=== PATIENT | male | born 1940 | race Caucasian/White ===

== ENCOUNTER 2024-01-15 08:57 | Emergency (ER) | payer MEDICARE, SELFPAY ==
--- NOTE | ~2024-01-15 | XR_ITS ---
EXAMINATION: XR chest 2V DATE: 01/15/2024 10:39 INDICATION: Shortness of breath. Congestive heart failure. TECHNIQUE: Frontal and lateral views of the chest were obtained. COMPARISON: None. FINDINGS: There are tiny pleural effusions. No pneumonia or pneumothorax. Cardiomegaly is noted. Ther e is a left chest wall pacer with leads in the right atrium and right ventricle. IMPRESSION: 1. Tiny pleural effusions. 2. Cardiomegaly. Reviewed, dictated and finalized at location A.
[2024-01-15 08:59] VITALS: BP 150/80; PULSE 83; RESP 19; TEMP 36.6; O2SAT 98
--- NOTE | 2024-01-15 09:35 | ECG_ITS ---
Test Date: 2024-01-15 09:39:57 Measurements Intervals [place] Rate: 76 P: 0 [place]: 0 QRS: 21 QRSD: 158 T: 136 QT: 440 QTc: 497 Interpretive Statements ATRIAL FIBRILLATION ELECTRONIC VENTRICULAR COMPLEXES LEFT BUNDLE BRANCH BLOCK BASELINE ARTIFACT- I, II, III, AVR ABNORMAL ECG No previous ECG available for comparison Electronically Signed On 01-15-2024 10:06:24 CDT by Tray Ladd D.O.
[2024-01-15 09:37] VITALS: PULSE 71
[2024-01-15 09:40] VITALS: O2SAT 100
--- NOTE | 2024-01-15 09:48 | ED.SOB ---
HPI - SOB/Dyspnea General Chief Complaint: Shortness of Breath/Dyspnea Stated Complaint: sob Time Seen by Provider: 01/15/24 09:39 Source: patient Mode of arrival: wheelchair Limitations: no limitations History of Present Illness HPI Narrative: This is an 83-year-old male that presents to the emergency department for shortness of breath. Ongoing since yesterday. Reports he has been increasingly ill over the last several months. He has history of COPD. Chronically wears oxygen via nasal cannula. He has had some swelling in his legs. He does report a cough. Denies fevers or chest pain. Related Data Home Medications Medication Instructions Recorded Confirmed levothyroxine 100 mcg tablet 100 mcg PO DAILY 08/07/20 losartan 25 mg tablet 12 mg PO DAILY 08/07/20 montelukast 10 mg tablet 10 mg PO DAILY 08/07/20 omeprazole 40 mg capsule,delayed 40 mg PO DAILY 08/07/20 release Allergies Allergy/AdvReac Type Severity Reaction Status Date / Time No Known Allergies Verified 01/15/24 09:04 Review of Systems Review of Systems: CONSTITUTIONAL: Denies fever CARDIOVASCULAR: Reports edema. Denies chest pain RESPIRATORY: Reports cough and dyspnea. All systems reviewed & are unremarkable except as noted in HPI and below PMFSH Past Medical History Medical History (Updated 01/15/24 @ 11:11 by Eva Giles PA-C) History of COPD History of hyperlipidemia History of hypertension Social History Social History (Updated 08/07/20 @ 15:36 by Tiffany Estrada) Smoking status: Light tobacco smoker Tobacco type: cigarettes and cigars Exam Narrative: GENERAL: Elderly, well-nourished, and in no acute distress. HEAD: Normocephalic, atraumatic. EYES: EOMI. ENT: Nares clear, no rhinorrhea or epistaxis. Mucous membranes moist. Oropharynx without tonsillar hypertrophy exudate or other lesions. NECK: Supple. No adenopathy or masses. CHEST: No respiratory distress. Lung sounds diminished with scattered wheezing. No rhonchi HEART: Regular rate and rhythm. No murmur heard. Normal peripheral pulses. EXTREMITIES: Normal range of motion. 1+ pitting edema to the bilateral lower extremities SKIN: Warm, dry, no rash. NEURO: No focal deficits. Alert and oriented x3. PSYCH: Normal mood and affect Course Course Emergency Course: patient reports relief after nebulizer treatment and steroid Vital Signs Vital signs: Vital Signs Temperature 98 F 01/15/24 08:59 Pulse Rate 83 01/15/24 08:59 Respiratory Rate 19 01/15/24 08:59 Blood Pressure 150/80 H 01/15/24 08:59 Pulse Oximetry 98 01/15/24 08:59 Oxygen Delivery Nasal Cannula 01/15/24 08:59 Oxygen Flow Rate 3 01/15/24 08:59 Temperature 98 F 01/15/24 08:59 Pulse Rate 87 01/15/24 11:06 Respiratory Rate 18 01/15/24 11:06 Blood Pressure 152/87 H 01/15/24 11:06 Pulse Oximetry 99 01/15/24 11:06 Oxygen Delivery Nasal Cannula 01/15/24 09:40 Oxygen Flow Rate 3 01/15/24 09:40 MDM - SOB/Dyspnea MDM Narrative Medical decision making narrative: Patient presents to the emergency department for shortness of breath. Ongoing since yesterday. Does report a nonproductive cough that is about his usual due to COPD. Patient chronically wears 3 L via nasal cannula. He has been stable on this since arrival. Heart rate is normal. He is afebrile. Cbc without leukocytosis. Metabolic panel with creatinine of 1.7, no acute electrolyte derangements. Unsure of what his baseline kidney function as we do not have any recent blood work here. BNP 1940. Chest x-ray shows tiny pleural effusions and cardiomegaly. Patient reports relief after nebulizer treatment and steroid. Reports he is ready for discharge. Reports he would like our PCP on-call as he is trying to change to [employer] providers due to insurance. He was given this information. He was given warnings to return to the ER Differential Diagnosis Differential diagnosis: Like
[2024-01-15 09:52] LABS: Basophils Percent Auto 0.6 % (0.2-1.2); Eosinophils Absolute Auto 0.2 K/mm3 (0-0.3); Eosinophils Percent Auto 4.8 % (0-4.4); Hematocrit 32.6 % (42.0-52.0); Hemoglobin 10.2 g/dL (14.0-18.0); Immature Granulocyte Absolute 0.01 K/mm3 (0.00-0.031); Immature Granulocyte Percent A 0.2 % (0-0.5); Lymphocytes Absolute Auto 1.12 K/mm3 (0.9-3.2); Lymphocytes Percent Auto 23.6 % (18.3-44.2); Mean Corpuscular HGB Conc 31.3 g/dl (32-36); Mean Corpuscular Hemoglobin 28.1 pg (26-34); Mean Corpuscular Volume 89.8 fl (80-100); Mean Platelet Volume 10.4 fl (7.4-10.4); Monocytes Absolute Auto 0.4 K/mm3 (0.1-0.6); Monocytes Percent Auto 9.1 % (2.6-8.5); Neutrophils Absolute Auto 2.9 K/mm3 (1.3-6.7); Neutrophils Percent Auto 61.7 % (45.5-73.1); Platelet Count Result 128 k/mm3 (150-375); Red Blood Count 3.63 M/mm3 (4.6-6.20); Red Cell Distribution Width 16.4 % (11.5-14.5); White Blood Count 4.8 K/mm3 (4.5-10.0)
[2024-01-15] MEDS: methylPREDNISolone SOD SUCC 125 MG VIAL IV PUSH (09:55)
[2024-01-15 09:57] VITALS: PULSE 86; RESP 23
[2024-01-15] MEDS: IPRATROPIUM BR 0.02% INH SOLN 0.5 MG/2.5 ML VIAL INHALATION (09:58)
[2024-01-15] MEDS: LEVALBUTEROL NEB 1.25 MG/3 ML INHALATION (09:58)
[2024-01-15 10:03] LABS: Alanine Aminotransferase 16 U/L (6-50); Albumin Level 3.7 g/dL (3.5-5.1); Alkaline Phosphatase 83 U/L (38-126); Anion Gap 7 mmol/L (4-12); Aspartate Amino Transferase 37 U/L (17-59); Bilirubin,Total 0.4 mg/dL (0.2-1.3); Blood Urea Nitrogen 12 mg/dL (9-20); Calcium 8.4 mg/dL (8.4-10.2); Carbon Dioxide 29 mmol/L (22-30); Chloride 96 mmol/L (98-107); Estimated CRCL calculation 35 ml/min; Estimated Glomerular Filt Rate 39; Glucose 87 mg/dL (65-110); Sodium 132 mmol/L (137-145)
[2024-01-15 10:04] VITALS: PULSE 75; RESP 18
[2024-01-15 10:09] LABS: INR 1.2; Prothrombin Time 15.3 Seconds (11.1-14.7)
[2024-01-15 10:10] LABS: Partial Thromboplastin Time 40.3 Seconds (22.3-36.8)
[2024-01-15 10:11] LABS: NT Pro B Type Natriuretic Pept 1940 pg/mL (19.9-100)
[2024-01-15 11:06] VITALS: BP 152/87; PULSE 87; RESP 18; O2SAT 99
== END 2024-01-15 11:27 | disposition home or self-care (01) ==
PROVIDERS: Emergency Medicine; Emergency Provider Physician Assistant
DX: J44.1 Chronic obstructive pulmonary disease with (acute) exacerbation (principal); I10 Essential (primary) hypertension; E78.5 Hyperlipidemia, unspecified; F17.210 Nicotine dependence, cigarettes, uncomplicated; Z99.81 Dependence on supplemental oxygen
CPT/HCPCS: 36415; 71046; 80053; 83880; 85025; 85610; 85730; 93005; 94640; 96374; 99284; J2919

== ENCOUNTER 2024-02-08 05:02 | Emergency (ER) | payer MEDICARE, SELFPAY ==
[2024-02-08] VITALS (14 sets, daily range): BP systolic 113–133; BP diastolic 69–88; PULSE 69–106; RESP 14–28; TEMP 36.4; O2SAT 97–100
--- NOTE | ~2024-02-08 | XR_ITS ---
EXAMINATION: XR chest 1V portable DATE: 02/08/2024 05:44 INDICATION: Chest pain and shortness of breath TECHNIQUE: frontal view of the chest was obtained. COMPARISON: Chest radiograph dated 01/15/24 FINDINGS: Mild linear discoid atelectasis at the medial left lung base. No other airspace opacities, pulmonary edema, pleural effusion or pneumothorax. Cardiomegaly. Dual lead pacemaker seen with leads projecting over the expected locations of the right atrium and right ventricle. Cholecystectomy clips in right upper quadrant. IMPRESSION: 1. Mild discoid atelectasis at the left lung base. No other acute cardiopulmonary disease. 2. Cardiomegaly. Reviewed, dictated and finalized at location A. IMPRESSION: 1. Mild discoid atelectasis at the left lung base. No other acute cardiopulmona ry disease. 2. Cardiomegaly.
--- NOTE | 2024-02-08 05:04 | ECG_ITS ---
Test Date: 2024-02-08 05:17:31 Measurements Intervals [place] Rate: 102 P: 0 KS: 0 QRS: 178 QRSD: 168 T: 60 QT: 417 QTc: 543 Interpretive Statements ATRIAL FIBRILLATION WITH RAPID VENTRICULAR RESPONSE LEFT BUNDLE BRANCH BLOCK Possible the limb lead reversal possible lateral myocardial infarction Compared to ECG 01/15/2024 09:39:57 Intraventricular conduction delay now present changing QRS axis in limb leads possible related to limb lead reversal Electronically Signed On 02-08-2024 11:37:15 CDT by Wei Capone M.D.
[2024-02-08 05:23] LABS: Basophils Percent Auto 0.7 % (0.2-1.2); Eosinophils Absolute Auto 0.1 K/mm3 (0-0.3); Eosinophils Percent Auto 2.3 % (0-4.4); Hemoglobin 11.1 g/dL (14.0-18.0); Immature Granulocyte Absolute 0.02 K/mm3 (0.00-0.031); Immature Granulocyte Percent A 0.3 % (0-0.5); Lymphocytes Absolute Auto 0.88 K/mm3 (0.9-3.2); Lymphocytes Percent Auto 14.6 % (18.3-44.2); Mean Corpuscular HGB Conc 31.7 g/dl (32-36); Mean Corpuscular Hemoglobin 28.6 pg (26-34); Mean Corpuscular Volume 90.2 fl (80-100); Mean Platelet Volume 10.7 fl (7.4-10.4); Monocytes Absolute Auto 0.7 K/mm3 (0.1-0.6); Neutrophils Absolute Auto 4.3 K/mm3 (1.3-6.7); Neutrophils Percent Auto 71.1 % (45.5-73.1); Platelet Count Result 192 k/mm3 (150-375); Red Blood Count 3.88 M/mm3 (4.6-6.20); Red Cell Distribution Width 16.4 % (11.5-14.5)
[2024-02-08 05:33] LABS: Alanine Aminotransferase 24 U/L (6-50); Albumin Level 4.2 g/dL (3.5-5.1); Alkaline Phosphatase 113 U/L (38-126); Anion Gap 9 mmol/L (4-12); Aspartate Amino Transferase 26 U/L (17-59); Bilirubin,Total 0.7 mg/dL (0.2-1.3); Blood Urea Nitrogen 19 mg/dL (9-20); Calcium 8.2 mg/dL (8.4-10.2); Carbon Dioxide 31 mmol/L (22-30); Chloride 96 mmol/L (98-107); Estimated CRCL calculation 37 ml/min; Estimated Glomerular Filt Rate 41; Glucose 105 mg/dL (65-110); INR 1.3; Lipase 76 U/L (23-300); Potassium 3.8 mmol/L (3.4-5.0); Prothrombin Time 16.4 Seconds (11.1-14.7); Sodium 136 mmol/L (137-145)
[2024-02-08 05:34] LABS: Partial Thromboplastin Time 39.8 Seconds (22.3-36.8)
[2024-02-08 05:45] LABS: Troponin I 0.019 ng/mL (0.000-0.034)
--- NOTE | 2024-02-08 05:46 | PC.NURSE ---
Called lab to add on BNP.
[2024-02-08] MEDS: ASPIRIN 81 MG CHEWABLE TABLET 324 MG PO (05:54)
[2024-02-08 06:08] LABS: NT Pro B Type Natriuretic Pept 2490 pg/mL (19.9-100)
--- NOTE | 2024-02-08 06:14 | ED.GENADULT ---
HPI - General Adult General Chief complaint: Arrhythmia/Palpitations Stated complaint: heart not beating right Time Seen by Provider: 02/08/24 05:20 History of Present Illness HPI narrative: Patient is a 83-year-old gentleman presents emergency department with chief complaint of shortness of breath palpitations. Patient normally wears approximately 3 L of nasal cannula oxygen all the time states he started having increasing shortness of breath patient has history of COPD also has a pacemaker and history of congestive heart failure. The patient states that started having shortness of breath noticed that his heart is been beating funny similar to whenever he has been cardioverted in the past. Related Data Home Medications Medication Instructions Recorded Confirmed levothyroxine 100 mcg tablet 100 mcg PO DAILY 08/07/20 losartan 25 mg tablet 12 mg PO DAILY 08/07/20 montelukast 10 mg tablet 10 mg PO DAILY 08/07/20 omeprazole 40 mg capsule,delayed 40 mg PO DAILY 08/07/20 release Allergies Allergy/AdvReac Type Severity Reaction Status Date / Time No Known Allergies Verified 02/08/24 05:15 Review of Systems Review of Systems: A 10 system review of systems was completed on the patient and is negative except for what is stated in the HPI. Nursing and ancillary documentation was reviewed. [facility] Past Medical History Medical History History of COPD History of hyperlipidemia History of hypertension Social History Social History Smoking status: Light tobacco smoker Tobacco type: cigarettes and cigars Exam Narrative: GENERAL: Well-appearing, well-nourished, and in no acute distress. HEAD: Normocephalic, atraumatic. EYES: PERRLA and EOMI. ENT: Nares clear, no rhinorrhea or epistaxis. Mucous membranes moist. NECK: Supple. CHEST: Clear to auscultation. No respiratory distress. There is a pacemaker present in the left chest wall HEART: Regular rate and rhythm. No murmur heard. Normal peripheral pulses. ABDOMEN: Soft, nontender, nondistended, normal active bowel sounds. EXTREMITIES: Normal range of motion. No edema. SKIN: Warm, dry, no rash. NEURO: No focal deficits. Alert and oriented x3. PSYCH: Normal mood and affect. Course Vital Signs Vital signs: Vital Signs Temperature 36.4 C L 02/08/24 05:08 Pulse Rate 104 H 02/08/24 05:08 Respiratory Rate 24 H 02/08/24 05:08 Pulse Oximetry 97 02/08/24 05:08 Oxygen Delivery Nasal Cannula 02/08/24 05:08 Oxygen Flow Rate 3 02/08/24 05:08 Temperature 36.4 C L 02/08/24 05:08 Pulse Rate 106 H 02/08/24 05:23 Respiratory Rate 16 02/08/24 05:23 Blood Pressure 121/71 02/08/24 05:23 Pulse Oximetry 100 02/08/24 05:23 Oxygen Delivery Nasal Cannula 02/08/24 05:13 Oxygen Flow Rate 3 02/08/24 05:13 Medical Decision Making MDM Narrative Medical decision making narrative: Differential diagnosis includes COPD exacerbation CHF exacerbation, pneumonia Chest x-ray showed no focal infiltrate patient is feeling better at this time pacer was interrogated that showed no acute abnormalities The patient will be discharged home with a short course of prednisone Vital Signs Vital Signs: Vital Signs Temperature 36.4 C L 02/08/24 05:08 Pulse Rate 104 H 02/08/24 05:08 Respiratory Rate 24 H 02/08/24 05:08 Pulse Oximetry 97 02/08/24 05:08 Oxygen Delivery Nasal Cannula 02/08/24 05:08 Oxygen Flow Rate 3 02/08/24 05:08 Temperature 36.4 C L 02/08/24 05:08 Pulse Rate 106 H 02/08/24 05:23 Respiratory Rate 16 02/08/24 05:23 Blood Pressure 121/71 02/08/24 05:23 Pulse Oximetry 100 02/08/24 05:23 Oxygen Delivery Nasal Cannula 02/08/24 05:13 Oxygen Flow Rate 3 02/08/24 05:13 Lab Data 02/08/24 05:16 02/08/24 05:16 Labs: Lab Results
== END 2024-02-08 07:26 | disposition home or self-care (01) ==
PROVIDERS: Emergency Provider Emergency Medicine
DX: J44.1 Chronic obstructive pulmonary disease with (acute) exacerbation (principal); I11.0 Hypertensive heart disease with heart failure; I50.9 Heart failure, unspecified; E78.5 Hyperlipidemia, unspecified; Z95.0 Presence of cardiac pacemaker; Z99.81 Dependence on supplemental oxygen; Z72.0 Tobacco use
CPT/HCPCS: 36415; 71045; 80053; 83690; 83880; 84484; 85025; 85610; 85730; 93005; 99284; A9270

== ENCOUNTER 2024-02-14 14:07 | Emergency (ER) | payer MEDICARE, SELFPAY ==
[2024-02-14] VITALS (16 sets, daily range): BP systolic 118–141; BP diastolic 61–89; PULSE 67–109; RESP 17–29; TEMP 36.7; O2SAT 86–100
--- NOTE | ~2024-02-14 | XR_ITS ---
EXAMINATION: XR chest 1V portable Exam Date/Time: 02/14/2024 14:45 CDT HISTORY: cough, loki SOB 4-5 DAYS COPD BILAT WHEEZING Comparison: 02/08/2024. RESULT: Lines, tubes, and devices: Left chest pacer with intact leads. Lungs and pleura: Clear. Cardiomediastinal silhouette: Stable. Other: No acute osseous or upper abdominal finding. IMPRESSION: No acute cardiopulmonary process. Reviewed, dictated and finalized at location K.
--- NOTE | 2024-02-14 14:14 | ECG_ITS ---
Test Date: 2024-02-14 14:18:09 Measurements Intervals [place] Rate: 96 P: 0 KS: 0 QRS: -42 QRSD: 169 T: 124 QT: 450 QTc: 570 Interpretive Statements ATRIAL FIBRILLATION MARKED LEFT AXIS DEVIATION [QRS AXIS < -30] LEFT BUNDLE BRANCH BLOCK [120+ ms QRS DURATION, 80+ ms Q/S IN V1/V2, 85+ ms R IN I/aVL/V5/V6] Compared to ECG 02/08/2024 05:17:31 Left-axis deviation now present Electronically Signed On 02-14-2024 14:43:34 CDT by Sawyer Carlson M.D.
[2024-02-14] MEDS: ALBUTEROL SULFATE NEB 2.5 MG/3 ML INH 15 MG INHALATION (14:25)
[2024-02-14] MEDS: IPRATROPIUM BR 0.02% INH SOLN 0.5 MG/2.5 ML VIAL 1 MG INHALATION (14:25)
[2024-02-14] MEDS: predniSONE 20 MG TABLET 40 MG PO (15:41)
--- NOTE | 2024-02-14 15:59 | ED_ITS ---
HPI - SOB/Dyspnea General Chief Complaint: Shortness of Breath/Dyspnea Stated Complaint: SOB Time Seen by Provider: 02/14/24 14:15 History of Present Illness HPI Narrative: Patient with history of COPD right-sided intermittent difficulty breathing since August presents here with some shortness of breath, no cough or chest pain. He would also like to have a new doctor. Related Data Home Medications Medication Instructions Recorded Confirmed levothyroxine 100 mcg tablet 100 mcg PO DAILY 08/07/20 losartan 25 mg tablet 12 mg PO DAILY 08/07/20 montelukast 10 mg tablet 10 mg PO DAILY 08/07/20 omeprazole 40 mg capsule,delayed 40 mg PO DAILY 08/07/20 release Allergies Allergy/AdvReac Type Severity Reaction Status Date / Time No Known Allergies Verified 02/14/24 14:23 Review of Systems Review of Systems: All systems reviewed & are unremarkable except as noted in HPI and below PMFSH Past Medical History Medical History History of COPD History of hyperlipidemia History of hypertension Social History Social History Smoking status: Light tobacco smoker Tobacco type: cigarettes and cigars Exam Narrative: EXAMINATION OF ORGAN SYSTEMS/BODY AREAS: Constitutional: Vital signs per nursing GENERAL:[No acute distress, non-toxic appearing.] HEAD: Normal with no signs of head trauma. EYES: EOMI, conjunctiva normal ENT: Hearing grossly intact LUNGS: Nonlabored breathing. Wheezing all lung hilliard HEART: Irregularly irregular rhythm ABD: [Soft], [nontender to palpation] EXT: Normal range of motion SKIN: [No rashes or lesions.] NEURO: [Alert and oriented x 3. No gross focal sensory or strength deficits.] PSYCH: Normal affect Course Vital Signs Vital signs: Vital Signs Temperature 98.1 F 02/14/24 14:07 Pulse Rate 67 02/14/24 14:07 Respiratory Rate 22 H 02/14/24 14:07 Blood Pressure 141/89 H 02/14/24 14:07 Pulse Oximetry 90 02/14/24 14:07 Oxygen Delivery Room Air 02/14/24 14:07 Temperature 98.1 F 02/14/24 14:07 Pulse Rate 100 02/14/24 16:04 Respiratory Rate 20 02/14/24 16:04 Blood Pressure 135/61 02/14/24 15:31 Pulse Oximetry 95 02/14/24 16:04 Oxygen Delivery Nasal Cannula 02/14/24 14:26 Oxygen Flow Rate 2 02/14/24 14:26 Fraction of Inspired Oxygen 28 02/14/24 14:26 MDM - SOB/Dyspnea MDM Narrative Medical decision making narrative: Patient presents with shortness of breath, on exam he is wheezing, breathing treatments initiated and prednisone given, chest x-ray is clear, he after her feels much better, states he is ready to go home, I did find that he was in atrial fibrillation on EKG on my independent interpretation shows AFib rate 96, QRS 169, QTC 570, left bundle-branch block. I did ask patient if he has atrial fibrillation, he is does not think so and does not think he is on a blood thinner, his also does not know. Given this I did ask if I can keep him in the hospital to treat this, the nurse called pharmacy and was able to find that he actually is already on Eliquis And is already being treated for atrial fibrillation. Patient remembers this. He again states he does not want to stay and he feels much better, lungs are now clear, vital signs are stable, have let him know that if things get worse he needs come back immediately. Patient agreeable to the plan. He would like to have new doctor so I did provide referral to new specialists. Discharge Plan Discharge Clinical Impression: Acute exacerbation of chronic bronchitis Patient Disposition: Home, Self-Care Condition: Stable Instructions: Antibiotic Form, Chronic Bronchitis (ED) Additional Instructions: Please follow-up with the primary care doctor, cigarette package examiner, and special education teachers on Friday. If you have any concerning symptoms including shortness of breath, chest pain, or anything else, come back to the emergency room immediately. Prescriptions: New prednisone 20 mg tablet 40 mg PO DAILY 4 Days Qty: 8 0RF albuterol sulfate 90 mcg/actuation HFA aerosol inhaler 2 puff inhalation QID PRN (Reason: shortness of breath or wheezing) Qty: 8.5 0RF No Action levothyroxine 100 mcg tablet 100 mcg PO DAILY omeprazole 40 mg capsule,delayed release(DR/EC) 40 mg PO DAILY losartan 25 mg tablet 12 mg PO DAILY montelukast 10 mg tablet 10 mg PO DAILY prednisone 20 mg tablet 40 mg PO DAILY 4 Days Qty: 8 0RF prednisone 20 mg tablet 40 mg PO DAILY 5 Days Qty: 10 0RF Follow-up/Referrals: Tray Ladd DO [Physician] - 2 Days Quynh Forbes DO [Physician] - 2 Days Nate Chappell MD [Physician] - 2 Days UNKNOWN,DOCTOR [Primary Care Provider] -
--- NOTE | 2024-02-14 16:08 | PC.NURSE ---
Patient and spouse unsure if the patient is taking Eliquis. Called pharmacy that they use ([facility] [address]) and they confirmed that the patient already takes eliquis. Spoke with Farhat [employer].
== END 2024-02-14 16:10 | disposition home or self-care (01) ==
PROVIDERS: Emergency Provider Emergency Medicine
DX: J44.1 Chronic obstructive pulmonary disease with (acute) exacerbation (principal); E78.5 Hyperlipidemia, unspecified; I10 Essential (primary) hypertension; F17.210 Nicotine dependence, cigarettes, uncomplicated; F17.290 Nicotine dependence, other tobacco product, uncomplicated; Z79.899 Other long term (current) drug therapy; I48.91 Unspecified atrial fibrillation; I44.7 Left bundle-branch block, unspecified
CPT/HCPCS: 71045; 93005; 94640; 99283; J7512

== ENCOUNTER 2024-02-22 09:25 | Observation (INO) | payer MEDICARE, SELFPAY ==
[2024-02-22] VITALS (20 sets, daily range): BP systolic 97–132; BP diastolic 56–68; PULSE 81–121; RESP 16–24; TEMP 36.3–36.6; O2SAT 94–100; BMI 34.2
--- NOTE | ~2024-02-22 | US_ITS ---
BILATERAL LOWER EXTREMITY VENOUS ULTRASOUND Ordering provider: Horace Sena MD History: . Edema . Comparison: None. FINDINGS: RIGHT LOWER EXTREMITY VEINS: --COMMON FEMORAL: Patent and free of thrombus. Normal compressibility, phasic flow and augmentation. --PROXIMAL SUPERFICIAL FEMORAL: Patent and free of thrombus. Normal compressibility, phasic flow and augmentation. --DISTAL SUPERFICIAL FEMORAL: Patent and free of thrombus. Normal compressibility, phasic flow and au gmentation. --POPLITEAL: Patent and free of thrombus. Normal compressibility, phasic flow and augmentation. --POSTERIOR TIBIAL: Patent and free of thrombus. Normal compressibility, phasic flow and augmentation . LEFT LOWER EXTREMITY VEINS: --COMMON FEMORAL: Patent and free of thrombus. Normal compressibility, phasic flow and augmentation. --PROXIMAL SUPERFICIAL FEMORAL: Patent and free of thrombus. Normal compressibility, phasic flow and augmentation. --DISTAL SUPERFICIAL FEMORAL: Patent and free of thrombus. Normal compressibility, phasic flow and au gmentation. --POPLITEAL: Patent and free of thrombus. Normal compressibility, phasic flow and augmentation. --POSTERIOR TIBIAL: Patent and free of thrombus. Normal compressibility, phasic flow and augmentation . IMPRESSION: Negative bilateral lower extremity venous US. No deep vein thrombosis. Reviewed, dictated and finalized at location A.
--- NOTE | ~2024-02-22 | XR_ITS ---
Clinical Indication: Shortness of breath PA and lateral views of the chest: Comparison: 02/14/2024 Findings: The lungs are clear, without evidence of focal consolidation or pleural effusion. Cardiome diastinal silhouette is within normal limits stable, with pacemaker device. Bones and soft tissues ar e unremarkable. Impression: Clear lungs. Reviewed, dictated and finalized at location . Impression: Clear lungs.
--- NOTE | 2024-02-22 09:31 | ECG_ITS ---
Test Date: 2024-02-22 09:33:42 Measurements Intervals Willard Rate: 104 P: 0 KS: 0 QRS: -19 QRSD: 165 T: 90 QT: 377 QTc: 496 Interpretive Statements ATRIAL FIBRILLATION WITH RAPID VENTRICULAR RESPONSE WITH ABERRANT CONDUCTION OR VENTRICULAR PREMATURE COMPLEXES LEFT BUNDLE BRANCH BLOCK [120+ ms QRS DURATION, 80+ ms Q/S IN V1/V2, 85+ ms R IN I/aVL/V5/V6] Intermittent ventricular pacing ABNORMAL ECG Electronically Signed On 02-23-2024 10:36:09 CDT by Aravind Galvez M.D.
--- NOTE | 2024-02-22 09:50 | ED_ITS ---
HPI - General Adult General Chief complaint: Shortness of Breath/Dyspnea Stated complaint: dyspnea History of Present Illness HPI narrative: 83-year-old male with history of atrial fibrillation present to the emergency department for evaluation for worsening shortness of breath since August. Patient reports he did have COVID back in August ultimately resulting in placement of a pacemaker. Patient arrives in AFib with RVR. Patient states he has had worsening shortness breath over the last few days although it has been steadily worsening since his illness and August. Patient does have lower extremity swelling that he states has also been worsening for and on no pneumonia time. Upon arrival emergency department patient does have audible wheezing and increased work of breathing. Patient denies any associated chest pain. Related Data Home Medications Medication Instructions Recorded Confirmed levothyroxine 100 mcg tablet 125 mcg PO DAILY 08/07/20 02/22/24 apixaban 5 mg tablet (Eliquis) 5 mg PO BID 02/22/24 02/22/24 buspirone 5 mg tablet 5 mg PO BID PRN Anxiety 02/22/24 02/22/24 diltiazem HCl 120 mg 120 mg PO DAILY 02/22/24 02/22/24 capsule,extended release 24 hr (Cardizem CD) solifenacin 10 mg tablet 10 mg PO DAILY 02/22/24 02/22/24 tamsulosin 0.4 mg capsule 0.4 mg PO DAILY 02/22/24 02/22/24 umeclidinium 62.5 mcg-vilanterol 2 inh inhalation BID 02/22/24 02/22/24 25 mcg/actuation powdr for inhalation (Anoro Ellipta) Allergies Allergy/AdvReac Type Severity Reaction Status Date / Time No Known Allergies Verified 02/14/24 14:23 Review of Systems Review of Systems: All systems reviewed & are unremarkable except as noted in HPI and below PMFSH Past Medical History Medical History History of COPD History of hyperlipidemia History of hypertension Social History Social History Smoking status: Former smoker Alcohol intake: current Drinks per week: 3 Substance use: never Substance use type: does not use Do You Feel Safe in your Home?: Yes Lack of Transportation: No Lack of Food: Never True Current Housing: I Have Housing Concerned About Future Housing: No Difficulty Paying Gas/Electric Bills: No Difficulty Paying for Meds: No Currently Unemployed: No Education: Decline to Answer Difficulty w/ Childcare or Family Care: No Spiritual care concerns: No Exam Narrative: APPEARANCE: W uncomfortable appearing HEAD: normocephalic, atraumatic. EYES: PERRLA/EOMI, conjunctivae clear. NOSE: Normal no drainage EARS:TMS clear with good light reflex. THROAT: Pharynx clear, no exudate. NECK: Supple. No adenopathy, no masses. RESPIRATORY: Congested and wheezing lung sounds bilaterally CARDIOVASCULAR: Regular rate and rhythm without murmurs rubs or gallops. ABDOMINAL: Soft, nontender, nondistended, normal bowel sounds MUSCULOSKELETAL: Moves all extremities. Lower extremity edema NEURO: Alert. Cranial nerves II through XII intact. Grossly intact SKIN: Warm, dry. Normal Color Course Vital Signs Vital signs: Vital Signs Temperature 97.6 F 02/22/24 09:31 Pulse Rate 108 H 02/22/24 09:31 Respiratory Rate 23 H 02/22/24 09:31 Blood Pressure 114/64 02/22/24 09:31 Pulse Oximetry 100 02/22/24 09:31 Oxygen Delivery Nasal Cannula 02/22/24 09:31 Oxygen Flow Rate 3 02/22/24 09:31 Temperature 97.5 F L 02/22/24 16:00 Pulse Rate 99 02/22/24 16:00 Respiratory Rate 22 H 02/22/24 16:00 Blood Pressure 97/60 L 02/22/24 16:00 Pulse Oximetry 99 02/22/24 16:00 Oxygen Delivery Nasal Cannula 02/22/24 16:00 Oxygen Flow Rate 3 02/22/24 16:00 Medical Decision Making [facility] Narrative Medical decision making narrative: 83-year-old male with history of AFib present to the emergency department AFib with RVR. Patient is normally on 3 days of oxygen by nasal cannula but does report increased shortness of breath. Patient did have some wheezing on initial presentation did feel improved after Xopenex. Patient is afebrile with no leukocytosis but does have a hemoglobin 8.6 which is decreased compared to his most recent hemoglobin and early February. Patient denies any active bleeding. Patient was Hemoccult negative on his digital rectal exam. INR is 1.3. ABG showed no significant hypercapnia. Patient's CMP is similar to his baseline with a creatinine of 1.7. Patient's troponin isn't elevated. Patient did have an elevated BNP almost 2900, this is mildly elevated compared to his baseline and patient does have bilateral lower extremity pitting edema. Patient was treated with a dose of Cardizem to help with his AFib with RVR and also treated with a dose of Lasix for CHF. Patient is negative to influenza RSV COVID. Case was discussed with hospitalist patient was accepted for admission for a suspected COPD exacerbation with increased work of breathing. Patient was comfortable the plan for admission. All questions concerns were addressed. Patient will be admitted to the IMU. Differential Diagnosis Differential Diagnosis: COPD, CHF, pneumonia, hypoxia Vital Signs Vital Signs: Vital Signs Temperature 97.6 F 02/22/24 09:31 Pulse Rate 108 H 02/22/24 09:31 Respiratory Rate 23 H 02/22/24 09:31 Blood Pressure 114/64 02/22/24 09:31 Pulse Oximetry 100 02/22/24 09:31 Oxygen Delivery Nasal Cannula 02/22/24 09:31 Oxygen Flow Rate 3 02/22/24 09:31 Temperature 97.5 F L 02/22/24 16:00 Pulse Rate 99 02/22/24 16:00 Respiratory Rate 22 H 02/22/24 16:00 Blood Pressure 97/60 L 02/22/24 16:00 Pulse Oximetry 99 02/22/24 16:00 Oxygen Delivery Nasal Cannula 02/22/24 16:00 Oxygen Flow Rate 3 02/22/24 16:00 Lab Data Lab results reviewed: Yes I reviewed the patient's lab results. 02/22/24 09:50 02/22/24 09:50 Labs: Lab Results 02/22/24 02/22/24 Range/Units 09:37 09:50 WBC 8.1 (4.5-10.0) K/mm3 RBC 3.02 L (4.6-6.20) M/mm3 Hgb 8.6 L (14.0-18.0) g/dL Hct 27.7 L (42.0-52.0) % MCV 91.7 (80-100) fl MCH 28.5 (26-34) pg MCHC 31.0 L (32-36) g/dl RDW 16.8 H (11.5-14.5) % Plt Count 184 (150-375) k/mm3 MPV 10.0 (7.4-10.4) fl Immature Gran % (Auto) 1.1 H (0-0.5) % Neut % (Auto) 77.4 H (45.5-73.1) % Lymph % (Auto) 10.9 L (18.3-44.2) % Fountain % (Auto) 9.4 H (2.6-8.5) % Eos % (Auto) 1.0 (0-4.4) % Baso % (Auto) 0.2 (0.2-1.2) % Lymph # (Auto) 0.88 L (0.9-3.2) K/mm3 Fountain # (Auto) 0.8 H (0.1-0.6) K/mm3 Eos # (Auto) 0.1 (0-0.3) K/mm3 Baso # (Auto) 0.0 (0.0-0.1) K/mm3 Abs Immat Gran (auto) 0.09 H (0.00-0.031) K/mm3 Absolute Neuts (auto) 6.3 (1.3-6.7) K/mm3 Absolute Nucleated RBC 0.000 (0.0-0.012) K/mm3 Nucleated RBC % 0.0 (0.0-0.2) % PT 16.1 H (11.1-14.7) Seconds INR 1.3 APTT 32.1 (22.3-36.8) Seconds Methemoglobin 0.2 (0-1.5) %THb Sodium 135 L (137-145) mmol/L Potassium 3.4 (3.4-5.0) mmol/L Chloride 97 L (98-107) mmol/L Carbon Dioxide 33 H (22-30) mmol/L Anion Gap 5 (4-12) mmol/L BUN 37 H D (9-20) mg/dL Creatinine 1.70 H (0.7-1.3) mg/dL Estim Creat Clear Calc 38 ml/min Estimated GFR 39 L (59 - ) Glucose 94 (65-110) mg/dL Calcium 8.3 L (8.4-10.2) mg/dL Total Bilirubin 0.8 (0.2-1.3) mg/dL AST 24 (17-59) U/L ALT 35 (6-50) U/L Alkaline Phosphatase 83 (38-126) U/L Troponin I 0.018 (0.000-0.034) ng/mL NT-Pro-B Natriuret Pep 2850 H (19.9-100) pg/mL Total Protein 6.0 L (6.3-8.2) g/dL Albumin 3.6 (3.5-5.1) g/dL Influenza A (RT-PCR) Negative (Negative) Influenza B (RT-PCR) Negative (Negative) RSV (RT-PCR) Negative (Negative) SARS-CoV-2 RNA (RT-PCR) Negative (Negative) ABG Data ABG results: 02/22/24 09:50 Puncture Site Right brachial ABG pH 7.465 H ABG pCO2 38.2 ABG pO2 117.9 H ABG PO2/FiO2 Ratio 3.28 ABG HCO3 26.9 H ABG O2 Saturation 98.5 ABG O2 Content 12.8 L ABG Base Excess 3.0 A-a Gradient 94.5 Oxyhemoglobin 97.9 Carboxyhemoglobin 0.4 Reduced Hemoglobin 1.5 Total Hemoglobin 9.1 L O2 Delivery Device Nasal cannula O2 Liters/Min 4.0 FiO2 36 Imaging Data Radiologist's impression: Impressions Chest X-Ray 02/22/24 10:22 Impression: Clear lungs. Discharge Plan Discharge Clinical Impression: Congestive heart failure, COPD (chronic obstructive pulmonary disease), Acute dyspnea, Anemia, Urinary retention Patient Disposition: Still a Patient Condition: Serious
[2024-02-22 09:55] LABS: Alveolar/Arterial O2 Gradient 94.5 mmHg; Carboxyhemoglobin 0.4 % THb (0-2.0); Fractional Inspired Oxygen 36 %; HCO3 ABG 26.9 mEq/l (22.0-26.0); Methemoglobin ABG 0.2 %THb (0-1.5); Oxygen Content ABG 12.8 %vol (16.0-22.0); Oxygen Saturation ABG 98.5 % (95.0-100.0); Oxyhemoglobin 97.9 % THb (90.0-100.0); PCO2 ABG 38.2 mmHg (35.0-45.0); PO2 ABG 117.9 mmHg (80.0-100.0); PO2 FiO2 Ratio Arterial Blood 3.28 %; Reduced Hemoglobin 1.5 %THb (0-5.0); Total Hemoglobin 9.1 g/dL (12.0-18.0); pH ABG 7.465 (7.350-7.450)
[2024-02-22 09:56] LABS: Device NASAL CANNULA; Site Drawn RIGHT BRACHIAL
[2024-02-22 09:57] LABS: Basophils Percent Auto 0.2 % (0.2-1.2); Eosinophils Absolute Auto 0.1 K/mm3 (0-0.3); Hematocrit 27.7 % (42.0-52.0); Hemoglobin 8.6 g/dL (14.0-18.0); Immature Granulocyte Absolute 0.09 K/mm3 (0.00-0.031); Immature Granulocyte Percent A 1.1 % (0-0.5); Lymphocytes Absolute Auto 0.88 K/mm3 (0.9-3.2); Lymphocytes Percent Auto 10.9 % (18.3-44.2); Mean Corpuscular Hemoglobin 28.5 pg (26-34); Mean Corpuscular Volume 91.7 fl (80-100); Monocytes Absolute Auto 0.8 K/mm3 (0.1-0.6); Monocytes Percent Auto 9.4 % (2.6-8.5); Neutrophils Absolute Auto 6.3 K/mm3 (1.3-6.7); Neutrophils Percent Auto 77.4 % (45.5-73.1); Platelet Count Result 184 k/mm3 (150-375); Red Blood Count 3.02 M/mm3 (4.6-6.20); Red Cell Distribution Width 16.8 % (11.5-14.5); White Blood Count 8.1 K/mm3 (4.5-10.0)
[2024-02-22] MEDS: FUROSEMIDE INJ 40 MG/4 ML VIAL IV PUSH ×2 (10:04→20:23)
[2024-02-22] MEDS: dilTIAZem HCl INJ 25 MG/5 ML VIAL 10 MG IV PUSH (10:04)
[2024-02-22 10:08] LABS: Alanine Aminotransferase 35 U/L (6-50); Albumin Level 3.6 g/dL (3.5-5.1); Alkaline Phosphatase 83 U/L (38-126); Anion Gap 5 mmol/L (4-12); Aspartate Amino Transferase 24 U/L (17-59); Bilirubin,Total 0.8 mg/dL (0.2-1.3); Blood Urea Nitrogen 37 mg/dL (9-20); Calcium 8.3 mg/dL (8.4-10.2); Carbon Dioxide 33 mmol/L (22-30); Chloride 97 mmol/L (98-107); Estimated CRCL calculation 38 ml/min; Estimated Glomerular Filt Rate 39; Glucose 94 mg/dL (65-110); Potassium 3.4 mmol/L (3.4-5.0); Sodium 135 mmol/L (137-145)
[2024-02-22 10:10] LABS: INR 1.3; Prothrombin Time 16.1 Seconds (11.1-14.7)
[2024-02-22 10:11] LABS: Partial Thromboplastin Time 32.1 Seconds (22.3-36.8)
[2024-02-22 10:16] LABS: NT Pro B Type Natriuretic Pept 2850 pg/mL (19.9-100)
[2024-02-22 10:24] LABS: Troponin I 0.018 ng/mL (0.000-0.034)
[2024-02-22 10:26] LABS: Influenza A QL RT-PCR Negative (Negative); Influenza B QL RT-PCR Negative (Negative); RSV RNA, RT-PCR Negative (Negative); SARS-CoV-2 RNA PCR Negative (Negative)
--- NOTE | 2024-02-22 12:09 | P.HP_ITS ---
H&P: HPI History of Present Illness Date/Time: 02/22/24 12:09 Chief Complaint: Shortness of breath Narrative: 83-year-old male who presents to the ER with shortness of breath which has been worsening over the past few days but has been ongoing for several months. He also has noticed lower extremity edema. He reports no cough fever chills. He has history of atrial fibrillation and had a dual-chamber pacemaker placed in August 2023. He had COVID back in August. He also reports audible wheezing that has been ongoing. Denies any chest pain. Review of Systems Review of Systems: - CONSTITUTIONAL: Denies weight loss, fe faviola and chills. - HEENT: Denies changes in vision and he aring - RESPIRATORY: Reports SOB and cough. - CV: Denies palpitations and CP. - GI: Denies abdominal pain, nausea, vom iting and diarrhea. - : Denies dysuria and urinary frequen cy. - MSK: Denies myalgia and joint pain. - SKIN: Denies rash and pruritus. - NEUROLOGICAL: Denies headache and sync ope. - PSYCHIATRIC: Denies recent changes in mood. Denies anxiety and depression. [facility] Past Medical History Medical History History of COPD History of hyperlipidemia History of hypertension Social History Social History Smoking status: Former smoker Alcohol intake: current Drinks per week: 3 Substance use: never Substance use type: does not use Do You Feel Safe in your Home?: Yes Lack of Transportation: No Lack of Food: Never True Current Housing: I Have Housing Concerned About Future Housing: No Difficulty Paying Gas/Electric Bills: No Difficulty Paying for Meds: No Currently Unemployed: No Education: Decline to Answer Difficulty w/ Childcare or Family Care: No Spiritual care concerns: No Meds Home Medications and Allergies Home Medications Medication Instructions Recorded Confirmed Type levothyroxine 100 mcg tablet 125 mcg PO DAILY 08/07/20 02/22/24 History albuterol sulfate 90 mcg/actuation 2 puff inhalation QID PRN 02/14/24 02/22/24 Rx aerosol inhaler shortness of breath or wheezing #8.5 grams apixaban 5 mg tablet (Eliquis) 5 mg PO BID 02/22/24 02/22/24 History buspirone 5 mg tablet 5 mg PO BID PRN Anxiety 02/22/24 02/22/24 History diltiazem HCl 120 mg 120 mg PO DAILY 02/22/24 02/22/24 History capsule,extended release 24 hr (Cardizem CD) solifenacin 10 mg tablet 10 mg PO DAILY 02/22/24 02/22/24 History tamsulosin 0.4 mg capsule 0.4 mg PO DAILY 02/22/24 02/22/24 History umeclidinium 62.5 mcg-vilanterol 2 inh inhalation BID 02/22/24 02/22/24 History 25 mcg/actuation powdr for inhalation (Anoro Ellipta) Allergies Allergy/AdvReac Type Severity Reaction Status Date / Time No Known Allergies Verified 02/14/24 14:23 Vital Signs Vital Signs - 24 hr 02/22/24 09:31 02/22/24 09:54 02/22/24 09:54 Temperature 97.6 F Pulse Rate 108 H 108 H Respiratory Rate 23 H Blood Pressure 114/64 Pulse Oximetry 100 100 Oxygen Delivery Nasal Cannula Nasal Cannula Oxygen Flow Rate 3 3 02/22/24 09:52 02/22/24 10:02 02/22/24 10:44 Temperature Pulse Rate 106 H 107 H 90 Respiratory Rate 20 20 17 Blood Pressure 124/59 L Pulse Oximetry 100 Oxygen Delivery Oxygen Flow Rate Exam Narrative: APPEARANCE: Well appearing, no pain, no distress, well-nourished. HEAD: normocephalic, atraumatic. EYES: PERRLA/EOMI, conjunctivae clear. NOSE: Normal no drainage NECK: Supple. No adenopathy, no masses. RESPIRATORY: Coarse breath sound bilaterally, wheezing lung sounds bilaterally CARDIOVASCULAR: Regular rate AFib rhythm without murmurs rubs or gallops. ABDOMINAL: Soft, nontender, nondistended, normal bowel sounds MUSCULOSKELETAL: Moves all extremities. Lower extremity edema bilateral 2+ NEURO: Alert. Cranial nerves II through XII intact. Grossly intact SKIN: Warm, dry. Normal Color H&P: Results Labs Labs: Short CBC 02/22/24 Range/Units 09:50 WBC 8.1 (4.5-10.0) K/mm3 Hgb 8.6 L (14.0-18.0) g/dL Hct 27.7 L (42.0-52.0) % Plt Count 184 (150-375) k/mm3 BMP 02/22/24 09:50 Sodium 135 L Potassium 3.4 Chloride 97 L Carbon Dioxide 33 H BUN 37 H D Creatinine 1.70 H Glucose 94 Calcium 8.3 L Cardiac Enzymes 02/22/24 Range/Units 09:50 Troponin I 0.018 (0.000-0.034) ng/mL Liver Function 02/22/24 Range/Units 09:50 Total Bilirubin 0.8 (0.2-1.3) mg/dL AST 24 (17-59) U/L ALT 35 (6-50) U/L Alkaline Phosphatase 83 (38-126) U/L Albumin 3.6 (3.5-5.1) g/dL Assessment and Plan Assessment and plan (1) Congestive heart failure: Code(s): I50.9 - Heart failure, unspecified Status: Acute (2) COPD (chronic obstructive pulmonary disease): Code(s): J44.9 - Chronic obstructive pulmonary disease, unspecified Status: Acute (3) Urinary retention: Code(s): R33.9 - Retention of urine, unspecified Status: Acute (4) Anemia: Code(s): D64.9 - Anemia, unspecified Status: Acute Plan 83-year-old male who presents to the ED with worsening shortness of breath since August. Patient had COVID back in August which resulted in placement of pacemaker. Patient has a history of atrial fibrillation and also on home oxygen 3 L via nasal cannula. He stated that his worsening shortness of breath has been ongoing for the past few days. Also reported lower extremity edema which has been worsening as well. Upon arrival to the ED his vitals were stable except for mild tachycardia with AFib on monitor. Patient was afebrile and wheezy on presentation. Wheezing improved with Xopenex. Laboratory evaluation showed WBC of 8.1 hemoglobin of 8.6 which is down from 11 from the past creatinine was 1.7 which is about his baseline. Troponin is negative at 0.018 BNP 2850. Influenza RSV COVID swab was negative. Chest x-ray was clear. ABG 7.46/38/117/27. Patient received a dose of Lasix for possible congestive heart failure. Versus COPD exacerbation. He is admitted for further treatment Shortness of breath likely COPD exacerbation chest x-ray clear. However does have bilateral lower extremity edema. BNP is elevated and received a dose of Lasix. Will continue with DuoNeb treatment. Will start with steroid for possible COPD exacerbation AFib with RVR mild received a dose of Cardizem in the ER. Resume home medications and monitor on telemetry. History of cardioversion in the past on anticoagulation with Eliquis. He is on amiodarone carvedilol and Cardizem. With low EF will hold Cardizem will continue rest Congestive heart failure EF of 35-40% with global hypokinesis. Per DAVID from 08/2023 mild MR mild TR Status post dual-chamber pacemaker implantation Coronary artery disease History of gastric ulcer Obstructive sleep apnea History of nonsustained ventricular tachycardia COPD History of BPH status post TURP with ongoing inability to completely empty bladder using straight cath p.r.n.. Keen has been placed in the ER Hypothyroidism Hypertension Acute on chronic anemia 8.6 few days back is 11.1 continue to monitor no signs of bleeding CKD stage 3 baseline creatinine 1.6-1.7 Left bundle branch block is chronic DVT prophylaxis on Eliquis at home Code status discussed with the patient to not resuscitate Hospitalist MIPS Advance Care Plan I have confirmed that the patient's Advanced Care Plan is present, code status is documented, or surrogate decision maker is listed in patient medical record.: Yes Medication Reconciliation I have utilized all available resources to obtain, update and review the patients current medications (includes all prescriptions, OTC, herbals, cannabis, and nutritional supplements).: Yes
--- NOTE | 2024-02-22 12:56 | PC.NURSE ---
This RN received report from ED. The pt is to go to IMU room 231.
--- NOTE | 2024-02-22 13:10 | ADMGEN ---
This patient, Jorge L Call, was admitted to IMU Room 231-01 @ 1310. Patient/family oriented to hospital policies and general routines including ID bracelet, bed and alarms, visiting hours, pain management, procedures, bathroom and other care routines, personal items, smoking policy, room service/diet, and visiting hours. Information on how to activate the Rapid Response Team has been discussed. Patient/Family are encouraged to report perceived risks to care and to ask questions if they do not understand what they are told or what they should do.
[2024-02-22] MEDS: LEVALBUTEROL NEB 1.25 MG/3 ML 0.63 MG INHALATION ×2 (13:43→20:36)
[2024-02-22 14:35] LABS: Troponin I 0.016 ng/mL (0.000-0.034)
--- NOTE | 2024-02-22 14:35 | PC.NURSE ---
This RN attempted to gather pt's current medications and pt is unable to confirm what medications he is currently taking. Pt states there is nobody who can bring in medication bottles from home. Pt does not have a current medication list. This RN called the [facility] pharmacy in [place] to see what medications were recently filled and refilled. This RN also called [facility], which pt states this is a pharmacy that mails medications to him, and they did not answer; this RN left a voicemail and is awaiting a return phone call. This RN communicated with the complications of the medication reconciliation.
[2024-02-22] MEDS: methylPREDNISolone SOD SUCC 40 MG VIAL IV PUSH (16:19)
[2024-02-22] MEDS: APIXABAN 5 MG TABLET PO (20:23)
[2024-02-22] MEDS: carvediloL 3.125 MG TABLET PO (20:23)
[2024-02-22] MEDS: busPIRone HCL 5 MG TABLET PO (20:23)
[2024-02-22 20:24] LABS: Free T4 Free Thyroxine Reflex 0.86 ng/dL (0.78-2.19)
[2024-02-22] MEDS: IPRATROPIUM BR 0.02% INH SOLN 0.5 MG/2.5 ML VIAL INHALATION (20:36)
[2024-02-22 21:11] LABS: Total Triiodothyronine (T3) 0.66 NG/ML (0.97-1.69)
[2024-02-23] VITALS (29 sets, daily range): BP systolic 101–113; BP diastolic 45–77; PULSE 54–125; RESP 20–24; TEMP 36.3–36.9; O2SAT 94–100
[2024-02-23] MEDS: IPRATROPIUM BR 0.02% INH SOLN 0.5 MG/2.5 ML VIAL INHALATION ×4 (02:47→21:24)
[2024-02-23] MEDS: LEVALBUTEROL NEB 1.25 MG/3 ML 0.63 MG INHALATION ×4 (02:48→21:27)
[2024-02-23] MEDS: methylPREDNISolone SOD SUCC 40 MG VIAL IV PUSH (02:49)
[2024-02-23 04:42] LABS: Basophils Percent Auto 0.1 % (0.2-1.2); Hematocrit 30.1 % (42.0-52.0); Hemoglobin 9.5 g/dL (14.0-18.0); Immature Granulocyte Absolute 0.11 K/mm3 (0.00-0.031); Immature Granulocyte Percent A 1.1 % (0-0.5); Lymphocytes Absolute Auto 0.41 K/mm3 (0.9-3.2); Lymphocytes Percent Auto 4.2 % (18.3-44.2); Mean Corpuscular HGB Conc 31.6 g/dl (32-36); Mean Corpuscular Hemoglobin 28.4 pg (26-34); Mean Corpuscular Volume 89.9 fl (80-100); Mean Platelet Volume 10.3 fl (7.4-10.4); Monocytes Absolute Auto 0.2 K/mm3 (0.1-0.6); Monocytes Percent Auto 1.6 % (2.6-8.5); Neutrophils Absolute Auto 9.1 K/mm3 (1.3-6.7); Platelet Count Result 210 k/mm3 (150-375); Red Blood Count 3.35 M/mm3 (4.6-6.20); Red Cell Distribution Width 16.4 % (11.5-14.5); White Blood Count 9.8 K/mm3 (4.5-10.0)
[2024-02-23 05:00] LABS: Alanine Aminotransferase 31 U/L (6-50); Albumin Level 3.5 g/dL (3.5-5.1); Alkaline Phosphatase 82 U/L (38-126); Anion Gap 7 mmol/L (4-12); Aspartate Amino Transferase 21 U/L (17-59); Bilirubin,Total 1.1 mg/dL (0.2-1.3); Blood Urea Nitrogen 33 mg/dL (9-20); Carbon Dioxide 30 mmol/L (22-30); Chloride 98 mmol/L (98-107); Estimated CRCL calculation 44 ml/min; Estimated Glomerular Filt Rate 48; Glucose 138 mg/dL (65-110); Magnesium 2.1 mg/dL (1.6-2.3); Potassium 3.6 mmol/L (3.4-5.0); Sodium 135 mmol/L (137-145)
[2024-02-23 05:11] LABS: Platelet Estimate Adequate (Adequate)
[2024-02-23 05:12] LABS: Anisocytosis 1+; Hypochromasia 1+; Poikilocytosis 1+
[2024-02-23 05:13] LABS: Crenated RBC 1+; Ovalocytes 1+; Schistocytes Rare
[2024-02-23] MEDS: LEVOTHYROXINE SODIUM 125 MCG TABLET PO (06:08)
[2024-02-23] MEDS: TAMSULOSIN HCL 0.4 MG CAPSULE PO (08:18)
[2024-02-23] MEDS: PANTOPRAZOLE 40 MG TABLET PO (08:18)
[2024-02-23] MEDS: carvediloL 3.125 MG TABLET PO ×2 (08:18→20:49)
[2024-02-23] MEDS: APIXABAN 5 MG TABLET PO ×2 (08:19→20:49)
[2024-02-23] MEDS: AMIODARONE HCL 200 MG TABLET PO (08:19)
[2024-02-23] MEDS: busPIRone HCL 5 MG TABLET PO ×2 (08:19→20:49)
[2024-02-23] MEDS: SOLIFENACIN 5 MG TABLET 10 MG PO (08:19)
[2024-02-23] MEDS: FUROSEMIDE INJ 40 MG/4 ML VIAL IV PUSH ×2 (08:20→20:49)
[2024-02-23] MEDS: dilTIAZem HCL CD 120 MG CAP.24HR PO (10:04)
--- NOTE | 2024-02-23 11:36 | P.PNIM_ITS ---
Progress Note: A&P Assessment and Plan (1) Congestive heart failure: Code(s): I50.9 - Heart failure, unspecified Status: Acute (2) COPD (chronic obstructive pulmonary disease): Code(s): J44.9 - Chronic obstructive pulmonary disease, unspecified Status: Acute (3) Urinary retention: Code(s): R33.9 - Retention of urine, unspecified Status: Acute (4) Anemia: Code(s): D64.9 - Anemia, unspecified Status: Acute Plan 83-year-old male who presents to the ED with worsening shortness of breath since August. Patient had COVID back in August which resulted in placement of pacemak er. Patient has a history of atrial fibrillation and also on home oxygen 3 L via nasal cannula. He stated that his worsening shortness of breath has been ongoing for the past few days. Also reported lower extremity edema which has been worsening as well. Upon arrival to the ED his vitals were stable except for mild tachycardia with AFib on monitor. Patient was afebrile and wheezy on presentation. Wheezing improved with Xopenex. Laboratory evaluation showed WBC of 8.1 hemoglobin of 8.6 which is down from 11 from the past creatinine was 1.7 which is about his baseline. Troponin is negative at 0.018 BNP 2850. Influenza RSV COVID swab was negative. Chest x-ray was clear. ABG 7.46/38/117/27. Patient received a dose of Lasix for possible congestive heart failure. Versus COPD exacerbation. He is admitted for further treatment Shortness of breath likely COPD exacerbation chest x-ray clear. However does have bilateral lower extremity edema. BNP is elevated and received a dose of Lasix. Will continue with DuoNeb treatment. Will start with steroid for possible COPD exacerbation AFib with RVR mild received a dose of Cardizem in the ER. Resume home medications and monitor on telemetry. History of cardioversion in the past on anticoagulation with Eliquis. He is on amiodarone carvedilol and Cardizem. Resume Cardizem. Currently at mild RVR Congestive heart failure EF of 35-40% with global hypokinesis. 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 Keen has been placed in the ER Hypothyroidism TSH elevated 21.7 levothyroxine 125 mcg daily seen she was just recently increased. Follow-up as an outpatient basis Hypertension Acute on chronic anemia 8.6 few days back is 11.1 continue to monitor no signs of bleeding CKD stage 3 baseline creatinine 1.6-1.7 Left bundle branch block is chronic DVT prophylaxis on Eliquis at home Code status discussed with the patient to not resuscitate Subjective Date/time seen: 02/23/24 11:36 Interval history: No overnight events: Heart rate is elevated. Denies any chest pain. Some shortness of breath persist. Legs are still swollen. Review of Systems Review of Systems: All systems reviewed & are unremarkable except as noted in HPI and below Exam Narrative: APPEARANCE: Well appearing, no pain, no distress, well-nourished. HEAD: normocephalic, atraumatic. EYES: PERRLA/EOMI, conjunctivae clear. NOSE: Normal no drainage NECK: Supple. No adenopathy, no masses. RESPIRATORY: Coarse breath sound bilaterally, S sound bilaterally no wheezing CARDIOVASCULAR: Tachycardic, AFib rhythm without murmurs rubs or gallops. ABDOMINAL: Soft, nontender, nondistended, normal bowel sounds MUSCULOSKELETAL: Moves all extremities. Lower extremity edema bilateral 2+ NEURO: Alert. Cranial nerves II through XII intact. Grossly intact SKIN: Warm, dry. Normal Color Objective Data Vital Signs Vital Signs: Vital Signs - 24 hr 02/22/24 12:59 02/22/24 13:27 02/22/24 13:44 Temperature 97.3 F L Pulse Rate 102 H 97 Respiratory Rate 16 20 Blood Pressure 119/68 132/58 L Pulse Oximetry 98 100 97 Oxygen Delivery Nasal Cannula Oxygen Flow Rate 3 Fraction of Inspired Oxygen 02/22/24 13:44 02/22/24 13:53 02/22/24 13:30 Temperature Pulse Rate 82 81 Respiratory Rate 20 20 Blood Pressure Pulse Oximetry 97 Oxygen Delivery Nasal Cannula Oxygen Flow Rate 3 Fraction of Inspired Oxygen 02/22/24 16:00 02/22/24 14:00 02/22/24 16:00 Temperature 97.5 F L Pulse Rate 105 H 84 99 Respiratory Rate 22 H Blood Pressure 97/60 L Pulse Oximetry 99 Oxygen Delivery Oxygen Flow Rate Fraction of Inspired Oxygen 02/22/24 16:00 02/22/24 18:25 02/22/24 19:01 Temperature 97.5 F L Pulse Rate 96 98 Respiratory Rate 24 H Blood Pressure 98/60 L Pulse Oximetry 99 94 Oxygen Delivery Nasal Cannula Oxygen Flow Rate 3 Fraction of Inspired Oxygen 02/22/24 20:23 02/22/24 20:36 02/22/24 20:36 Temperature Pulse Rate 101 H 121 H Respiratory Rate 20 Blood Pressure Pulse Oximetry 98 Oxygen Delivery Nasal Cannula Oxygen Flow Rate 3 Fraction of Inspired Oxygen 02/22/24 20:45 02/22/24 20:00 02/22/24 20:00 Temperature Pulse Rate 104 H 104 H 104 H Respiratory Rate 20 20 Blood Pressure Pulse Oximetry 98 Oxygen Delivery Nasal Cannula Oxygen Flow Rate 3 Fraction of Inspired Oxygen 02/22/24 21:38 02/22/24 23:54 02/22/24 23:54 Temperature Pulse Rate 120 H 92 98 Respiratory Rate 20 Blood Pressure Pulse Oximetry 98 Oxygen Delivery Nasal Cannula Oxygen Flow Rate 3 Fraction of Inspired Oxygen 02/22/24 23:54 02/23/24 02:00 02/23/24 02:48 Temperature 98 F Pulse Rate 98 110 H 121 H Respiratory Rate 22 H 20 Blood Pressure 108/56 L Pulse Oximetry 100 Oxygen Delivery Oxygen Flow Rate Fraction of Inspired Oxygen 02/23/24 03:05 02/23/24 03:23 02/23/24 03:23 Temperature Pulse Rate 101 H 101 H 101 H Respiratory Rate 20 20 Blood Pressure Pulse Oximetry 100 Oxygen Delivery Nasal Cannula Oxygen Flow Rate 3 Fraction of Inspired Oxygen 02/23/24 03:28 02/23/24 06:00 02/23/24 08:09 Temperature 98.2 F Pulse Rate 101 H 115 H Respiratory Rate 22 H Blood Pressure 113/77 Pulse Oximetry 100 100 Oxygen Delivery Nasal Cannula Oxygen Flow Rate 3 Fraction of Inspired Oxygen 32 02/23/24 08:09 02/23/24 08:18 02/23/24 08:19 Temperature Pulse Rate 117 H 110 H 110 H Respiratory Rate 20 Blood Pressure Pulse Oximetry Oxygen Delivery Oxygen Flow Rate Fraction of Inspired Oxygen 02/23/24 08:22 02/23/24 08:34 02/23/24 08:34 Temperature Pulse Rate 114 H 110 H Respiratory Rate 20 20 Blood Pressure Pulse Oximetry 100 Oxygen Delivery Nasal Cannula Oxygen Flow Rate 3 Fraction of Inspired Oxygen 02/23/24 08:00 02/23/24 10:00 Temperature 98.4 F Pulse Rate 125 H 101 H Respiratory Rate 20 Blood Pressure 113/73 Pulse Oximetry 96 Oxygen Delivery Oxygen Flow Rate Fraction of Inspired Oxygen Intake/Output Intake/Output: Intake & Output 02/20/24 02/21/24 02/22/24 02/23/24 23:59 23:59 23:59 23:59 Intake Total 240 500 Output Total 3750 9690 Balance -3510 -9560 Meds/Results Medications: Active Medications Generic Name Dose Route Start Last Admin Trade Name Freq PRN Reason Stop Dose Admin Amiodarone HCl 200 mg 02/23/24 08:00 02/23/24 08:19 Amiodarone Hcl 200 Mg Tablet PO 200 mg DAILY@0800 NARENDRA Administration Apixaban 5 mg 02/22/24 21:00 02/23/24 08:19 Apixaban 5 Mg Tablet PO 5 mg Q12HR NARENDRA Administration Buspirone HCl 5 mg 02/22/24 21:00 02/23/24 08:19 Buspirone Hcl 5 Mg Tablet PO 5 mg Q12HR NARENDRA Administration Carvedilol 3.125 mg 02/22/24 21:00 02/23/24 08:18 Carvedilol 3.125 Mg Tablet PO 3.125 mg Q12HR NARENDRA Administration Diltiazem HCl 120 mg 02/23/24 09:00 02/23/24 10:04 Diltiazem Hcl Cd 120 Mg Cap.24hr PO 120 mg DAILY NARENDRA Administration Furosemide 40 mg 02/22/24 21:00 02/23/24 08:20 Furosemide Inj 40 Mg/4 Ml Vial IV PUSH 40 mg Q12HR NARENDRA Administration Ipratropium [place] 0.5 mg 02/22/24 20:00 02/23/24 08:09 Ipratropium Br 0.02% Inh Soln 0.5 Mg/2.5 Ml Vial INHALATION 0.5 mg Q6HRT NARENDRA Administration Levalbuterol HCl 0.63 mg 02/22/24 14:00 02/23/24 08:09 Levalbuterol Neb 1.25 Mg/3 Ml INHALATION 0.63 mg Q6HRT NARENDRA Administration Levothyroxine Sodium 125 mcg 02/23/24 06:30 02/23/24 06:08 Levothyroxine Sodium 125 Mcg Tablet PO 125 mcg DAILY@0630 NARENDRA Administration Losartan Potassium 25 mg 02/23/24 09:00 Losartan Potassium 25 Mg Tablet PO DAILY [facility] Methylprednisolone Sodium Succinate 40 mg 02/22/24 15:00 02/23/24 02:49 Methylprednisolone Sod Succ 40 Mg Vial IV PUSH 40 mg Q12H NARENDRA Administration Miscellaneous Information 1 each 02/23/24 00:01 Med Rec Order Clarification XX 03/24/24 00:00 CLARIFY [facility] Pantoprazole Sodium 40 mg 02/23/24 09:00 02/23/24 08:18 Pantoprazole 40 Mg Tablet PO 40 mg QAM NARENDRA Administration Solifenacin 10 mg 02/23/24 09:00 02/23/24 08:19 Solifenacin 5 Mg Tablet PO 10 mg DAILY NARENDRA Administration Tamsulosin HCl 0.4 mg 02/23/24 09:00 02/23/24 08:18 Tamsulosin Hcl 0.4 Mg Capsule PO 0.4 mg DAILY [facility] Administration Umeclidinium/Vilanterol 2 puff 02/22/24 17:00 Umeclidinium/Vilanterol 62.5-25 Mcg Ellipta INHALATION BID [facility] Radiology Results: ITS Impressions Chest X-Ray 02/22/24 10:22 Impression: Clear lungs. Venous Doppler Study 02/22/24 18:56 IMPRESSION: Negative bilateral lower extremity venous US. No deep vein thrombosis. Labs Labs: Laboratory Results - last 24 hr 02/22/24 02/23/24 14:08 04:33 WBC 9.8 RBC 3.35 L Hgb 9.5 L Hct 30.1 L MCV 89.9 MCH 28.4 MCHC 31.6 L RDW 16.4 H Plt Count 210 MPV 10.3 Immature Gran % (Auto) 1.1 H Neut % (Auto) 93.0 H Lymph % (Auto) 4.2 L [place] % (Auto) 1.6 L Eos % (Auto) 0.0 Baso % (Auto) 0.1 L Lymph # (Auto) 0.41 L [place] # (Auto) 0.2 Eos # (Auto) 0.0 Baso # (Auto) 0.0 Abs Immat Gran (auto) 0.11 H Absolute Neuts (auto) 9.1 H Absolute Nucleated RBC 0.000 Nucleated RBC % 0.0 Platelet Estimate Adequate Hypochromasia 1+ Poikilocytosis 1+ Anisocytosis 1+ Ovalocytes 1+ Crenated Cell 1+ Schistocytes Rare Sodium 135 L Potassium 3.6 Chloride 98 Carbon Dioxide 30 Anion Gap 7 BUN 33 H Creatinine 1.40 H Estim Creat Clear Calc 44 Estimated GFR 48 L Glucose 138 H Calcium 8.0 L Magnesium 2.1 Total Bilirubin 1.1 AST 21 ALT 31 Alkaline Phosphatase 82 Troponin I 0.016 Total Protein 6.0 L Albumin 3.5 TSH (Reflex) 21.700 H Free T4 0.86 Total T3 0.66 L
[2024-02-24] VITALS (23 sets, daily range): BP systolic 86–109; BP diastolic 48–83; PULSE 68–94; RESP 18–24; TEMP 36.2–36.6; O2SAT 96–100
[2024-02-24] MEDS: LEVALBUTEROL NEB 1.25 MG/3 ML 0.63 MG INHALATION ×3 (03:00→19:47)
[2024-02-24] MEDS: IPRATROPIUM BR 0.02% INH SOLN 0.5 MG/2.5 ML VIAL INHALATION ×3 (03:00→19:47)
[2024-02-24] MEDS: LEVOTHYROXINE SODIUM 125 MCG TABLET PO (04:42)
[2024-02-24] MEDS: SOLIFENACIN 5 MG TABLET 10 MG PO (08:35)
[2024-02-24] MEDS: carvediloL 3.125 MG TABLET PO ×2 (08:35→22:05)
[2024-02-24] MEDS: PANTOPRAZOLE 40 MG TABLET PO (08:36)
[2024-02-24] MEDS: predniSONE 20 MG TABLET 40 MG PO (08:36)
[2024-02-24] MEDS: AMIODARONE HCL 200 MG TABLET PO (08:36)
[2024-02-24] MEDS: busPIRone HCL 5 MG TABLET PO ×2 (08:37→22:06)
[2024-02-24] MEDS: APIXABAN 5 MG TABLET PO ×2 (08:37→22:06)
[2024-02-24] MEDS: dilTIAZem HCL CD 120 MG CAP.24HR PO (08:37)
[2024-02-24] MEDS: TAMSULOSIN HCL 0.4 MG CAPSULE PO (08:37)
[2024-02-24 09:24] LABS: Basophils Percent Auto 0.1 % (0.2-1.2); Eosinophils Percent Auto 0.3 % (0-4.4); Hematocrit 29.5 % (42.0-52.0); Hemoglobin 8.9 g/dL (14.0-18.0); Immature Granulocyte Absolute 0.09 K/mm3 (0.00-0.031); Immature Granulocyte Percent A 0.9 % (0-0.5); Lymphocytes Absolute Auto 1.02 K/mm3 (0.9-3.2); Lymphocytes Percent Auto 9.7 % (18.3-44.2); Mean Corpuscular HGB Conc 30.2 g/dl (32-36); Mean Corpuscular Hemoglobin 27.6 pg (26-34); Mean Corpuscular Volume 91.6 fl (80-100); Monocytes Percent Auto 9.1 % (2.6-8.5); Neutrophils Absolute Auto 8.4 K/mm3 (1.3-6.7); Neutrophils Percent Auto 79.9 % (45.5-73.1); Platelet Count Result 194 k/mm3 (150-375); Red Blood Count 3.22 M/mm3 (4.6-6.20); Red Cell Distribution Width 16.5 % (11.5-14.5); White Blood Count 10.5 K/mm3 (4.5-10.0)
[2024-02-24 09:42] LABS: Alanine Aminotransferase 23 U/L (6-50); Albumin Level 3.2 g/dL (3.5-5.1); Alkaline Phosphatase 72 U/L (38-126); Anion Gap 3 mmol/L (4-12); Aspartate Amino Transferase 18 U/L (17-59); Bilirubin,Total 0.9 mg/dL (0.2-1.3); Blood Urea Nitrogen 36 mg/dL (9-20); Calcium 7.8 mg/dL (8.4-10.2); Carbon Dioxide 38 mmol/L (22-30); Chloride 94 mmol/L (98-107); Estimated CRCL calculation 38 ml/min; Estimated Glomerular Filt Rate 41; Glucose 98 mg/dL (65-110); Magnesium 2.1 mg/dL (1.6-2.3); Potassium 3.7 mmol/L (3.4-5.0); Sodium 135 mmol/L (137-145)
--- NOTE | 2024-02-24 10:15 | PC.NURSE ---
pt seen by dr powell, downgrade to [facility] tele
--- NOTE | 2024-02-24 13:04 | PM.IMPN ---
Progress Note: A&P Assessment and Plan (1) Congestive heart failure: Code(s): I50.9 - Heart failure, unspecified Status: Acute (2) COPD (chronic obstructive pulmonary disease): Code(s): J44.9 - Chronic obstructive pulmonary disease, unspecified Status: Acute (3) Urinary retention: Code(s): R33.9 - Retention of urine, unspecified Status: Acute (4) Anemia: Code(s): D64.9 - Anemia, unspecified Status: Acute Plan 83-year-old male who presents to the ED with worsening shortness of breath since August. Patient had COVID back in August which resulted in placement of pacemaker. Patient has a history of atrial fibrillation and also on home oxygen 3 L via nasal cannula. He stated that his worsening shortness of breath has been ongoing for the past few days. Also reported lower extremity edema which has been worsening as well. Upon arrival to the ED his vitals were stable except for mild tachycardia with AFib on monitor. Patient was afebrile and wheezy on presentation. Wheezing improved with Xopenex. Laboratory evaluation showed WBC of 8.1 hemoglobin of 8.6 which is down from 11 from the past creatinine was 1.7 which is about his baseline. Troponin is negative at 0.018 BNP 2850. Influenza RSV COVID swab was negative. Chest x-ray was clear. ABG 7.46/38/117/27. Patient received a dose of Lasix for possible congestive heart failure. Versus COPD exacerbation. He is admitted for further treatment Shortness of breath likely COPD exacerbation chest x-ray clear. However does have bilateral lower extremity edema. BNP is elevated and received a dose of Lasix. Will continue with DuoNeb treatment. Will start with steroid for possible COPD exacerbation which has been switched to oral prednisone AFib with RVR mild received a dose of Cardizem in the ER. Resume home medications and monitor on telemetry. History of cardioversion in the past on anticoagulation with Eliquis. He is on amiodarone carvedilol and Cardizem. Resume Cardizem. Currently at mild RVR which has now improved Congestive heart failure EF of 35-40% with global hypokinesis. Per DAVID from 08/2023 mild MR mild TR. Hold diuresis due to lowish blood pressure resume Lasix daily from a.m. 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 Keen has been placed in the ER Hypothyroidism TSH elevated 21.7 levothyroxine 125 mcg daily seen she was just recently increased. Follow-up as an outpatient basis Hypertension Acute on chronic anemia 8.6 few days back is 11.1 continue to monitor no signs of bleeding CKD stage 3 baseline creatinine 1.6-1.7 Left bundle branch block is chronic DVT prophylaxis on Eliquis at home Code status discussed with the patient to not resuscitate Subjective Date/time seen: 02/24/24 13:04 Interval history: No overnight events feeling better. Leg swelling has improved. Blood pressure lowish heart rate is improved discussed with nursing staff Review of Systems Review of Systems: All systems reviewed & are unremarkable except as noted in HPI and below Exam Narrative: APPEARANCE: Well appearing, no pain, no distress, well-nourished. HEAD: normocephalic, atraumatic. EYES: PERRLA/EOMI, conjunctivae clear. NOSE: Normal no drainage NECK: Supple. No adenopathy, no masses. RESPIRATORY: Coarse breath sound bilaterally, mild wheezing CARDIOVASCULAR: Rate controlled, AFib rhythm without murmurs rubs or gallops. ABDOMINAL: Soft, nontender, nondistended, normal bowel sounds MUSCULOSKELETAL: Moves all extremities. Lower extremity edema bilateral 2+ NEURO: Alert. Cranial nerves II through XII intact. Grossly intact SKIN: Warm, dry. Normal Color Objective Data Vital Signs Vital Signs: Vital Signs - 24 hr 02/23/24 14:00 02/23/24 14:07 02/23/24 14:00 Temperature Pulse Rate 88 97 100 Respiratory Rate 20 20 Blood Pressure Pulse Oximetry Oxygen Delivery Oxygen Flow Rate Fraction of Inspired Oxygen 02/23/24 16:30 02/23/24 16:30 02/23/24 16:00 Temperature 97.6 F Pulse Rate 90 110 H Respiratory Rate 20 20 Blood Pressure 111/61 Pulse Oximetry 94 94 Oxygen Delivery Nasal Cannula Oxygen Flow Rate 3 Fraction of Inspired Oxygen 02/23/24 17:23 02/23/24 18:00 02/23/24 20:00 Temperature 97.3 F L Pulse Rate 92 75 54 L Respiratory Rate 20 Blood Pressure 111/77 Pulse Oximetry 97 Oxygen Delivery Oxygen Flow Rate Fraction of Inspired Oxygen 02/23/24 20:49 02/23/24 21:27 02/23/24 21:28 Temperature Pulse Rate 86 85 Respiratory Rate 24 H Blood Pressure Pulse Oximetry 99 Oxygen Delivery Nasal Cannula Oxygen Flow Rate 3 Fraction of Inspired Oxygen 02/23/24 21:41 02/23/24 20:00 02/23/24 20:00 Temperature Pulse Rate 86 81 81 Respiratory Rate 20 20 Blood Pressure Pulse Oximetry 99 Oxygen Delivery Nasal Cannula Oxygen Flow Rate 3 Fraction of Inspired Oxygen 32 02/23/24 22:00 02/24/24 00:00 02/24/24 00:00 Temperature Pulse Rate 82 86 82 Respiratory Rate 20 Blood Pressure Pulse Oximetry 99 Oxygen Delivery Nasal Cannula Oxygen Flow Rate 3 Fraction of Inspired Oxygen 32 02/24/24 00:26 02/24/24 02:00 02/24/24 03:27 Temperature 97.5 F L Pulse Rate 80 78 84 Respiratory Rate 18 Blood Pressure 86/56 L Pulse Oximetry 100 Oxygen Delivery Oxygen Flow Rate Fraction of Inspired Oxygen 02/24/24 03:27 02/24/24 03:41 02/24/24 05:07 Temperature 97.9 F Pulse Rate 84 93 72 Respiratory Rate 18 20 Blood Pressure 102/83 Pulse Oximetry 100 99 Oxygen Delivery Nasal Cannula Oxygen Flow Rate 3 Fraction of Inspired Oxygen 32 02/24/24 07:33 02/24/24 07:37 02/24/24 08:35 Temperature 97.6 F Pulse Rate 71 94 Respiratory Rate 24 H Blood Pressure 97/55 L Pulse Oximetry 97 100 Oxygen Delivery Nasal Cannula Oxygen Flow Rate 3 Fraction of Inspired Oxygen 02/24/24 08:36 02/24/24 08:00 02/24/24 10:00 Temperature Pulse Rate 94 83 75 Respiratory Rate Blood Pressure Pulse Oximetry Oxygen Delivery Oxygen Flow Rate Fraction of Inspired Oxygen 02/24/24 12:00 Temperature Pulse Rate 75 Respiratory Rate Blood Pressure Pulse Oximetry Oxygen Delivery Oxygen Flow Rate Fraction of Inspired Oxygen Intake/Output Intake/Output: Intake & Output 02/21/24 02/22/24 02/23/24 02/24/24 23:59 23:59 23:59 23:59 Intake Total 240 1880 1904 Output Total 8428 2421 3288 [facility] -[phone] Meds/Results Medications: Active Medications Generic Name Dose Route Start Last Admin Trade Name Daneq PRN Reason Stop Dose Admin Amiodarone HCl 200 mg 02/23/24 08:00 02/24/24 08:36 Amiodarone Hcl 200 Mg Tablet PO 200 mg DAILY@0800 NARENDRA Administration Apixaban 5 mg 02/22/24 21:00 02/24/24 08:37 Apixaban 5 Mg Tablet PO 5 mg Q12HR NARENDRA Administration Buspirone HCl 5 mg 02/22/24 21:00 02/24/24 08:37 Buspirone Hcl 5 Mg Tablet PO 5 mg Q12HR NARENDRA Administration Carvedilol 3.125 mg 02/22/24 21:00 02/24/24 08:35 Carvedilol 3.125 Mg Tablet PO 3.125 mg Q12HR NARENDRA Administration Diltiazem HCl 120 mg 02/23/24 09:00 02/24/24 08:37 Diltiazem Hcl Cd 120 Mg Cap.24hr PO 120 mg DAILY NARENDRA Administration Furosemide 40 mg 02/22/24 21:00 02/23/24 20:49 Furosemide Inj 40 Mg/4 Ml Vial IV PUSH 40 mg Q12HR NARENDRA Administration Ipratropium [place] 0.5 mg 02/22/24 20:00 02/24/24 08:00 Ipratropium Br 0.02% Inh Soln 0.5 Mg/2.5 Ml Vial INHALATION Not Given Q6HRT NARENDRA Levalbuterol HCl 0.63 mg 02/22/24 14:00 02/24/24 08:00 Levalbuterol Neb 1.25 Mg/3 Ml INHALATION Not Given Q6HRT [facility] Levothyroxine Sodium 125 mcg 02/23/24 06:30 02/24/24 04:42 Levothyroxine Sodium 125 Mcg Tablet PO 125 mcg DAILY@0630 NARENDRA Administration Losartan Potassium 25 mg 02/23/24 09:00 02/23/24 17:08 Losartan Potassium 25 Mg Tablet PO Not Given DAILY [facility] Miscellaneous Information 1 each 02/23/24 00:01 02/23/24 18:55 Med Rec Order Clarification XX 03/24/24 00:00 Not Given CLARIFY NARENDRA Pantoprazole Sodium 40 mg 02/23/24 09:00 02/24/24 08:36 Pantoprazole 40 Mg Tablet PO 40 mg QAM NARENDRA Administration Prednisone 40 mg 02/24/24 08:00 02/24/24 08:36 Prednisone 20 Mg Tablet PO 40 mg DAILY@0800 NARENDRA Administration Solifenacin 10 mg 02/23/24 09:00 02/24/24 08:35 Solifenacin 5 Mg Tablet PO 10 mg DAILY NARENDRA Administration Tamsulosin HCl 0.4 mg 02/23/24 09:00 02/24/24 08:37 Tamsulosin Hcl 0.4 Mg Capsule PO 0.4 mg DAILY [facility] Administration Umeclidinium/Vilanterol 2 puff 02/22/24 17:00 Umeclidinium/Vilanterol 62.5-25 Mcg Ellipta INHALATION BID [facility] Radiology Results: ITS Impressions Chest X-Ray 02/22/24 10:22 Impression: Clear lungs. Venous Doppler Study 02/22/24 18:56 IMPRESSION: Negative bilateral lower extremity venous US. No deep vein thrombosis. Labs Labs: Laboratory Results - last 24 hr 02/24/24 09:15 WBC 10.5 H RBC 3.22 L Hgb 8.9 L Hct 29.5 L MCV 91.6 MCH 27.6 MCHC 30.2 L RDW 16.5 H Plt Count 194 MPV 10.0 Immature Gran % (Auto) 0.9 H Neut % (Auto) 79.9 H Lymph % (Auto) 9.7 L [place] % (Auto) 9.1 H Eos % (Auto) 0.3 Baso % (Auto) 0.1 L Lymph # (Auto) 1.02 [place] # (Auto) 1.0 H Eos # (Auto) 0.0 Baso # (Auto) 0.0 Abs Immat Gran (auto) 0.09 H Absolute Neuts (auto) 8.4 H Absolute Nucleated RBC 0.000 Nucleated RBC % 0.0 Sodium 135 L Potassium 3.7 Chloride 94 L Carbon Dioxide 38 H Anion Gap 3 L BUN 36 H Creatinine 1.60 H Estim Creat Clear Calc 38 Estimated GFR 41 L Glucose 98 Calcium 7.8 L Magnesium 2.1 Total Bilirubin 0.9 AST 18 ALT 23 Alkaline Phosphatase 72 Total Protein 6.0 L Albumin 3.2 L
[2024-02-24] MEDS: FUROSEMIDE 40 MG TABLET PO (15:09)
--- NOTE | 2024-02-24 17:30 | PC.NURSE ---
attempted to call report, nurse is in room and will call back
--- NOTE | 2024-02-24 17:44 | PC.NURSE ---
report given to ashkan
--- NOTE | 2024-02-24 17:57 | PC.NURSE ---
pt taken to rm 303 by w/c with pct
--- NOTE | 2024-02-24 18:14 | PC.NURSE ---
This patient, Jorge L Call, was received from [[facility]] on 02/24/24 at 1810. Patient/family oriented to unit policies and routines. Report from Angel
[2024-02-25] VITALS (18 sets, daily range): BP systolic 90–110; BP diastolic 42–75; PULSE 64–100; RESP 18–22; TEMP 36.2–36.7; O2SAT 92–100
[2024-02-25] MEDS: LEVALBUTEROL NEB 1.25 MG/3 ML 0.63 MG INHALATION ×4 (02:25→21:02)
[2024-02-25] MEDS: IPRATROPIUM BR 0.02% INH SOLN 0.5 MG/2.5 ML VIAL INHALATION ×4 (02:25→21:02)
[2024-02-25] MEDS: LEVOTHYROXINE SODIUM 125 MCG TABLET PO (05:16)
[2024-02-25 06:53] LABS: Basophils Percent Auto 0.1 % (0.2-1.2); Eosinophils Percent Auto 0.1 % (0-4.4); Hemoglobin 9.6 g/dL (14.0-18.0); Immature Granulocyte Absolute 0.08 K/mm3 (0.00-0.031); Immature Granulocyte Percent A 0.7 % (0-0.5); Lymphocytes Absolute Auto 0.92 K/mm3 (0.9-3.2); Lymphocytes Percent Auto 8.2 % (18.3-44.2); Mean Corpuscular Hemoglobin 27.4 pg (26-34); Mean Corpuscular Volume 91.2 fl (80-100); Mean Platelet Volume 10.5 fl (7.4-10.4); Monocytes Absolute Auto 0.6 K/mm3 (0.1-0.6); Monocytes Percent Auto 5.5 % (2.6-8.5); Neutrophils Absolute Auto 9.6 K/mm3 (1.3-6.7); Neutrophils Percent Auto 85.4 % (45.5-73.1); Platelet Count Result 215 k/mm3 (150-375); Red Blood Count 3.51 M/mm3 (4.6-6.20); Red Cell Distribution Width 16.3 % (11.5-14.5); White Blood Count 11.2 K/mm3 (4.5-10.0)
[2024-02-25 07:45] LABS: Albumin Level 3.5 g/dL (3.5-5.1); Anion Gap 4 mmol/L (4-12); Blood Urea Nitrogen 34 mg/dL (9-20); Calcium 7.8 mg/dL (8.4-10.2); Carbon Dioxide 38 mmol/L (22-30); Chloride 94 mmol/L (98-107); Estimated CRCL calculation 43 ml/min; Estimated Glomerular Filt Rate 48; Glucose 94 mg/dL (65-110); Phosphorus 3.4 mg/dL (2.5-4.5); Potassium 3.4 mmol/L (3.4-5.0); Sodium 136 mmol/L (137-145)
[2024-02-25] MEDS: predniSONE 20 MG TABLET 40 MG PO (09:32)
[2024-02-25] MEDS: APIXABAN 5 MG TABLET PO ×2 (09:32→20:26)
[2024-02-25] MEDS: busPIRone HCL 5 MG TABLET PO ×2 (09:32→20:26)
[2024-02-25] MEDS: AMIODARONE HCL 200 MG TABLET PO (09:32)
[2024-02-25] MEDS: carvediloL 3.125 MG TABLET PO ×2 (09:32→20:26)
[2024-02-25] MEDS: SOLIFENACIN 5 MG TABLET 10 MG PO (09:32)
[2024-02-25] MEDS: PANTOPRAZOLE 40 MG TABLET PO (09:32)
[2024-02-25] MEDS: TAMSULOSIN HCL 0.4 MG CAPSULE PO (09:32)
[2024-02-25] MEDS: FUROSEMIDE 40 MG TABLET PO (09:33)
[2024-02-25] MEDS: dilTIAZem HCL CD 120 MG CAP.24HR PO (09:35)
--- NOTE | 2024-02-25 13:34 | P.PNIM_ITS ---
Progress Note: A&P Assessment and Plan (1) Congestive heart failure: Code(s): I50.9 - Heart failure, unspecified Status: Acute (2) COPD (chronic obstructive pulmonary disease): Code(s): J44.9 - Chronic obstructive pulmonary disease, unspecified Status: Acute (3) Urinary retention: Code(s): R33.9 - Retention of urine, unspecified Status: Acute (4) Anemia: Code(s): D64.9 - Anemia, unspecified Status: Acute (5) Atrial fibrillation: Code(s): I48.91 - Unspecified atrial fibrillation Status: Acute (6) Chronic respiratory failure: Code(s): J96.10 - Chronic respiratory failure, unspecified whether with hypoxia or hypercapnia Status: Acute (7) Hypothyroidism: Code(s): E03.9 - Hypothyroidism, unspecified Status: Acute (8) CKD (chronic kidney disease): Code(s): N18.9 - Chronic kidney disease, unspecified Status: Acute Plan 83-year-old male who presents to the ED with worsening shortness of breath since August. Patient had COVID back in August which resulted in placement of pacemaker. Patient has a history of atrial fibrillation and also on home oxygen 3 L via nasal cannula. He stated that his worsening shortness of breath has been ongoing for the past few days. Also reported lower extremity edema which has been worsening as well. Upon arrival to the ED his vitals were stable except for mild tachycardia with AFib on monitor. Patient was afebrile and wheezy on presentation. Wheezing improved with Xopenex. Laboratory evaluation showed WBC of 8.1 hemoglobin of 8.6 which is down from 11 from the past creatinine was 1.7 which is about his baseline. Troponin is negative at 0.018 BNP 2850. Influenza RSV COVID swab was negative. Chest x-ray was clear. ABG 7.46/38/117/27. Patient received a dose of Lasix for possible congestive heart failure. Versus COPD exacerbation. He is admitted for further treatment Shortness of breath likely COPD exacerbation chest x-ray clear. However does have bilateral lower extremity edema. BNP is elevated and received a dose of Lasix. Will continue with DuoNeb treatment. Will start with steroid for possible COPD exacerbation which has been switched to oral prednisone AFib with RVR mild received a dose of Cardizem in the ER. Resume home medications and monitor on telemetry. History of cardioversion in the past on anticoagulation with Eliquis. He is on amiodarone carvedilol and Cardizem. Resumed Cardizem. Currently at mild RVR which has now improved Congestive heart failure EF of 35-40% with global hypokinesis. Per DAVID from 08/2023 mild MR mild TR. 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 Keen has been placed in the ER Hypothyroidism TSH elevated 21.7 levothyroxine 125 mcg daily seen she was just recently increased. Follow-up as an outpatient basis Hypertension Acute on chronic anemia 8.6 few days back is 11.1 continue to monitor no signs of bleeding CKD stage 3 baseline creatinine 1.6-1.7 Left bundle branch block is chronic DVT prophylaxis on Eliquis at home Code status discussed with the patient to not resuscitate Start PT/OT. Increase activity. Plan discharge tomorrow possibly Subjective Date/time seen: 02/25/24 13:34 Interval history: 83yo male with COPD, HTN and HLD here for shortness of breath. Assuming care. Chart reviewed. Patient feels tired. Denies feeling short of breath. No chest pain or abdominal pain. He lives alone. He has been having falls at home. No cough. Slight wheezing. Exam Narrative: AF 98.1 107/42 72 20 92% 3L Gen - NARD Chest - coarse BS bilaterally, nml RR CV - irregularly irregular. Tele showing AFib with controlled rate Abd - Soft, NT/ND, Positive BS - Keen secured draining clear yellow urine. Ext - 1+ pedal edema. Psych - Nml mood and affect Skin - Warm and dry Objective Data Vital Signs Vital Signs: Vital Signs - 24 hr 02/24/24 15:19 02/24/24 16:00 02/24/24 18:05 Temperature 97.6 F 97.2 F L Pulse Rate 82 77 91 Respiratory Rate 24 H 22 H Blood Pressure 94/48 L 109/62 Pulse Oximetry 100 98 Oxygen Delivery Oxygen Flow Rate 02/24/24 19:48 02/24/24 19:48 02/24/24 22:05 Temperature Pulse Rate 83 83 Respiratory Rate 18 Blood Pressure Pulse Oximetry 96 Oxygen Delivery Nasal Cannula Oxygen Flow Rate 3 02/24/24 22:00 02/24/24 20:00 02/24/24 20:00 Temperature 97.2 F L Pulse Rate 77 79 Respiratory Rate 20 Blood Pressure 106/72 Pulse Oximetry 100 100 Oxygen Delivery Nasal Cannula Oxygen Flow Rate 3 02/25/24 00:00 02/25/24 02:26 02/24/24 19:56 Temperature Pulse Rate 78 72 88 Respiratory Rate 22 H 18 Blood Pressure Pulse Oximetry Oxygen Delivery Oxygen Flow Rate 02/25/24 04:00 02/25/24 06:05 02/25/24 07:40 Temperature 98.1 F Pulse Rate 74 70 Respiratory Rate 20 Blood Pressure 107/42 L Pulse Oximetry 98 92 Oxygen Delivery Nasal Cannula Oxygen Flow Rate 3 02/25/24 07:40 02/25/24 07:49 02/25/24 10:35 Temperature Pulse Rate 72 76 Respiratory Rate 20 20 Blood Pressure Pulse Oximetry Oxygen Delivery Nasal Cannula Oxygen Flow Rate 3 Intake/Output Intake/Output: Intake & Output 02/22/24 02/23/24 02/24/24 02/25/24 23:59 23:59 23:59 23:59 Intake Total 240 1880 2694 840 Output Total 3750 3350 3750 1600 Balance -3510 -1470 -1056 -760 Meds/Results Medications: Active Medications Generic Name Dose Route Start Last Admin Trade Name Freq PRN Reason Stop Dose Admin Amiodarone HCl 200 mg 02/23/24 08:00 02/25/24 09:32 Amiodarone Hcl 200 Mg Tablet PO 200 mg DAILY@0800 NARENDRA Administration Apixaban 5 mg 02/22/24 21:00 02/25/24 09:32 Apixaban 5 Mg Tablet PO 5 mg Q12HR NARENDRA Administration Buspirone HCl 5 mg 02/22/24 21:00 02/25/24 09:32 Buspirone Hcl 5 Mg Tablet PO 5 mg Q12HR NARENDRA Administration Carvedilol 3.125 mg 02/22/24 21:00 02/25/24 09:32 Carvedilol 3.125 Mg Tablet PO 3.125 mg Q12HR NARENDRA Administration Diltiazem HCl 120 mg 02/23/24 09:00 02/25/24 09:35 Diltiazem Hcl Cd 120 Mg Cap.24hr PO 120 mg DAILY NARENDRA Administration Furosemide 40 mg 02/24/24 13:15 02/25/24 09:33 Furosemide 40 Mg Tablet PO 40 mg DAILY NARENDRA Administration Ipratropium [place] 0.5 mg 02/22/24 20:00 02/25/24 07:40 Ipratropium Br 0.02% Inh Soln 0.5 Mg/2.5 Ml Vial INHALATION 0.5 mg Q6HRT NARENDRA Administration Levalbuterol HCl 0.63 mg 02/22/24 14:00 02/25/24 07:40 Levalbuterol Neb 1.25 Mg/3 Ml INHALATION 0.63 mg Q6HRT NARENDRA Administration Levothyroxine Sodium 125 mcg 02/23/24 06:30 02/25/24 05:16 Levothyroxine Sodium 125 Mcg Tablet PO 125 mcg DAILY@0630 NARENDRA Administration Losartan Potassium 25 mg 02/23/24 09:00 02/23/24 17:08 Losartan Potassium 25 Mg Tablet PO Not Given DAILY [facility] Pantoprazole Sodium 40 mg 02/23/24 09:00 02/25/24 09:32 Pantoprazole 40 Mg Tablet PO 40 mg QAM NARENDRA Administration Potassium Chloride 40 meq 02/25/24 13:45 Potassium Chloride 20 Meq Packet (For Liquid) PO 02/25/24 13:46 ONCE ONE Prednisone 40 mg 02/24/24 08:00 02/25/24 09:32 Prednisone 20 Mg Tablet PO 40 mg DAILY@0800 NARENDRA Administration Solifenacin 10 mg 02/23/24 09:00 02/25/24 09:32 Solifenacin 5 Mg Tablet PO 10 mg DAILY NARENDRA Administration Tamsulosin HCl 0.4 mg 02/23/24 09:00 02/25/24 09:32 Tamsulosin Hcl 0.4 Mg Capsule PO 0.4 mg DAILY NARENDRA Administration Radiology Results: ITS Impressions Chest X-Ray 02/22/24 10:22 Impression: Clear lungs. Venous Doppler Study 02/22/24 18:56 IMPRESSION: Negative bilateral lower extremity venous US. No deep vein thrombosis. Labs Labs: Laboratory Results - last 24 hr 02/25/24 02/25/24 05:58 05:59 WBC 11.2 H RBC 3.51 L Hgb 9.6 L Hct 32.0 L MCV 91.2 MCH 27.4 MCHC 30.0 L RDW 16.3 H Plt Count 215 MPV 10.5 H Immature Gran % (Auto) 0.7 H Neut % (Auto) 85.4 H Lymph % (Auto) 8.2 L [place] % (Auto) 5.5 Eos % (Auto) 0.1 Baso % (Auto) 0.1 L Lymph # (Auto) 0.92 Millard # (Auto) 0.6 Eos # (Auto) 0.0 Baso # (Auto) 0.0 Abs Immat Gran (auto) 0.08 H Absolute Neuts (auto) 9.6 H Absolute Nucleated RBC 0.000 Nucleated RBC % 0.0 Sodium 136 L Potassium 3.4 Chloride 94 L Carbon Dioxide 38 H Anion Gap 4 BUN 34 H Creatinine 1.40 H Estim Creat Clear Calc 43 Estimated GFR 48 L Glucose 94 Calcium 7.8 L Phosphorus 3.4 Albumin 3.5
[2024-02-25] MEDS: POTASSIUM CHLORIDE 20 MEQ PACKET (FOR LIQUID) 40 MEQ PO (17:51)
[2024-02-26] VITALS (10 sets, daily range): BP systolic 99–148; BP diastolic 65–81; PULSE 57–114; RESP 16–24; TEMP 36–36.4; O2SAT 89–100
--- NOTE | 2024-02-26 00:14 | ECG_ITS ---
Test Date: 2024-02-26 00:23:47 Measurements Intervals [place] Rate: 103 P: 0 DC: 0 QRS: 15 QRSD: 171 T: 135 QT: 400 QTc: 524 Interpretive Statements ATRIAL FIBRILLATION WITH RAPID VENTRICULAR RESPONSE LEFT BUNDLE BRANCH BLOCK [120+ ms QRS DURATION, 80+ ms Q/S IN V1/V2, 85+ ms R IN I/aVL/V5/V6] Compared to ECG 02/22/2024 09:33:42 NO SIGNIFICANT CHANGES Electronically Signed On 02-26-2024 09:43:11 CDT by Vasu Chacon M.D.
[2024-02-26] MEDS: LEVOTHYROXINE SODIUM 125 MCG TABLET PO (05:42)
[2024-02-26 06:44] LABS: Hematocrit 31.4 % (42.0-52.0); Hemoglobin 9.5 g/dL (14.0-18.0); Mean Corpuscular HGB Conc 30.3 g/dl (32-36); Mean Corpuscular Volume 92.6 fl (80-100); Mean Platelet Volume 10.7 fl (7.4-10.4); Platelet Count Result 207 k/mm3 (150-375); Red Blood Count 3.39 M/mm3 (4.6-6.20); Red Cell Distribution Width 16.1 % (11.5-14.5); White Blood Count 11.2 K/mm3 (4.5-10.0)
[2024-02-26 06:57] LABS: Anion Gap 5 mmol/L (4-12); Blood Urea Nitrogen 34 mg/dL (9-20); Calcium 7.9 mg/dL (8.4-10.2); Carbon Dioxide 36 mmol/L (22-30); Chloride 94 mmol/L (98-107); Estimated CRCL calculation 36 ml/min; Estimated Glomerular Filt Rate 39; Glucose 98 mg/dL (65-110); Magnesium 2.3 mg/dL (1.6-2.3); Potassium 3.8 mmol/L (3.4-5.0); Sodium 135 mmol/L (137-145)
[2024-02-26] MEDS: LEVALBUTEROL NEB 1.25 MG/3 ML 0.63 MG INHALATION ×2 (07:27→13:56)
[2024-02-26] MEDS: IPRATROPIUM BR 0.02% INH SOLN 0.5 MG/2.5 ML VIAL INHALATION ×2 (07:27→13:56)
[2024-02-26] MEDS: SOLIFENACIN 5 MG TABLET 10 MG PO (09:23)
[2024-02-26] MEDS: busPIRone HCL 5 MG TABLET PO (09:24)
[2024-02-26] MEDS: AMIODARONE HCL 200 MG TABLET PO (09:24)
[2024-02-26] MEDS: TAMSULOSIN HCL 0.4 MG CAPSULE PO (09:24)
[2024-02-26] MEDS: APIXABAN 5 MG TABLET PO (09:24)
[2024-02-26] MEDS: PANTOPRAZOLE 40 MG TABLET PO (09:24)
[2024-02-26] MEDS: FUROSEMIDE 40 MG TABLET PO (09:24)
[2024-02-26] MEDS: dilTIAZem HCL CD 120 MG CAP.24HR PO (09:24)
[2024-02-26] MEDS: predniSONE 20 MG TABLET 40 MG PO (09:24)
[2024-02-26] MEDS: carvediloL 3.125 MG TABLET PO (09:24)
--- NOTE | 2024-02-26 14:24 | PM.DS ---
DS: Admitting Diagnosis Discharge Date 02/26/24 Admitting Diagnosis Shortness of breath DS: Discharge Diagnosis Discharge Diagnosis (1) Congestive heart failure: Code(s): I50.9 - Heart failure, unspecified Status: Acute (2) COPD (chronic obstructive pulmonary disease): Code(s): J44.9 - Chronic obstructive pulmonary disease, unspecified Status: Acute (3) Urinary retention: Code(s): R33.9 - Retention of urine, unspecified Status: Acute (4) Anemia: Code(s): D64.9 - Anemia, unspecified Status: Acute (5) Atrial fibrillation: Code(s): I48.91 - Unspecified atrial fibrillation Status: Acute (6) Chronic respiratory failure: Code(s): J96.10 - Chronic respiratory failure, unspecified whether with hypoxia or hypercapnia Status: Acute (7) Hypothyroidism: Code(s): E03.9 - Hypothyroidism, unspecified Status: Acute (8) CKD (chronic kidney disease): Code(s): N18.9 - Chronic kidney disease, unspecified Status: Acute DS: Summary Hospital Course Reason for hospitalization: 83yo male with COPD, chronic respiratory failure (3L), HTN and HLD here for shortness of breath. Please see H&P for details Hospital Course: Patient presents with worsening shortness of breath. He did have COVID back in August. In the ED, he was afebrile and vitals were stable except for mild tachycardia with AFib on monitor. Wheezes appreciated on presentation with improved with Xopenex. WBC of 8.1, Hgb 8.6 which is down from 10-11 range. Cr 1.7 which is about his baseline. Troponin is negative x3 and BNP 2850. EKG showing AFib/RVR (104) with left BBB which is old. Influenza, RSV and COVID swab was negative. Chest x-ray was clear. Bilateral LE venous doppler negative for DVT. ABG 7.46/38/117 on 4L. Patient received a dose of Lasix for possible congestive heart failure but felt more likely his shortness of breath from COPD exacerbation. He was started on DuoNeb treatments. Steroids started for possible COPD exacerbation which was switched to oral prednisone. Hgb trended up to 9.5. No evidence of acute blood loss. AFib with RVR on presentation and received a dose of Cardizem in the ED. We resumed home medications and he was monitored on telemetry. Anticoagulation with Eliquis. He was continued on amiodarone, carvedilol and Cardizem. He probably had mild acute on chronic systolic CHF. DAVID 08/31/23 showing EF of 35-40% with global hypokinesis, mild MR and mild TR. Held IV diuresis due to soft blood pressure and ultimately able to resume oral daily Lasix. History of BPH status post TURP with ongoing inability to completely empty bladder so he performs straight cath at home. TSH elevated 21.7; he is on levothyroxine 125 mcg daily but we continued the same dose since the dose was recently increased. Follow-up as an outpatient basis. he feels much better. He feels ready for discharge. SOB better. Walking in room. Dyspnea on exertion 'not bad' and when asked if he is back to his baseline respiratory condition, he states 'almost there'. He overall did well and was able to be discharged home on 02/26/24. Medications reviewed with patient. Status at Discharge Cognitive/behavioral status at discharge: stable Time Spent with Patient Time attestation: Total time spent providing and/or coordinating discharge services: 36 minutes Time spent: Greater than 30 minutes Exam Narrative: AF 96.9 99/70 70 18 100% 3L Gen - NARD Chest - clear, distant BS, nml RR CV - irregularly irregular. Tele showing AFib with controlled rate Abd - Soft, NT/ND, Positive BS - Keen secured draining clear yellow urine. Ext - trace pedal edema. Psych - Nml mood and affect Skin - Warm and dry DS: Data Data Completed and Pending Labs on day of discharge: Labs from last 24 hours 02/26/24 05:53 WBC 11.2 H RBC 3.39 L Hgb 9.5 L Hct 31.4 L MCV 92.6 MCH 28.0 MCHC 30.3 L RDW 16.1 H Plt Count 207 MPV 10.7 H Sodium 135 L Potassium 3.8 Chloride 94 L Carbon Dioxide 36 H Anion Gap 5 BUN 34 H Creatinine 1.70 H Estim Creat Clear Calc 36 Estimated GFR 39 L Glucose 98 Calcium 7.9 L Magnesium 2.3 Discharge Plan Discharge Attending physician on discharge: Favian Crockett Discharging Clinician: Favian Crockett Anticipated Discharge Date/Time: 02/26/24 14:46 Patient Disposition: Home, Self-Care Activity: as tolerated Diet: heart healthy Discharge Instructions: Check blood pressure 1 to 2 times a day. Record and bring into your doctor for review. Call your doctor if your blood pressure is greater than 180/110 or less than 90/45. Wear oxygen at 3Liters/min at all times. Even when sleeping. Take precautions to avoid falls. Rise slowly from a lying or sitting position. Pause before standing or walking. Continue to perform self-catheterization of your urinary bladder 3x/day and once before bedtime Check daily morning weights after self catheterization. Call your doctor if you gain more than 3 lb in 2 days or 5 lb in 1 week. Contact your doctor or call 911 and come to the Emergency Room if you have increasing shortness of breath, lightheadedness with standing or other worrisome symptoms. Avoid NSAIDs (ibuprofen, naproxen, Aleve). Tylenol is safe to take. Follow-up with your primary care provider in 1-2 weeks. Please call for appointment. Follow-up with Aesthetics Instructor in 1-2 weeks. Please call for an appointment. Thank you for using [facility] for your health care needs. Patient Instructions: Antibiotic Form, Apixaban (By mouth) Stand Alone Forms: General Discharge Information Follow-up/Referrals: UNKNOWN,DOCTOR [Primary Care Provider] - Call for Appointment Discharge Medications: New amiodarone [Pacerone] 200 mg Tablet 200 mg PO DAILY@0800 Qty: 30 0RF furosemide 40 mg Tablet 40 mg PO DAILY Qty: 30 0RF carvedilol [Coreg] 3.125 mg Tablet 3.125 mg PO Q12HR Qty: 60 0RF prednisone 20 mg Tablet 40 mg PO DAILY@0800 2 Days Qty: 4 0RF Continued levothyroxine 100 mcg tablet 125 mcg PO DAILY albuterol sulfate 90 mcg/actuation HFA aerosol inhaler 2 puff inhalation QID PRN (Reason: shortness of breath or wheezing) Qty: 8.5 0RF diltiazem HCl [Cardizem CD] 120 mg capsule,extended release 24hr 120 mg PO DAILY Eliquis 5 mg tablet 5 mg PO BID Anoro Ellipta 62.5-25 mcg/actuation blister with device 2 inh INHALATION BID tamsulosin 0.4 mg capsule 0.4 mg PO DAILY solifenacin 10 mg tablet 10 mg PO DAILY Changed buspirone 5 mg tablet 5 mg PO Q12H Qty: 60 0RF Other Ambulatory Orders: Thyroid Stimulating Hormone Reflex (Routine) Timeframe: 1 Month Location: Determined by Patient Ordered By: Favian Crockett Date of admission: 02/22/24 11:09 Primary Care Provider: UNKNOWN,DOCTOR Admitting Provider: Horace Sena Attending physician on admission: Horace Sena Condition: Stable Hospitalist MIPS Heart Failure (Exclusion) Patient has history of Heart Transplant or Left Ventricular Assistive Device?: Yes IF YES, STOP HERE Heart Failure (Qualifier) Patient has current or prior documentation of LVEF less than or equal to 40%, or mod/servere depressed LVSF?: Yes IF NO, STOP HERE If Yes, Heart Failure (Qualifier) Patient was prescribed or already taking an Angiotensin-Converting Enzyme (CARLITOS) Inhibitor, or Antiotensin Receptor Anaid (ARB): No Patient was prescribed or already taking bisoprolol, carvedilol, or sustained release metoprolol succinate: Yes If Medications not prescribed/taking Reason patient not prescribed/taking CARLITOS or ARB: Medical reasons: allergy, intolerance, contraindication or other
== END 2024-02-26 15:50 | disposition home or self-care (01) ==
LOC: ANHED 11:09 → ANHIMU 13:01 → ANH3MEDSUR 02-26 14:50 → ANHIMU 02-27 07:37
PROVIDERS: Admitting Provider Internal Medicine; Emergency Provider Emergency Medicine; Visit Provider Internal Medicine
DX: I13.0 Hypertensive heart and chronic kidney disease with heart failure and stage 1 through stage 4 chronic kidney disease, or unspecified chronic kidney disease (principal); N18.30 Chronic kidney disease, stage 3 unspecified; I50.9 Heart failure, unspecified; I48.91 Unspecified atrial fibrillation; I25.10 Atherosclerotic heart disease of native coronary artery without angina pectoris; J44.9 Chronic obstructive pulmonary disease, unspecified; I47.20 Ventricular tachycardia, unspecified; J96.10 Chronic respiratory failure, unspecified whether with hypoxia or hypercapnia; E78.5 Hyperlipidemia, unspecified; D64.9 Anemia, unspecified; R33.9 Retention of urine, unspecified; E03.9 Hypothyroidism, unspecified; I44.7 Left bundle-branch block, unspecified; R29.6 Repeated falls; Z86.16 Personal history of COVID-19; Z20.822 Contact with and (suspected) exposure to COVID-19; Z95.0 Presence of cardiac pacemaker; Z79.01 Long term (current) use of anticoagulants; Z79.51 Long term (current) use of inhaled steroids; Z79.899 Other long term (current) drug therapy; Z87.891 Personal history of nicotine dependence; Z87.11 Personal history of peptic ulcer disease; Z99.81 Dependence on supplemental oxygen
CPT/HCPCS: 36415; 36600; 71046; 80048; 80053; 80069; 82375; 82805; 83050; 83735; 83880; 84439; 84443; 84480; 84484; 85018; 85025; 85027; 85610; 85730; 87637; 93005; 93970; 94640; 96374; 96375; 97110; 97161; 97165; 97530; 97535; 99285; A9270; G0378; J1940; J2919; J7512

== ENCOUNTER 2024-04-12 02:03 | Emergency (ER) | payer MEDICARE, SELFPAY ==
[2024-04-12] VITALS (23 sets, daily range): BP systolic 94–129; BP diastolic 57–90; PULSE 60–90; RESP 12–22; TEMP 36.4–36.8; O2SAT 96–100
--- NOTE | ~2024-04-12 | XR_ITS ---
Portable chest x-ray Comparison: 02/22/2024 Clinical History: Weakness Findings: Lungs are clear, without focal consolidation or pleural effusion. Cardiomediastinal silho uette is stable, with pacemaker device. Bones and soft tissues are unremarkable. Impression: Clear lungs. Stable cardiomegaly with pacemaker device. Reviewed, dictated and finalized at location . WAY ENGINEER Impression: Clear lungs. Stable cardiomegaly with pacemaker device.
--- NOTE | ~2024-04-12 | XR_ITS ---
AP view of the pelvis Clinical history: Pain Findings: No acute fracture or dislocation is seen. Osseous alignment is anatomic. Bilateral hip join ts demonstrate mild degenerative change. Soft tissues are unremarkable. Impression: Mild degenerative change of both hip joints. Moderate degenerative change of both SI joints. Reviewed, dictated and finalized at location M. TING HELPER Impression: Mild degenerative change of both hip joints. Moderate degenerative change of both SI joints.
--- NOTE | ~2024-04-12 | CT_ITS ---
Noncontrast CT scan of the cervical spine Technique: Multiple contiguous axial [address] images of the cervical spine were obtained and rec onstructed in 2D sagittal and coronal planes on the acquisition scanner. Dose reduction technique was used on this scan by utilizing automated exposure control, adjustment of the mA and/or kV according to patient size. The dose-length product (DLP) was 441.02 mGy-cm. Clinical History: Pain Findings: No fractures or dislocations. There is reversal of the normal cervical lordosis. There is severe degenerative change from C3 through C7. There is advanced degenerative change at the articulat ion of the odontoid process with the anterior arch of C1. There is right neural foraminal narrowing a t C2-C3, the right facet arthropathy. There is disc osteophyte complex at C3-C4 with moderate to andres re canal stenosis and severe bilateral neural foraminal narrowing. There is disc osteophyte complex a t C4-C5, with mild canal stenosis and severe bilateral neural foraminal narrowing. There is disc oste ophyte complex at C5-C6, with mild canal stenosis and advanced bilateral neural foraminal narrowing. There is disc osteophyte complex at C6-C7, with bilateral neural foraminal narrowing, right worse whit n left. Probable mild canal stenosis. No prevertebral soft tissue swelling. Impression: No fracture or subluxation of the cervical spine. Severe degenerative spondylosis of the cervical spine, as detailed above, with mild reversal of the n ormal cervical lordosis. Reviewed, dictated and finalized at [facility]. TRAINING Impression: No fracture or subluxation of the cervical spine. Severe degenerative spondylosis of the cervical spine, as detailed above, with mild reversal of the normal cervical lordosis.
--- NOTE | ~2024-04-12 | CT_ITS ---
CT head without contrast Indication: Weakness Technique: Serial scans were obtained through the brain without the administration of contrast. Dose reduction technique was used on this scan by utilizing automated exposure control and iterative recon struction technique. The dose-length product (DLP) was 681.00 mGy-cm. Findings: There is no evidence of intracranial hemorrhage, mass lesion, or acute infarct. The ventri cles and subarachnoid spaces are dilated, consistent with mild atrophy. Low attenuation regions are seen within the periventricular white matter bilaterally, likely representing changes from chronic mi crovascular ischemic disease. There is no evidence of edema, mass effect or midline shift. The visu alized paranasal sinuses and mastoid air cells are clear. Impression: No intracranial hemorrhage, mass, or acute infarct. Atrophy and chronic white matter changes, as above. Reviewed, dictated and finalized at location . 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 Atrophy and chronic white matter changes, as above.
--- NOTE | 2024-04-12 02:30 | ECG_ITS ---
Test Date: 2024-04-12 02:38:49 Measurements Intervals [place] Rate: 61 P: 0 [place]: 0 QRS: -90 QRSD: 220 T: 84 QT: 579 QTc: 585 Interpretive Statements ELECTRONIC VENTRICULAR PACEMAKER ABNORMAL RHYTHM ECG Compared to ECG 02/26/2024 00:23:47 Atrial fibrillation no longer present Left bundle-branch block no longer present Electronically Signed On 04-12-2024 12:52:19 BEATER ROOM SUPERVISOR by Freeman Garcia M.D.
--- NOTE | 2024-04-12 03:13 | PC.NURSE ---
Patient states he straight caths at home. Patient states at this time he needs to empty his bladder. This RN informed of need for urine sample. Patient okay with straight cath by respiratory tech for sterile specimen.
[2024-04-12 03:16] LABS: Basophils Percent Auto 0.4 % (0.2-1.2); Eosinophils Absolute Auto 0.2 K/mm3 (0-0.3); Eosinophils Percent Auto 3.4 % (0-4.4); Hematocrit 30.7 % (42.0-52.0); Hemoglobin 9.5 g/dL (14.0-18.0); Immature Granulocyte Absolute 0.02 K/mm3 (0.00-0.031); Immature Granulocyte Percent A 0.4 % (0-0.5); Lymphocytes Absolute Auto 1.26 K/mm3 (0.9-3.2); Lymphocytes Percent Auto 22.8 % (18.3-44.2); Mean Corpuscular HGB Conc 30.9 g/dl (32-36); Mean Corpuscular Hemoglobin 26.8 pg (26-34); Mean Corpuscular Volume 86.7 fl (80-100); Mean Platelet Volume 10.2 fl (7.4-10.4); Monocytes Absolute Auto 0.6 K/mm3 (0.1-0.6); Monocytes Percent Auto 10.5 % (2.6-8.5); Neutrophils Absolute Auto 3.5 K/mm3 (1.3-6.7); Neutrophils Percent Auto 62.5 % (45.5-73.1); Platelet Count Result 196 k/mm3 (150-375); Red Blood Count 3.54 M/mm3 (4.6-6.20); Red Cell Distribution Width 14.8 % (11.5-14.5); White Blood Count 5.5 K/mm3 (4.5-10.0)
[2024-04-12 03:27] LABS: Alanine Aminotransferase 12 U/L (6-50); Albumin Level 3.7 g/dL (3.5-5.1); Alkaline Phosphatase 86 U/L (38-126); Anion Gap 6 mmol/L (4-12); Aspartate Amino Transferase 26 U/L (17-59); Bilirubin,Total 0.5 mg/dL (0.2-1.3); Blood Urea Nitrogen 21 mg/dL (9-20); Carbon Dioxide 33 mmol/L (22-30); Chloride 97 mmol/L (98-107); Estimated CRCL calculation 31 ml/min; Estimated Glomerular Filt Rate 32; Glucose 75 mg/dL (65-110); Sodium 136 mmol/L (137-145)
[2024-04-12 03:54] LABS: Add Urine Microscopic? YES; Appearance Urine Clear (Clear); Bacteria Urine 4+ /hpf; Bilirubin Urine Negative (Negative); Blood Urine Negative (Negative); Color Urine Yellow (Yellow); Glucose Urine UA Negative (Negative); Ketones Urine Negative (Negative); Leukocyte Esterase Ur 1+ LEU/UL (Negative); Need Manual Microscopic Reviewed; Nitrate Urine Positive (Negative); Non Pathogenic Casts 0-2; Protein Urine Negative (Negative); RBC Urine 0-2 /hpf (0-2); Specific Grav Ur 1.007 (1.001-1.035); Squamous Epithelial Cell Urine None Seen /hpf (Few); Urobilinogen Urine 0.2 mg/dL (<2.0); WBC Urine 0-5 /hpf (0-3)
[2024-04-12] MEDS: POTASSIUM CHLORIDE 20 MEQ ER TABLET 40 MEQ PO ×2 (04:12→08:40)
[2024-04-12] MEDS: MAGNESIUM SULF 2 GM/WATER 50ML 2 GM/50 ML BAG IVPB (04:12)
[2024-04-12] MEDS: IPRATROPIUM 0.5 MG/ALBUTEROL SULFATE 2.5 MG AMPUL.NEB 3 ML 12 ML INHALATION (05:08)
[2024-04-12 05:16] LABS: Alveolar/Arterial O2 Gradient 40.7 mmHg; Base Excess ABG 5.9 mEq/l (+/-2.0); Fractional Inspired Oxygen 30 %; HCO3 ABG 32.1 mEq/l (22.0-26.0); Oxygen Content ABG 15.9 %vol (16.0-22.0); Oxygen Saturation ABG 97.9 % (95.0-100.0); Oxyhemoglobin 96.7 % THb (90.0-100.0); PCO2 ABG 54.5 mmHg (35.0-45.0); PO2 ABG 109.2 mmHg (80.0-100.0); PO2 FiO2 Ratio Arterial Blood 3.64 %; Total Hemoglobin 11.6 g/dL (12.0-18.0); pH ABG 7.388 (7.350-7.450)
[2024-04-12 05:17] LABS: Device NASAL CANNULA; Liters per Minute 2.5 LPM; Modified Allen's Test Pass; Site Drawn RIGHT RADIAL
[2024-04-12 05:33] LABS: Influenza A QL RT-PCR Negative (Negative); Influenza B QL RT-PCR Negative (Negative); RSV RNA, RT-PCR Negative (Negative); SARS-CoV-2 RNA PCR Negative (Negative)
--- NOTE | 2024-04-12 07:49 | ED_ITS ---
HPI - General Adult General Chief complaint: Weakness Stated complaint: fall, generalized weakness Time Seen by Provider: 04/12/24 02:11 History of Present Illness HPI narrative: This is an 83-year-old male presenting to the ED for weakness. Patient says he was trying to use the restroom when he fell onto his buttocks. He did not sustain any serious injuries when he fell however he is unable to get up from the floor. This is not normal for him. He then called EMS who helped him get up and then brought him to the hospital for evaluation. At this time the patient says he has been feeling weak but has no other complaints such as fevers chills nausea vomiting or diarrhea. No chest pain difficulty breathing or abdominal pain. He is on 3 L home oxygen for his COPD. Related Data Home Medications Medication Instructions Recorded Confirmed levothyroxine 100 mcg tablet 125 mcg PO DAILY 08/07/20 02/22/24 apixaban 5 mg tablet (Eliquis) 5 mg PO BID 02/22/24 02/22/24 diltiazem HCl 120 mg 120 mg PO DAILY 02/22/24 02/22/24 capsule,extended release 24 hr (Cardizem CD) solifenacin 10 mg tablet 10 mg PO DAILY 02/22/24 02/22/24 tamsulosin 0.4 mg capsule 0.4 mg PO DAILY 02/22/24 02/22/24 umeclidinium 62.5 mcg-vilanterol 2 inh inhalation BID 02/22/24 02/22/24 25 mcg/actuation powdr for inhalation (Anoro Ellipta) Allergies Allergy/AdvReac Type Severity Reaction Status Date / Time No Known Allergies Verified 04/12/24 02:10 [facility] Past Medical History Medical History Atrial fibrillation Chronic respiratory failure CKD (chronic kidney disease) History of COPD History of hyperlipidemia History of hypertension Hypothyroidism Social History Social History Smoking status: Light tobacco smoker Alcohol intake: current Drinks per week: 3 Substance use: never Substance use type: does not use Do You Feel Safe in your Home?: Yes Lack of Transportation: No Lack of Food: Never True Current Housing: I Have Housing Concerned About Future Housing: No Difficulty Paying Gas/Electric Bills: No Difficulty Paying for Meds: No Currently Unemployed: No Education: Decline to Answer Difficulty w/ Childcare or Family Care: No Spiritual care concerns: No Exam Narrative: APPEARANCE: No apparent distress. Head: atraumatic. EYES: EOMI, NOSE: Atraumatic NECK/Back: no midline spinal tenderness, no tenderness to the paralumbar muscles RESPIRATORY: No increased rate of breathing , scattered wheezing, on 3 L nasal cannula baseline CARDIOVASCULAR: RRR, no peripheral edema ABDOMINAL: Non-distended soft nontender MUSCULOSKELETAl: No obvious deformities NEURO: Alert. Cranial nerves 2-12 grossly intact. Sensation light touch, motor function cerebellar function intact for 4 extremities. Gait exam was deferred SKIN:: Warm, dry. Normal color PSYCHIATRIC: Normal affect Course Vital Signs Vital signs: Vital Signs Temperature 98.2 F 04/12/24 02:02 Pulse Rate 75 04/12/24 02:02 Respiratory Rate 20 04/12/24 02:02 Blood Pressure 112/76 04/12/24 02:02 Pulse Oximetry 98 04/12/24 02:02 Oxygen Delivery Nasal Cannula 04/12/24 02:02 Oxygen Flow Rate 3 04/12/24 02:02 Temperature 98.2 F 04/12/24 02:02 Pulse Rate 61 04/12/24 05:09 Respiratory Rate 18 04/12/24 05:09 Blood Pressure 124/90 04/12/24 04:58 Pulse Oximetry 100 04/12/24 05:00 Oxygen Delivery Nasal Cannula 04/12/24 02:08 Oxygen Flow Rate 3 04/12/24 02:08 Medical Decision Making [facility] Narrative Medical decision making narrative: -Course: 83-year-old male presenting with weakness and a ground level fall. Broad workup obtained. CT imaging of the head C-spine negative. Chest x-ray unremarkable. Pelvis without any acute fractures. Metabolic panel showed hypokalemia which was repleted. metabolic panel showed slight HILARIO and patient was given fluid resuscitation. Otherwise his workup was unremarkable. On re- evaluation the patient says he is feeling much better. He is able to ambulate around the emergency department with steady gait. We discussed admission versus discharge the patient would much rather be discharged home. Risks were explaine d to the patient. He will return to ED if he develops any new or worsening symptoms. -DDX includes but is not limited to: Dehydration UTI viral syndrome pneumonia COPD exacerbation -Independent interpretation of studies: labs and imaging reviewed -Shared decision making / Disposition:discharged Vital Signs Vital Signs: Vital Signs Temperature 98.2 F 04/12/24 02:02 Pulse Rate 75 04/12/24 02:02 Respiratory Rate 20 04/12/24 02:02 Blood Pressure 112/76 04/12/24 02:02 Pulse Oximetry 98 04/12/24 02:02 Oxygen Delivery Nasal Cannula 04/12/24 02:02 Oxygen Flow Rate 3 04/12/24 02:02 Temperature 98.2 F 04/12/24 02:02 Pulse Rate 61 04/12/24 05:09 Respiratory Rate 18 04/12/24 05:09 Blood Pressure 124/90 04/12/24 04:58 Pulse Oximetry 100 04/12/24 05:00 Oxygen Delivery Nasal Cannula 04/12/24 02:08 Oxygen Flow Rate 3 04/12/24 02:08 Lab Data 04/12/24 03:09 04/12/24 03:09 Labs: Lab Results 04/12/24 04/12/24 04/12/24 Range/Units 03:09 03:20 04:49 WBC 5.5 (4.5-10.0) K/mm3 RBC 3.54 L (4.6-6.20) M/mm3 Hgb 9.5 L (14.0-18.0) g/dL Hct 30.7 L (42.0-52.0) % MCV 86.7 (80-100) fl MCH 26.8 (26-34) pg MCHC 30.9 L (32-36) g/dl RDW 14.8 H (11.5-14.5) % Plt Count 196 (150-375) k/mm3 MPV 10.2 (7.4-10.4) fl Immature Gran % (Auto) 0.4 (0-0.5) % Neut % (Auto) 62.5 (45.5-73.1) % Lymph % (Auto) 22.8 (18.3-44.2) % [place] % (Auto) 10.5 H (2.6-8.5) % Eos % (Auto) 3.4 (0-4.4) % Baso % (Auto) 0.4 (0.2-1.2) % Lymph # (Auto) 1.26 (0.9-3.2) K/mm3 [place] # (Auto) 0.6 (0.1-0.6) K/mm3 Eos # (Auto) 0.2 (0-0.3) K/mm3 Baso # (Auto) 0.0 (0.0-0.1) K/mm3 Abs Immat Gran (auto) 0.02 (0.00-0.031) K/mm3 Absolute Neuts (auto) 3.5 (1.3-6.7) K/mm3 Absolute Nucleated RBC 0.000 (0.0-0.012) K/mm3 Nucleated RBC % 0.0 (0.0-0.2) % Sodium 136 L (137-145) mmol/L Potassium 3.0 L (3.4-5.0) mmol/L Chloride 97 L (98-107) mmol/L Carbon Dioxide 33 H (22-30) mmol/L Anion Gap 6 (4-12) mmol/L BUN 21 H D (9-20) mg/dL Creatinine 2.00 H (0.7-1.3) mg/dL Estim Creat Clear Calc 31 ml/min Estimated GFR 32 L (59 - ) Glucose 75 (65-110) mg/dL Calcium 8.0 L (8.4-10.2) mg/dL Total Bilirubin 0.5 (0.2-1.3) mg/dL AST 26 (17-59) U/L ALT 12 (6-50) U/L Alkaline Phosphatase 86 (38-126) U/L Total Protein 6.0 L (6.3-8.2) g/dL Albumin 3.7 (3.5-5.1) g/dL Urine Color Yellow (Yellow) Urine Appearance Clear (Clear) Urine pH 7.0 (5.0-9.0) Ur Specific [place] 1.007 (1.001-1.035) Urine Protein Negative (Negative) mg/dL Urine Glucose (UA) Negative (Negative) mg/dL Urine Ketones Negative (Negative) mg/dL Ur Blood (Man) Negative (Negative) Urine Nitrate Positive H (Negative) Urine Bilirubin Negative (Negative) Urine Urobilinogen 0.2 (<2.0) mg/dL Add Ur Microanalysis Reviewed Leukocyte Esterase Rfl 1+ H (Negative) MAYLIN/UL Urine RBC 0-2 (0-2) /hpf Urine WBC 0-5 (0-3) /hpf Ur Squamous Epith Cells None seen (Few) /hpf Urine Bacteria 4+ H /hpf Urine Casts 0-2 Influenza A (RT-PCR) Negative (Negative) Influenza B (RT-PCR) Negative (Negative) RSV (RT-PCR) Negative (Negative) SARS-CoV-2 RNA (RT-PCR) Negative (Negative) ABG Data ABG results: 04/12/24 04:52 Puncture Site Right radial ABG pH 7.388 ABG pCO2 54.5 H ABG pO2 109.2 H ABG PO2/FiO2 Ratio 3.64 ABG HCO3 32.1 H ABG O2 Saturation 97.9 ABG O2 Content 15.9 L ABG Base Excess 5.9 A-a Gradient 40.7 Oxyhemoglobin 96.7 Total Hemoglobin 11.6 L O2 Delivery Device Nasal cannula O2 Liters/Min 2.5 FiO2 30 Discharge Plan Discharge Clinical Impression: Weakness Patient Disposition: Home, Self-Care Condition: Stable Instructions: Antibiotic Form, Weakness (ED) Additional Instructions: You were seen in the emergency department for weakness. He was found have low potassium and to be slightly dehydrated. Please make sure you are eating and drinking as normal. Please return if you develop worsening weakness fevers or if your develop any new or worsening symptoms. Please follow-up with the primary care physician listed below. Prescriptions: No Action levothyroxine 100 mcg tablet 125 mcg PO DAILY albuterol sulfate 90 mcg/actuation HFA aerosol inhaler 2 puff inhalation QID PRN (Reason: shortness of breath or wheezing) Qty: 8.5 0RF diltiazem HCl [Cardizem CD] 120 mg capsule,extended release 24hr 120 mg PO DAILY Eliquis 5 mg tablet 5 mg PO BID Anoro Ellipta 62.5-25 mcg/actuation blister with device 2 inh INHALATION BID tamsulosin 0.4 mg capsule 0.4 mg PO DAILY solifenacin 10 mg tablet 10 mg PO DAILY furosemide 40 mg Tablet 40 mg PO DAILY Qty: 30 0RF amiodarone [Pacerone] 200 mg Tablet 200 mg PO DAILY@0800 Qty: 30 0RF prednisone 20 mg Tablet 40 mg PO DAILY@0800 2 Days Qty: 4 0RF carvedilol [Coreg] 3.125 mg Tablet 3.125 mg PO Q12HR Qty: 60 0RF buspirone 5 mg tablet 5 mg PO Q12H Qty: 60 0RF Follow-up/Referrals: UNKNOWN,DOCTOR [Primary Care Provider] - Long Zhong MD [Physician] - 1 Week (ED F/U. Dehydration. Establish pcp)
[2024-04-12] MEDS: SODIUM CHLORIDE 0.9% IV 1,000 ML 999 ML IV CONT (08:09)
--- NOTE | 2024-04-12 08:09 | PC.NURSE ---
IV fluids started, unable to scan them into MAR at this time. Pt name and verified before starting
== END 2024-04-12 09:49 | disposition home or self-care (01) ==
PROVIDERS: Emergency Provider Emergency Medicine
DX: I48.91 Unspecified atrial fibrillation (principal); J96.10 Chronic respiratory failure, unspecified whether with hypoxia or hypercapnia; J44.9 Chronic obstructive pulmonary disease, unspecified; I12.9 Hypertensive chronic kidney disease with stage 1 through stage 4 chronic kidney disease, or unspecified chronic kidney disease; N18.9 Chronic kidney disease, unspecified; E78.5 Hyperlipidemia, unspecified; E03.9 Hypothyroidism, unspecified; F17.200 Nicotine dependence, unspecified, uncomplicated; Z95.0 Presence of cardiac pacemaker; Z79.01 Long term (current) use of anticoagulants; Z79.899 Other long term (current) drug therapy; Z20.822 Contact with and (suspected) exposure to COVID-19
CPT/HCPCS: 36415; 36600; 70450; 71045; 72125; 72170; 80053; 81001; 82805; 85018; 85025; 87040; 87077; 87086; 87186; 87637; 93005; 94640; 96361; 96365; 96366; 99284; A9270; J3475; J7030

== ENCOUNTER 2025-01-05 05:27 | Observation (INO) | payer MEDICARE, SELFPAY ==
[2025-01-05] VITALS (15 sets, daily range): BP systolic 55–150; BP diastolic 43–96; PULSE 60–73; RESP 14–63; TEMP 36.3–37.2; O2SAT 96–100; BMI 34.8
--- NOTE | ~2025-01-05 | CT_ITS ---
EXAMINATION: CT brain wo con DATE: 01/05/2025 06:24 INDICATION: Dizziness TECHNIQUE: Computed tomography (CT) of the head was performed without intravenous contrast. Sagittal and coronal reconstructions were performed. The mA was adjusted according to patient size. Iterative reconstruction technique was employed. The dose-length product was 681.00 mGy-cm. COMPARISON: head CT dated 04/12/2024 FINDINGS: No acute intracranial hemorrhage, acute infarction or abnormal extra axial fluid collection. There is mild to moderate scattered white matter hypoattenuation consistent with chronic small vessel ischemic disease. Symmetric prominence of the sulci and ventricles consistent with mild age-appropriate diffuse cerebral volume loss. Ventricles are normal and symmetric. No mass/mass effect. Changes of bilateral intraocular lens replacement. Unchanged moderate bilateral mastoid effusions. Paranasal sinuses are normal. Intracranial calcified cerebral atherosclerosis is noted. IMPRESSION: 1. Normal aging brain. No acute intracranial process. Reviewed, dictated and finalized at location A.
--- NOTE | 2025-01-05 05:28 | ECG_ITS ---
Test Date: 2025-01-05 05:31:17 Measurements Intervals [place] Rate: 63 P: 97 [place]: 302 QRS: -17 QRSD: 194 T: 93 QT: 516 QTc: 529 Interpretive Statements ELECTRONIC ATRIAL PACEMAKER LEFT BUNDLE-BRANCH BLOCK ABNORMAL ECG Compared to ECG 04/12/2024 02:38:49 Left bundle-branch block now present Ventricular-paced complex(es) or rhythm no longer present Electronically Signed On 01-05-2025 11:15:00 CDT by Aravind Galvez M.D.
--- NOTE | 2025-01-05 05:49 | ED.DIZZY ---
HPI - Dizziness General Chief Complaint: Dizziness <Anastacio Landin MD - Last Filed: 01/05/25 06:57> Stated Complaint: dizzy <Anastacio Landin MD - Last Filed: 01/05/25 06:57> History of Present Illness HPI Narrative: This is an 84-year-old male with history of AFib status post pacemaker placement, CKD, chronic urinary retention with intermittent straight catheterization who presents to the ED for dizziness. Patient states that he woke up about 6 hours ago to use the bathroom and he became dizzy like the room was spinning. He states that he got better after he sat down. He states that when he awoke again this morning, he continued to be dizzy with standing up from seated positions. Denies any new medications. He states that he has felt weak for the past couple days as well. No known sick contacts. <Anastacio Landin MD - Last Filed: 01/05/25 06:57> Related Data Home Medications: Home Medications ?Medication ?Instructions ?Recorded ?Confirmed ?Last Taken ?Type levothyroxine 100 mcg tablet 125 mcg PO DAILY 08/07/20 02/22/24 Unknown History apixaban 5 mg tablet (Eliquis) 5 mg PO BID 02/22/24 02/22/24 Unknown History diltiazem HCl 120 mg 120 mg PO DAILY 02/22/24 02/22/24 Unknown History capsule,extended release 24 hr (Cardizem CD) solifenacin 10 mg tablet 10 mg PO DAILY 02/22/24 02/22/24 Unknown History tamsulosin 0.4 mg capsule 0.4 mg PO DAILY 02/22/24 02/22/24 Unknown History umeclidinium 62.5 mcg-vilanterol 2 inh inhalation BID 02/22/24 02/22/24 Unknown History 25 mcg/actuation powdr for inhalation (Anoro Ellipta) <Anastacio Landin MD - Last Filed: 01/05/25 06:57> Allergies/Adverse Reactions: Allergies Allergy/AdvReac Type Severity Reaction Status Date / Time No Known Allergies Verified 04/12/24 02:10 <Anastacio Landin MD - Last Filed: 01/05/25 06:57> Review of Systems Review of Systems: Gen.: Denies fevers or chills Eyes: Denies eye pain or visual change ENT: Denies congestion Respiratory: Denies shortness of breath or cough CV: Denies chest pain or palpitations GI: Denies abdominal pain nausea, emesis or diarrhea denies burning, urgency, frequency or hematuria Musculoskeletal: Denies back pain or muscle pain Neuro: Denies numbness, tingling, focal weakness Skin: Denies rash Except as documented, all other systems reviewed and negative <Anastacio Landin MD - Last Filed: 01/05/25 06:57> [facility] Past Medical History Medical History: Medical History CKD (chronic kidney disease) Hypothyroidism Chronic respiratory failure Atrial fibrillation History of hyperlipidemia History of hypertension History of COPD <Anastacio Landin MD - Last Filed: 01/05/25 06:57> Social History Social History: Social History Smoking status: Former smoker Alcohol intake: current Drinks per week: 3 Substance use: never Substance use type: does not use Do You Feel Safe in your Home?: Yes Lack of Transportation: No Lack of Food: Never True Current Housing: I Have Housing Concerned About Future Housing: No Difficulty Paying Gas/Electric Bills: No Difficulty Paying for Meds: No Currently Unemployed: No Education: Decline to Answer Difficulty w/ Childcare or Family Care: No Spiritual care concerns: No <Anastacio Landin MD - Last Filed: 01/05/25 06:57> Exam Narrative: APPEARANCE: No acute distress, nontoxic, resting in bed EYES: EOMI. No reproducible nystagmus. PERRL HEENT: Normocephalic, atraumatic, OMM RESPIRATORY: No respiratory distress Clear to auscultation bilaterally with no rhonchi wheezing or rales. CARDIOVASCULAR: Regular rate and rhythm without murmurs rubs or gallops. ABDOMINAL: Soft, nontender, nondistended, no rebound or guarding MUSCULOSKELETAl: Moves all extremities. No clubbing, cyanosis or edema. NEURO: Awake and alert. Following commands, speech normal, no focal deficits SKIN:: Warm, dry. No rashes lesions or abrasions PSYCHIATRIC: Normal affect/mood, <Anastacio Landin MD - Last Filed: 01/05/25 06:57> Course Vital Signs Vital signs: Vital Signs Temperature 36.4 C L 09/03/25 05:28 Pulse Rate 63 01/05/25 05:28 Respiratory Rate 63 H 01/05/25 05:28 Blood Pressure 127/60 01/05/25 05:28 Pulse Oximetry 97 01/05/25 05:28 Oxygen Delivery Nasal Cannula 01/05/25 05:28 Oxygen Flow Rate 3 01/05/25 05:28 Temperature 36.3 C L 01/05/25 07:21 Pulse Rate 60 01/05/25 07:22 Respiratory Rate 14 01/05/25 07:21 Blood Pressure 139/60 01/05/25 07:21 Pulse Oximetry 100 01/05/25 07:21 Oxygen Delivery Nasal Cannula 01/05/25 05:28 Oxygen Flow Rate 3 01/05/25 05:28 <Anastacio Landin MD - Last Filed: 01/05/25 06:57> Vital Signs Temperature 36.4 C L 01/05/25 05:28 Pulse Rate 63 01/05/25 05:28 Respiratory Rate 63 H 01/05/25 05:28 Blood Pressure 127/60 01/05/25 05:28 Pulse Oximetry 97 01/05/25 05:28 Oxygen Delivery Nasal Cannula 01/05/25 05:28 Oxygen Flow Rate 3 01/05/25 05:28 Temperature 36.3 C L 01/05/25 07:21 Pulse Rate 60 01/05/25 07:22 Respiratory Rate 14 01/05/25 07:21 Blood Pressure 139/60 01/05/25 07:21 Pulse Oximetry 100 01/05/25 07:21 Oxygen Delivery Nasal Cannula 01/05/25 05:28 Oxygen Flow Rate 3 01/05/25 05:28 <Favian Draek MD - Last Filed: 01/05/25 07:55> MDM - Dizziness MDM Narrative Medical decision making narrative: 84-year-old male who presents to the ED for dizziness. On initial evaluation, patient in no acute distress, afebrile, hemodynamically stable. He had a nonfocal neuro exam. He had no reproducible nystagmus. Orthostatic blood pressures were obtained and patient did drop to 55/43 upon standing consistent with severe orthostatic hypotension. Patient was also symptomatic during this time. Patient will be given 2 L NS bolus and started on maintenance fluids. UA consistent with UTI. He was given rocephin. He will likely require admission for orthostatic hypotension and UTI. <Anastacio Landin MD - Last Filed: 01/05/25 06:57> 84-year-old male who presents to the ED for dizziness. On initial evaluation, patient in no acute distress, afebrile, hemodynamically stable. He had a nonfocal neuro exam. He had no reproducible nystagmus. Orthostatic blood pressures were obtained and patient did drop to 55/43 upon standing consistent with severe orthostatic hypotension. Patient was also symptomatic during this time. Patient will be given 2 L NS bolus and started on maintenance fluids. UA consistent with UTI. He was given rocephin. He will likely require admission for orthostatic hypotension and UTI. Patient is still feeling lightheaded CT head was negative. The case was discussed with the hospitalist the patient was admitted <Favian Drake MD - Last Filed: 01/05/25 07:55> Differential Diagnosis Differential diagnosis: Likely benign paroxysmal positional vertigo, orthostatic hypotension, vertebral basilar insufficiency and cerebrovascular accident <Anastacio Landin MD - Last Filed: 01/05/25 06:57> Medical Records Attestation: I reviewed the patient's medical records. <Anastacio Landin MD - Last Filed: 01/05/25 06:57> Lab Data Attestation: I reviewed the patient's lab results. <Anastacio Landin MD - Last Filed: 01/05/25 06:57> Result diagrams: 01/05/25 05:47 01/05/25 05:47 <Anastacio Landin MD - Last Filed: 01/05/25 06:57> Labs: Lab Results 01/05/25 01/05/25 01/05/25 Range/Units 05:47 05:47 05:58 WBC 5.8 (4.5-10.0) K/mm3 RBC 3.05 L (4.6-6.20) M/mm3 Hgb 8.2 L (14.0-18.0) g/dL Hct 27.9 L (42.0-52.0) % MCV 91.5 (80-100) fl MCH 26.9 (26-34) pg MCHC 29.4 L (32-36) g/dl RDW 15.9 H (11.5-14.5) % Plt Count 220 (150-375) k/mm3 MPV 10.2 (7.4-10.4) fl Immature Gran % (Auto) 0.5 (0-0.5) % Neut % (Auto) 64.5 (45.5-73.1) % Lymph % (Auto) 21.0 (18.3-44.2) % [place] % (Auto) 9.0 H (2.6-8.5) % Eos % (Auto) 4.7 H (0-4.4) % Baso % (Auto) 0.3 (0.2-1.2) % Lymph # (Auto) 1.21 (0.9-3.2) K/mm3 [place] # (Auto) 0.5 (0.1-0.6) K/mm3 Eos # (Auto) 0.3 (0-0.3) K/mm3 Baso # (Auto) 0.0 (0.0-0.1) K/mm3 Abs Immat Gran (auto) 0.03 (0.00-0.031) K/mm3 Absolute Neuts (auto) 3.7 (1.3-6.7) K/mm3 Absolute Nucleated RBC 0.000 (0.0-0.012) K/mm3 Band Neutrophils % Not Reportable Nucleated RBC % 0.0 (0.0-0.2) % Platelet Estimate Adequate (Adequate) Hypochromasia 2+ Anisocytosis 1+ Ovalocytes 1+ Schistocytes Occasional Sodium 134 L (137-145) mmol/L Potassium 2.8 L* (3.4-5.0) mmol/L Chloride 99 (98-107) mmol/L Carbon Dioxide 31 H (22-30) mmol/L Anion Gap 4 (4-12) mmol/L BUN 17 (9-20) mg/dL Creatinine 1.58 H (0.7-1.3) mg/dL Estim Creat Clear Calc 39 ml/min Estimated GFR 42 L (59 - ) Glucose 93 (65-110) mg/dL Calcium 7.6 L (8.4-10.2) mg/dL Magnesium 2.0 (1.6-2.3) mg/dL Total Bilirubin 0.3 (0.2-1.3) mg/dL AST 32 (17-59) U/L ALT 24 (6-50) U/L Alkaline Phosphatase 134 H (38-126) U/L Troponin I 0.022 Cancelled (0.000-0.034) ng/mL Total Protein 6.2 L (6.3-8.2) g/dL Albumin 3.5 (3.5-5.1) g/dL Urine Color Yellow (Yellow) Urine Appearance Clear (Clear) Urine pH 6.0 (5.0-9.0) Ur Specific [place] 1.016 (1.001-1.035) Urine Protein Trace (Negative) mg/dL Urine Glucose (UA) Negative (Negative) mg/dL Urine Ketones Negative (Negative) mg/dL Ur Blood (Man) Negative (Negative) Urine Nitrate Positive H (Negative) Urine Bilirubin Negative (Negative) Urine Urobilinogen 1.0 (<2.0) mg/dL Leukocyte Esterase Rfl 2+ H (Negative) MAYLIN/UL Urine RBC 0-2 (0-2) /hpf Urine WBC 51-100 H (0-3) /hpf Ur Squamous Epith Cells None seen (Few) /hpf Urine Bacteria 4+ H /hpf Urine Casts 0-2 <Anastacio Landin MD - Last Filed: 01/05/25 06:57> Lab Results 01/05/25 01/05/25 01/05/25 Range/Units 05:47 05:47 05:58 WBC 5.8 (4.5-10.0) K/mm3 RBC 3.05 L (4.6-6.20) M/mm3 Hgb 8.2 L (14.0-18.0) g/dL Hct 27.9 L (42.0-52.0) % MCV 91.5 (80-100) fl MCH 26.9 (26-34) pg MCHC 29.4 L (32-36) g/dl RDW 15.9 H (11.5-14.5) % Plt Count 220 (150-375) k/mm3 MPV 10.2 (7.4-10.4) fl Immature Gran % (Auto) 0.5 (0-0.5) % Neut % (Auto) 64.5 (45.5-73.1) % Lymph % (Auto) 21.0 (18.3-44.2) % [place] % (Auto) 9.0 H (2.6-8.5) % Eos % (Auto) 4.7 H (0-4.4) % Baso % (Auto) 0.3 (0.2-1.2) % Lymph # (Auto) 1.21 (0.9-3.2) K/mm3 [place] # (Auto) 0.5 (0.1-0.6) K/mm3 Eos # (Auto) 0.3 (0-0.3) K/mm3 Baso # (Auto) 0.0 (0.0-0.1) K/mm3 Abs Immat Gran (auto) 0.03 (0.00-0.031) K/mm3 Absolute Neuts (auto) 3.7 (1.3-6.7) K/mm3 Absolute Nucleated RBC 0.000 (0.0-0.012) K/mm3 Band Neutrophils % Not Reportable Nucleated RBC % 0.0 (0.0-0.2) % Platelet Estimate Adequate (Adequate) Hypochromasia 2+ Anisocytosis 1+ Ovalocytes 1+ Schistocytes Occasional Sodium 134 L (137-145) mmol/L Potassium 2.8 L* (3.4-5.0) mmol/L Chloride 99 (98-107) mmol/L Carbon Dioxide 31 H (22-30) mmol/L Anion Gap 4 (4-12) mmol/L BUN 17 (9-20) mg/dL Creatinine 1.58 H (0.7-1.3) mg/dL Estim Creat Clear Calc 39 ml/min Estimated GFR 42 L (59 - ) Glucose 93 (65-110) mg/dL Calcium 7.6 L (8.4-10.2) mg/dL Magnesium 2.0 (1.6-2.3) mg/dL Total Bilirubin 0.3 (0.2-1.3) mg/dL AST 32 (17-59) U/L ALT 24 (6-50) U/L Alkaline Phosphatase 134 H (38-126) U/L Troponin I 0.022 Cancelled (0.000-0.034) ng/mL Total Protein 6.2 L (6.3-8.2) g/dL Albumin 3.5 (3.5-5.1) g/dL Urine Color Yellow (Yellow) Urine Appearance Clear (Clear) Urine pH 6.0 (5.0-9.0) Ur Specific [place] 1.016 (1.001-1.035) Urine Protein Trace (Negative) mg/dL Urine Glucose (UA) Negative (Negative) mg/dL Urine Ketones Negative (Negative) mg/dL Ur Blood (Man) Negative (Negative) Urine Nitrate Positive H (Negative) Urine Bilirubin Negative (Negative) Urine Urobilinogen 1.0 (<2.0) mg/dL Leukocyte Esterase Rfl 2+ H (Negative) MAYLIN/UL Urine RBC 0-2 (0-2) /hpf Urine WBC 51-100 H (0-3) /hpf Ur Squamous Epith Cells None seen (Few) /hpf Urine Bacteria 4+ H /hpf Urine Casts 0-2 <Favian Drake MD - Last Filed: 01/05/25 07:55> Discharge Plan Discharge Clinical Impression: Orthostatic hypotension, Acute UTI Anemia Qualifiers: Anemia type: unspecified type Qualified Code(s): D64.9 - Anemia, unspecified <Anastacio Landin MD - Last Filed: 01/05/25 06:57> Patient Disposition: Still a Patient <Anastacio Landin MD - Last Filed: 01/05/25 06:57> Condition: Stable <Anastacio Landin MD - Last Filed: 01/05/25 06:57> Patient Language: Icelandic <Anastacio Landin MD - Last Filed: 01/05/25 06:57> Prescriptions: No Action levothyroxine 100 mcg tablet 125 mcg PO DAILY albuterol sulfate 90 mcg/actuation HFA aerosol inhaler 2 puff inhalation QID PRN (Reason: shortness of breath or wheezing) Qty: 8.5 0RF diltiazem HCl [Cardizem CD] 120 mg capsule,extended release 24hr 120 mg PO DAILY Eliquis 5 mg tablet 5 mg PO BID Anoro Ellipta 62.5-25 mcg/actuation blister with device 2 inh INHALATION BID tamsulosin 0.4 mg capsule 0.4 mg PO DAILY solifenacin 10 mg tablet 10 mg PO DAILY furosemide 40 mg Tablet 40 mg PO DAILY Qty: 30 0RF amiodarone [Pacerone] 200 mg Tablet 200 mg PO DAILY@0800 Qty: 30 0RF prednisone 20 mg Tablet 40 mg PO DAILY@0800 2 Days Qty: 4 0RF carvedilol [Coreg] 3.125 mg Tablet 3.125 mg PO Q12HR Qty: 60 0RF buspirone 5 mg tablet 5 mg PO Q12H Qty: 60 0RF <Anastacio Landin MD - Last Filed: 01/05/25 06:57> Follow-up/Referrals: PHYSICIAN,MICA SIZER [Primary Care Provider, Internal Medicine] <Anastacio Landin MD - Last Filed: 01/05/25 06:57> Time of Disposition: 07:55 <Anastacio Landin MD - Last Filed: 01/05/25 06:57> 07:55 <Favian Drake MD - Last Filed: 01/05/25 07:55>
[2025-01-05] MEDS: MECLIZINE HCL 25 MG TABLET PO (05:53)
[2025-01-05 06:07] LABS: Hematocrit 27.9 % (42.0-52.0); Hemoglobin 8.2 g/dL (14.0-18.0); Immature Granulocyte Percent A 0.5 % (0-0.5); Lymphocytes Absolute Auto 1.21 K/mm3 (0.9-3.2); Mean Corpuscular HGB Conc 29.4 g/dl (32-36); Mean Corpuscular Hemoglobin 26.9 pg (26-34); Mean Corpuscular Volume 91.5 fl (80-100); Nucleated Red Blood Cells Absolute Auto 0.000 K/mm3 (0.0-0.012); Nucleated Red Blood Cells Perc 0.0 % (0.0-0.2); Platelet Count Result 220 k/mm3 (150-375); Red Blood Count 3.05 M/mm3 (4.6-6.20); White Blood Count 5.8 K/mm3 (4.5-10.0)
[2025-01-05] MEDS: SODIUM CHLORIDE 0.9% IV 1,000 ML 999 ML IV CONT ×2 (06:13→06:14)
[2025-01-05 06:23] LABS: Add Urine Microscopic? YES; Appearance Urine Clear (Clear); Glucose Urine UA Negative (Negative); Leukocyte Esterase Ur 2+ LEU/UL (Negative); Nitrate Urine Positive (Negative); Non Pathogenic Casts 0-2; Specific Grav Ur 1.016 (1.001-1.035)
[2025-01-05 06:27] LABS: Alanine Aminotransferase 24 U/L (6-50); Albumin Level 3.5 g/dL (3.5-5.1); Alkaline Phosphatase 134 U/L (38-126); Anion Gap 4 mmol/L (4-12); Aspartate Amino Transferase 32 U/L (17-59); Bilirubin,Total 0.3 mg/dL (0.2-1.3); Blood Urea Nitrogen 17 mg/dL (9-20); Calcium 7.6 mg/dL (8.4-10.2); Carbon Dioxide 31 mmol/L (22-30); Chloride 99 mmol/L (98-107); Estimated CRCL calculation 39 ml/min; Estimated Glomerular Filt Rate 42; Glucose 93 mg/dL (65-110); Potassium 2.8 mmol/L (3.4-5.0); Sodium 134 mmol/L (137-145); Total Protein 6.2 g/dL (6.3-8.2)
[2025-01-05 06:30] LABS: Troponin I 0.022 ng/mL (0.000-0.034)
[2025-01-05] MEDS: POTASSIUM CHLORIDE 20 MEQ ER TABLET 40 MEQ PO (06:36)
[2025-01-05] MEDS: cefTRIAXone 2 GM in SODIUM CHLORIDE 0.9% IV 100 ML 200 ML IVPB (06:40)
[2025-01-05 06:49] LABS: Anisocytosis 1+; Hypochromasia 2+; Ovalocytes 1+; Schistocytes Occasional
[2025-01-05 06:50] LABS: Magnesium 2.0 mg/dL (1.6-2.3)
--- NOTE | 2025-01-05 07:10 | PC.NURSE ---
Gabreil contacted and updated that the pt will be staying in the hosptial due to a UTI.
[2025-01-05] MEDS: SODIUM CHLORIDE 0.9% IV 1,000 ML 100 ML IV CONT ×2 (08:20→16:33)
--- NOTE | 2025-01-05 13:19 | ADMGEN ---
This patient, Jorge L Call, was admitted to Virtual Bed 3rd Floor-2. Patient/family oriented to hospital policies and general routines including ID bracelet, bed and alarms, visiting hours, pain management, procedures, bathroom and other care routines, personal items, smoking policy, room service/diet, and visiting hours. Information on how to activate the Rapid Response Team has been discussed. Patient/Family are encouraged to report perceived risks to care and to ask questions if they do not understand what they are told or what they should do.
--- NOTE | 2025-01-05 13:55 | PM.IMHP ---
H&P: HPI History of Present Illness Date/Time: 01/05/25 13:55 Chief Complaint: Dizziness Narrative: 84 y/o M with PMH of atrial fibrillation s/p pacemaker, CKD, chronic respiratory failure on home O2 - 3L NC, COPD, hyperlipidemia, hypertension, chronic urinary retention with intermittent straight catheterization, and hypothyroidism presents here with dizziness. The patient presents here from [facility] via EMS for further evaluation of dizziness. He reports onset of dizziness at midnight last night. He reports he woke up to use the restroom when he developed dizziness that he described as if the room was spinning. Dizziness would improve with rest/sitting down and does not occur at rest. When he woke up this morning he continue to feel significantly dizzy that was exacerbated by position changes, such as standing from a seated position. He reports the dizziness was precipitated by generalized weakness for the past couple days and had diarrhea that he reports was significant and more than he had every experienced in his entire life the week before. He denies any associated diarrhea, nausea, vomiting, abdominal pain, chest pain, shortness of breath, fever, or chills. He denies any new medications or known sick contacts. Initial VS at presentation: 97.5? F, HR 63, RR 18, 127/60, and 97% on 3L nasal cannula. Orthostatics positive in the ED with a blood pressure of 55/43 standing. ED workup showed: No leukocytosis, hemoglobin 8.2 (previously 9.5 on 04/12/2024), sodium 134, potassium 2.8, creatinine 1.58 and GFR 42 (2.0 and GFR 32 on 04/12/2024), calcium 7.6 in the setting of a normal albumin level, initial troponin 0.02 to, UA suspicious for UTI. Head CT showed a normal aging brain and no acute intracranial process. EKG showed electronic atrial pacemaker and a left bundle branch block. Review of Systems Review of Systems: All systems reviewed & are unremarkable except as noted in HPI and below [facility] Past Medical History Medical History (Updated 01/05/25 @ 14:15 by Mireya Zhu APRN) CKD (chronic kidney disease) Hypothyroidism Chronic respiratory failure Atrial fibrillation History of hyperlipidemia History of hypertension History of COPD Social History Social History Smoking status: Former smoker Alcohol intake: current Drinks per week: 3 Substance use: never Substance use type: does not use Do You Feel Safe in your Home?: Yes Lack of Transportation: No Lack of Food: Never True Current Housing: I Have Housing Concerned About Future Housing: No Difficulty Paying Gas/Electric Bills: No Difficulty Paying for Meds: No Currently Unemployed: No Education: Decline to Answer Difficulty w/ Childcare or Family Care: No Spiritual care concerns: No Meds Home Medications and Allergies Home Medications ?Medication ?Instructions ?Recorded ?Confirmed ?Type levothyroxine 100 mcg tablet 150 mcg PO DAILY 08/07/20 01/05/25 History albuterol sulfate 90 mcg/actuation 2 puff inhalation QID PRN 02/14/24 01/05/25 Rx aerosol inhaler shortness of breath or wheezing #8.5 grams apixaban 5 mg tablet (Eliquis) 5 mg PO BID 02/22/24 01/05/25 History diltiazem HCl 120 mg 120 mg PO DAILY 02/22/24 01/05/25 History capsule,extended release 24 hr (Cardizem CD) solifenacin 10 mg tablet 10 mg PO DAILY 02/22/24 01/05/25 History tamsulosin 0.4 mg capsule 0.4 mg PO DAILY 02/22/24 01/05/25 History umeclidinium 62.5 mcg-vilanterol 2 inh inhalation BID 02/22/24 01/05/25 History 25 mcg/actuation powdr for inhalation (Anoro Ellipta) amiodarone 200 mg tablet (Pacerone) 200 mg PO DAILY@0800 #30 tabs 02/26/24 01/05/25 Rx buspirone 5 mg tablet 5 mg PO Q12H Anxiety #60 tabs 02/26/24 01/05/25 Rx carvedilol 3.125 mg tablet (Coreg) 3.125 mg PO Q12HR #60 tabs 02/26/24 01/05/25 Rx furosemide 40 mg tablet 40 mg PO DAILY #30 tabs 02/26/24 01/05/25 Rx Allergies Allergy/AdvReac Type Severity Reaction Status Date / Time No Known Allergies Verified 04/12/24 02:10 Vital Signs Vital Signs - 24 hr 01/05/25 05:28 01/05/25 05:59 01/05/25 06:00 Temperature 97.5 F L Pulse Rate 63 65 63 Respiratory Rate 63 H Blood Pressure 127/60 132/61 104/54 L Pulse Oximetry 97 Oxygen Delivery Nasal Cannula Oxygen Flow Rate 3 01/05/25 06:03 01/05/25 07:21 01/05/25 07:22 Temperature 97.4 F L Pulse Rate 67 60 60 Respiratory Rate 14 Blood Pressure 55/43 L 139/60 Pulse Oximetry 100 Oxygen Delivery Oxygen Flow Rate 01/05/25 09:04 01/05/25 10:51 01/05/25 12:46 Temperature Pulse Rate 64 73 66 Respiratory Rate 15 20 18 Blood Pressure 130/66 135/56 L 122/96 H Pulse Oximetry 100 100 96 Oxygen Delivery Oxygen Flow Rate 01/05/25 13:36 Temperature Pulse Rate 66 Respiratory Rate 18 Blood Pressure Pulse Oximetry 96 Oxygen Delivery Nasal Cannula Oxygen Flow Rate 2.5 Exam Const: General: comfortable and no acute distress Other: , male, chronically ill-appearing, elderly HENMT: Face/Nose/Sinus: Normal nares present Mouth: Yes dry mucous membranes Other: +[place] Eyes: General: appearance normal, both eyes and all related structures Sclera: sclerae normal Pupils: Equal, round and reactive pupils present EOM: EOMs intact bilaterally Resp: Effort & Inspection: normal respiratory effort Auscultation: clear to auscultation bilaterally Other: Nasal cannula place, tolerating well Cardio: Rate: regular rate Rhythm: regular rhythm Other: S1-S2 present without murmur, rub, ectopy GI: Other: Abdomen rounded but soft. Nontender and normoactive bowel sounds in all quadrants. Skin: General skin exam: normal color and no rashes or lesions noted Wounds: no wounds Neuro: Speech: normal speech Motor exam (neuro): 5/5 motor strength present throughout Sensory Exam: normal sensation Other: A&O x4 Extrem: General: normal to inspection Psych: Mental Status: mental status grossly normal Affect: normal affect Other: Fair insight and judgment, very pleasant H&P: Results Labs Labs: Short CBC 01/05/25 Range/Units 05:47 WBC 5.8 (4.5-10.0) K/mm3 Hgb 8.2 L (14.0-18.0) g/dL Hct 27.9 L (42.0-52.0) % Plt Count 220 (150-375) k/mm3 BMP 01/05/25 05:47 Sodium 134 L Potassium 2.8 L* Chloride 99 Carbon Dioxide 31 H BUN 17 Creatinine 1.58 H Glucose 93 Calcium 7.6 L Cardiac Enzymes 01/05/25 01/05/25 Range/Units 05:47 05:47 Troponin I 0.022 Cancelled (0.000-0.034) ng/mL Liver Function 01/05/25 Range/Units 05:47 Total Bilirubin 0.3 (0.2-1.3) mg/dL AST 32 (17-59) U/L ALT 24 (6-50) U/L Alkaline Phosphatase 134 H (38-126) U/L Albumin 3.5 (3.5-5.1) g/dL Urine 01/05/25 Range/Units 05:58 Urine Color Yellow (Yellow) Urine Appearance Clear (Clear) Urine pH 6.0 (5.0-9.0) Ur Specific [place] 1.016 (1.001-1.035) Urine Protein Trace (Negative) mg/dL Urine Glucose (UA) Negative (Negative) mg/dL Assessment and Plan Assessment and plan (1) Orthostatic hypotension: Code(s): I95.1 - Orthostatic hypotension Status: Acute Assessment and Plan: Reporting dizziness that worsens with positional changes starting on 01/05 at 00:00. Significant orthostatic hypotension noted in the ED on 01/05, BP 55/43 upon standing. Precipitated by generalized weakness for the past few days and significant diarrhea last week, reports this is the worst diarrhea he has ever experienced and has now resolved. UA concerning for UTI. - IV fluids: 2L bolus -> 100 mL/hr - abx started for UTI - reviewed home medications, hold Lasix and Coreg. Will continue diltiazem and amiodarone considering history of AFib. - monitor daily orthostatics - monitor I&Os (2) Acute UTI: Code(s): N39.0 - Urinary tract infection, site not specified Status: Acute Assessment and Plan: - UA: Positive nitrates, 2+ leuk esterase, 51-100 WBC, no epithelial cells, 4+ bacteria - UC pending - previous micro reviewed, grew Klebsiella in 2023 that was pansensitive - started on Ceftriaxone on 01/05 (3) Hypokalemia: Code(s): E87.6 - Hypokalemia Status: Acute Assessment and Plan: - K 2.8 upon admission. Initially given 40 KCL p.o., plan for recheck this evening. Likely related to recent diarrhea. - monitor (4) Atrial fibrillation: Qualifiers: Atrial fibrillation type: unspecified chronic Qualified Code(s): I48.20 - Chronic atrial fibrillation, unspecified Code(s): I48.91 - Unspecified atrial fibrillation Status: Chronic Assessment and Plan: - continue diltiazem, amiodarone, and Eliquis. (5) Hypothyroidism: Qualifiers: Hypothyroidism type: unspecified Qualified Code(s): E03.9 - Hypothyroidism, unspecified Code(s): E03.9 - Hypothyroidism, unspecified Status: Chronic Assessment and Plan: - previous TSH reviewed, 21.7 in 2023. Will repeat. - continue Synthroid (6) CKD (chronic kidney disease): Qualifiers: Chronic kidney disease stage: stage 3 (moderate) Chronic kidney disease stage 3 subtype: stage 3a (GFR 45-59) Qualified Code(s): N18.31 - Chronic kidney disease, stage 3a Code(s): N18.9 - Chronic kidney disease, unspecified Status: Chronic Assessment and Plan: - creatinine 1.58, BUN 17, GFR 42 upon admission on 01/05 - baseline renal function: 1.6-1.7 - trend renal function - trend electrolytes, correct as needed (7) Anemia: Qualifiers: Anemia type: due to chronic kidney disease Chronic kidney disease stage: stage 3 (moderate) Chronic kidney disease stage 3 subtype: unspecified whether 3a or 3b Qualified Code(s): N18.30 - Chronic kidney disease, stage 3 unspecified; D63.1 - Anemia in chronic kidney disease Code(s): D64.9 - Anemia, unspecified Status: Chronic Assessment and Plan: - Hgb 8.2 upon admission on 01/05 - Hx: 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 and Anoro b.i.d. (9) Chronic respiratory failure: Qualifiers: Respiratory failure complication: hypoxia Qualified Code(s): J96.11 - Chronic respiratory failure with hypoxia Code(s): J96.10 - Chronic respiratory failure, unspecified whether with hypoxia or hypercapnia Status: Chronic Assessment and Plan: - currently at baseline O2 requirement, 3L nasal cannula. Continue with same to maintain O2 sat greater than 92%. Plan Diet: Heart healthy GI Prophylaxis: N/a DVT Prophylaxis: Eliquis IV fluids: 2L bolus -> 100 mL/hr Lines/Tubes: Peripheral IV Code Status: Full code Quality VTE Prophylaxis VTE prophylaxis: pharmacologic ordered Hospitalist [facility] Advance Care Plan I have confirmed that the patient's Advanced Care Plan is present, code status is documented, or surrogate decision maker is listed in patient medical record.: Yes Medication Reconciliation I have utilized all available resources to obtain, update and review the patients current medications (includes all prescriptions, OTC, herbals, cannabis, and nutritional supplements).: Yes
[2025-01-05] MEDS: SOLIFENACIN 5 MG TABLET 10 MG PO (14:46)
[2025-01-05] MEDS: dilTIAZem HCL CD 120 MG CAP.24HR PO (14:46)
[2025-01-05] MEDS: AMIODARONE HCL 200 MG TABLET PO (14:46)
[2025-01-05] MEDS: LEVOTHYROXINE SODIUM 150 MCG TABLET PO (14:46)
[2025-01-05] MEDS: TAMSULOSIN HCL 0.4 MG CAPSULE PO (14:46)
[2025-01-05] MEDS: APIXABAN 5 MG TABLET PO (20:55)
[2025-01-05] MEDS: ACETAMINOPHEN 325 MG TABLET 650 MG PO (20:57)
[2025-01-06] VITALS (11 sets, daily range): BP systolic 109–144; BP diastolic 35–74; PULSE 57–78; RESP 18–20; TEMP 36.4–36.5; O2SAT 97–100
[2025-01-06 00:59] LABS: Potassium 3.5 mmol/L (3.4-5.0)
[2025-01-06] MEDS: SODIUM CHLORIDE 0.9% IV 1,000 ML 100 ML IV CONT (02:23)
[2025-01-06 04:56] LABS: Hematocrit 27.5 % (42.0-52.0); Hemoglobin 8.0 g/dL (14.0-18.0); Immature Granulocyte Percent A 0.6 % (0-0.5); Lymphocytes Absolute Auto 1.19 K/mm3 (0.9-3.2); Mean Corpuscular HGB Conc 29.1 g/dl (32-36); Mean Corpuscular Hemoglobin 26.8 pg (26-34); Mean Corpuscular Volume 92.0 fl (80-100); Nucleated Red Blood Cells Absolute Auto 0.000 K/mm3 (0.0-0.012); Nucleated Red Blood Cells Perc 0.0 % (0.0-0.2); Platelet Count Result 204 k/mm3 (150-375); Red Blood Count 2.99 M/mm3 (4.6-6.20); White Blood Count 4.9 K/mm3 (4.5-10.0)
[2025-01-06 05:19] LABS: Alanine Aminotransferase 20 U/L (6-50); Albumin Level 3.3 g/dL (3.5-5.1); Alkaline Phosphatase 113 U/L (38-126); Anion Gap 4 mmol/L (4-12); Aspartate Amino Transferase 29 U/L (17-59); Bilirubin,Total 0.2 mg/dL (0.2-1.3); Blood Urea Nitrogen 13 mg/dL (9-20); Calcium 7.6 mg/dL (8.4-10.2); Carbon Dioxide 30 mmol/L (22-30); Chloride 103 mmol/L (98-107); Estimated CRCL calculation 46 ml/min; Estimated Glomerular Filt Rate 52; Glucose 88 mg/dL (65-110); Potassium 3.4 mmol/L (3.4-5.0); Sodium 137 mmol/L (137-145); Total Protein 5.9 g/dL (6.3-8.2)
[2025-01-06 05:23] LABS: Anisocytosis 1+; Hypochromasia 1+; Ovalocytes 1+; Schistocytes None Seen
[2025-01-06 05:40] LABS: Thyroid Stimulating Hormone Reflex 47.900 uIU/mL (0.465-4.68)
[2025-01-06] MEDS: cefTRIAXone 1 GM in SODIUM CHLORIDE 0.9% IV 50 ML 100 ML IVPB (06:39)
[2025-01-06] MEDS: LEVOTHYROXINE SODIUM 150 MCG TABLET PO (06:40)
--- NOTE | 2025-01-06 07:21 | P.PNIM_ITS ---
Progress Note: A&P Assessment and Plan (1) Orthostatic hypotension: Code(s): I95.1 - Orthostatic hypotension Status: Acute Assessment and Plan: Reporting dizziness that worsens with positional changes starting on 01/05 at 00:00. Significant orthostatic hypotension noted in the ED on 01/05, BP 55/43 upon standing. Precipitated by generalized weakness for the past few days and significant diarrhea last week, reports this is the worst diarrhea he has ever experienced and has now resolved. UA concerning for UTI. - IV fluids: 2L bolus -> 100 mL/hr - abx started for UTI - reviewed home medications, hold Lasix and Coreg. Will continue diltiazem and amiodarone considering history of AFib. - monitor daily orthostatics - monitor I&Os (2) Acute UTI: Code(s): N39.0 - Urinary tract infection, site not specified Status: Acute Assessment and Plan: - UA: Positive nitrates, 2+ leuk esterase, 51-100 WBC, no epithelial cells, 4+ bacteria - UC pending - previous micro reviewed, grew Klebsiella in 2023 that was pansensitive - started on Ceftriaxone on 01/05 (3) Hypokalemia: Code(s): E87.6 - Hypokalemia Status: Acute Assessment and Plan: - K 2.8 upon admission. Initially given 40 KCL p.o., plan for recheck this evening. Likely related to recent diarrhea. - monitor (4) Atrial fibrillation: Qualifiers: Atrial fibrillation type: unspecified chronic Qualified Code(s): I48.20 - Chronic atrial fibrillation, unspecified Code(s): I48.91 - Unspecified atrial fibrillation Status: Chronic Assessment and Plan: - continue diltiazem, amiodarone, and Eliquis. (5) Hypothyroidism: Qualifiers: Hypothyroidism type: unspecified Qualified Code(s): E03.9 - Hypothyroidism, unspecified Code(s): E03.9 - Hypothyroidism, unspecified Status: Chronic Assessment and Plan: - TSH 47.9 - increase Synthroid to 175mcg (6) CKD (chronic kidney disease): Qualifiers: Chronic kidney disease stage: stage 3 (moderate) Chronic kidney disease stage 3 subtype: stage 3a (GFR 45-59) Qualified Code(s): N18.31 - Chronic kid freddie disease, stage 3a Code(s): N18.9 - Chronic kidney disease, unspecified Status: Chronic Assessment and Plan: - creatinine 1.58, BUN 17, GFR 42 upon admission on 01/05 - baseline renal function: 1.6-1.7 - trend renal function - trend electrolytes, correct as needed - Cr improved with IV fluids (7) Anemia: Qualifiers: Anemia type: due to chronic kidney disease Chronic kidney disease stage: stage 3 (moderate) Chronic kidney disease stage 3 subtype: unspecified whether 3a or 3b Qualified Code(s): N18.30 - Chronic kidney disease, stage 3 unspecified; D63.1 - Anemia in chronic kidney disease Code(s): D64.9 - Anemia, unspecified Status: Chronic Assessment and Plan: - Hgb 8.2 upon admission on 01/05 - Hx: 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 and Anoro b.i.d. (9) Chronic respiratory failure: Qualifiers: Respiratory failure complication: hypoxia Qualified Code(s): J96.11 - Chronic respiratory failure with hypoxia Code(s): J96.10 - Chronic respiratory failure, unspecified whether with hypoxia or hypercapnia Status: Chronic Assessment and Plan: - currently at baseline O2 requirement, 3L nasal cannula. Continue with same to maintain O2 sat greater than 92%. Plan Diet: Heart healthy GI Prophylaxis: N/a DVT Prophylaxis: Eliquis IV fluids: 2L bolus -> 100 mL/hr Lines/Tubes: Peripheral IV Code Status: Full code Subjective Date/time seen: 01/06/25 07:21 Interval history: 84 y/o M with PMH of atrial fibrillation s/p pacemaker, CKD, chronic respiratory failure on home O2 - 3L NC, COPD, hyperlipidemia, hypertension, chronic urinary retention with intermittent straight catheterization, and hypothyroidism presents here with dizziness. Patient seen and examined at bedside. Review of Systems Review of Systems: All systems reviewed & are unremarkable except as noted in HPI and below Exam Narrative: General: NAD Eyes: EOMI ENT: neck supple Cardiovascular: Regular rate and rhythm Respiratory: Clear to auscultation, respirations even and unlabored on RA Gastrointestinal: Soft, non tender Genitourinary: no suprapubic tenderness Musculoskeletal: No edema Skin: warm, dry Neuro: Alert. Psych: Mood appropriate Objective Data Vital Signs Vital Signs: Vital Signs - 24 hr 01/05/25 07:22 01/05/25 09:04 01/05/25 10:51 Temperature Pulse Rate 60 64 73 Respiratory Rate 15 20 Blood Pressure 130/66 135/56 L Pulse Oximetry 100 100 Oxygen Delivery Oxygen Flow Rate 01/05/25 12:46 01/05/25 13:36 01/05/25 14:00 Temperature 98.9 F Pulse Rate 66 66 70 Respiratory Rate 18 18 19 Blood Pressure 122/96 H 150/66 H Pulse Oximetry 96 96 100 Oxygen Delivery Nasal Cannula Oxygen Flow Rate 2.5 01/05/25 14:46 01/05/25 16:00 01/05/25 20:00 Temperature Pulse Rate 62 60 Respiratory Rate Blood Pressure Pulse Oximetry 100 Oxygen Delivery Nasal Cannula Oxygen Flow Rate 3 01/05/25 20:00 01/05/25 21:28 01/06/25 00:00 Temperature 97.6 F Pulse Rate 61 70 63 Respiratory Rate 18 Blood Pressure 110/50 L Pulse Oximetry 98 Oxygen Delivery Oxygen Flow Rate 01/06/25 02:22 01/06/25 02:25 01/06/25 02:30 Temperature Pulse Rate 78 69 72 Respiratory Rate Blood Pressure 144/58 H 118/74 120/35 L Pulse Oximetry Oxygen Delivery Oxygen Flow Rate 01/06/25 04:00 01/06/25 06:00 Temperature 97.5 F L Pulse Rate 60 67 Respiratory Rate 20 Blood Pressure 131/60 Pulse Oximetry 100 Oxygen Delivery Oxygen Flow Rate Intake/Output Intake/Output: Intake & Output 01/03/25 01/04/25 01/05/25 01/06/25 23:59 23:59 23:59 23:59 Intake Total 3711.7 1783.3 Output Total 1575 1300 Balance 2136.7 483.3 Meds/Results Medications: Active Medications Generic Name Dose Route Start Last Admin Trade Name Freq PRN Reason Stop Dose Admin Acetaminophen 650 mg 01/05/25 07:52 01/05/25 20:57 Acetaminophen 325 Mg Tablet PO 650 mg Q4H PRN Administration Mild Pain (1-3) or Fever Albuterol 2 puff 01/05/25 14:06 Albuterol Sulfate (*Sp) Aerosol 1 Puff INHALATION QID PRN Shortness Of Breath Or Wheezing Amiodarone HCl 200 mg 01/05/25 14:30 01/05/25 14:46 Amiodarone Hcl 200 Mg Tablet PO 200 mg DAILY@0800 NARENDRA Administration Apixaban 5 mg 01/05/25 21:00 01/05/25 20:55 Apixaban 5 Mg Tablet PO 5 mg Q12HR NARENDRA Administration Buspirone HCl 5 mg 01/05/25 21:00 01/05/25 20:55 Buspirone Hcl 5 Mg Tablet PO 5 mg Q12H NARENDRA Administration Diltiazem HCl 120 mg 01/05/25 14:30 01/05/25 14:46 Diltiazem Hcl Cd 120 Mg Cap.24hr PO 120 mg DAILY NARENDRA Administration Sodium Chloride 1,000 mls @ 100 mls/hr 01/05/25 07:55 01/06/25 02:23 Normal Saline Iv IV CONT 100 mls/hr .Q10H NARENDRA Administration Ceftriaxone Sodium 1 gm/ 50 mls @ 100 mls/hr 01/06/25 07:00 01/06/25 06:39 Sodium Chloride IVPB 100 mls/hr Q24H NARENDRA Administration Levothyroxine Sodium 150 mcg 01/05/25 14:30 01/06/25 06:40 Levothyroxine Sodium 150 Mcg Tablet PO 150 mcg DAILY@0630 NARENDRA Administration Miscellaneous Information 1 each 01/06/25 00:01 Anoro Ellipta Is Dosed 1 Puff Daily Not 2 Puffs Bid? Ok To Change? XX 02/05/25 00:00 [facility] Ondansetron HCl 4 mg 01/05/25 07:52 Ondansetron Inj 4 Mg/2 Ml Vial IV PUSH Q4H PRN Nausea Solifenacin 10 mg 01/05/25 14:30 01/05/25 14:46 Solifenacin 5 Mg Tablet PO 10 mg DAILY NARENDRA Administration Tamsulosin HCl 0.4 mg 01/05/25 14:30 01/05/25 14:46 Tamsulosin Hcl 0.4 Mg Capsule PO 0.4 mg DAILY [facility] Administration Umeclidinium/Vilanterol 2 puff 01/05/25 17:00 Umeclidinium/Vilanterol 62.5-25 Mcg Ellipta INHALATION BID [facility] Radiology Results: ITS Impressions Head CT 01/05/25 07:23 IMPRESSION: 1. Normal aging brain. No acute intracranial process. Labs Labs: Laboratory Results - last 24 hr 01/06/25 01/06/25 00:33 04:21 WBC 4.9 RBC 2.99 L Hgb 8.0 L Hct 27.5 L MCV 92.0 MCH 26.8 MCHC 29.1 L RDW 15.7 H Plt Count 204 MPV 10.1 Immature Gran % (Auto) 0.6 H Neut % (Auto) 58.8 Lymph % (Auto) 24.3 [place] % (Auto) 10.2 H Eos % (Auto) 5.7 H Baso % (Auto) 0.4 Lymph # (Auto) 1.19 [place] # (Auto) 0.5 Eos # (Auto) 0.3 Baso # (Auto) 0.0 Abs Immat Gran (auto) 0.03 Absolute Neuts (auto) 2.9 Absolute Nucleated RBC 0.000 Band Neutrophils % Not Reportable Nucleated RBC % 0.0 Platelet Estimate Adequate Hypochromasia 1+ Anisocytosis 1+ Ovalocytes 1+ Schistocytes None seen Sodium 137 Potassium 3.5 3.4 Chloride 103 Carbon Dioxide 30 Anion Gap 4 BUN 13 Creatinine 1.32 H Estim Creat Clear Calc 46 Estimated GFR 52 L Glucose 88 Calcium 7.6 L Total Bilirubin 0.2 AST 29 ALT 20 Alkaline Phosphatase 113 Total Protein 5.9 L Albumin 3.3 L TSH (Reflex) 47.900 H
[2025-01-06] MEDS: dilTIAZem HCL CD 120 MG CAP.24HR PO (08:19)
[2025-01-06] MEDS: APIXABAN 5 MG TABLET PO (08:19)
[2025-01-06] MEDS: SOLIFENACIN 5 MG TABLET 10 MG PO (08:19)
[2025-01-06] MEDS: AMIODARONE HCL 200 MG TABLET PO (08:19)
--- NOTE | 2025-01-06 14:57 | PM.DS ---
DS: Admitting Diagnosis Discharge Date 01/06/25 Admitting Diagnosis - orthostatic hypotension DS: Discharge Diagnosis Discharge Diagnosis (1) Orthostatic hypotension: Code(s): I95.1 - Orthostatic hypotension Status: Acute (2) Hypokalemia: Code(s): E87.6 - Hypokalemia Status: Acute (3) Atrial fibrillation: Qualifiers: Atrial fibrillation type: unspecified chronic Qualified Code(s): I48.20 - Chronic atrial fibrillation, unspecified Code(s): I48.91 - Unspecified atrial fibrillation Status: Chronic (4) Hypothyroidism: Qualifiers: Hypothyroidism type: unspecified Qualified Code(s): E03.9 - Hypothyroidism, unspecified Code(s): E03.9 - Hypothyroidism, unspecified Status: Chronic (5) CKD (chronic kidney disease): Qualifiers: Chronic kidney disease stage: stage 3 (moderate) Chronic kidney disease stage 3 subtype: stage 3a (GFR 45-59) Qualified Code(s): N18.31 - Chronic kidney disease, stage 3a Code(s): N18.9 - Chronic kidney disease, unspecified Status: Chronic (6) Anemia: Qualifiers: Anemia type: due to chronic kidney disease Chronic kidney disease stage: stage 3 (moderate) Chronic kidney disease stage 3 subtype: unspecified whether 3a or 3b Qualified Code(s): N18.30 - Chronic kidney disease, stage 3 unspecified; D63.1 - Anemia in chronic kidney disease Code(s): D64.9 - Anemia, unspecified Status: Chronic (7) COPD (chronic obstructive pulmonary disease): Qualifiers: COPD type: unspecified COPD Qualified Code(s): J44.9 - Chronic obstructive pulmonary disease, unspecified Code(s): J44.9 - Chronic obstructive pulmonary disease, unspecified Status: Chronic (8) Chronic respiratory failure: Qualifiers: Respiratory failure complication: hypoxia Qualified Code(s): J96.11 - Chronic respiratory failure with hypoxia Code(s): J96.10 - Chronic respiratory failure, unspecified whether with hypoxia or hypercapnia Status: Chronic DS: Summary Hospital Course Reason for hospitalization: - orthostatic hypotension - hypokalemia Hospital Course: 84 y/o M with PMH of atrial fibrillation s/p pacemaker, CKD, chronic respiratory failure on home O2 - 3L NC, COPD, hyperlipidemia, hypertension, chronic urinary retention with intermittent straight catheterization, and hypothyroidism presents here with dizziness. Initial VS at presentation: 97.5? F, HR 63, RR 18, 127/60, and 97% on 3L nasal cannula. Orthostatics positive in the ED with a blood pressure of 55/43 standing. ED workup showed: No leukocytosis, hemoglobin 8.2 (previously 9.5 on 04/12/2024), sodium 134, potassium 2.8, creatinine 1.58 and GFR 42 (2.0 and GFR 32 on 04/12/2024), calcium 7.6 in the setting of a normal albumin level, initial troponin 0.02 to, UA suspicious for UTI. Head CT showed a normal aging brain and no acute intracranial process. EKG showed electronic atrial pacemaker and a left bundle branch block. Patient was placed in observation for further evaluation and management. Patient reported 1 week of preceding profuse diarrhea. Suspect dizziness/lightheadedness secondary to orthostasis due to dehydration. Patient received IV fluids with complete resolution of his symptoms. Blood pressure improved. Diarrhea has completely resolved. Potassium improved with replacement. Patient's Lasix and Coreg were held and he was instructed to monitor his blood pressure and for symptoms of lightheadedness. If blood pressure remains stable, he will restart his Coreg and Lasix early next week. He has an upcoming cardiology appointment as well. Patient worked with PT/OT who recommended outpatient therapy. Patient reported he is at assisted living and they are working to get therapy set up for him there. Patient's UA concerning for infection however patient denies any urinary symptoms. Patient self-catheterizes and may be colonized. Antibiotics were stopped and patient was advised to monitor for urinary symptoms. Patient's TSH was 47.9. Patient denied overt symptoms. Patient's sister reported questionable compliance with Synthroid. Synthroid was increased to 175 mcg daily. He was encouraged to take his Synthroid 1 hour prior to other medications every day. Sister will help assist with compliance. He will obtain a repeat TSH in 4-6 weeks. Patient instructed to obtain repeat CBC and BMP in days. Follow-up with PCP 5-7 days. Patient discharged back to assisted living in stable condition. Patient's discharge instructions discussed with patient's sister who helps with his medicatoins and appointments. Status at Discharge Functional status at discharge: independent ambulation Overall status at discharge: patient is back to baseline Time Spent with Patient Time attestation: Total time spent providing and/or coordinating discharge services: Time spent: Greater than 30 minutes Exam Narrative: General: NAD Eyes: EOMI ENT: neck supple Cardiovascular: Regular rate and rhythm Respiratory: Clear to auscultation, respirations even and unlabored on 2.5 L (baseline) Gastrointestinal: Soft, non tender Genitourinary: no suprapubic tenderness Musculoskeletal: No edema Skin: warm, dry Neuro: Alert. Psych: Mood appropriate DS: Data Data Completed and Pending Completed studies during hospitalization: ITS Impressions Head CT 01/05/25 07:23 IMPRESSION: 1. Normal aging brain. No acute intracranial process. Labs on day of discharge: Labs from last 24 hours 01/06/25 01/06/25 04:21 00:33 WBC 4.9 RBC 2.99 L Hgb 8.0 L Hct 27.5 L MCV 92.0 MCH 26.8 MCHC 29.1 L RDW 15.7 H Plt Count 204 MPV 10.1 Immature Gran % (Auto) 0.6 H Neut % (Auto) 58.8 Lymph % (Auto) 24.3 [place] % (Auto) 10.2 H Eos % (Auto) 5.7 H Baso % (Auto) 0.4 Lymph # (Auto) 1.19 [place] # (Auto) 0.5 Eos # (Auto) 0.3 Baso # (Auto) 0.0 Abs Immat Gran (auto) 0.03 Absolute Neuts (auto) 2.9 Absolute Nucleated RBC 0.000 Band Neutrophils % Not Reportable Nucleated RBC % 0.0 Platelet Estimate Adequate Hypochromasia 1+ Anisocytosis 1+ Ovalocytes 1+ Schistocytes None seen Sodium 137 Potassium 3.4 3.5 Chloride 103 Carbon Dioxide 30 Anion Gap 4 BUN 13 Creatinine 1.32 H Estim Creat Clear Calc 46 Estimated GFR 52 L Glucose 88 Calcium 7.6 L Total Bilirubin 0.2 AST 29 ALT 20 Alkaline Phosphatase 113 Total Protein 5.9 L Albumin 3.3 L TSH (Reflex) 47.900 H Free T4 Pending Discharge Plan Discharge Attending physician on discharge: Simon Riley Consulting providers: Long Zhong; Eliza Swann Discharging Clinician: Eliza Swann Anticipated Discharge Date/Time: 01/06/25 14:29 Patient Disposition: [facility] Activity: as tolerated Diet: as tolerated Discharge Instructions: Take all medications as prescribed. While in the hospital, you were found to have orthostatic hypotension which means your blood pressure was dropping when standing.Make sure you are drinking 64 oz of water daily to stary hydrated. Please note medication changes including moving tamsulosin (Flomax) to night time which can help with orthostatic hypotention, holding Lasix and Coreg (carvedilol). Check your blood pressure daily and keep a log. If blood pressure is stable early next week with no lightheadedness, can restart lasix and carvedilol. Follow-up next week with your transport manager. Your Synthroid has been increased and you should take this first thing in the morning 1 hour prior to your other medications. You should have your thyroid rechecked in 4-6 weeks. You were also anemic in the hospital. This could be due to your thyroid. Have your lab work (CBC and BMP) repeated in 7 days. Follow-up with your primary care provider in 5-7 days. Return to the emergency department if you develop chest pain, shortness of breath, persistent fever >100.4, confusion, loss of consciousness. Patient Instructions: Antibiotic Form, Apixaban (By mouth) Patient Language: Pashto Stand Alone Forms: General Discharge Information Follow-up/Referrals: Eliza Swann PA [Physician Cabinet Assembler, Hospitalist] Discharge Medications: New levothyroxine 175 mcg capsule 175 mcg PO DAILY Qty: 30 0RF Continued albuterol sulfate 90 mcg/actuation HFA aerosol inhaler 2 puff inhalation QID PRN (Reason: shortness of breath or wheezing) Qty: 8.5 0RF diltiazem HCl [Cardizem CD] 120 mg capsule,extended release 24hr 120 mg PO DAILY Eliquis 5 mg tablet 5 mg PO BID umeclidinium-vilanterol [Anoro Ellipta] 62.5-25 mcg/actuation blister with device 2 inh INHALATION BID solifenacin 10 mg tablet 10 mg PO DAILY amiodarone [Pacerone] 200 mg Tablet 200 mg PO DAILY@0800 Qty: 30 0RF buspirone 5 mg tablet 5 mg PO Q12H Qty: 60 0RF Changed tamsulosin 0.4 mg capsule 0.4 mg PO HS Qty: 30 0RF Held furosemide 40 mg Tablet 40 mg PO DAILY Qty: 30 0RF Hold Instructions: Resume on 01/13/25. HOLD until you follow-up with your transport manager. carvedilol [Coreg] 3.125 mg Tablet 3.125 mg PO Q12HR Qty: 60 0RF Hold Instructions: Resume on 01/13/25. HOLD until you follow-up with your transport manager. Discontinued levothyroxine 100 mcg tablet 150 mcg PO DAILY Other Ambulatory Orders: Basic Metabolic Panel (Routine) Timeframe: 1 Week Location: Determined by Patient Ordered By: Eliza Swann Complete Blood Count no Diff (Routine) Timeframe: 1 Week Location: Determined by Patient Ordered By: Eliza Swann Thyroid Stimulating Hormone Reflex (Routine) Timeframe: 1 Month Location: Determined by Patient Ordered By: Eliza Swann Date of admission: 01/05/25 07:53 Primary Care Provider: DarrellWaqas Admitting Provider: Janell Grant Attending physician on admission: Janell Grant Condition: Stable
--- NOTE | 2025-01-06 15:19 | PC.NURSE ---
I removed patient's bee catheter. He straight caths at home normally.
[2025-01-06 16:23] LABS: Free T4 Free Thyroxine Reflex 0.67 ng/dL (0.78-2.19)
== END 2025-01-06 16:25 ==
LOC: ANHED 07:55 → ANH2MED 01-06 06:57 → ANH3MEDSUR 01-07 07:00
PROVIDERS: Nurse Practitioner; Student in an Organized Health Care Education/Training Program; Admitting Provider Internal Medicine; Emergency Provider Student in an Organized Health Care Education/Training Program; PCP Internal Medicine; Visit Provider Internal Medicine
DX: I95.1 Orthostatic hypotension (principal); E87.6 Hypokalemia; N39.0 Urinary tract infection, site not specified; I44.7 Left bundle-branch block, unspecified; R94.31 Abnormal electrocardiogram [ECG] [EKG]; I48.20 Chronic atrial fibrillation, unspecified; N18.31 Chronic kidney disease, stage 3a; D63.1 Anemia in chronic kidney disease; I12.9 Hypertensive chronic kidney disease with stage 1 through stage 4 chronic kidney disease, or unspecified chronic kidney disease; J96.11 Chronic respiratory failure with hypoxia; J44.9 Chronic obstructive pulmonary disease, unspecified; Z87.891 Personal history of nicotine dependence; E03.9 Hypothyroidism, unspecified; Z79.01 Long term (current) use of anticoagulants; Z79.51 Long term (current) use of inhaled steroids; Z79.624 Long term (current) use of inhibitors of nucleotide synthesis; Z79.811 Long term (current) use of aromatase inhibitors; Z79.02 Long term (current) use of antithrombotics/antiplatelets; Z95.0 Presence of cardiac pacemaker; Z99.81 Dependence on supplemental oxygen
CPT/HCPCS: 36415; 70450; 80053; 81001; 83735; 84132; 84439; 84443; 84484; 85025; 87077; 87086; 87186; 93005; 96365; 96375; 97162; 99285; A9270; G0378; J0696; J7030

== ENCOUNTER 2025-02-08 14:24 | Emergency (ER) | payer MEDICARE, SELFPAY ==
--- NOTE | ~2025-02-08 | XR_ITS ---
EXAMINATION: XR chest 2V, 02/08/2025 14:58 CDT HISTORY: weakness COMPARISON: No comparisons available. Technique: 2 views obtained. Findings: The lungs are clear, no effusion. No pneumothorax. Heart is normal size. Mediastinal and hilar contours are within normal limits. Bony thorax no acute abnormality. Left pacemaker Impression: No acute cardiopulmonary abnormality. Reviewed, dictated and finalized at location P. Impression: No acute cardiopulmonary abnormality.
--- NOTE | 2025-02-08 14:24 | ECG_ITS ---
Test Date: 2025-02-08 14:29:46 Measurements Intervals [place] Rate: 70 P: 260 FL: 332 QRS: -12 QRSD: 190 T: 91 QT: 495 QTc: 535 Interpretive Statements ELECTRONIC ATRIAL PACEMAKER LEFT BUNDLE BRANCH BLOCK BASELINE ARTIFACT- I, III, AVL, AVF ABNORMAL ECG Compared to ECG 01/05/2025 05:31:17 No significant changes Electronically Signed On 02-08-2025 14:53:39 CDT by Tray Ladd D.O.
[2025-02-08 14:25] VITALS: BP 137/78; PULSE 74; RESP 20; TEMP 36.6; O2SAT 100
[2025-02-08 14:54] VITALS: BP 141/61; PULSE 60; RESP 19; O2SAT 100
[2025-02-08 14:55] LABS: Hematocrit 27.1 % (42.0-52.0); Hemoglobin 7.9 g/dL (14.0-18.0); Immature Granulocyte Percent A 0.7 % (0-0.5); Lymphocytes Absolute Auto 1.71 K/mm3 (0.9-3.2); Mean Corpuscular HGB Conc 29.2 g/dl (32-36); Mean Corpuscular Hemoglobin 26.4 pg (26-34); Mean Corpuscular Volume 90.6 fl (80-100); Nucleated Red Blood Cells Absolute Auto 0.000 K/mm3 (0.0-0.012); Nucleated Red Blood Cells Perc 0.0 % (0.0-0.2); Platelet Count Result 205 k/mm3 (150-375); Red Blood Count 2.99 M/mm3 (4.6-6.20); White Blood Count 8.6 K/mm3 (4.5-10.0)
--- NOTE | 2025-02-08 15:01 | ED_ITS ---
HPI - General Adult General Chief complaint: Shortness of Breath/Dyspnea Stated complaint: gen. weak Time Seen by Provider: 02/08/25 14:37 History of Present Illness HPI narrative: 84 old male with history of COPD CHF presents to the emergency department for evaluation for episode shortness of breath. Patient states early while he was sitting in bed he had some onset of some difficulty breathing. Patient states that has since resolved. Patient normally on 3 L of oxygen by nasal cannula. At time of evaluation patient denies any chest pain shortness of breath and feels he is back at his baseline. Patient states he does ambulate some Related Data Home Medications ?Medication ?Instructions ?Recorded ?Confirmed ?Last Taken ?Type apixaban 5 mg tablet (Eliquis) 5 mg PO BID 02/22/2401/04/25 History diltiazem HCl 120 mg 120 mg PO DAILY 02/22/2407/2701/04/25 History capsule,extended release 24 hr (Cardizem CD) solifenacin 10 mg tablet 10 mg PO DAILY 02/22/2407/2701/04/25 History umeclidinium 62.5 mcg-vilanterol 2 inh inhalation BID 02/22/24 01/05/25 01/04/25 History 25 mcg/actuation powdr for inhalation (Anoro Ellipta) Allergies Allergy/AdvReac Type Severity Reaction Status Date / Time No Known Allergies Verified 04/12/24 02:10 Review of Systems 2 Review of Systems: All systems reviewed & are unremarkable except as noted in HPI and below PMFSH Past Medical History Medical History (Updated 02/08/25 @ 16:32 by Tejinder Chaves MD) CKD (chronic kidney disease) Hypothyroidism Chronic respiratory failure Atrial fibrillation History of hyperlipidemia History of hypertension History of COPD Social History Social History Smoking status: Former smoker Alcohol intake: current Drinks per week: 3 Substance use: never Substance use type: does not use Do You Feel Safe in your Home?: Yes Lack of Transportation: No Lack of Food: Never True Current Housing: I Have Housing Concerned About Future Housing: No Difficulty Paying Gas/Electric Bills: No Difficulty Paying for Meds: No Currently Unemployed: No Education: Decline to Answer Difficulty w/ Childcare or Family Care: No Spiritual care concerns: No Exam 2 Narrative: APPEARANCE: Well appearing, no pain, no distress, well-nourished. HEAD: normocephalic, atraumatic. EYES: PERRLA/EOMI, conjunctivae clear. NOSE: Normal no drainage EARS:TMS clear with good light reflex. THROAT: Pharynx clear, no exudate. NECK: Supple. No adenopathy, no masses. RESPIRATORY: lungs are clear to auscultation with no wheeze no congestion CARDIOVASCULAR: Regular rate and rhythm without murmurs rubs or gallops. ABDOMINAL: Soft, nontender, nondistended, normal bowel sounds MUSCULOSKELETAL: lower extremity edema which patient states is similar to his baseline NEURO: Alert. Cranial nerves II through XII intact. Good gait. Good coordination SKIN: Warm, dry. Normal Color Course Vital Signs Vital signs: Vital Signs Temperature 97.8 F 02/08/25 14:25 Pulse Rate 74 02/08/25 14:25 Respiratory Rate 20 02/08/25 14:25 Blood Pressure 137/78 02/08/25 14:25 Pulse Oximetry 100 02/08/25 14:25 Oxygen Delivery Nasal Cannula 02/08/25 14:25 Oxygen Flow Rate 3 02/08/25 14:25 Temperature 97.8 F 02/08/25 14:25 Pulse Rate 60 02/08/25 16:52 Respiratory Rate 16 02/08/25 16:52 Blood Pressure 138/61 02/08/25 16:17 Pulse Oximetry 100 02/08/25 16:52 Oxygen Delivery Nasal Cannula 02/08/25 14:25 Oxygen Flow Rate 3 02/08/25 14:25 Medical Decision Making [facility] Narrative Medical decision making narrative: 84-year-old male presents to the emergency department for evaluation an episode of shortness of breath that has since resolved. Patient was able to ambulate in the emergency department with no oxygen desaturation and patient does feel improved. Patient is currently afebrile with no leukocytosis and hemoglobin of 7.9 which is similar to his baseline. Patient does have a creatinine of 1.45 which is also similar to his baseline. Patient's proBNP is not significantly elevated. UA was positive for infection and patient will be started on antibiotics. Chest x-ray shows no acute cardiopulmonary mallet. Patient was treated with a dose of IV Rocephin be discharged home on Ke Differential Diagnosis Differential Diagnosis: pneumonia, UTI, COVID, RSV, influenza Vital Signs Vital Signs: Vital Signs Temperature 97.8 F 02/08/25 14:25 Pulse Rate 74 02/08/25 14:25 Respiratory Rate 20 02/08/25 14:25 Blood Pressure 137/78 02/08/25 14:25 Pulse Oximetry 100 02/08/25 14:25 Oxygen Delivery Nasal Cannula 02/08/25 14:25 Oxygen Flow Rate 3 02/08/25 14:25 Temperature 97.8 F 02/08/25 14:25 Pulse Rate 60 02/08/25 16:52 Respiratory Rate 16 02/08/25 16:52 Blood Pressure 138/61 02/08/25 16:17 Pulse Oximetry 100 02/08/25 16:52 Oxygen Delivery Nasal Cannula 02/08/25 14:25 Oxygen Flow Rate 3 02/08/25 14:25 Lab Data Lab results reviewed: Yes I reviewed the patient's lab results. 02/08/25 14:45 02/08/25 14:45 Labs: Lab Results 02/08/25 Range/Units 14:45 WBC 8.6 (4.5-10.0) K/mm3 RBC 2.99 L (4.6-6.20) M/mm3 Hgb 7.9 L (14.0-18.0) g/dL Hct 27.1 L (42.0-52.0) % MCV 90.6 (80-100) fl MCH 26.4 (26-34) pg MCHC 29.2 L (32-36) g/dl RDW 15.4 H (11.5-14.5) % Plt Count 205 (150-375) k/mm3 MPV 10.2 (7.4-10.4) fl Immature Gran % (Auto) 0.7 H (0-0.5) % Neut % (Auto) 65.6 (45.5-73.1) % Lymph % (Auto) 20.0 (18.3-44.2) % [place] % (Auto) 10.6 H (2.6-8.5) % Eos % (Auto) 2.6 (0-4.4) % Baso % (Auto) 0.5 (0.2-1.2) % Lymph # (Auto) 1.71 (0.9-3.2) K/mm3 [place] # (Auto) 0.9 H (0.1-0.6) K/mm3 Eos # (Auto) 0.2 (0-0.3) K/mm3 Baso # (Auto) 0.0 (0.0-0.1) K/mm3 Abs Immat Gran (auto) 0.06 H (0.00-0.031) K/mm3 Absolute Neuts (auto) 5.6 (1.3-6.7) K/mm3 Absolute Nucleated RBC 0.000 (0.0-0.012) K/mm3 Band Neutrophils % Not Reportable Nucleated RBC % 0.0 (0.0-0.2) % Platelet Estimate Adequate (Adequate) Hypochromasia 1+ Ovalocytes 1+ Schistocytes None seen Sodium 138 (137-145) mmol/L Potassium 3.4 (3.4-5.0) mmol/L Chloride 98 (98-107) mmol/L Carbon Dioxide 33 H (22-30) mmol/L Anion Gap 7 (4-12) mmol/L BUN 24 H D (9-20) mg/dL Creatinine 1.45 H (0.7-1.3) mg/dL Estim Creat Clear Calc 39 ml/min Estimated GFR 46 L (59 - ) Glucose 97 (65-110) mg/dL Calcium 7.9 L (8.4-10.2) mg/dL Total Bilirubin 0.3 (0.2-1.3) mg/dL AST 36 (17-59) U/L ALT 24 (6-50) U/L Alkaline Phosphatase 127 H (38-126) U/L NT-Pro-B Natriuret Pep 303 H (19.9-100) pg/mL Total Protein 7.0 (6.3-8.2) g/dL Albumin 4.1 (3.5-5.1) g/dL Urine Color Yellow (Yellow) Urine Appearance Clear (Clear) Urine pH 6.5 (5.0-9.0) Ur Specific [place] 1.014 (1.001-1.035) Urine Protein Negative (Negative) mg/dL Urine Glucose (UA) Negative (Negative) mg/dL Urine Ketones Negative (Negative) mg/dL Ur Blood (Man) Negative (Negative) Urine Nitrate Positive H (Negative) Urine Bilirubin Negative (Negative) Urine Urobilinogen 1.0 (<2.0) mg/dL Leukocyte Esterase Rfl 2+ H (Negative) MAYLIN/UL Urine RBC 0-2 (0-2) /hpf Urine WBC 51-100 H (0-3) /hpf Ur Squamous Epith Cells None seen (Few) /hpf Urine Bacteria 4+ H /hpf Urine Casts 0-2 Imaging Data Radiologist's impression: Impressions Chest X-Ray 02/08/25 15:10 Impression: No acute cardiopulmonary abnormality. Discharge Plan Discharge Clinical Impression: Acute UTI Patient Disposition: [facility] Condition: Stable Instructions: Antibiotic Form, Urinary Tract Infection in Older Adults (ED) Additional Instructions: You were treated with an IV dose of antibiotics for a urinary tract infection. Start Keflex as directed for your urinary tract infection. Have close follow-up with your primary care physician. If you have any worsening symptoms then please call or return to the emergency department. Patient Language: Scottish Prescriptions: New cephalexin 500 mg capsule 500 mg PO Q8H 7 Days Qty: 21 0RF No Action albuterol sulfate 90 mcg/actuation HFA aerosol inhaler 2 puff inhalation QID PRN (Reason: shortness of breath or wheezing) Qty: 8.5 0RF diltiazem HCl [Cardizem CD] 120 mg capsule,extended release 24hr 120 mg PO DAILY Eliquis 5 mg tablet 5 mg PO BID umeclidinium-vilanterol [Anoro Ellipta] 62.5-25 mcg/actuation blister with device 2 inh INHALATION BID solifenacin 10 mg tablet 10 mg PO DAILY furosemide 40 mg Tablet 40 mg PO DAILY Qty: 30 0RF amiodarone [Pacerone] 200 mg Tablet 200 mg PO DAILY@0800 Qty: 30 0RF carvedilol [Coreg] 3.125 mg Tablet 3.125 mg PO Q12HR Qty: 60 0RF buspirone 5 mg tablet 5 mg PO Q12H Qty: 60 0RF levothyroxine 175 mcg capsule 175 mcg PO DAILY Qty: 30 0RF tamsulosin 0.4 mg capsule 0.4 mg PO HS Qty: 30 0RF Follow-up/Referrals: Darrell,MD aWqas [Primary Care Provider]
[2025-02-08 15:02] LABS: Hypochromasia 1+; Ovalocytes 1+; Schistocytes None Seen
[2025-02-08 15:06] LABS: Add Urine Microscopic? YES; Appearance Urine Clear (Clear); Glucose Urine UA Negative (Negative); Leukocyte Esterase Ur 2+ LEU/UL (Negative); Nitrate Urine Positive (Negative); Non Pathogenic Casts 0-2; Specific Grav Ur 1.014 (1.001-1.035)
[2025-02-08 15:13] LABS: Alanine Aminotransferase 24 U/L (6-50); Albumin Level 4.1 g/dL (3.5-5.1); Alkaline Phosphatase 127 U/L (38-126); Anion Gap 7 mmol/L (4-12); Aspartate Amino Transferase 36 U/L (17-59); Bilirubin,Total 0.3 mg/dL (0.2-1.3); Blood Urea Nitrogen 24 mg/dL (9-20); Calcium 7.9 mg/dL (8.4-10.2); Carbon Dioxide 33 mmol/L (22-30); Chloride 98 mmol/L (98-107); Estimated CRCL calculation 39 ml/min; Estimated Glomerular Filt Rate 46; Glucose 97 mg/dL (65-110); Potassium 3.4 mmol/L (3.4-5.0); Sodium 138 mmol/L (137-145); Total Protein 7.0 g/dL (6.3-8.2)
[2025-02-08 15:23] LABS: NT Pro B Type Natriuretic Pept 303 pg/mL (19.9-100)
--- OUTSIDE RECORDS SUMMARY | 2025-02-08 16:14 | XMS_ITS | Data Portability ---
[facility] Address [address] [place] [address] Care Team Providers Care Newspaper Columnist Name Role Phone RAMÍREZ LANRE Primary Care Provider Assessment Encounter Date Assessment Date Assessment LastModified by Organization Details LastModified Time 08/20/2024 08/20/2024 Weigh daily. Avoid salt. Review medicines. There are some discrepancies were trying to work through. Healthy lifestyle care instructions. 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 [place] [facility] get notes from Cardiology follow up with me in 2 months we will continue current therapy at this time his TSH was 99 talked about the importance of taking medications worrisome is the fact that his ejection fraction has gone from 65-70% to 41% COPD heart failure kidney disease and other diagnosis in the assessment and plan have been discussed [email or web address] Not available 08/20/2024 17:53:23 10/13/2024 10/13/2024 Chronic medical problems he is in kind of a diet his body he has got really bad lungs he is going to see in his far as his shortness of breath I think it is a combination of his heart failure as well as COPD. He does not want any additional medications for anxiety or depression. We did talk about his PHQ-9 at length. His back bothers him quite a bit as well. 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 We will follow up with me in 3 months [email or web address] Not available 12/26/2024 17:19:01 Plan of Treatment Reminders Order Date Submit Date Provider Last Modified By Organization Details Last Modified Time Details Appointments ANY 15 2024 01:15P Adrienne Ramírez MD Not available Not available Not available Lab lipid panel, serum 2024 025 [facility], [address], [address], [place], [address], 09/10/2024 06:49:44 CMP, serum or plasma 2024 025 [facility], [address], [address], [place], [address], 09/10/2024 06:49:45 CBC w/ auto diff 2024 025 [facility], [address], [place], [address], 09/10/2024 06:49:47 Referral pulmonolo gist referral - Please call the pts cell number that is listed for her daughter. 2024 025 [facility], [address] [facility], [place], [address], 01/20/2025 10:02:10 Procedures None recorded. Surgeries None recorded. Imaging None recorded. Medication Orders None recorded. Patient TargetsNo targets recorded. Patient Instructions Encounter Date Encounter Id Patient Instructions Last Modified By Organization Details Last Modified Time 08/20/2024 [id number] A healthy lifestyle: care instructions [email or web address] Not available 08/20/2024 12:41:36 10/13/2024 [id number] A healthy lifestyle: care instructions [email or web address] Not available 10/13/2024 11:10:38 Reason for Referral Quality Control Lab Technician Referral for C hronic hypoxemic respiratory failure Please call the pts cell number that is listed for her daughter. Referring Physician: Lanre Ramírez, Internal Medicine, Encounter Date: 08/20/2024 Results Created Date Observation Date Name Description Value Unit Range Abnormal Flag Note LastModifiedBy Organization Detail LastModifiedTime 09/10/1909/10/2024 LIPID PANEL cholesterol, total 106 mg/dL 100-19 9 Not Available [facility] ([facility]) [address] [place], [address], 09/10/2024 06:49:44 09/10/1909/10/2024 LIPID PANEL triglyceride s 68 mg/dL 0-149 Not Available [facility] ([facility]) [address] [place], [address], 09/10/2024 06:49:44 09/10/1909/10/2024 LIPID PANEL HDL cholesterol 42 mg/dL >39 Not Available [facility] ([facility]) [address] [place], [address], 09/10/2024 06:49:44 09/10/1909/10/2024 LIPID PANEL VLDL cholesterol cornell 15 mg/dL 5-40 Not Available [facility] ([facility]) [address] [place], [address], 09/10/2024 06:49:44 09/10/1909/10/2024 LIPID PANEL LDL chol calc ([facility]) 49 mg/dL 0-99 Not Available [facility] ([facility]) [address] [place], [address], 09/10/2024 06:49:44 09/10/1909/10/2024 COMP. METAB OLIC PANEL (14) glucose 83 mg/dL 70-99 Not Available [facility] ([facility]) [address] [place], [address], 09/10/2024 06:49:45 09/10/19 25 09/10/2024 COMP. METAB OLIC PANEL (14) BUN 18 mg/dL 8-27 Not Available [facility] ([facility]) [address] [place], [address], 09/10/2024 06:49:45 09/10/19 25 09/10/2024 COMP. METAB OLIC PANEL (14) creatinine 1.91 mg/dL 0.76-1 .27 above high normal Not Available [facility] ([facility]) [address] [place], [address], 09/10/2024 06:49:45 09/10/19 25 09/10/2024 COMP. METAB OLIC PANEL (14) eGFR 34 mL/mi n/1.7 3 >59 below low normal Not Available [facility] ([facility]) [address] [facility] [place], [address], 09/10/2024 06:49:45 09/10/19 25 09/10/2024 COMP. METAB OLIC PANEL (14) BUN/creatini ne ratio 9 10-24 below low normal Not Available [facility] ([facility]) [address] [facility] [place], [address], 09/10/2024 06:49:45 09/10/19 25 09/10/2024 COMP. METAB OLIC PANEL (14) sodium 141 mmol/ L 134-14 4 Not Available [facility] ([facility]) [address] [facility] [place], [address], 09/10/2024 06:49:45 09/10/19 25 09/10/2024 COMP. METAB OLIC PANEL (14) potassium 4.1 mmol/ L 3.5-5. 2 Not Available [facility] ([facility]) [address] [facility] [place], [address], 09/10/2024 06:49:45 09/10/19 25 09/10/2024 COMP. METAB OLIC PANEL (14) chloride 99 mmol/ L 96-106 Not Available [facility] ([facility]) [address] [facility] [place], [address], 09/10/2024 06:49:45 09/10/19 25 09/10/2024 COMP. METAB OLIC PANEL (14) carbon dioxide, total 28 mmol/ L 20-29 Not Available [facility] ([facility]) [address] [place], [address], 09/10/2024 06:49:45 09/10/19 25 09/10/2024 COMP. METAB OLIC PANEL (14) calcium 8.4 mg/dL 8.6-10 .2 below low normal Not Available [facility] ([facility]) [address] [place], [address], 09/10/2024 06:49:45 09/10/19 25 09/10/2024 COMP. METAB OLIC PANEL (14) protein, total 6.6 g/dL 6.0-8. 5 Not Available [facility] ([facility]) [address] [place], [address], 09/10/2024 06:49:45 09/10/19 25 09/10/2024 COMP. METAB OLIC PANEL (14) albumin 4.2 g/dL 3.7-4. 7 Not Available [facility] ([facility]) [address] [place], [address], 09/10/2024 06:49:45 09/10/19 25 09/10/2024 COMP. METAB OLIC PANEL (14) globulin, total 2.4 g/dL 1.5-4. 5 Not Available [facility] ([facility]) [address] [place], [address], 09/10/2024 06:49:45 09/10/19 25 09/10/2024 COMP. METAB OLIC PANEL (14) bilirubin, total 0.4 mg/dL 0.0-1. 2 Not Available [facility] ([facility]) [address] [place], [address], 09/10/2024 06:49:45 09/10/19 25 09/10/2024 COMP. METAB OLIC PANEL (14) alkaline phosphatase 116 IU/L 44-121 Not Available [facility] ([facility]) [address] [facility] [place], [address], 09/10/2024 06:49:45 09/10/19 25 09/10/2024 COMP. METAB OLIC PANEL (14) AST (SGOT) 16 IU/L 0-40 Not Available [facility] ([facility]) [address] [facility], [place], [address], 09/10/2024 06:49:45 09/10/19 25 09/10/2024 COMP. METAB OLIC PANEL (14) ALT (SGPT) 17 IU/L 0-44 Not Available [facility] ([facility]) [address] [facility], [place], [address], 09/10/2024 06:49:45 09/10/19 25 09/09/2024 CBC WITH DIFFE RENTI AL/PL ATELE T WBC 5.3 x10e3 /uL 3.4-10 .8 Not Available [facility] ([facility]) [address] [place], [address], 09/10/2024 06:49:47 09/10/19 25 09/09/2024 CBC WITH DIFFE RENTI AL/PL ATELE T RBC 3.61 x10e6 /uL 4.14-5 .80 below low normal Not Available [facility] ([facility]) [address] [place], [address], 09/10/2024 06:49:47 09/10/19 25 09/09/2024 CBC WITH DIFFE RENTI AL/PL ATELE T hemoglobin 9.8 g/dL 13.0-1 7.7 below low normal Not Available [facility] ([facility]) [address] [place], [address], 09/10/2024 06:49:47 09/10/1909/09/2024 CBC WITH DIFFE RENTI AL/PL ATELE T hematocrit 32.2 % 37.5-5 1.0 below low normal Not Available [facility] ([facility]) [address] [place], [address], 09/10/2024 06:49:47 09/10/1909/09/2024 CBC WITH DIFFE RENTI AL/PL ATELE T MCV 89 fL 79-97 Not Available [facility] ([facility]) [address] [place], [address], 09/10/2024 06:49:47 09/10/1909/09/2024 CBC WITH DIFFE RENTI AL/PL ATELE T MCH 27.1 pg 26.6-3 3.0 Not Available [facility] ([facility]) [address] [place], [address], 09/10/2024 06:49:47 09/10/1909/09/2024 CBC WITH DIFFE RENTI AL/PL ATELE T MCHC 30.4 g/dL 31.5-3 5.7 below low normal Not Available [facility] ([facility]) [address] [place], [address], 09/10/2024 06:49:47 09/10/1909/09/2024 CBC WITH DIFFE RENTI AL/PL ATELE T RDW 14.5 % 11.6-1 5.4 Not Available [facility] ([facility]) [address] [place], [address], 09/10/2024 06:49:47 09/10/1909/09/2024 CBC WITH DIFFE RENTI AL/PL ATELE T platelets 224 x10e3 /uL 150-45 0 Not Available [facility] ([facility]) [address] [place], [address], 09/10/2024 06:49:47 09/10/19 09/09/2024 CBC WITH DIFFE RENTI AL/PL ATELE T neutrophils 62 % notest ab. Not Available [facility] ([facility]) [address] [facility], [place], [address], 09/10/2024 06:49:47 09/10/19 25 09/09/2024 CBC WITH DIFFE RENTI AL/PL ATELE T lymphs 24 % notest ab. Not Available [facility] ([facility]) [address] [facility], [place], [address], 09/10/2024 06:49:47 09/10/1909/09/2024 CBC WITH DIFFE RENTI AL/PL ATELE T monocytes 10 % notest ab. Not Available [facility] ([facility]) [address] [facility], [place], [address], 09/10/2024 06:49:47 09/10/1909/09/2024 CBC WITH DIFFE RENTI AL/PL ATELE T eos 4 % notest ab. Not Available [facility] ([facility]) [address] [facility], [place], [address], 09/10/2024 06:49:47 09/10/1909/09/2024 CBC WITH DIFFE RENTI AL/PL ATELE T basos 0 % notest ab. Not Available [facility] ([facility]) [address] [place], [address], 09/10/2024 06:49:47 09/10/1909/09/2024 CBC WITH DIFFE RENTI AL/PL ATELE T neutrophils (absolute) 3.2 x10e3 /uL 1.4-7. 0 Not Available [facility] ([facility]) [address] [facility], [place], [address], 09/10/2024 06:49:47 09/10/19 25 09/09/2024 CBC WITH DIFFE RENTI AL/PL ATELE T lymphs (absolute) 1.3 x10e3 /uL 0.7-3. 1 Not Available [facility] ([facility]) [address] [facility], [place], [address], 09/10/2024 06:49:47 09/10/19 25 09/09/2024 CBC WITH DIFFE RENTI AL/PL ATELE T monocytes(ab solute) 0.6 x10e3 /uL 0.1-0. 9 Not Available [facility] ([facility]) [address] [facility], [place], [address], 09/10/2024 06:49:47 09/10/1909/09/2024 CBC WITH DIFFE RENTI AL/PL ATELE T eos (absolute) 0.2 x10e3 /uL 0.0-0. 4 Not Available [facility] ([facility]) [address] [facility], [place], [address], 09/10/2024 06:49:47 09/10/1909/09/2024 CBC WITH DIFFE RENTI AL/PL ATELE T baso (absolute) 0.0 x10e3 /uL 0.0-0. 2 Not Available [facility] ([facility]) [address] [facility], [place], [address], 09/10/2024 06:49:47 09/10/1909/09/2024 CBC WITH DIFFE RENTI AL/PL ATELE T immature granulocytes 0 % notest ab. Not Available [facility] ([facility]) [address] [facility], [place], [address], 09/10/2024 06:49:47 09/10/1909/09/2024 CBC WITH DIFFE RENTI AL/PL ATELE T immature grans (abs) 0.0 x10e3 /uL 0.0-0. 1 Not Available [facility] ([facility]) [address] [facility], [place], [address], 09/10/2024 06:49:47 10/07/19 25 10/06/2024 Proca lcito melina [Mass /volu me] in Serum or Plasm a procalcitoni n [mass/volume ] in serum or plasma 0.06 NG/mL low: 0NG/mL high: 0.08NG /mL normal Not Available Not Available 10/06/2024 09:50:28 10/07/19 25 10/06/2024 Natri ureti c pepti de.B proho rmone N-Ter toma [Mass /volu me] in Serum or Plasm a natriuretic peptide.B prohormone N-terminal [mass/volume ] in serum or plasma 2100 pg/mL low: 0pg/mL high: 326pg/ mL high Not Available Not Available 10/06/2024 09:50:28 10/07/19 25 10/06/2024 Tropo melina I.car diac [Mass /volu me] in Serum or Plasm a by Detec tion limit <= 0.01 ng/mL troponin I.cardiac [mass/volume ] in serum or plasma by detection limit <= 0.01 NG/mL 0.015 NG/mL low: 0NG/mL high: 0.034N G/mL normal Not Available Not Available 10/06/2024 09:50:27 10/07/19 25 10/06/2024 Compr ehens josh metab olic 1999 panel - Serum or Plasm a sodium [moles/volum e] in blood 140 mmol/ L low: 137mmo l/Lhig h: 145mmo l/L normal Not Available Not Available 10/06/2024 09:50:27 10/07/19 25 10/06/2024 Compr ehens josh metab olic 1999 panel - Serum or Plasm a potassium [moles/volum e] in serum or plasma 3.8 mmol/ L low: 3.5mmo l/Lhig h: 5.1mmo l/L normal Not Available Not Available 10/06/2024 09:50:27 10/07/19 25 10/06/2024 Compr ehens josh metab olic 1999 panel - Serum or Plasm a chloride [moles/volum e] in serum or plasma 101 mmol/ L low: 98mmol /Lhigh : 107mmo l/L normal Not Available Not Available 10/06/2024 09:50:27 10/07/19 25 10/06/2024 Compr Celframeens josh [employer] olic 1999 panel - Serum or Plasm a carbon dioxide, total [moles/volum e] in serum or plasma 30 mmol/ L low: 22mmol /Lhigh : 30mmol /L normal Not Available Not Available 10/06/2024 09:50:27 10/07/19 25 10/06/2024 [facility] Celframeens josh [employer] olic 1999 panel - Serum or Plasm a anion gap in serum or plasma by calculation 12.8 mmol/ L low: 14mmol /Lhigh : 22mmol /L low Not Available Not Available 10/06/2024 09:50:27 10/07/19 25 10/06/2024 [facility] Celframeens josh [employer] olic 1999 panel - Serum or Plasm a glucose [mass/volume ] in serum or plasma 90 mg/dL low: 70mg/d Lhigh: 99mg/d L normal Not Available Not Available 10/06/2024 09:50:27 10/07/19 25 10/06/2024 [facility] [employer] josh [employer] olic 1999 panel - Serum or Plasm a urea nitrogen [mass or moles/volume ] in serum or plasma 25 mg/dL low: 8mg/dL high: 19mg/d L high Not Available Not Available 10/06/2024 09:50:27 10/07/19 25 10/06/2024 [facility] [employer] josh [employer] olic 1999 panel - Serum or Plasm a creatinine [mass/volume ] in serum or plasma 1.42 mg/dL low: 0.66mg /dLhig h: 1.25mg /dL high Not Available Not Available 10/06/2024 09:50:27 10/07/19 25 10/06/2024 [facility] Celframeens josh [employer] olic 1999 panel - Serum or Plasm a glomerular filtration rate [volume rate/area] in serum, plasma or blood by based on 1.73 sq M 47 1 normal Not Available Not Available 09:50:27 10/07/19 25 10/06/2024 [facility] Celframeens josh [employer] olic 2000 panel - Serum or Plasm a alkaline phosphatase [enzymatic activity/vol ume] in serum or plasma 119 U/L low: 38U/Lh igh: 126U/L normal Not Available Not Available 10/06/2024 09:50:27 10/07/19 25 10/06/2024 [facility] [employer] josh [employer] [facility] 1999 panel - Serum or Plasm a alanine aminotransfe rase [enzymatic activity/vol ume] in serum or plasma 17 U/L low: 0U/Lhi gh: 50U/L normal Not Available Not Available 10/06/2024 09:50:27 10/07/19 25 10/06/2024 Compr [employer] josh [employer] [facility] 1999 panel - Serum or Plasm a aspartate aminotransfe rase [enzymatic activity/vol ume] in serum or plasma 25 U/L low: 15U/Lh igh: 46U/L normal Not Available Not Available 10/06/2024 09:50:27 10/07/19 25 10/06/2024 [facility] [employer] [facility]IC 1999 panel - Serum or Plasm a bilirubin.to kala [mass/volume ] in serum or plasma 0.6 mg/dL low: 0.2mg/ dLhigh : 1.3mg/ dL normal Not Available Not Available 10/06/2024 09:50:27 10/07/19 25 10/06/2024 [facility] [employer] SAIC 1999 panel - Serum or Plasm a calcium [mass/volume ] in serum or plasma 8.3 mg/dL low: 8.4mg/ dLhigh : 10.2mg /dL low Not Available Not Available 10/06/2024 09:50:27 10/07/19 25 10/06/2024 [facility] [employer] [facility] 1999 panel - Serum or Plasm a protein [mass/volume ] in serum or plasma 6.4 g/dL low: 6.3g/d Lhigh: 8.2g/d L normal Not Available Not Available 10/06/2024 09:50:27 10/07/19 25 10/06/2024 [facility] [employer] SAIC 1999 panel - Serum or Plasm a albumin [mass/volume ] in serum or plasma 4 g/dL low: 3g/dLh igh: 4.4g/d L normal Not Available Not Available 10/06/2024 09:50:27 10/07/19 25 10/06/2024 [facility] [employer] SAIC 1999 panel - Serum or Plasm a globulin [mass/volume ] in serum 2.4 g/dL low: 2.6g/d Lhigh: 4.2g/d L low Not Available Not Available 10/06/2024 09:50:27 10/07/19 25 10/06/2024 Zachariah daigle josh metab olic 1999 panel - Serum or Plasm a albumin/glob ulin [mass ratio] in serum or plasma 1.7 ratio low: 1ratio high: 2ratio normal Not Available Not Available 10/06/2024 09:50:27 10/07/19 25 10/06/2024 CBC W Auto Diffe renti al panel - Blood leukocytes [#/volume] in blood by automated count 4.9 x10'3 /uL low: 4.2x10 '3/uLh igh: 10.8x1 0'3/uL normal Not Available Not Available 10/06/2024 09:50:27 10/07/19 25 10/06/2024 CBC W Auto Diffe renti pat panel - Blood erythrocytes [#/volume] in blood by automated count 3.31 x10'6 /uL low: 4.1x10 '6/uLh igh: 5.8x10 '6/uL low Not Available Not Available 10/06/2024 09:50:27 10/07/19 25 10/06/2024 CBC W Auto Diffe lenti al panel - Blood hemoglobin [mass/volume ] in blood 9.1 g/dL low: 13.2g/ dLhigh : 17g/dL low Not Available Not Available 10/06/2024 09:50:27 10/07/1910/06/2024 CBC W Auto Diffe lenti pat panel - Blood hematocrit [volume fraction] of blood by automated count 29.7 % low: 39.3%h igh: 50% low Not Available Not Available 10/06/2024 09:50:27 10/07/19 25 10/06/2024 CBC W Auto Diffe renti al panel - Blood MCV [entitic mean volume] in red blood cells by automated count 89.7 fL low: 80fLhi gh: 97fL normal Not Available Not Available 10/06/2024 09:50:27 10/07/19 25 10/06/2024 CBC W Auto Diffe renti al panel - Blood MCH [entitic mass] by automated count 27.5 pg low: 27pghi gh: 33pg normal Not Available Not Available 10/06/2024 09:50:27 10/07/19 25 10/06/2024 CBC W Auto Diffe renti al panel - Blood MCHC [entitic mass/volume] in red blood cells by automated count 30.6 g/dL low: 31g/dL high: 36g/dL low Not Available Not Available 10/06/2024 09:50:27 10/07/19 25 10/06/2024 CBC W Auto Diffe renti al panel - Blood erythrocyte [distwidth] in red blood cells 15.9 % low: 11.8%h igh: 15.5% high Not Available Not Available 10/06/2024 09:50:27 10/07/19 25 10/06/2024 CBC W Auto Diffe renti al panel - Blood platelets [#/volume] in blood by automated count 185 x10'3 /uL low: 150x10 '3/uLh igh: 400x10 '3/uL normal Not Available Not Available 10/06/2024 09:50:27 10/07/19 25 10/06/2024 CBC W Auto Diffe renti al panel - Blood platelet [entitic mean volume] in blood by automated count 10.1 fL low: 9fLhig h: 12.4fL normal Not Available Not Available 10/06/2024 09:50:27 10/07/19 25 10/06/2024 CBC W Auto Diffe renti al panel - Blood neutrophils/ leukocytes in blood 62 % low: 39%hig h: 72% normal Not Available Not Available 10/06/2024 09:50:27 10/07/19 25 10/06/2024 CBC W Auto Diffe renti al panel - Blood lymphocytes/ leukocytes in blood 21.9 % low: 16%hig h: 47% normal Not Available Not Available 10/06/2024 09:50:27 10/07/19 25 10/06/2024 CBC W Auto Diffe renti al panel - Blood monocytes/le ukocytes in blood 11.1 % low: 5%high : 12% normal Not Available Not Available 10/06/2024 09:50:27 10/07/19 25 10/06/2024 CBC W Auto Diffe renti al panel - Blood eosinophils [#/volume] in blood 4 % low: 1%high : 7% normal Not Available Not Available 10/06/2024 09:50:27 10/07/19 25 10/06/2024 CBC W Auto Diffe renti al panel - Blood basophils/le ukocytes in blood 0.4 % low: 0%high : 2% normal Not Available Not Available 10/06/2024 09:50:27 10/07/19 25 10/06/2024 CBC W Auto Diffe renti al panel - Blood immature granulocytes /leukocytes in blood 0.6 % low: 0%high : 0.5% high Not Available Not Available 10/06/2024 09:50:27 10/07/19 25 10/06/2024 CBC W Auto Diffe renti al panel - Blood neutrophils [#/volume] in blood 3.06 x10'3 /uL low: 1.5x10 '3/uLh igh: 8x10'3 /uL normal Not Available Not Available 10/06/2024 09:50:27 10/07/19 25 10/06/2024 CBC W Auto Diffe renti al panel - Blood lymphocytes [#/volume] in blood 1.08 x10'3 /uL low: 1.07x1 0'3/uL high: 3.43x1 0'3/uL normal Not Available Not Available 10/06/2024 09:50:27 10/07/19 25 10/06/2024 CBC W Auto Diffe renti al panel - Blood monocytes [#/volume] in blood 0.55 x10'3 /uL low: 0.29x1 0'3/uL high: 0.99x1 0'3/uL normal Not Available Not Available 10/06/2024 09:50:27 10/07/19 25 10/06/2024 CBC W Auto Diffe renti al panel - Blood eosinophils [#/volume] in blood 0.2 x10'3 /uL low: 0.02x1 0'3/uL high: 0.53x1 0'3/uL normal Not Available Not Available 10/06/2024 09:50:27 10/07/19 25 10/06/2024 CBC W Auto Diffe renti al panel - Blood basophils [#/volume] in blood 0.02 x10'3 /uL low: 0.01x1 0'3/uL high: 0.08x1 0'3/uL normal Not Available Not Available 10/06/2024 09:50:27 10/07/19 25 10/06/2024 CBC W Auto Diffe renti al panel - Blood immature granulocytes [#/volume] in blood 0.03 x10'3 /uL low: 0x10'3 /uLhig h: 0.05x1 0'3/uL normal Not Available Not Available 10/06/2024 09:50:27 10/07/19 25 10/06/2024 CBC W Auto Diffe renti al panel - Blood nucleated erythrocytes /leukocytes [ratio] in blood 0 % high: 0% normal Not Available Not Available 10/06/2024 09:50:27 10/07/19 25 10/06/2024 CBC W Auto Diffe renti al panel - Blood nucleated erythrocytes [#/volume] in blood by automated count 0 x10'3 /uL normal Not Available Not Available 10/07/19 09:50:27 10/07/19 25 10/06/2024 XR, chest No observ ation record ed. [email or web address] [facility] [address] [place], [address], 10/07/2024 21:31:05 02/09/20 25 02/08/2025 imagi ng/di agnos tic resul t No observ ation record ed. [place] [id number] [facility] [address], [place], [address], 02/08/2025 16:18:03 Result Notes None recorded. Problems Name Problem SNOMED Code Status Onset Date Resolution Date Notes Provider Name and Address Organization Details Recorded Time Permanent atrial fibrillation 586061543 Active 2024 Lanre Ramírez MD Attn: Bambi butcher,[address] [place], [address] , [facility] 17:47:02 Coronary arteriosclero sis 09895521 Active 2024 Lanre Ramírez MD Attn: Bambi butcher,[address] [place], [address], [place] [facility] 5 17:47:09 Benign essential hypertension 7008280 Active 2024 Lanre Ramírez MD Attn: Bambi butcher,[address] [facility], [place], [address], [place] [facility] 5 17:47:16 Pulmonary emphysema 93499009 Active 2024 Lanre Ramírez MD Attn: Bambi butcher,[address] [facility], [place], [address], [place] [facility] 5 17:47:56 Chronic kidney disease stage 3A 986332079 Active 2024 Lanre Ramírez MD Attn: Bambi butcher,[address] [facility], [place], [address], [place] [facility] 5 17:48:08 Hypothyroidis m 15797968 Active 2024 Lanre Ramírez MD Attn: Bambi butcher,[address] [facility], [place], [address], [place] [facility] 5 17:48:26 Chronic systolic heart failure [id number] Active 2024 Lanre Ramírez MD Attn: Bambi butcher,[address], [place], [address], [place] [facility] 5 17:49:31 Chronic hypoxemic respiratory failure 224170141 Active 2024 3 liters Lanre Ramírez MD Attn: Bambi butcher,[address], [place], [address], [place] [facility] 5 17:50:15 Spinal stenosis of lumbosacral region 115562208 Active 2024 Lanre Ramírez MD Attn: Bambi butcher,[address], [place], [address], [place] [facility] 5 17:51:18 Cardiac pacemaker in situ 778790975 Active 2024 Lanre Ramírez MD Attn: Bambi butcher,[address], [place], [address], [place] [facility] 5 17:52:08 Chronic anemia 920557271 Active 2024 Lanre Ramírez MD Attn: Bambi butcher,[address], [place], [address], [place] [facility] 5 17:52:43 Problem Notes None recorded. Procedures Surgical History Date Name Laterality Status Provider Name and Address Organization Details Recorded Time 4 Pacemaker completed Debra Shook [place] [facility] [place] 08/20/2024 12:32:34 0 Back Surgery completed Debra Shook [place] [facility] 08/20/2024 12:32:08 0 Back Surgery completed Debra Shook [place] [facility] 08/20/2024 12:32:14 5 Back Surgery completed Debra Shook [place] [facility] 08/20/2024 12:32:18 Imaging Results None recorded. Procedure Notes None recorded. Medical Equipment None Reported. Medications Name Sig Start Date Stop Date Status Note LastModified by Organization Details LastModified Time furosemide 40 mg tablet TAKE 1 TABLET BY MOUTH DAILY active Not Available Not Available No t Available atorvastati n 40 mg tablet TAKE ONE TABLET BY MOUTH EVERY DAY active Not Available Not Available No t Available buspirone 5 mg tablet TAKE 1 TABLET BY MOUTH TWICE DAILY active Not Available Not Available No t Available ipratropium 0.5 mg-albutero l 3 mg (2.5 mg base)/3 mL nebulizatio n soln USE 3 ML VIA NEBULIZER EVERY 6 HOURS NEEDED FOR WHEEZING OR SHORTNESS OF BREATH active Not Available Not Available No t Available albuterol sulfate 2.5 mg/3 mL (0.083 %) solution for nebulizatio n USE 1 VIAL VIA NEBULIZER EVERY 4 HOURS NEEDED 12/21 completed Not Available Not Available Not Available amiodarone 200 mg tablet TAKE 1 TABLET BY MOUTH EVERY DAY active Not Available Not Available No t Available prednisone 20 mg tablet TAKE 2 TABLETS BY MOUTH DAILY AT 8 AM FOR 2 DAYS 08/20 completed Not Available Not Available Not Available ciprofloxac in 500 mg tablet TAKE 1 TABLET BY MOUTH TWICE DAILY FOR 7 DAYS 12/21 completed Not Available Not Available Not Available spironolact one 25 mg tablet TAKE ONE TABLET BY MOUTH DAILY 12/21 completed Not Available Not Available Not Available carvedilol 3.125 mg tablet TAKE 1 TABLET BY MOUTH TWICE DAILY active Not Available Not Available No t Available levothyroxi ne 100 mcg tablet TAKE 1 TABLET BY MOUTH DAILY 08/20 completed Not Available Not Available Not Available potassium chloride ER 20 mEq tablet,exte nded release(par t/cryst) TAKE 1 TABLET BY MOUTH ONCE DAILY. 12/21 completed Not Available Not Available Not Available tamsulosin 0.4 mg capsule TAKE 1 CAPSULE BY MOUTH DAILY active Not Available Not Available No t Available cephalexin 500 mg capsule TAKE 1 CAPSULE BY MOUTH FOUR TIMES DAILY FOR 10 DAYS. 12/21 completed Not Available Not Available Not Available levothyroxi ne 125 mcg tablet TAKE 1 TABLET BY MOUTH DAILY active Not Available Not Available No t Available levothyroxi ne 150 mcg tablet TAKE 1 TABLET BY MOUTH EARLY IN THE MORNING BEFORE BREAKFAST 12/21 completed Not Available Not Available Not Available losartan 25 mg tablet TAKE 1 TABLET BY MOUTH EVERY DAY 12/21 completed Not Available Not Available Not Available diltiazem CD 120 mg capsule,ext ended release 24 hr TAKE 1 CAPSULE BY MOUTH DAILY active Not Available Not Available No t Available montelukast 10 mg tablet TAKE 1 TABLET BY MOUTH DAILY 12/21 completed Not Available Not Available Not Available albuterol sulfate HFA 90 mcg/actuati on aerosol inhaler INHALE 2 PUFFS BY MOUTH EVERY 6 HOURS NEEDED FOR WHEEZING OR SHORTNESS OF BREATH active Not Available Not Available No t Available amoxicillin 875 mg-potassiu m clavulanate 125 mg tablet TAKE 1 TABLET BY MOUTH EVERY 12 HOURS FOR 10 DAYS 08/20 completed Not Available Not Available Not Available ciprofloxac in 0.3 %-dexametha sone 0.1 % ear drops,suspe nsion INSTILL 4 TO 5 DROPS INTO BOTH EARS TWICE DAILY FOR 10 DAYS 12/21 completed Not Available Not Available Not Available solifenacin 10 mg tablet TAKE 1 TABLET BY MOUTH ONCE DAILY 12/21 completed Not Available Not Available Not Available FeroSul 325 mg (65 mg iron) tablet TAKE 1 TABLET BY MOUTH TWICE DAILY active Not Available Not Available No t Available Eliquis 5 mg tablet TAKE 1 TABLET BY MOUTH TWICE DAILY active Not Available Not Available No t Available Anoro Ellipta 62.5 mcg-25 mcg/actuati on powder for inhalation INHALE 2 PUFFS BY MOUTH TWICE DAILY active Not Available Not Available No t Available Vitals Date Recorded Body weight Body mass index (BMI) Body height Oxygen saturation Oxygen saturation in Arterial blood by Pulse oximetry Inhaled oxygen flow rate Heart rate Systolic And Diastolic Provider Name and Address Organization Details Last Updated DateTime 5 084192. 69 g 36.1 kg/m2 175.26 cm 99 % 99 % 3 L/min 90 /min 128/70 mm[Hg] Debra Shook MA [facility] 5 12:36:25 Date Recorded Body height Body mass index (BMI) Body weight Heart rate Oxygen saturation Oxygen saturation in Arterial blood by Pulse oximetry Systolic And Diastolic Provider Name and Address Organization Details Last Updated DateTime 5 175.26 cm 35.7 kg/m2 933909. 35 g 85 /min 97 % 97 % 124/70 mm[Hg] Debra Shook MA [facility] 5 09:39:15 Date Recorded Body height Body mass index (BMI) Body weight Heart rate Oxygen saturation Oxygen saturation in Arterial blood by Pulse oximetry Inhaled oxygen flow rate Systolic And Diastolic Provider Name and Address Organization Details Last Updated DateTime 5 175.26 cm 34.9 kg/m2 010895. 24 g 72 /min 98 % 98 % 3 L/min 120/72 mm[Hg] Debra Shook MA [facility] 5 14:39:30 Social History Question Answer Notes LastModified by Organizat ion Details LastModified Time Tobacco Smoking Status Former Smoker Debra Shook [facility] 08/20/2024 12:30:47 Do You Have An Advance Directive? No Information not available 08/20/2024 Are You Blind Or Do You Have Difficulty Seeing? No Information not available 08/20/2024 What Is Your Level Of Caffeine Consumption? Occasional Information not available 08/20/2024 In The 14 Days Before Symptom Onset, Have You Had Close Contact With A Laboratory-confir med COVID-19 While That Case Was Ill? No Information not available 08/20/2024 In The 14 Days Before Symptom Onset, Have You Had Close Contact With A Person Who Is Under Investigation For COVID-19 While That Person Was Ill? No Information not available 08/20/2024 Have You Been To An Area Known To Be High Risk For COVID-19? No Information not available 08/20/2024 Are You Deaf Or Do You Have Serious Difficulty Hearing? No Information not available 08/20/2024 What Type Of Diet Are You Following? REGULAR Information not available 08/20/2024 Are There Any Guns Present In Your Home? No Information not available 08/20/2024 What Was The Date Of Your Most Recent Tobacco Screening? 12/21/2024 Information not available 12/21/2024 What Is Your Relationship Status? Information not available 08/20/2024 Do You Use Your Seat Belt Or Car Seat Routinely? Yes Information not available 08/20/2024 Do You Have Smoke And Carbon Monoxide Detectors In Your Home? Yes Information not available 08/20/2024 Do You Use Sunscreen Routinely? Yes Information not available 08/20/2024 Has Tobacco Cessation Counseling Been Provided? No Information not available 08/20/2024 Sex: Male Functional Status Question Answer Note LastModified by Organizat ion Details LastModified Time Do you use any illicit or recreational drugs? No Information not available 08/20/2024 Do you or have you ever used any other forms of tobacco or nicotine? No Information not available 08/20/2024 What is your level of alcohol consumption? None Information not available 08/20/2024 Are you currently employed? No Information not available 08/20/2024 Are you able to care for yourself independently? Yes Information not available 08/20/2024 What is your exercise level? None Information not available 08/20/2024 Mental Status Question Answer Note LastModified by Organization D etails LastModified Time Do you feel stressed (tense, restless, nervous, or anxious, or unable to sleep at night)? [id number] Information not available 08/20/2024 Family History Relationship Description Onset Age of this Age Resolved Age Notes LastModified by Organization Details LastModified Time Father Family history of cancer of colon mebyma Not available 2024 12:29:46 Father Hypertensive disorder mebyma Not available 2024 12:30:19 Father Hypercholest erolemia mebyma Not available 2024 12:30:27 Mother Depressive disorder mebyma Not available 2024 12:29:57 Mother Disorder of thyroid gland mebyma Not available 2024 12:30:04 Mother Heart disease mebyma Not available 2024 12:30:13 Medical History Condition Response Anxiety Disorder Y Other Y Atrial Fibrillation Y Kidney or Bladder Problems Y COPD Y Immunizations Vaccine Type Date Status Note Provider Nam e and Address Organization Details Recorded Time pneumococcal polysaccharide PPV23 3 completed Not Available [facility] 12/21/2024 14:05:23 Influenza, high-dose, trivalent, PF 4 completed Not Available [facility] 12/21/2024 14:05:23 Influenza, high-dose, trivalent, PF 5 completed Not Available [facility] 12/21/2024 14:05:23 Pneumococcal conjugate PCV 13 5 completed Not Available [facility] 12/21/2024 14:05:23 Influenza, high-dose, trivalent, PF 6 completed Not Available [facility] 12/21/2024 14:05:23 Influenza, high-dose, trivalent, PF 7 completed Not Available [facility] 12/21/2024 14:05:23 Influenza, high-dose, trivalent, PF 8 completed Not Available [facility] 12/21/2024 14:05:23 Influenza, high-dose, quadrivalent, PF 9 completed Not Available [facility] 12/21/2024 14:05:23 COVID-19, mRNA, LNP-S, PF, 100 mcg/0.5mL dose or 50 mcg/0.25mL dose 1 completed Not Available [facility] 12/21/2024 14:05:23 COVID-19, mRNA, LNP-S, PF, 100 mcg/0.5mL dose or 50 mcg/0.25mL dose 1 completed Not Available [facility] 12/21/2024 14:05:23 COVID-19, mRNA, LNP-S, PF, 100 mcg/0.5mL dose or 50 mcg/0.25mL dose 2 completed Not Available [facility] 12/21/2024 14:05:23 Influenza, high-dose, quadrivalent, PF 2 completed Not Available [facility] 12/21/2024 14:05:23 COVID-19, mRNA, LNP-S, bivalent, PF, 30 mcg/0.3 mL dose 3 completed Not Available [facility] 12/21/2024 14:05:23 zoster recombinant 3 completed Not Available [facility] 12/21/2024 14:05:23 zoster recombinant 3 completed Not Available [facility] 12/21/2024 14:05:23 Past Encounters Encounter ID Performer Location Encounter Start Date Encounter Closed Date Diagnosis/Indication Diagnosis SNOMED-CT Code Diagnosis ICD10 Code Diagnosis IMO Codes Diagnosis Note [id number] Lanre Ramírez MD [facility] (Adult Med) [address] [place] [id number] 08/20/2024 11:55:29 08/20/2024 13:34:24 Body mass index 30+ - obesity 405605546 Z68.36 081719 Obesity 835637969 E66.9 Essential hypertension 44521258 I10 877104 Chronic hy poxemic respiratory failure 295520488 J96.11 3912433 Chronic ki dney disease stage 3A 110577953 N18.31 60487752 Chronic sy stolic heart failure 582478284 I50.22 228700 Hypothyroidism 07495172 E03.9 61189740 Permanent atrial fibrillation 152188519 I48.21 231560 Spinal roberto nosis of lumbosacral region 525565881 M48.07 2624099 Benign ess ential hypertension 5498398 I10 3379 Cardiac pa cemaker in situ 459991755 Z95.0 9858976 Coronary arteriosclerosis 03036250 I25.10 471201 Chronic anemia 555731056 D64.9 737035 [id number] Lanre Ramírez MD [facility] (Adult Med) [address] [place] [id number] 10/13/2024 09:27:27 10/13/2024 10:03:40 Obese class II 6552818523 75275 E66.812 6609388162 BMI 35.7 Benign ess ential hypertension 4079923 I10 3379 Chronic sy stolic heart failure 120278452 I50.22 084012 Coronary arteriosclerosis 48106773 I25.10 527583 Hypothyroidism 92762589 E03.9 05515563 Chronic ki dney disease stage 3A 189406827 N18.31 75123847 Spinal roberto nosis of lumbosacral region 164378769 M48.07 1243905 Chronic hy poxemic respiratory failure 162304733 J96.11 01338902 [id number] Lanre Ramírez MD [facility] (Adult Med) [address] [place] [id number] 12/21/2024 14:04:12 12/21/2024 15:44:50 Benign essential hypertension 9295122 I10 3379 Chronic sy stolic heart failure 954144493 I50.22 292507 Coronary arteriosclerosis 22691288 I25.10 171355 Permanent atrial fibrillation 781451347 I48.21 321004 Cardiac pa cemaker in situ 233211806 Z95.0 4919232 Hypothyroidism 54085621 E03.9 07846140 Chronic ki dney disease stage 3A 035716987 N18.31 43830889 Chronic anemia 622086289 D64.9 810663 Spinal roberto nosis of lumbosacral region 387180361 M48.07 6606981 Chronic hy poxemic respiratory failure 965373373 J96.11 15622425 Pulmonary emphysema 8743 3001 J43.9 125095853 Health Concerns Section Related Observation LastModified by Organization Detai ls LastModified Time None Recorded Concern Status LastModified by Organization Details LastModified Time None Recorded Advance Directives Directive N: Payers Insurance Date Sequence Insurance Name Policy Number Policy Foreman Covered Member ID Foreman Member ID Guarantor Name 01/12/2025 1 [facility] (MEDICARE REPLACEMENT/A DVANTAGE - HMO) [id number] Jorge L Call [id number] Jorge L Call Notes Date Note Type Note Provider Name and Address Organization Details Recorded Time 08/20/2024 text/html 84-year-old with a history of COPD chronic hypoxic respiratory failure on 3 L of oxygen chronic atrial fibrillation lumbar spinal stenosis gets around on a walker systolic heart failure with EF 65-70% now down to 41% hypertension HILARIO with with history of CKD 3 hypothyroidism BPH anxiety chronic microcytic anemia pacemaker. Comes in with his friend today recently hospitalized with COPD exacerbation at [facility] Lanre Ramírez MD Attn: Accounting, [address] [place], [address], [facility] 08/20/2024 17:53:43 10/13/2024 text/html COPD and chronic hypoxic respiratory failure chronic shortness of breath. Atrial fibrillation no palpitations heart failure with depressed ejection fraction no PND or orthopnea but he is chronically short breath. Anxiety is still little bit but no suicidal homicidal ideation. His anemia has been stable CKD has been okay hypothyroid he is back on his medication and states that he is taking regular basis Lanre Ramírez MD Attn: Accounting, [address] [place], [address], [facility] - [facility] 10/23/2024 12:25:05 12/21/2024 text/html He is going to be moving into a [place] overall doing reasonably well given his multiple medical problems no new interval developments or complaints has a past medical history of chronic hypoxic respiratory failure and COPD. Atrial fibrillation. BPH. He does self-catheterizations for neurogenic bladder. GERD. Hypertension. Lumbar spinal stenosis. Sleep apnea. Hypothyroidism. Microcytic anemia. Cardiomyopathy last EF 41% in 2023. CAD cardiac catheterization in 2023 lad stent 30% circ 30% RCA. Anxiety. Pacemaker. Prediabetes. CKD 3A. Lanre Ramírez MD Attn: Accounting, [address] [place], [address], [place] [facility] 12/26/2024 17:19:21
--- OUTSIDE RECORDS SUMMARY | 2025-02-08 16:14 | XMS_ITS | Clinical Summary ---
Author Organization [facility] Facility Address [address] [facility] [address] [place] [address] [place] [address], [place] [address] Care Team Providers Care Wheelage Clerk Name Role Phone Sina White MD Primary Care Provider [phone] Social History Tobacco Use Types Packs/Day Years Used Date Smoking Tobacco: Never Assessed Sex and Gender Information Value Date Recorded Sex Assigned at Not on file Legal Sex Male 12:02 PM EDT Gender Identity Not on file Sexual Orientation Not on file Plan of Treatment Health Maintenance Due Date Last Done Comments Pneumococcal Vaccine: 50+ Ye ars (2 of 2 - PPSV23, PCV20, or PCV21) 05/23/2015 03/28/2015 Influenza Vaccine (#1) 2025 03/05/2019 Hepatitis B Vaccine Aged Out No longe r eligible based on patient's age to complete this topic [place] [id number] Care Teams Wheelage Clerk Relationship Specialty Start Date End Date Sina White MD [address] [facility], [address] [place] [id number] PCP - General Internal Medicine 11/18/23
--- OUTSIDE RECORDS SUMMARY | 2025-02-08 16:14 | XMS_ITS | Clinical Summary ---
Author Organization [facility] Address [address] [place] [id number] Care Team Providers Care Home Care And Home Health Aides Teacher Name Role Phone Waqas Ramírez MD Primary Care Provider [phone] Gurmeet Lares MD Unavailable Prema Grant MD Unavailable Waqas Dobbins MD Unavailable [phone] Allergies No known active allergies Medications ferrous sulfate 325 mg (65 mg of elemental iron) tablet FeroSul 325 mg (65 mg iron) tablet TAKE 1 TABLET BY ORAL ROUTE EVERY 12 HOURS Active busPIRone (BUSPAR) 5 mg tabletIndications :Generalized Anxiety Disorder Take 1 tablet (5 mg total) by mouth daily Active apixaban (ELIQUIS) 5 mg tabletIndications :atrial fibrillation Take 1 tablet (5 mg total) by mouth 2 (two) times a day 60 tablet 07/17/19 026 Active carvediloL (COREG) 3.125 mg tablet Take 1 tablet (3.125 mg total) by mouth 2 (two) times a day with meals 60 tablet 07/17/19 026 Active dilTIAZem CD/XR/XT (dilTIAZem CD) 120 mg 24 hr capsule Take 1 capsule (120 mg total) by mouth daily 30 capsule 07/18/19 026 Active furosemide (LASIX) 40 mg tablet Take 1 tablet (40 mg total) by mouth daily 30 tablet 07/18/19 026 Active levothyroxine (SYNTHROID) 150 mcg tablet Take 1 tablet (150 mcg total) by mouth health sciences manager before breakfast 30 tablet 1 07/18/19 Active losartan (COZAAR) 25 mg tablet Take 1 tablet (25 mg total) by mouth daily 30 tablet 1 07/17/19 25 Active tamsulosin (FLOMAX) 0.4 mg extended release capsuleIndication s:Benign prostatic hyperplasia with urinary obstruction Take 1 capsule (0.4 mg total) by mouth daily 90 capsule 3 07/17/19 25 Active umeclidinium-sy nteroL (ANORO ELLIPTA) 62.5-25 mcg/actuation blister with device Inhale 1 puff daily 30 each 1 07/17/19 25 Active spironolactone (ALDACTONE) 25 mg tablet Take 0.5 tablets (12.5 mg total) by mouth daily 15 tablet 11 07/18/19 25 026 Active ipratropium-albut Mary (DUO-NEB) 0.5-2.5 mg/3 mL nebulizer solutionIndicatio ns:Chronic Obstructive Pulmonary Disease with Bronchospasms Take 3 mL by nebulization every 6 (six) hours as needed for wheezing or shortness of breath 180 mL 1 07/17/19 25 Active albuterol HFA (PROVENTIL HFA,VENTOLIN HFA,PROAIR HFA) 90 mcg/actuation inhaler Inhale 2 puffs every 6 (six) hours as needed for wheezing or shortness of breath 1 each 1 07/17/19 Active Active Problems Problem Noted Date Diagnosed Date COPD exacerbation 07/12/2024 SVT (supraventricular tachycardia) 07/29/2023 Fracture of foot 04/09/2022 Rash 04/09/2022 Pain in toe 04/09/2022 Shoulder pain 04/09/2022 Hypokalemia 01/14/2022 Pain in joint of right shoulder 11/29/2021 Anemia 08/09/2021 Melena 07/31/2021 Overview (07/31/2021): Added automatically from request for surgery [id number] UGIB (upper gastrointestinal bleed) 07/31/2021 Chest pain, unspecified type 07/13/2021 Chest pain 07/11/2021 Hereditary and idiopathic peripheral neuropathy 07/03/2021 Assessment & Plan (07/03/2021 9:23 AM CHIEF CLOTH FINISHING RANGE OPERATOR): Patient has peripheral neuropathy is somewhat fitting of cubital tunnel although the middle fingers also involved. Would recommend obtaining an EMG nerve conduction study to better evaluate the source of his issues. 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 This may make him more prone to have muscle strains in the forearm. Would encourage warm soaks and stretching exercises for this individual. Exercise were demonstrated for him to perform on a regular basis. Right rotator cuff tendinitis 06/19/2021 Assessment & Plan (06/19/2021 10:40 AM CHIEF CLOTH FINISHING RANGE OPERATOR): Patient has a history exam consistent with rotator cuff tendinitis with impingement. Individuals can get shoulder hand syndrome. After reviewing the treatment options elected undergo a cortisone injection today. He tolerated the procedure well. If he develops more pronounced radiculopathy in the arm further workup the neck may be indicated but he is currently not myelopathic. Arthralgia of right elbow 06/10/2021 Chronic back pain 06/24/2020 Benign prostatic hyperplasia with urinary retent ion 05/30/2020 Overview (05/30/2020): Added automatically from request for surgery [id number] Benign prostatic hyperplasia with urinary obstru ction 02/24/2020 Overview (02/24/2020): Added automatically from request for surgery [id number] s/p L3-S1 with right L4-5 fa cet cyst excision on 10/14/[address] Willams 10/14/2019 Lumbar stenosis with neurogenic claudication Left L4-5 synovial facet cyst 08/26/2019 Cervical spondylosis without myelopathy 08/26/19 20 Lumbar spondylosis with left L5 radiculopathy Cervical spondylosis with myelopathy and radicul opathy 07/19/2019 Calculus of gallbladder with acute cholecystitis 07/05/2019 Chronic cor pulmonale 07/05/2019 Chronic cough 07/05/2019 Chronic obstructive lung disease 07/05/2019 Dyspnea 07/05/2019 Hypothyroidism 07/05/2019 Increased frequency of urination 07/05/2019 Insomnia 07/05/2019 Malignant tumor of prostate 07/05/2019 Obstructive sleep apnea syndrome 07/05/2019 Osteoarthritis 07/05/2019 Pain in limb 07/05/2019 Retention of urine 07/05/2019 Urinary tract infectious disease 07/05/2019 Dyslipidemia 08/22/2018 Constipation 09/24/2017 Obesity 05/28/2017 Hyperlipidemia 05/28/2017 Iron deficiency 05/01/2017 Impaired glucose tolerance 05/01/2017 Atherosclerotic heart diseas e of [place] coronary artery without angina pectoris 04/30/2017 Occlusion and stenosis of bilateral carotid edie elida 04/30/2017 Tobacco use disorder, continuous 04/30/2017 Supraventricular tachycardia 04/30/2017 Diffuse otitis externa of both ears 12/06/2016 Assessment & Plan (12/12/2016 10:31 AM CDT): Patient appears to have resolved his ear infection on Floxin otic suspension. Patient has a long history of eczematoid otitis externa with recurrent acute diffuse otitis externa. I have provided him with occasional materials on how to create a preventative ear drops using 1 part white vinegar in 1 part alcohol at home. I recommend using this as needed and discontinue if any irritation occurs. Follow- up as needed. Assessment & Plan (12/20/2016 11:17 AM CDT): Bilateral external auditory canals cleaned with suction under microscopy. Right ear culture obtained. Ear canals treated again with gentian maria r and Mycostatin powder. I recommend patient start clotrimazole 1% otic suspension 4 drops into each ear canal 2 times daily and follow-up in 1 week. Infection of ear 01/18/2016 Overview (08/09/2016): Ear infection Hypertension 05/23/2014 Overview (08/09/2016): Hypertension Gastroesophageal reflux disease 05/23/2014 Overview (08/09/2016): GERD Immunizations Immunization Administration Dates Next Due Influenza, Unspecified 03/05/2019 Moderna SARS-CoV-2 Monovalent Vaccination (12+ Y RS) 08/11/2020,07/14/2020 Pneumococcal Conjugate PCV 13 03/28/2015 Surgical History Surgery Date Site/Laterality Comments OTHER SURGICAL HISTORY Surgery for Bleeding Ulcer CHOLECYSTECTOMY SPINE SURGERY 05/05/1974 - 05/04/1975 lower back x2 SPINE SURGERY 05/05/1988 - 05/04/1989 cervical fusion BACK SURGERY 05/05/2019 - 05/04/2020 Medical History Medical History Date Comments Disorder of thyroid Thyroid dise ase Hypertension Hypertension Arthritis Arthritis Ear problems Sleep apnea Peptic ulceration History of transfusion GERD (gastroesophageal reflux disease) COPD (chronic obstructive pulmonary disease) Lumbar stenosis with neurogenic claudication BPH with urinary obstruction Family History Medical History Relation Name Comments No Known Problems Father No Known Problems Mother Relation Name Status Comments Father Mother Social History Tobacco Use Types Packs/Day Years Used Date Smoking Tobacco: Some Days Cigarettes 0.5 50 Started: 07/23/1971; Last attempted to quit: 07/22/2021 Smokeless Tobacco: Never Tobacco Cessation:Ready to Q uit: Not Asked; Counseling Given: Not Answered Comments:Counselled pt to contact PCP to assist with quitting, instructed not to smoke today or tomorrow. Alcohol Use Standard Drinks/Week Comments Yes 14 (1 standard drink = 0.6 oz pu re alcohol) [facility] Video Rec[employer] Answer Date Recorded In the past 12 months has [employer], gas, oil, or water [employer] threatened to shut off services in your home? No 07/12/2024 Social Connection and Isolation Panel Answer Date Recorded In a typical week, how many times do you talk on the phone with family, friends, or neighbors? More than three times a week 07/12/2024 How often do you get togethe r with friends or relatives? More than three times a week 07/12/2024 How often do you attend chur ch or jewish services? Never 07/12/2024 Do you belong to any clubs o r organizations such as congregation groups, unions, fraternal or athletic groups, or school groups? No 07/12/2024 How often do you attend meet ings of the clubs or organizations you belong to? Never 07/12/2024 Are you , , di vorced, , never , or living with a partner? 07/12/2024 AUDIT-C Answer Date Recorded Q1: How often do you have a drink containing alc ohol? 2-3 times a week 07/31/2021 Q2: How many drinks containi ng alcohol do you have on a typical day when you are drinking? 3 or 4 07/31/2021 Q3: How often do you have si x or more drinks on one occasion? Never 07/31/2021 Overall Financial Resource Strain (CARDIA) Answe r Date Recorded How hard is it for you to pa y for the very basics like food, housing, medical care, and heating? Not hard at all 07/12/2024 Hunger Vital Sign Answer Date Recorded Within the past 12 months, y ou worried that your food would run out before you got the money to buy more. Never true 07/13/19 25 Within the past 12 months, t he food you bought just didn't last and you didn't have money to get more. Never true 07/12/2024 PRAPARE - Transportation Answer Date Re corded In the past 12 months, has l ack of transportation kept you from medical appointments or from getting medications? No 07/03 In the past 12 months, has l ack of transportation kept you from meetings, work, or from getting things needed for daily living? No 07/12/2024 Housing Stability Vital Sign Answer Andrea e Recorded In the last 12 months, was t here a time when you were not able to pay the mortgage or rent on time? No 07/12/2024 In the past 12 months, how m any times have you moved where you were living? 0 07/12/2024 At any time in the past 12 m [facility], were you homeless or living in a long term (including now)? No 07/12/2024 Personal Safety Answer Date Recorded Have you ever been in or are you currently in a harmful physical or emotional relationship or is someone making you feel afraid or unsafe? Denies 07/12/2024 Sex and Gender Information Value Date Recorded Sex Assigned at Not on file Legal Sex Male 8:51 PM CHIEF CLOTH FINISHING RANGE OPERATOR Gender Identity Not on file Sexual Orientation Not on file Obstetrics History Last Filed Vital Signs Vital Sign Reading Time Taken Comments Blood Pressure 113/64 07/16/2024 8:55 AM CDT Pulse 87 07/16/2024 8:55 AM CDT Temperature 36.5 C (97.7 F) 07/16/2024 8:55 AM CDT Respiratory Rate 16 07/16/2024 8:55 AM CDT Oxygen Saturation 97% 07/16/2024 9:51 AM CDT Inhaled Oxygen Concentration - - Weight 106.2 kg (234 lb 2.1 oz) 07/15/2024 6:00 AM CDT Height 177.8 cm (5' 10) 07/12/2024 1:25 AM CDT Body Mass Index 33.59 07/12/2024 1:25 AM CDT Plan of Treatment Health Maintenance Due Date Last Done Comments Depression Screening 1940 DTaP/Tdap/Td Vaccine (1 - Tdap) 08[birth year]07/1951 Hepatitis B Screening 1958 Zoster Vaccine (1 of 2) 1990 Well Visit 65+ 2005 Covid-19 Vaccine (3 - 2024-2 6 season) 2025 08/11/2020, 07/14/2020 Influenza Vaccine (#1) 2025 9, 02/04/2018, 03/05/2017, Additional history exists Fall Risk Assessment 07/16/2025 07/16/2024 Pneumococcal vaccine 65+ Completed 03/28/2015, 05/05 Medical Devices Implanted Type Area Broadloom Weaver Device Identifier Shelf Expiration Date Model / Serial / Lot [employer] [id number] Urolift Implant Urological - [id number] Implanted:Qty: 2 on 03/17/2020 by Feliberto Wadsworth MD at [facility] N/A: Urethra [employer] 11/10/2021 [id number] / / [id number] Medtronic [employer] X [id number] Resolute [place] 2.5mm 2.1-2.7fr 30mm 140cm Rapid Exchange - [id number] Implanted:Qty: 1 on 07/12/2021 by Gurmeet Lares MD at [facility] [employer] 03/15/2024 [id number] UX / / Insurance Member Subscriber Plan / Payer (Ef fective 2019-Present) Name:Jorge L Call Melissa Relation to Subscriber:Self Name:Oneyda Jorge L Melissa Payer ID:[id number] (NAIC) Type:[facility] Address: [place] [id number] [facility] MEDICARE ADVANTAGE [facility] [address] MEDICARE ADVANTAGE [facility] [address] SECURE HORIZONS NON PDGM [facility] MEDICARE ADVANTAGE [facility] MEDICARE HMO Advance Directives For more information, please contact: [phone] * Full Code (Latest Code Status on File) Date Activated Date Inactivated Comments 07/12/2024 12:22 AM 07/16/2024 7:13 PM * Full Code Date Activated Date Inactivated Comments 08/03/2021 12:02 PM 08/05/2021 5:26 PM * Full Code Date Activated Date Inactivated Comments 08/03/2021 9:57 AM 08/03/2021 12:02 PM * Full Code Date Activated Date Inactivated Comments 08/02/2021 10:19 AM 08/03/2021 9:57 AM * LIMITED - No CPR Date Activated Date Inactivated Comments 07/31/2021 8:06 PM 08/02/2021 10:19 AM Question Answer Comments Provide aggressive medical m anagement before a full cardiopulmonary arrest occurs. Use antibiotics, IV Fluids, and medical treatment unless specifically selected below: No intubation Care Teams Home Care And Home Health Aides Teacher Relationship Specialty Start Date End Date Waqas Ramírez MD PCP - General 03/29/19 Gurmeet Lares MD Referring Physician Cardiovascular Disease 07/16/21 [place] [id number] [address] Consulting Physician Cardiology 08/05/21 [place] [id number] [address] [address] Consulting Physician Gastroenterology 08/05/21
--- OUTSIDE RECORDS SUMMARY | 2025-02-08 16:14 | XMS_ITS ---
Author Organization [facility] Address [address] [place] [address] Care Team Providers Care Agricultural Loan Officer Name Role Phone Waqas Ramírez MD Primary Care Provider [phone] Gurmeet Lares MD Unavailable Prema Grant MD Unavailable Waqas Dobbins MD Unavailable Active Problems Problem Noted Date Diagnosed Date COPD exacerbation 07/12/2024 SVT (supraventricular tachycardia) 07/29/2023 Fracture of foot 04/09/2022 Rash 04/09/2022 Pain in toe 04/09/2022 Shoulder pain 04/09/2022 Hypokalemia 01/14/2022 Pain in joint of right shoulder 11/29/2021 Anemia 08/09/2021 Melena 07/31/2021 Overview (07/31/2021): Added automatically from request for surgery [id number] UGIB (upper gastrointestinal bleed) 07/31/2021 Chest pain, unspecified type 07/13/2021 Chest pain 07/11/2021 Hereditary and idiopathic peripheral neuropathy 07/03/2021 Assessment & Plan (07/03/2021 9:23 AM HEAVY TRUCK MECHANIC): Patient has peripheral neuropathy is somewhat fitting [...] 06/19/2021 Assessment & Plan (06/19/2021 10:39 AM HEAVY TRUCK MECHANIC): 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 This may make him more prone to have muscle strains in the forearm. Would encourage warm soaks and stretching exercises for this individual. Exercise were demonstrated for him to perform on a regular basis. Right rotator cuff tendinitis 06/19/2021 Assessment & Plan (06/19/2021 10:40 AM HEAVY TRUCK MECHANIC): Patient has a history exam consistent with [...] (05/30/2020): Added automatically from request for surgery [id number] Benign prostatic hyperplasia with urinary obstru ction 02/24/2020 Overview (02/24/2020): Added automatically from request for surgery [id number] s/p L3-S1 with right L4-5 fa cet [...] tolerance 05/01/2017 Atherosclerotic heart diseas e of [place] coronary artery without angina pectoris 04/30/2017 Occlusion [...] Gastroesophageal reflux disease 05/23/2014 Overview (08/09/2016): GERD Current Treatment and Therapy Plans No current plan information found. Past Treatment and Therapy Plans No past plan information found. Lifetime Dose Tracking * Chemical Lifetime Dose Automatic Entry Manual Entr y Fluoro Time 11.81 minutes 0.11 minutes 11.7 minutes Air kerma at the reference point (Ka,r) 2,195.83 mGy 6 .83 mGy 2,189 mGy
[2025-02-08 16:15] VITALS: BP 141/58; PULSE 60; RESP 18; O2SAT 100
[2025-02-08 16:17] VITALS: BP 138/61; PULSE 60; RESP 17; O2SAT 100
[2025-02-08 16:52] VITALS: PULSE 60; RESP 16; O2SAT 100
[2025-02-08] MEDS: cefTRIAXone 1 GM in SODIUM CHLORIDE 0.9% IV 50 ML 100 ML IVPB (16:55)
== END 2025-02-08 18:09 ==
PROVIDERS: Family Medicine; Emergency Provider Emergency Medicine; PCP Internal Medicine
DX: N39.0 Urinary tract infection, site not specified (principal); I12.9 Hypertensive chronic kidney disease with stage 1 through stage 4 chronic kidney disease, or unspecified chronic kidney disease; N18.9 Chronic kidney disease, unspecified; I48.91 Unspecified atrial fibrillation; E03.9 Hypothyroidism, unspecified; E78.5 Hyperlipidemia, unspecified; J44.9 Chronic obstructive pulmonary disease, unspecified; Z95.0 Presence of cardiac pacemaker; Z87.891 Personal history of nicotine dependence; I44.7 Left bundle-branch block, unspecified
CPT/HCPCS: 36415; 71046; 80053; 81001; 83880; 85025; 87077; 87086; 87186; 93005; 96365; 99284; J0696

== ENCOUNTER 2025-02-26 06:20 | Emergency (ER) | payer MEDICARE, SELFPAY ==
--- NOTE | ~2025-02-26 | XR_ITS ---
Examination: XR chest 2V Clinical History: gen weakness Comparison: 02/08/2025 Technique: PA and Lateral Findings: Left pacemaker. Unchanged mild cardiomegaly. Lungs clear. No acute bony abnormality. IMPRESSION: 1. No acute cardiopulmonary findings. Reviewed, dictated and finalized at location R.
[2025-02-26 06:08] VITALS: BP 133/73; PULSE 72; RESP 20; TEMP 36.4; O2SAT 100
[2025-02-26 06:31] VITALS: PULSE 70; O2SAT 100
--- NOTE | 2025-02-26 06:32 | ECG_ITS ---
Test Date: 2025-02-26 06:58:51 Measurements Intervals [place] Rate: 59 P: 257 [place]: 308 QRS: 46 QRSD: 193 T: 94 QT: 527 QTc: 526 Interpretive Statements ELECTRONIC ATRIAL PACEMAKER LEFT BUNDLE BRANCH BLOCK ABNORMAL ECG Compared to ECG 02/08/2025 14:29:46 No significant changes Electronically Signed On 02-26-2025 08:23:40 CDT by Tray Ladd D.O.
[2025-02-26 06:35] VITALS: BP 133/73; PULSE 62; RESP 15; TEMP 36.4; O2SAT 100
[2025-02-26 06:41] LABS: Hematocrit 26.8 % (42.0-52.0); Hemoglobin 8.1 g/dL (14.0-18.0); Immature Granulocyte Percent A 0.3 % (0-0.5); Lymphocytes Absolute Auto 1.10 K/mm3 (0.9-3.2); Mean Corpuscular HGB Conc 30.2 g/dl (32-36); Mean Corpuscular Hemoglobin 26.8 pg (26-34); Mean Corpuscular Volume 88.7 fl (80-100); Nucleated Red Blood Cells Absolute Auto 0.000 K/mm3 (0.0-0.012); Nucleated Red Blood Cells Perc 0.0 % (0.0-0.2); Platelet Count Result 279 k/mm3 (150-375); Red Blood Count 3.02 M/mm3 (4.6-6.20); White Blood Count 6.3 K/mm3 (4.5-10.0)
[2025-02-26 07:00] LABS: Add Urine Microscopic? YES; Appearance Urine Clear (Clear); Glucose Urine UA Negative (Negative); Leukocyte Esterase Ur Trace LEU/UL (Negative); Nitrate Urine Negative (Negative); Non Pathogenic Casts 0-2; Specific Grav Ur 1.013 (1.001-1.035)
[2025-02-26 07:55] LABS: Alanine Aminotransferase 12 U/L (6-50); Albumin Level 3.6 g/dL (3.5-5.1); Alkaline Phosphatase 77 U/L (38-126); Anion Gap 5 mmol/L (4-12); Aspartate Amino Transferase 22 U/L (17-59); Bilirubin,Total 0.2 mg/dL (0.2-1.3); Blood Urea Nitrogen 21 mg/dL (9-20); Calcium 8.2 mg/dL (8.4-10.2); Carbon Dioxide 34 mmol/L (22-30); Chloride 99 mmol/L (98-107); Estimated CRCL calculation 41 ml/min; Estimated Glomerular Filt Rate 45; Glucose 88 mg/dL (65-110); Potassium 3.6 mmol/L (3.4-5.0); Sodium 138 mmol/L (137-145); Total Protein 6.3 g/dL (6.3-8.2)
[2025-02-26 08:11] LABS: NT Pro B Type Natriuretic Pept 393 pg/mL (19.9-100)
--- NOTE | 2025-02-26 08:17 | ED_ITS ---
HPI - General Adult General Chief complaint: Weakness Stated complaint: lightheaded Time Seen by Provider: 02/26/25 06:59 History of Present Illness HPI narrative: For last day patient has felt tired, and dizzy, at some point today he was getting ready to get up and go take a shower, but woke up back in his bed, he is not sure what happened. Does not think he fell. Also felt like his pacemaker seems to be itchy and has never had this happen before. Related Data Home Medications ?Medication ?Instructions ?Recorded ?Confirmed ?Last Taken ?Type apixaban 5 mg tablet (Eliquis) 5 mg PO BID 02/22/2401/04/25 History diltiazem HCl 120 mg 120 mg PO DAILY 02/22/2407/2701/04/25 History capsule,extended release 24 hr (Cardizem CD) solifenacin 10 mg tablet 10 mg PO DAILY 02/22/2407/2701/04/25 History umeclidinium 62.5 mcg-vilanterol 2 inh inhalation BID 02/22/24 01/05/25 01/04/25 History 25 mcg/actuation powdr for inhalation (Anoro Ellipta) Allergies Allergy/AdvReac Type Severity Reaction Status Date / Time No Known Allergies Verified 04/12/24 02:10 Review of Systems 2 Review of Systems: All systems reviewed & are unremarkable except as noted in HPI and below PMFSH Past Medical History Medical History (Updated 02/26/25 @ 11:06 by Maryjo Bernal MD) CKD (chronic kidney disease) Hypothyroidism Chronic respiratory failure Atrial fibrillation History of hyperlipidemia History of hypertension History of COPD Social History Social History Smoking status: Former smoker Alcohol intake: current Drinks per week: 3 Substance use: never Substance use type: does not use Do You Feel Safe in your Home?: Yes Lack of Transportation: No Lack of Food: Never True Current Housing: I Have Housing Concerned About Future Housing: No Difficulty Paying Gas/Electric Bills: No Difficulty Paying for Meds: No Currently Unemployed: No Education: Decline to Answer Difficulty w/ Childcare or Family Care: No Spiritual care concerns: No Exam 2 Narrative: EXAMINATION OF ORGAN SYSTEMS/BODY AREAS: Constitutional: Vital signs per nursing GENERAL:[No acute distress, non-toxic appearing.] HEAD: Normal with no signs of head trauma. EYES: EOMI, conjunctiva normal ENT: Hearing grossly intact LUNGS: Nonlabored breathing. HEART: [Regular rate and rhythm] ABD: [Soft], [nontender to palpation] EXT: Normal range of motion SKIN: [No rashes or lesions.] NEURO: [Alert and oriented x 3. No gross focal sensory or strength deficits.] PSYCH: Normal affect Course Vital Signs Vital signs: Vital Signs Temperature 97.6 F 02/26/25 06:08 Pulse Rate 72 02/26/25 06:08 Respiratory Rate 20 02/26/25 06:08 Blood Pressure 133/73 02/26/25 06:08 Pulse Oximetry 100 02/26/25 06:08 Oxygen Delivery Nasal Cannula 02/26/25 06:08 Oxygen Flow Rate 3 02/26/25 06:08 Temperature 97.6 F 02/26/25 06:35 Pulse Rate 82 02/26/25 09:14 Respiratory Rate 18 02/26/25 09:14 Blood Pressure 135/60 02/26/25 09:14 Pulse Oximetry 100 02/26/25 09:14 Oxygen Delivery Nasal Cannula 02/26/25 06:31 Oxygen Flow Rate 3 02/26/25 06:31 Medical Decision Making [facility] Narrative Medical decision making narrative: Patient presents here with some lightheadedness, ongoing for last 1-2 days, he states that he has also not been sleeping very well, he also is unsure if his pacemaker is working well because he has some itchiness to it. Initially had told someone he had pain to his lower back but to me he denies this. Overall he is quite well appearing, in no distress, no lower back pain or tenderness on palpation, given his cardiac history I did obtain cardiac workup, interrogate his device. EKG - 12-Lead: Performed at 0658. Interpreted by me. Paced rhythm. Rate 59. [Normal] axis. AK-interval 308. QRS duration 193. QTc 526. [No ST segment elevation or depression]. No issues with his pacemaker on interrogation, and he has been in sinus rhythm. Labs within acceptable limits he does have baseline anemia and CKD, chest x-ray is clear. He is given some fluids, and will be re-evaluated and if he is feeling better I do feel he can be discharged home. I did re-evaluate the patient, he is denying any pain anywhere, I did let him know that his pacemaker seem to be working fine, he then told me to get him out of here. \ I have asked him to follow-up with his PCP and six pack packer and return for any further issues. Vital Signs Vital Signs: Vital Signs Temperature 97.6 F 02/26/25 06:08 Pulse Rate 72 02/26/25 06:08 Respiratory Rate 20 02/26/25 06:08 Blood Pressure 133/73 02/26/25 06:08 Pulse Oximetry 100 02/26/25 06:08 Oxygen Delivery Nasal Cannula 02/26/25 06:08 Oxygen Flow Rate 3 02/26/25 06:08 Temperature 97.6 F 02/26/25 06:35 Pulse Rate 82 02/26/25 09:14 Respiratory Rate 18 02/26/25 09:14 Blood Pressure 135/60 02/26/25 09:14 Pulse Oximetry 100 02/26/25 09:14 Oxygen Delivery Nasal Cannula 02/26/25 06:31 Oxygen Flow Rate 3 02/26/25 06:31 Lab Data 02/26/25 06:34 02/26/25 07:18 Labs: Lab Results 02/26/25 02/26/25 02/26/25 Range/Units 06:34 06:52 07:18 WBC 6.3 (4.5-10.0) K/mm3 RBC 3.02 L (4.6-6.20) M/mm3 Hgb 8.1 L (14.0-18.0) g/dL Hct 26.8 L (42.0-52.0) % MCV 88.7 (80-100) fl MCH 26.8 (26-34) pg MCHC 30.2 L (32-36) g/dl RDW 15.8 H (11.5-14.5) % Plt Count 279 (150-375) k/mm3 MPV 11.3 H (7.4-10.4) fl Immature Gran % (Auto) 0.3 (0-0.5) % Neut % (Auto) 67.2 (45.5-73.1) % Lymph % (Auto) 17.4 L (18.3-44.2) % [place] % (Auto) 11.2 H (2.6-8.5) % Eos % (Auto) 3.6 (0-4.4) % Baso % (Auto) 0.3 (0.2-1.2) % Lymph # (Auto) 1.10 (0.9-3.2) K/mm3 [place] # (Auto) 0.7 H (0.1-0.6) K/mm3 Eos # (Auto) 0.2 (0-0.3) K/mm3 Baso # (Auto) 0.0 (0.0-0.1) K/mm3 Abs Immat Gran (auto) 0.02 (0.00-0.031) K/mm3 Absolute Neuts (auto) 4.2 (1.3-6.7) K/mm3 Absolute Nucleated RBC 0.000 (0.0-0.012) K/mm3 Nucleated RBC % 0.0 (0.0-0.2) % Sodium 138 (137-145) mmol/L Potassium 3.6 (3.4-5.0) mmol/L Chloride 99 (98-107) mmol/L Carbon Dioxide 34 H (22-30) mmol/L Anion Gap 5 (4-12) mmol/L BUN 21 H (9-20) mg/dL Creatinine 1.48 H (0.7-1.3) mg/dL Estim Creat Clear Calc 41 ml/min Estimated GFR 45 L (59 - ) Glucose 88 (65-110) mg/dL Lactic Acid 0.6 L (0.7-2.0) mmol/L Calcium 8.2 L (8.4-10.2) mg/dL Magnesium 2.0 (1.6-2.3) mg/dL Total Bilirubin 0.2 (0.2-1.3) mg/dL AST 22 (17-59) U/L ALT 12 (6-50) U/L Alkaline Phosphatase 77 (38-126) U/L NT-Pro-B Natriuret Pep 393 H (19.9-100) pg/mL Total Protein 6.3 (6.3-8.2) g/dL Albumin 3.6 (3.5-5.1) g/dL Urine Color Yellow (Yellow) Urine Appearance Clear (Clear) Urine pH 6.5 (5.0-9.0) Ur Specific [place] 1.013 (1.001-1.035) Urine Protein Negative (Negative) mg/dL Urine Glucose (UA) Negative (Negative) mg/dL Urine Ketones Negative (Negative) mg/dL Ur Blood (Man) Negative (Negative) Urine Nitrate Negative (Negative) Urine Bilirubin Negative (Negative) Urine Urobilinogen 1.0 (<2.0) mg/dL Leukocyte Esterase Rfl Trace H (Negative) MAYLIN/UL Urine RBC 0-2 (0-2) /hpf Urine WBC 6-10 H (0-3) /hpf Ur Squamous Epith Cells None seen (Few) /hpf Urine Bacteria None seen /hpf Urine Casts 0-2 Discharge Plan Discharge Clinical Impression: Lightheadedness Patient Disposition: NH [facility]/Asst Living Condition: Stable Instructions: Lightheadedness (ED) Additional Instructions: Please follow up with your doctor and your six pack packer; you can always return for any further issues. Patient Language: Irish Prescriptions: No Action albuterol sulfate 90 mcg/actuation HFA aerosol inhaler 2 puff inhalation QID PRN (Reason: shortness of breath or wheezing) Qty: 8.5 0RF diltiazem HCl [Cardizem CD] 120 mg capsule,extended release 24hr 120 mg PO DAILY Eliquis 5 mg tablet 5 mg PO BID umeclidinium-vilanterol [Anoro Ellipta] 62.5-25 mcg/actuation blister with device 2 inh INHALATION BID solifenacin 10 mg tablet 10 mg PO DAILY furosemide 40 mg Tablet 40 mg PO DAILY Qty: 30 0RF amiodarone [Pacerone] 200 mg Tablet 200 mg PO DAILY@0800 Qty: 30 0RF carvedilol [Coreg] 3.125 mg Tablet 3.125 mg PO Q12HR Qty: 60 0RF buspirone 5 mg tablet 5 mg PO Q12H Qty: 60 0RF levothyroxine 175 mcg capsule 175 mcg PO DAILY Qty: 30 0RF tamsulosin 0.4 mg capsule 0.4 mg PO HS Qty: 30 0RF cephalexin 500 mg capsule 500 mg PO Q8H 7 Days Qty: 21 0RF Follow-up/Referrals: Darrell,MD Waqas [Primary Care Provider] - 2 Days
[2025-02-26 09:07] LABS: Magnesium 2.0 mg/dL (1.6-2.3)
[2025-02-26] MEDS: LACTATED RINGERS 1,000 ML 999 ML IV CONT (09:13)
[2025-02-26 09:14] VITALS: BP 135/60; PULSE 82; RESP 18; O2SAT 100
== END 2025-02-26 12:30 ==
PROVIDERS: Student in an Organized Health Care Education/Training Program; Emergency Provider Emergency Medicine; PCP Internal Medicine
DX: R42 Dizziness and giddiness (principal); N18.9 Chronic kidney disease, unspecified; E03.9 Hypothyroidism, unspecified; I48.91 Unspecified atrial fibrillation; Z79.01 Long term (current) use of anticoagulants; I12.9 Hypertensive chronic kidney disease with stage 1 through stage 4 chronic kidney disease, or unspecified chronic kidney disease; J44.9 Chronic obstructive pulmonary disease, unspecified; Z87.891 Personal history of nicotine dependence; Z95.0 Presence of cardiac pacemaker; J96.10 Chronic respiratory failure, unspecified whether with hypoxia or hypercapnia
CPT/HCPCS: 36415; 71046; 80053; 81001; 83605; 83735; 83880; 85025; 87086; 93005; 96360; 99284; J7120

== ENCOUNTER 2025-03-06 08:15 | Inpatient (IN) | payer MEDICARE, SELFPAY ==
--- OUTSIDE RECORDS SUMMARY | 2013-02-03 02:08 | XMS_ITS | Continuity of Care Document ---
Author Organization [facility] Address [address] [place] [phone] Phone Care Team Providers Care Section Hand Name Role Phone Tracy MARIZOLMynori Unavailable Unavailable Procedures Procedure Date THERAPEUTIC EXERCISES NEUROMUSCULAR RE-ED MANUAL THERAPY FUNC ACTIVITY 15 MIN THERAPEUTIC EXERCISES NEUROMUSCULAR RE-ED MANUAL THERAPY FUNC ACTIVITY 15 MIN THERAPEUTIC EXERCISES NEUROMUSCULAR RE-ED MANUAL THERAPY FUNC ACTIVITY 15 MIN THERAPEUTIC EXERCISES NEUROMUSCULAR RE-ED MANUAL THERAPY FUNC ACTIVITY 15 MIN THERAPEUTIC EXERCISES NEUROMUSCULAR RE-ED MANUAL THERAPY FUNC ACTIVITY 15 MIN THERAPEUTIC EXERCISES NEUROMUSCULAR RE-ED MANUAL THERAPY FUNC ACTIVITY 15 MIN PT RE-EVALUATION THERAPEUTIC EXERCISES NEUROMUSCULAR RE-ED MANUAL THERAPY FUNC ACTIVITY 15 MIN HOT/COLD PACK Mobility: Walking And Moving Limitations -Curent Mobility: Walking And Moving Limitation- Goal THERAPEUTIC EXERCISES NEUROMUSCULAR RE-ED MANUAL THERAPY FUNC ACTIVITY 15 MIN THERAPEUTIC EXERCISES NEUROMUSCULAR RE-ED MANUAL THERAPY FUNC ACTIVITY 15 MIN HOT/COLD PACK THERAPEUTIC EXERCISES NEUROMUSCULAR RE-ED MANUAL THERAPY FUNC ACTIVITY 15 MIN HOT/COLD PACK THERAPEUTIC EXERCISES NEUROMUSCULAR RE-ED MANUAL THERAPY FUNC ACTIVITY 15 MIN HOT/COLD PACK ELECTRICAL STIMULATION UNATT THERAPEUTIC EXERCISES NEUROMUSCULAR RE-ED MANUAL THERAPY FUNC ACTIVITY 15 MIN HOT/COLD PACK ELECTRIC STIMULATION UNATT THERAPEUTIC EXERCISES NEUROMUSCULAR RE-ED MANUAL THERAPY PT EVALUATION THERAPEUTIC EXERCISES Mobility: Walking And Moving Limitations -Curent Mobility: Walking And Moving Limitation- Goal Advance Directives Directive Yes / No Effective Date File Name No Information Encounters Encounter Description Practice Location Reason(s) For Visit Diagnoses Date Provider Providers Copied on Encounter [facility], [address], [place], [place], [id number], tel:[phone] [place] No Information [address] [place] [facility], [facility] [address], [place], [facility], . tel:[phone] [facility] [address], [place], [place], [id number], tel:[phone] [place] No Information [address] [facility], [facility] [address], [place], [facility], [place]. tel:[phone] Referring Provider: Aravind Garcia, [address], [place], [address]. tel:[phone] [facility] [address], [place], [place], [id number], tel:[phone] [place] No Information Sep-2 0-201 [address] [facility], [address], [place], [address], [place]. tel: [phone] Referring Provider: Aravind Garcia, [address], [place], [address]. tel:[phone] [place] [address], [place], [place], [id number], [place] tel:[phone] [place] No Information Sep-1 6-201 [address] [facility], [address], [place], [address], [place]. tel: [phone] Referring Provider: Aravind Garcia, [address], [place], [address]. tel:[phone] [facility] [address], [place], [place], [id number], [place] tel:[phone] [place] No Information Sep-1 3-201 [address] [facility], [address], [place], [address], [place]. tel: [phone] Referring Provider: Aravind Garcia, [address], [place], [address]. tel:[phone], [place], [place], [id number], [place] tel:[phone] [place] No Information Sep-1 1-201 [address] [facility], [address], [place], [address], [place]. tel: [phone] Referring Provider: Aravind Garcia, [address], [place], [address]. tel:[phone] [facility], [address], [place], [place], [id number], [place] tel:[phone] [place] No Information Sep-0 4-201 3 [place]. [address] [place] [address], [address], [place], [address], [place]. tel: [phone] Referring Provider: Aravind Garcia, [address], [place], [address]. tel:[phone] [address], [place], [place], [id number], [place] tel:[phone] [place] No Information 3 [place]. [address] [place] [address], [address], [place], [address], [place]. tel: [phone] Referring Provider: Aravind Garcia, [address], [place], [address]. tel:[phone] [facility] [address] [place], [place] [address], [place], [place], [id number], [place] tel:[phone] [place] No Information 3 [place]. [address] [place] [address], [address], [place], [address], [place]. tel: [phone] Referring Provider: Aravind Garcia, [address], [place], [address]. tel:[phone] [address], [place], [place], [id number], [place] tel:[phone] [place] No Information 3 [place]. [address] [place] [address], [address], [place], [address], [place]. tel: [phone] Referring Provider: Aravind Garcia, [address], [place], [address]. tel:[phone] [facility] [address] [place], [place] [address], [place], [place], [id number], [place] tel:[phone] [place] No Information 3 [place]. [address] [place] [address], [address], [place], [address], [place]. tel:[phone] Referring Provider: Aravind Garcia, [address], [place], [address]. tel:[phone] [address], [place], [place], [address], [place] tel:[phone] [place] No Information 3 [place]. [address] [place] [address], [address], [place], [address], [place]. tel:[phone] Referring Provider: Aravind Garcia, [address], [place], [address]. tel:[phone] [place] [address], [place], [place], [id number], [place] tel:[phone] [place] No Information 3 [place]. [address] [place] [address], [address], [place], [address], [place]. tel:[phone] Referring Provider: Aravind Garcia, [address], [place], [address]. tel:[phone], [id number], [place] tel:[phone] [place] No Information 3 [place]. [address] [place] [address], [address], [place], [address], [place]. tel:[phone] Referring Provider: Aravind Garcia, [address], [place], [address]. tel:[phone], [id number], [place] tel:[phone] [place] Pain in joint involving pelvic region and thighPain in joint involving lower leg 3 [place]. [address] [place] [address], [address], [place], [address], [place]. tel: [phone] Referring Provider: Aravind Garcia, [address], [place], [place], [address]. tel:[phone] Family History Family Member Type Diagnosis Age At Onset No Information Payers Payer name Insurance type Covered alliance party ID Authoriza tion(s) [employer] Medicare 16 [id number] Social History Type Description Quantity Date Captured Comments Sex Male Smoking Status No Information Chief Complaint And Reason For Visit No Information Reason For Referral Reason For Referral No Information History Of Present Illness Encounter Date Complaint History Of Prese nt Illness No Information Functional Status Date Functional Assessmen t No Information Instructions Date Instruction Additional Infor mation No Information Assessments Type Assessment Date No Information Patient Care Teams Name Effective Dates (start - stop) Status Members No Information
[2025-03-06] VITALS (20 sets, daily range): BP systolic 124–148; BP diastolic 41–55; PULSE 54–78; RESP 16–19; TEMP 36.1–36.5; O2SAT 79–100; BMI 32.2
--- NOTE | ~2025-03-06 | XR_ITS ---
Examination: XR chest 2V Clinical History: SOA Comparison: 02/26/2025 Technique: PA and Lateral Findings: Left pacemaker. Unchanged mild cardiomegaly. Lungs clear. No acute bony abnormality. IMPRESSION: 1. No acute cardiopulmonary findings. Reviewed, dictated and finalized at location R. NICS MECHANIC
--- OUTSIDE RECORDS SUMMARY | 2025-03-06 09:49 | XMS_ITS | Clinical Summary ---
Author Organization [facility] Address [address] [place] [id number] Care Team Providers Care Measurement Operator Name Role Phone Waqas Ramírez MD Primary Care Provider [phone] Gurmeet Lares MD Unavailable Prema Grant MD Unavailable Waqas Dobbins MD Unavailable [phone] Allergies No known active allergies Medications ferrous [...] 1 tablet (150 mcg total) by mouth cold working inspector before breakfast 30 tablet 1 07/18/19 25 Active losartan (COZAAR) 25 mg tablet Take [...] wheezing or shortness of breath 1 each 07/17/19 Active Active Problems Problem Noted Date Diagnosed Date COPD exacerbation 07/12/2024 SVT (supraventricular tachycardia) 07/29/2023 Fracture of foot 04/09/2022 Rash 04/09/2022 Pain in toe 04/09/2022 Shoulder pain 04/09/2022 Hypokalemia 01/14/2022 Pain in joint of right shoulder 11/29/2021 Anemia 08/09/2021 Melena 07/31/2021 Overview (07/31/2021): Added automatically from request for surgery [id number] UGIB (upper gastrointestinal bleed) 07/31/2021 Chest pain, unspecified type 07/13/2021 Chest pain 07/11/2021 Hereditary and idiopathic peripheral neuropathy 07/03/2021 Assessment & Plan (07/03/2021 9:23 AM FRUIT PRESERVER): Patient has peripheral neuropathy is somewhat fitting [...] 06/19/2021 Assessment & Plan (06/19/2021 10:39 AM FRUIT PRESERVER): 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 This may make him more prone to have muscle strains in the forearm. Would encourage warm soaks and stretching exercises for this individual. Exercise were demonstrated for him to perform on a regular basis. 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 Occlusion [...] Gastroesophageal reflux disease 05/23/2014 Overview (08/09/2016): GERD Encounters Date Type Department Care Team Description 02/21/2025 Documentation [facility] ([facility]) [facility] Urology [address] [place] [address] [place] [address] Eusebia Limon from Last 3 Months Immunizations Immunization Administration Dates Next Due Influenza, [...] drink = 0.6 oz pu re alcohol) [facility] Utilities Answer Date Recorded In the past 12 months has [employer], gas, oil, or water [employer] threatened to shut off services in your [...] week 07/12/2024 How often do you attend [facility] or jewish services? Never 07/12/2024 Do you belong to any clubs o r organizations such as sikh groups, unions, fraternal or athletic groups, or [...] any time in the past 12 m [facility], were you homeless or living in a detention (including now)? No 07/12/2024 Personal Safety Answer Date Recorded Have you ever been in or are you currently in a harmful physical or emotional relationship or is someone making you feel afraid or unsafe? Denies 07/12/2024 Sex and Gender Information Value Date Recorded Sex Assigned at Not on file Legal Sex Male 8:51 PM FRUIT PRESERVER Gender Identity Not on file Sexual Orientation Not on file Last Filed Vital Signs Vital Sign Reading [...] 03/28/2015, 05/05 Medical Devices Implanted Type Area Stripper Opaquer Device Identifier Shelf Expiration Date Model / Serial / Lot [employer] [id number] Urolift Implant Urological - [id number] Implanted:Qty: 2 on 03/17/2020 by Feliberto Wadsworth MD at [facility] N/A: Urethra [employer] 11/10/2021 [id number] / / [id number] [employer] X [id number] Resolute Rohith 2.5mm 2.1-2.7fr 30mm 140cm Rapid Exchange - [id number] Implanted:Qty: 1 on 07/12/2021 by Gurmeet Lares MD at [facility] [employer] 03/15/2024 [id number] UX / / Insurance Member Subscriber Plan / Payer (Ef fective 2019-Present) Name:Jorge L Call Relation to Subscriber:Self Name:Jorge L Call Payer ID:[id number] (NAIC) Type:[facility] MEDIC[facility] Address: [address] MEDICARE ADVANTAGE Member Subscriber Plan / Payer (Ef fective 2023-Present) Name:Jorge L Call Relation to Subscriber:Self Name:Jorge L Call Payer ID:[id number] (NAIC) Type:[facility] MEDICARE Address: [place] [id number] UHC MEDICARE ADVANTAGE [facility] [address] [employer] NON PDGM MEDICARE ADVANTAGE [employer] MEDICARE HMO Advance Directives For more information, please contact: [phone] * Full Code (Latest Code Status on [...] specifically selected below: No intubation Care Teams Measurement Operator Relationship Specialty Start Date End Date Waqas Ramírez MD PCP - General 03/29/19 Gurmeet Lares MD Referring Physician Cardiovascular Disease 07/16/21 [place] [id number] [address] Consulting Physician Cardiology 08/05/21 [place] [id number] [address] Consulting Physician Gastroenterology 08/05/21
--- OUTSIDE RECORDS SUMMARY | 2025-03-06 09:49 | XMS_ITS | Data Portability ---
[facility] Organization [facility] Address [address] [place] [address] Care Team Providers Care Lockstitch Waistband Setter Name Role Phone LANRE RAMÍREZ Primary Care Provider [phone] Assessment Encounter Date Assessment Date Assessment LastModified by Organization Details LastModified Time 08/20/2024 08/20/2024 Weigh daily. Avoid salt. Review medicines. There are some discrepancies were trying to work through. Healthy lifestyle care instructions. 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 does not want to see [place] [facility] get notes from Cardiology follow up with me in 2 months we will continue current therapy at this time his TSH was 99 talked about the importance of taking medications worrisome is the fact that his ejection fraction has gone from 65-70% to 41% COPD heart failure kidney disease and other diagnosis in the assessment and plan have been discussed Not available 08/20/2024 17:53:23 10/13/2024 10/13/2024 Chronic [...] to see him back in 2 months [email or web address] Not available 10/23/2024 12:24:46 12/21/2024 12/21/2024 Paperwork to be filled out for [place] notably he is not taking aspirin for CAD I believe because a history of GI bleed in the past but imaging services director he states is aware that. We will follow up with me in 3 months Not available 12/26/2024 17:19:01 Plan of Treatment Reminders Order Date Submit Date Provider Last Modified By Organization Details Last Modified Time Details Appointments ANY 15 2024 01:15P Adrienne Ramírez MD Not available Not available Not available Lab lipid panel, serum 2024 025 [facility], [address], [address], [place], [address], 09/10/2024 06:49:44 CMP, serum or plasma 2024 025 [facility], [address] [facility] [address], [address], [place], [address], 09/10/2024 06:49:45 CBC w/ auto diff 2024 025 [facility], [address] [facility], [address], [place], [address], 09/10/2024 06:49:47 Referral pulmonolo gist referral - Please call the pts cell number that is listed for her daughter. 2024 025 [facility], [address] [facility], [place], [address], 03/04/2025 15:24:33 Procedures None recorded. Surgeries None recorded. Imaging None recorded. Medication Orders None recorded. Patient TargetsNo targets recorded. Patient Instructions Encounter Date Encounter Id Patient Instructions Last Modified By Organization Details Last Modified Time 08/20/2024 [id number] A healthy lifestyle: care instructions [email or web address] Not available 08/20/2024 12:41:36 10/13/2024 [id number] A healthy lifestyle: care instructions [email or web address] Not available 10/13/2024 11:10:38 Reason for Referral Online Marketing Specialist Referral for C hronic hypoxemic respiratory failure Please call the pts cell number that is listed for her daughter. Referring Physician: Lanre Ramírez, Internal Medicine, Encounter Date: 08/20/2024 Results Created Date Observation Date Name Description Value Unit Range Abnormal Flag Note LastModifiedBy Organization Detail LastModifiedTime 09/10/1909/10/2024 LIPID PANEL cholesterol, total 106 mg/dL 100-19 9 Not Available [facility] ([facility]) [address] [place], [address], 09/10/2024 06:49:44 09/10/1909/10/2024 LIPID PANEL triglyceride s 68 mg/dL 0-149 Not Available [facility] ([facility]) [address] [place], [address], 09/10/2024 06:49:44 09/10/1909/10/2024 LIPID PANEL HDL cholesterol 42 mg/dL >39 Not Available [facility] ([facility]) [address] [place], [address], 09/10/2024 06:49:44 09/10/1909/10/2024 LIPID PANEL VLDL cholesterol cornell 15 mg/dL 5-40 Not Available [facility] ([facility]) [address] [place], [address], 09/10/2024 06:49:44 09/10/1909/10/2024 LIPID PANEL LDL chol calc ([facility]) 49 mg/dL 0-99 Not Available [facility] ([facility]) [address] [place], [address], 09/10/2024 06:49:44 09/10/1909/10/2024 COMP. METAB OLIC PANEL (14) glucose 83 mg/dL 70-99 Not Available [facility] ([facility]) [address] [place], [address], 09/10/2024 06:49:45 09/10/19 25 09/10/2024 COMP. METAB OLIC PANEL (14) BUN 18 mg/dL 8-27 Not Available [facility] ([facility]) [address] [facility] [place], [address], 09/10/2024 06:49:45 09/10/19 25 09/10/2024 COMP. METAB OLIC PANEL (14) creatinine 1.91 mg/dL 0.76-1 .27 above high normal Not Available [facility] ([facility]) [address] [facility] [place], [address], 09/10/2024 06:49:45 09/10/19 25 09/10/2024 COMP. METAB OLIC PANEL (14) eGFR 34 mL/mi n/1.7 3 >59 below low normal Not Available [facility] ([facility]) [address] [facility] [place], [address], 09/10/2024 06:49:45 09/10/19 25 09/10/2024 COMP. METAB OLIC PANEL (14) BUN/creatini ne ratio 9 10-24 below low normal Not Available [facility] ([facility]) [address] [facility] [place], [address], 09/10/2024 06:49:45 09/10/19 25 09/10/2024 COMP. METAB OLIC PANEL (14) sodium 141 mmol/ L 134-14 4 Not Available [facility] ([facility]) [address] [facility] [place], [address], 09/10/2024 06:49:45 09/10/19 25 09/10/2024 COMP. METAB OLIC PANEL (14) potassium 4.1 mmol/ L 3.5-5. 2 Not Available [facility] ([facility]) [address] [facility] [place], [address], 09/10/2024 06:49:45 09/10/19 25 09/10/2024 COMP. METAB OLIC PANEL (14) chloride 99 mmol/ L 96-106 Not Available [facility] ([facility]) [address] [facility] [place], [address], 09/10/2024 06:49:45 09/10/19 25 09/10/2024 COMP. METAB OLIC PANEL (14) carbon dioxide, total 28 mmol/ L 20-29 Not Available [facility] ([facility]) [address] [place], [address], 09/10/2024 06:49:45 09/10/19 25 09/10/2024 COMP. METAB OLIC PANEL (14) calcium 8.4 mg/dL 8.6-10 .2 below low normal Not Available [facility] ([facility]) [address] [place], [address], 09/10/2024 06:49:45 09/10/19 25 09/10/2024 COMP. METAB OLIC PANEL (14) protein, total 6.6 g/dL 6.0-8. 5 Not Available [facility] ([facility]) [address] [place], [address], 09/10/2024 06:49:45 09/10/19 25 09/10/2024 COMP. METAB OLIC PANEL (14) albumin 4.2 g/dL 3.7-4. 7 Not Available [facility] ([facility]) [address] [place], [address], 09/10/2024 06:49:45 09/10/19 25 09/10/2024 COMP. METAB OLIC PANEL (14) globulin, total 2.4 g/dL 1.5-4. 5 Not Available [facility] ([facility]) [address] [place], [address], 09/10/2024 06:49:45 09/10/19 25 09/10/2024 COMP. METAB OLIC PANEL (14) bilirubin, total 0.4 mg/dL 0.0-1. 2 Not Available [facility] ([facility] [address] [facility] [place], [address], 09/10/2024 06:49:45 09/10/19 25 09/10/2024 COMP. METAB OLIC PANEL (14) alkaline phosphatase 116 IU/L 44-121 Not Available [facility] ([facility]) [address] [facility] [place], [address], 09/10/2024 06:49:45 09/10/19 25 09/10/2024 COMP. METAB OLIC PANEL (14) AST (SGOT) 16 IU/L 0-40 Not Available [facility] ([facility]) [address] [facility], [place], [address], 09/10/2024 06:49:45 09/10/19 25 09/10/2024 COMP. METAB OLIC PANEL (14) ALT (SGPT) 17 IU/L 0-44 Not Available [facility] ([facility]) [address] [facility], [place], [address], 09/10/2024 06:49:45 09/10/19 25 09/09/2024 CBC WITH DIFFE RENTI AL/PL ATELE T WBC 5.3 x10e3 /uL 3.4-10 .8 Not Available [facility] ([facility]) [address] [place], [address], 09/10/2024 06:49:47 09/10/19 25 09/09/2024 CBC WITH DIFFE RENTI AL/PL ATELE T RBC 3.61 x10e6 /uL 4.14-5 .80 below low normal Not Available [facility] ([facility]) [address] [place], [address], 09/10/2024 06:49:47 09/10/19 25 09/09/2024 CBC WITH DIFFE RENTI AL/PL ATELE T hemoglobin 9.8 g/dL 13.0-1 7.7 below low normal Not Available [facility] ([facility]) [address] [place], [address], 09/10/2024 06:49:47 09/10/1909/09/2024 CBC WITH DIFFE RENTI AL/PL ATELE T hematocrit 32.2 % 37.5-5 1.0 below low normal Not Available [facility] ([facility]) [address] [place], [address], 09/10/2024 06:49:47 09/10/1909/09/2024 CBC WITH DIFFE RENTI AL/PL ATELE T MCV 89 fL 79-97 Not Available [facility] ([facility]) [address] [place], [address], 09/10/2024 06:49:47 09/10/1909/09/2024 CBC WITH DIFFE RENTI AL/PL ATELE T MCH 27.1 pg 26.6-3 3.0 Not Available [facility] ([facility]) [address] [place], [address], 09/10/2024 06:49:47 09/10/1909/09/2024 CBC WITH DIFFE RENTI AL/PL ATELE T MCHC 30.4 g/dL 31.5-3 5.7 below low normal Not Available [facility] ([facility]) [address] [place], [address], 09/10/2024 06:49:47 09/10/1909/09/2024 CBC WITH DIFFE RENTI AL/PL ATELE T RDW 14.5 % 11.6-1 5.4 Not Available [facility] ([facility]) [address] [place], [address], 09/10/2024 06:49:47 09/10/1909/09/2024 CBC WITH DIFFE RENTI AL/PL ATELE T platelets 224 x10e3 /uL 150-45 0 Not Available [facility] ([facility]) [address] [place], [address], 09/10/2024 06:49:47 09/10/19 09/09/2024 CBC WITH DIFFE RENTI AL/PL ATELE T neutrophils 62 % notest ab. Not Available [facility] ([facility]) [address] [facility], [place], [address], 09/10/2024 06:49:47 09/10/19 25 09/09/2024 CBC WITH DIFFE RENTI AL/PL ATELE T lymphs 24 % notest ab. Not Available [facility] ([facility]) [address] [facility], [place], [address], 09/10/2024 06:49:47 09/10/1909/09/2024 CBC WITH DIFFE RENTI AL/PL ATELE T monocytes 10 % notest ab. Not Available [facility] ([facility]) [address] [facility], [place], [address], 09/10/2024 06:49:47 09/10/1909/09/2024 CBC WITH DIFFE RENTI AL/PL ATELE T eos 4 % notest ab. Not Available [facility] ([facility]) [address] [facility], [place], [address], 09/10/2024 06:49:47 09/10/1909/09/2024 CBC WITH DIFFE RENTI AL/PL ATELE T basos 0 % notest ab. Not Available [facility] ([facility]) [address] [place], [address], 09/10/2024 06:49:47 09/10/1909/09/2024 CBC WITH DIFFE RENTI AL/PL ATELE T neutrophils (absolute) 3.2 x10e3 /uL 1.4-7. 0 Not Available [facility] ([facility]) [address] [facility], [place], [address], 09/10/2024 06:49:47 09/10/19 25 09/09/2024 CBC WITH DIFFE RENTI AL/PL ATELE T lymphs (absolute) 1.3 x10e3 /uL 0.7-3. 1 Not Available [facility] ([facility]) [address] [facility], [place], [address], 09/10/2024 06:49:47 09/10/19 25 09/09/2024 CBC WITH DIFFE RENTI AL/PL ATELE T monocytes(ab solute) 0.6 x10e3 /uL 0.1-0. 9 Not Available [facility] ([facility]) [address] [facility], [place], [address], 09/10/2024 06:49:47 09/10/1909/09/2024 CBC WITH DIFFE RENTI AL/PL ATELE T eos (absolute) 0.2 x10e3 /uL 0.0-0. 4 Not Available [facility] ([facility]) [address] [facility], [place], [address], 09/10/2024 06:49:47 09/10/1909/09/2024 CBC WITH DIFFE RENTI AL/PL ATELE T baso (absolute) 0.0 x10e3 /uL 0.0-0. 2 Not Available [facility] ([facility]) [address] [facility], [place], [address], 09/10/2024 06:49:47 09/10/1909/09/2024 CBC WITH DIFFE RENTI AL/PL ATELE T immature granulocytes 0 % notest ab. Not Available [facility] ([facility]) [address] [facility], [place], [address], 09/10/2024 06:49:47 09/10/1909/09/2024 CBC WITH DIFFE RENTI AL/PL ATELE T immature grans (abs) 0.0 x10e3 /uL 0.0-0. 1 Not Available [facility] ([facility]) [address] [facility], [place], [address], 09/10/2024 06:49:47 10/07/19 25 10/06/2024 Proca lcito [...] Available 10/06/2024 09:50:27 10/07/19 25 10/06/2024 Compr [employer] olic 1999 panel - Serum or Plasm a carbon dioxide, total [moles/volum e] in serum or plasma 30 mmol/ L low: 22mmol /Lhigh : 30mmol /L normal Not Available Not Available 10/06/2024 09:50:27 10/07/19 25 10/06/2024 [facility] [employer] olic 1999 panel - Serum or Plasm a anion gap in serum or plasma by calculation 12.8 mmol/ L low: 14mmol /Lhigh : 22mmol /L low Not Available Not Available 10/06/2024 09:50:27 10/07/19 25 10/06/2024 [facility] [employer] olic 1999 panel - Serum or Plasm a glucose [mass/volume ] in serum or plasma 90 mg/dL low: 70mg/d Lhigh: 99mg/d L normal Not Available Not Available 10/06/2024 09:50:27 10/07/19 25 10/06/2024 [facility] [employer] olic 1999 panel - Serum or Plasm a urea nitrogen [mass or moles/volume ] in serum or plasma 25 mg/dL low: 8mg/dL high: 19mg/d L high Not Available Not Available 10/06/2024 09:50:27 10/07/19 25 10/06/2024 [facility] [employer] olic 1999 panel - Serum or Plasm a creatinine [mass/volume ] in serum or plasma 1.42 mg/dL low: 0.66mg /dLhig h: 1.25mg /dL high Not Available Not Available 10/06/2024 09:50:27 10/07/19 25 10/06/2024 [facility] [employer] olic 1999 panel - Serum or Plasm a glomerular filtration rate [volume rate/area] in serum, plasma or blood by based on 1.73 sq M 47 1 normal Not Available Not Available 09:50:27 10/07/19 25 10/06/2024 [facility] [employer] olic 2000 panel - Serum or Plasm a alkaline phosphatase [enzymatic activity/vol ume] in serum or plasma 119 U/L low: 38U/Lh igh: 126U/L normal Not Available Not Available 10/06/2024 09:50:27 10/07/19 25 10/06/2024 [facility] [employer] [facility] 1999 panel - Serum or Plasm a alanine aminotransfe rase [enzymatic activity/vol ume] in serum or plasma 17 U/L low: 0U/Lhi gh: 50U/L normal Not Available Not Available 10/06/2024 09:50:27 10/07/19 25 10/06/2024 Compr [employer] [facility] 1999 panel - Serum or Plasm a aspartate aminotransfe rase [enzymatic activity/vol ume] in serum or plasma 25 U/L low: 15U/Lh igh: 46U/L normal Not Available Not Available 10/06/2024 09:50:27 10/07/19 25 10/06/2024 [facility] [employer] 1999 panel - Serum or Plasm a bilirubin.to kala [mass/volume ] in serum or plasma 0.6 mg/dL low: 0.2mg/ dLhigh : 1.3mg/ dL normal Not Available Not Available 10/06/2024 09:50:27 10/07/19 25 10/06/2024 [facility] [employer] 1999 panel - Serum or Plasm a calcium [mass/volume ] in serum or plasma 8.3 mg/dL low: 8.4mg/ dLhigh : 10.2mg /dL low Not Available Not Available 10/06/2024 09:50:27 10/07/19 25 10/06/2024 [facility] [employer] [facility] 1999 panel - Serum or Plasm a protein [mass/volume ] in serum or plasma 6.4 g/dL low: 6.3g/d Lhigh: 8.2g/d L normal Not Available Not Available 10/06/2024 09:50:27 10/07/19 25 10/06/2024 [facility] [employer] 1999 panel - Serum or Plasm a albumin [mass/volume ] in serum or plasma 4 g/dL low: 3g/dLh igh: 4.4g/d L normal Not Available Not Available 10/06/2024 09:50:27 10/07/19 25 10/06/2024 [facility] [employer] 1999 panel - Serum or Plasm a [...] normal Not Available Not Available 10/06/2024 09:50:27 10/07/1910/06/2024 CBC W Auto Diffe renti al panel - Blood nucleated erythrocytes [#/volume] in blood by automated count 0 x10'3 /uL normal Not Available Not Available 10/07/19 09:50:27 10/07/19 25 10/06/2024 XR, chest No observ ation record ed. [address] [place], [address], 10/07/2024 21:31:05 02/09/2002/08/2025 XR, chest , 2 view No observ ation record ed. [address], [address], 02/09/2025 13:58:25 02/27/2002/26/2025 XR, chest No observ ation record ed. [place] [address] [facility] [address], [address], 02/28/2025 12:50:19 03/04/20 25 12/11/2024 imagi ng/di agnos tic resul t No observ ation record ed. [email or web address] [facility] [address] [place], [address], 03/05/2025 22:18:01 10/31/20 25 12/11/2024 imagi ng/di agnos tic resul t No observ ation record ed. [facility] [address] [place], [address], 03/05/2025 22:18:02 Result Notes None recorded. Problems Name Problem SNOMED Code Status Onset Date Resolution Date Notes Provider Name and Address Organization Details Recorded Time Permanent atrial fibrillation 540951885 Active 2024 Lanre Ramírez MD Attn: Bambi butcher,[address] [facility], [place], [address], [place] - [facility] 17:47:02 Coronary arteriosclero sis 89612767 Active 2024 Lanre Ramírez MD Attn: Bambi g,[address] [facility], [place], [address], [place] [facility] 5 17:47:09 Benign essential hypertension 9162340 Active 2024 Lanre Ramírez MD Attn: Bambi g,[address] [facility], [place], [address], [place] [facility] 5 17:47:16 Pulmonary emphysema 83162809 Active 2024 Lanre Ramírez MD Attn: Bambi g,[address] [facility], [place], [address], [place] [facility] 5 17:47:56 Chronic kidney disease stage 3A 670212329 Active 2024 Lanre Ramírez MD Attn: Bambi g,[address] [facility], [place], [address], [place] [facility] 5 17:48:08 Hypothyroidis m 89492954 Active 2024 Lanre Ramírez MD Attn: Bambi g,[address] [facility], [place], [address], [place] [facility] 5 17:48:26 Chronic systolic heart failure 828579243 Active 2024 Lanre Ramírez MD Attn: Bambi butcher,[address] [facility], [place], [address], [place] [facility] 5 17:49:31 Chronic hypoxemic respiratory failure 771936352 Active 2024 3 liters Lanre Ramírez MD Attn: Bambi butcher,[address] [facility], [place], [address], [place] [facility] 5 17:50:15 Spinal stenosis of lumbosacral region 289593043 Active 2024 Lanre Ramírez MD Attn: Bambi butcher,[address] [facility], [place], [address], [place] - [facility] 5 17:51:18 Cardiac pacemaker in situ 583349436 Active 2024 Lanre Ramírez MD Attn: Bambi butcher,[address] [facility], [place], [address], [place] - [facility] 5 17:52:08 Chronic anemia 325509554 Active 2024 Lanre Ramírez MD Attn: Bambi butcher,[address] [facility], [place], [address], [place] - [facility] 5 17:52:43 Problem Notes None recorded. Procedures Surgical History Date Name Laterality Status Provider Name and Address Organization Details Recorded Time 4 Pacemaker completed MAME Roe - [facility] 08/20/2024 12:32:34 0 Back Surgery completed MAME Roe [facility] 08/20/2024 12:32:08 0 Back Surgery completed MAME Roe - [facility] 08/20/2024 12:32:14 5 Back Surgery completed MAME Roe [facility] 08/20/2024 12:32:18 Imaging Results None recorded. [...] tablet TAKE 1 TABLET BY MOUTH DAILY 03/04 completed Not Available Not Available Not Available levothyroxi ne 150 mcg tablet TAKE [...] TAKE 1 TABLET BY MOUTH TWICE DAILY 03/01 completed Not Available Not Available Not Available Eliquis 5 mg tablet TAKE 1 TABLET BY MOUTH TWICE DAILY active Not Available Not Available No t Available Anoro Ellipta 62.5 mcg-25 mcg/actuati on powder for inhalation INHALE 2 PUFFS BY MOUTH TWICE DAILY active Not Available Not Available No t Available levothyroxi ne 175 mcg capsule Take 1 capsule every day by oral route. 2024 active Not Available Not Available Not Avai lable Vitals Date Recorded Body weight Body mass index (BMI) Body height Oxygen saturation Oxygen saturation in Arterial blood by Pulse oximetry Inhaled oxygen flow rate Heart rate Systolic And Diastolic Provider Name and Address Organization Details Last Updated DateTime 5 343657. 69 g 36.1 kg/m2 175.26 cm 99 % 99 % 3 L/min 90 /min 128/70 mm[Hg] Debra Shook [place] - [facility] 5 12:36:25 Date Recorded Body height Body mass index (BMI) Body weight Heart rate Oxygen saturation Oxygen saturation in Arterial blood by Pulse oximetry Systolic And Diastolic Provider Name and Address Organization Details Last Updated DateTime 5 175.26 cm 35.7 kg/m2 444266. 35 g 85 /min 97 % 97 % 124/70 mm[Hg] Debra Shook [place] - [facility] 5 09:39:15 Date Recorded Body height Body mass index (BMI) Body weight Heart rate Oxygen saturation Oxygen saturation in Arterial blood by Pulse oximetry Inhaled oxygen flow rate Systolic And Diastolic Provider Name and Address Organization Details Last Updated DateTime 5 175.26 cm 34.9 kg/m2 014085. 24 g 72 /min 98 % 98 % 3 L/min 120/72 mm[Hg] Debra Shook [place] - [facility] 5 14:39:30 Social History Question Answer Notes LastModified by [employer] ion Details LastModified Time Tobacco Smoking Status Former Smoker Debra Shook MA null, [facility] 08/20/2024 12:30:47 Do You Have An Advance [...] anxious, or unable to sleep at night)? [id number] Information not available 08/20/2024 Family History Relationship [...] pneumococcal polysaccharide PPV23 3 completed Not Available [employer] 12/21/2024 14:05:23 Influenza, high-dose, trivalent, PF 4 completed Not Available [facility] 12/21/2024 14:05:23 Influenza, high-dose, trivalent, PF 5 completed Not Available [facility] 12/21/2024 14:05:23 Pneumococcal conjugate PCV 13 5 completed Not Available [facility] 12/21/2024 14:05:23 Influenza, high-dose, trivalent, PF 6 completed Not Available [facility] 12/21/2024 14:05:23 Influenza, high-dose, trivalent, PF 7 completed Not Available [facility] 12/21/2024 14:05:23 Influenza, high-dose, trivalent, PF 8 completed Not Available [facility] 12/21/2024 14:05:23 Influenza, high-dose, quadrivalent, PF 9 completed Not Available [facility] 12/21/2024 14:05:23 COVID-19, mRNA, LNP-S, PF, 100 mcg/0.5mL dose or 50 mcg/0.25mL dose 1 completed Not Available [facility] 12/21/2024 14:05:23 COVID-19, mRNA, LNP-S, PF, 100 mcg/0.5mL dose or 50 mcg/0.25mL dose 1 completed Not Available [facility] 12/21/2024 14:05:23 COVID-19, mRNA, LNP-S, PF, 100 mcg/0.5mL dose or 50 mcg/0.25mL dose 2 completed Not Available [facility] 12/21/2024 14:05:23 Influenza, high-dose, quadrivalent, PF 2 completed Not Available [facility] 12/21/2024 14:05:23 COVID-19, mRNA, LNP-S, bivalent, PF, 30 mcg/0.3 mL dose 3 completed Not Available [facility] 12/21/2024 14:05:23 zoster recombinant 3 completed Not Available [facility] 12/21/2024 14:05:23 zoster recombinant 3 completed Not Available [facility] 12/21/2024 14:05:23 Past Encounters Encounter ID Performer Location Encounter Start Date Encounter Closed Date Diagnosis/Indication Diagnosis SNOMED-CT Code Diagnosis ICD10 Code Diagnosis IMO Codes Diagnosis Note [id number] MD Matt Lan (Adult Med) [address] [place] [address] 08/20/2024 11:55:29 08/20/2024 13:34:24 Body mass index 30+ - obesity 674268531 Z68.36 798094 Obesity 566292918 E66.9 Essential hypertension 03482422 I10 161712 Chronic hy poxemic respiratory failure 328708005 J96.11 7376844 Chronic ki dney disease stage 3A 230894296 N18.31 84016789 Chronic sy stolic heart failure 955491561 I50.22 531103 Hypothyroidism 86060684 E03.9 45361130 Permanent atrial fibrillation 386041445 I48.21 878569 Spinal roberto nosis of lumbosacral region 872521566 M48.07 [id number] Benign ess ential hypertension 2107324 I10 3379 Cardiac pa cemaker in situ [id number] Z95.0 0494802 Coronary arteriosclerosis 27354447 I25.10 614814 Chronic anemia 606064442 D64.9 [id number] [id number] MD Matt Lan (Adult Med) [address] [place] [address] [phone] 10/13/2024 09:27:27 10/13/2024 10:03:40 Obese class II [id number] 74705 E66.812 [id number] BMI 35.7 Benign ess ential hypertension 3506715 I10 3379 Chronic sy stolic heart failure 864083287 I50.22 338550 Coronary arteriosclerosis 86378050 I25.10 863903 Hypothyroidism 98818525 E03.9 35065056 Chronic ki dney disease stage 3A 328797683 N18.31 14406304 Spinal roberto nosis of lumbosacral region 114065374 M48.07 9658345 Chronic hy poxemic respiratory failure 950711938 J96.11 [id number] MD Matt Lan (Adult Med) [address] [place] [address] [phone] 12/21/2024 14:04:12 12/21/2024 15:44:50 Benign essential hypertension 3002593 I10 3379 Chronic sy stolic heart failure 754871964 I50.22 071386 Coronary arteriosclerosis 57401141 I25.10 522834 Permanent atrial fibrillation 879723589 I48.21 183436 Cardiac pa cemaker in situ 231966403 Z95.0 3837662 Hypothyroidism 80158678 E03.9 77814509 Chronic ki dney disease stage 3A 618490224 N18.31 64198894 Chronic anemia 743801120 D64.9 767534 Spinal roberto nosis of lumbosacral region 576338023 M48.07 9637524 Chronic hy poxemic respiratory failure 384553253 J96.11 59848840 Pulmonary emphysema 8743 3001 J43.9 [id number] Health Concerns Section Related Observation LastModified by Organization Detai ls LastModified Time None Recorded Concern Status LastModified by Organization Details LastModified Time None Recorded Advance Directives Directive N: Payers Insurance Date Sequence Insurance Name Policy Number Policy Foreman Covered Member ID Foreman Member ID Guarantor Name 01/12/2025 1 [facility] (MEDICARE REPLACEMENT/A DVANTAGE - HMO) [id number] Jorge L Call [id number] Jorge L Call Notes Date Note Type [...] today recently hospitalized with COPD exacerbation at [facility] Lanre Ramírez MD Attn: Accounting,[address] [facility], [place], [address], [facility] 08/20/2024 17:53:43 10/13/2024 text/html COPD and chronic [...] taking regular basis Lanre Ramírez MD Attn: Accounting,[address], [place], [address], [facility] 10/23/2024 12:25:05 12/21/2024 text/html He is going to be moving into a [place] overall doing reasonably well given his multiple [...] Prediabetes. CKD 3A. Lanre Ramírez MD Attn: Accounting,[address], [place], [address], [facility] 12/26/2024 17:19:21
--- OUTSIDE RECORDS SUMMARY | 2025-03-06 09:49 | XMS_ITS | Clinical Summary ---
Author Organization [facility] Facility Address [address] [facility] [address] [place] [address] [place] [address], [place] [address] Care Team Providers Care Vice President Investor Relations Name Role Phone Sina White MD Primary Care Provider [phone] Social History Tobacco Use Types Packs/Day Years [...] to complete this topic Insurance [employer] Medicare Care Teams Vice President Investor Relations Relationship Specialty Start Date End Date Sina White MD [address] [facility], [address] [place] [id number] PCP - General Internal Medicine 11/18/23
--- OUTSIDE RECORDS SUMMARY | 2025-03-06 09:49 | XMS_ITS ---
Author Organization [facility] Address [address] [place] [address] Care Team Providers Care Carbon Coater Machine Operator Name Role Phone Waqas Ramírez MD Primary Care Provider [phone] Gurmeet Lares MD Unavailable Prema Grant MD Unavailable Waqas Dobbins MD Unavailable [phone] Active Problems Problem Noted Date Diagnosed Date COPD exacerbation 07/12/2024 SVT (supraventricular tachycardia) 07/29/2023 Fracture of foot 04/09/2022 Rash 04/09/2022 Pain in toe 04/09/2022 Shoulder pain 04/09/2022 Hypokalemia 01/14/2022 Pain in joint of right shoulder 11/29/2021 Anemia 08/09/2021 Melena 07/31/2021 Overview (07/31/2021): Added automatically from request for surgery [id number] UGIB (upper gastrointestinal bleed) 07/31/2021 Chest pain, unspecified type 07/13/2021 Chest pain 07/11/2021 Hereditary and idiopathic peripheral neuropathy 07/03/2021 Assessment & Plan (07/03/2021 9:23 AM PHOTOGRAPH ENLARGER): Patient has peripheral neuropathy is somewhat fitting [...] 06/19/2021 Assessment & Plan (06/19/2021 10:39 AM PHOTOGRAPH ENLARGER): 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 This may make him more prone to have muscle strains in the forearm. Would encourage warm soaks and stretching exercises for this individual. Exercise were demonstrated for him to perform on a regular basis. Right rotator cuff tendinitis 06/19/2021 Assessment & Plan (06/19/2021 10:40 AM PHOTOGRAPH ENLARGER): Patient has a history exam consistent with [...] (05/30/2020): Added automatically from request for surgery [id number] Benign prostatic hyperplasia with urinary obstru ction 02/24/2020 Overview (02/24/2020): Added automatically from request for surgery [id number] s/p L3-S1 with right L4-5 fa cet [...] tolerance 05/01/2017 Atherosclerotic heart diseas e of [place] coronary artery without angina pectoris 04/30/2017 Occlusion [...]
--- NOTE | 2025-03-06 09:52 | ECG_ITS ---
Test Date: 2025-03-06 11:01:44 Measurements Intervals Mcdavid Rate: 60 P: 35 [place]: 225 QRS: 14 QRSD: 196 T: 87 QT: 517 QTc: 520 Interpretive Statements ELECTRONIC ATRIAL PACEMAKER LEFT BUNDLE BRANCH BLOCK [120+ ms QRS DURATION, 80+ ms Q/S IN V1/V2, 85+ ms R IN I/aVL/V5/V6] Compared to ECG 02/26/2025 06:58:51 No significant changes Electronically Signed On 03-06-2025 13:21:51 PRINTING SIGN MACHINE OPERATOR by Wei Capone M.D.
[2025-03-06 11:08] LABS: Hematocrit 25.7 % (42.0-52.0); Hemoglobin 7.6 g/dL (14.0-18.0); Immature Granulocyte Percent A 0.9 % (0-0.5); Lymphocytes Absolute Auto 1.07 K/mm3 (0.9-3.2); Mean Corpuscular HGB Conc 29.6 g/dl (32-36); Mean Corpuscular Hemoglobin 26.7 pg (26-34); Mean Corpuscular Volume 90.2 fl (80-100); Nucleated Red Blood Cells Absolute Auto 0.000 K/mm3 (0.0-0.012); Nucleated Red Blood Cells Perc 0.0 % (0.0-0.2); Platelet Count Result 218 k/mm3 (150-375); Red Blood Count 2.85 M/mm3 (4.6-6.20); White Blood Count 17.3 K/mm3 (4.5-10.0)
[2025-03-06 11:18] LABS: Alanine Aminotransferase 14 U/L (6-50); Albumin Level 3.9 g/dL (3.5-5.1); Alkaline Phosphatase 94 U/L (38-126); Anion Gap 7 mmol/L (4-12); Aspartate Amino Transferase 24 U/L (17-59); Bilirubin,Total 0.6 mg/dL (0.2-1.3); Blood Urea Nitrogen 18 mg/dL (9-20); Calcium 7.8 mg/dL (8.4-10.2); Carbon Dioxide 33 mmol/L (22-30); Chloride 98 mmol/L (98-107); Estimated CRCL calculation 39 ml/min; Estimated Glomerular Filt Rate 42; Glucose 108 mg/dL (65-110); Potassium 2.9 mmol/L (3.4-5.0); Sodium 138 mmol/L (137-145); Total Protein 6.8 g/dL (6.3-8.2)
[2025-03-06 11:26] LABS: Ovalocytes 1+; Schistocytes None Seen
[2025-03-06 11:27] LABS: Anisocytosis 1+; Hypochromasia 1+; Polychromasia Occasional
[2025-03-06 12:40] LABS: Add Urine Microscopic? YES; Appearance Urine Cloudy (Clear); Glucose Urine UA Negative (Negative); Leukocyte Esterase Ur 3+ LEU/UL (Negative); Nitrate Urine Positive (Negative); Non Pathogenic Casts 0-2; Specific Grav Ur 1.016 (1.001-1.035)
[2025-03-06] MEDS: cefTRIAXone 1 GM in SODIUM CHLORIDE 0.9% IV 50 ML 100 ML IVPB (13:38)
--- NOTE | 2025-03-06 13:42 | ED.GENADULT ---
HPI - General Adult General Chief complaint: Urogenital-Male Stated complaint: possible UTI, buttocks pain Time Seen by Provider: 03/06/25 09:24 History of Present Illness HPI narrative: Patient is an 84-year-old male who presents ER with reports of possible UTI from alf. Patient personally reports that he thinks he has a lung infection as he is feeling slightly short of breath and is having a cough. No fevers or chills. Patient self caths at home and denies any increased discomfort or foul odor related to his catheterization. Patient also reports some discomfort over his buttock where there is some very slight ulcerations of early decubitus ulcers. Related Data Home Medications ?Medication ?Instructions ?Recorded ?Confirmed ?Last Taken ?Type apixaban 5 mg tablet (Eliquis) 5 mg PO BID 02/22/24 01/05/25 01/04/25 History diltiazem HCl 120 mg 120 mg PO DAILY 02/22/24 01/05/25 01/04/25 History capsule,extended release 24 hr (Cardizem CD) solifenacin 10 mg tablet 10 mg PO DAILY 02/22/24 01/05/25 01/04/25 History umeclidinium 62.5 mcg-vilanterol 2 inh inhalation BID 02/22/24 01/05/25 01/04/25 History 25 mcg/actuation powdr for inhalation (Anoro Ellipta) Allergies Allergy/AdvReac Type Severity Reaction Status Date / Time No Known Allergies Allergy Verified 03/06/25 11:06 Review of Systems Review of Systems: All systems reviewed & are unremarkable except as noted in HPI and below Constitutional: Constitutional: Reports no additional constitutional complaints ENT: Reports system reviewed and no additional complaints, except as documented Respiratory: Respiratory: Reports no additional respiratory complaints Genitourinary: Genitourinary: Reports no additional male genitourinary complaints Musculoskeletal: Musculoskeletal: Reports no additional musculoskeletal complaints [facility] Past Medical History Medical History (Updated 03/06/25 @ 15:28 by Christopher Amaral MD) CKD (chronic kidney disease) Hypothyroidism Chronic respiratory failure Atrial fibrillation History of hyperlipidemia History of hypertension History of COPD Social History Social History Smoking status: Former smoker Alcohol intake: current Drinks per week: 3 Substance use: never Substance use type: does not use Do You Feel Safe in your Home?: Yes Lack of Transportation: No Lack of Food: Never True Current Housing: I Have Housing Concerned About Future Housing: No Difficulty Paying Gas/Electric Bills: No Difficulty Paying for Meds: No Currently Unemployed: No Education: Decline to Answer Difficulty w/ Childcare or Family Care: No Spiritual care concerns: No Exam Narrative: GENERAL: Well-appearing, well-nourished, and in no acute distress. HEAD: Normocephalic, atraumatic. ENT: Mucous membranes moist. NECK: Supple. CHEST: Clear to auscultation. No respiratory distress. HEART: Regular rate and rhythm. Normal peripheral pulses. ABDOMEN: Soft, nontender, nondistended. EXTREMITIES: Normal range of motion. No edema. SKIN: Warm, dry, no rash. Very slight ulcerations of the upper buttocks bilaterally consistent with decubitus ulceration. NEURO: Alert and oriented x3. PSYCH: Normal mood and affect. Course Course Emergency Course: Elevated white blood cell count, chronic anemia, admit to hospitalist service for IV antibiotics. Vital Signs Vital signs: Vital Signs Temperature 97.6 F 03/06/25 08:32 Pulse Rate 78 03/06/25 08:32 Respiratory Rate 18 03/06/25 08:32 Blood Pressure 128/54 L 03/06/25 08:32 Pulse Oximetry 100 03/06/25 08:32 Oxygen Delivery Room Air 03/06/25 08:32 Temperature 97.6 F 03/06/25 08:32 Pulse Rate 54 L 03/06/25 15:02 Respiratory Rate 19 03/06/25 15:02 Blood Pressure 127/41 L 03/06/25 15:02 Pulse Oximetry 100 03/06/25 15:02 Oxygen Delivery Room Air 03/06/25 08:32 Medical Decision Making Differential Diagnosis Differential Diagnosis: Pneumonia, UTI, cellulitis, sepsis Medical Records Medical records reviewed: Yes I reviewed the external patient's medical records. Vital Signs Vital Signs: Vital Signs Temperature 97.6 F 03/06/25 08:32 Pulse Rate 78 03/06/25 08:32 Respiratory Rate 18 03/06/25 08:32 Blood Pressure 128/54 L 03/06/25 08:32 Pulse Oximetry 100 03/06/25 08:32 Oxygen Delivery Room Air 03/06/25 08:32 Temperature 97.6 F 03/06/25 08:32 Pulse Rate 54 L 03/06/25 15:02 Respiratory Rate 19 03/06/25 15:02 Blood Pressure 127/41 L 03/06/25 15:02 Pulse Oximetry 100 03/06/25 15:02 Oxygen Delivery Room Air 03/06/25 08:32 Lab Data Lab results reviewed: Yes I reviewed the patient's lab results. 03/06/25 10:56 03/06/25 10:56 Labs: Lab Results 03/06/25 03/06/25 Range/Units 10:56 12:27 WBC 17.3 H (4.5-10.0) K/mm3 RBC 2.85 L (4.6-6.20) M/mm3 Hgb 7.6 L (14.0-18.0) g/dL Hct 25.7 L (42.0-52.0) % MCV 90.2 (80-100) fl MCH 26.7 (26-34) pg MCHC 29.6 L (32-36) g/dl RDW 16.7 H (11.5-14.5) % Plt Count 218 (150-375) k/mm3 MPV 9.7 (7.4-10.4) fl Immature Gran % (Auto) 0.9 H (0-0.5) % Neut % (Auto) 82.6 H (45.5-73.1) % Lymph % (Auto) 6.2 L (18.3-44.2) % [place] % (Auto) 9.9 H (2.6-8.5) % Eos % (Auto) 0.2 (0-4.4) % Baso % (Auto) 0.2 (0.2-1.2) % Lymph # (Auto) 1.07 (0.9-3.2) K/mm3 [place] # (Auto) 1.7 H (0.1-0.6) K/mm3 Eos # (Auto) 0.0 (0-0.3) K/mm3 Baso # (Auto) 0.0 (0.0-0.1) K/mm3 Abs Immat Gran (auto) 0.15 H (0.00-0.031) K/mm3 Absolute Neuts (auto) 14.3 H (1.3-6.7) K/mm3 Absolute Nucleated RBC 0.000 (0.0-0.012) K/mm3 Band Neutrophils % Not Reportable Nucleated RBC % 0.0 (0.0-0.2) % Platelet Estimate Adequate (Adequate) Polychromasia Occasional Hypochromasia 1+ Anisocytosis 1+ Ovalocytes 1+ Schistocytes None seen Sodium 138 (137-145) mmol/L Potassium 2.9 L (3.4-5.0) mmol/L Chloride 98 (98-107) mmol/L Carbon Dioxide 33 H (22-30) mmol/L Anion Gap 7 (4-12) mmol/L BUN 18 (9-20) mg/dL Creatinine 1.57 H (0.7-1.3) mg/dL Estim Creat Clear Calc 39 ml/min Estimated GFR 42 L (59 - ) Glucose 108 (65-110) mg/dL Calcium 7.8 L (8.4-10.2) mg/dL Total Bilirubin 0.6 (0.2-1.3) mg/dL AST 24 (17-59) U/L ALT 14 (6-50) U/L Alkaline Phosphatase 94 (38-126) U/L Total Protein 6.8 (6.3-8.2) g/dL Albumin 3.9 (3.5-5.1) g/dL Urine Color Yellow (Yellow) Urine Appearance Cloudy H (Clear) Urine pH 6.0 (5.0-9.0) Ur Specific [place] 1.016 (1.001-1.035) Urine Protein 1+ H (Negative) mg/dL Urine Glucose (UA) Negative (Negative) mg/dL Urine Ketones Negative (Negative) mg/dL Ur Blood (Man) 1+ H (Negative) Urine Nitrate Positive H (Negative) Urine Bilirubin Negative (Negative) Urine Urobilinogen 1.0 (<2.0) mg/dL Leukocyte Esterase Rfl 3+ H (Negative) MAYLIN/UL Urine RBC 3-5 H (0-2) /hpf Urine WBC >100 H (0-3) /hpf Ur Squamous Epith Cells None seen (Few) /hpf Urine Bacteria 4+ H /hpf Urine Casts 0-2 Imaging Data Radiologist's impression: ITS Impressions Chest X-Ray 03/06/25 11:00 IMPRESSION: 1. No acute cardiopulmonary findings. Discharge Plan Discharge Clinical Impression: Acute UTI, Decubitus ulcer Patient Disposition: Still a Patient Condition: Stable
--- NOTE | 2025-03-06 15:59 | ADMGEN ---
This patient, Jorge L Call, was admitted to [facility] Surg Room 312-01. Patient/family oriented to hospital policies and general routines including ID bracelet, bed and alarms, visiting hours, pain management, procedures, bathroom and other care routines, personal items, smoking policy, room service/diet, and visiting hours. Information on how to activate the Rapid Response Team has been discussed. Patient/Family are encouraged to report perceived risks to care and to ask questions if they do not understand what they are told or what they should do.
--- NOTE | 2025-03-06 16:02 | PC.NURSE ---
admission done to RN best abibility due to pt orientation status. Med rec done with assisted papers.
[2025-03-06] MEDS: SODIUM CHLORIDE 0.9% IV 1,000 ML 125 ML IV CONT (16:37)
[2025-03-06 19:20] LABS: NT Pro B Type Natriuretic Pept 1030 pg/mL (19.9-100)
--- NOTE | 2025-03-06 21:28 | PM.IMHP ---
H&P: HPI History of Present Illness Date/Time: 03/06/251929 Chief Complaint: UTI symptoms Narrative: 84-year-old male with a past medical history of CKD, hypothyroidism, AFib, HLD, urinary retention requiring self catheterization, HTN, COPD 3 L per nasal cannula at home presents to the ED on 03/06/2025 with complaints of possible UTI from [facility]. Patient was complaining of chills and buttocks pain. He straight caths himself 3 to 4 times a day and noticed a strong smell to his urine. He states this started yesterday. Patient further complains that he thinks he has a ?lung infection? if he feels short of breath and is having a cough. Denies fevers. He also states pain to his buttock where it is noted he has 2 small pink open areas. Initial vital signs 128/54, 78 heart rate, respirations 18, afebrile and 100% on his baseline 3 L Labs significant for WBC 17.3, baseline anemia, potassium 2.9, carbon dioxide 33, creatinine 1.57, about baseline, calcium 7.8, BNP 1030. UA with 1+ protein, 1+ blood, positive nitrates, 3+ leukocyte Estrace, > 100 WBC, 4+ bacteria. EKG with rate of 60 with atrial pacemaker, left bundle branch block Chest x-ray with no acute cardiopulmonary findings Review of Systems Review of Systems: All systems reviewed & are unremarkable except as noted in HPI and below PMFSH Past Medical History Medical History (Updated 03/06/25 @ 21:48 by aSba Hemphill APRN) CKD (chronic kidney disease) Hypothyroidism Chronic respiratory failure Atrial fibrillation History of hyperlipidemia History of hypertension History of COPD Social History Social History Smoking status: Former smoker Alcohol intake: current Drinks per week: 3 Substance use: never Substance use type: does not use Do You Feel Safe in your Home?: Yes Lack of Transportation: No Lack of Food: Never True Current Housing: I Have Housing Concerned About Future Housing: No Difficulty Paying Gas/Electric Bills: No Difficulty Paying for Meds: No Currently Unemployed: No Education: Decline to Answer Difficulty w/ Childcare or Family Care: No Spiritual care concerns: No Meds Home Medications and Allergies Home Medications ?Medication ?Instructions ?Recorded ?Confirmed ?Type albuterol sulfate 90 mcg/actuation 2 puff inhalation QID PRN 02/14/24 03/06/25 Rx aerosol inhaler shortness of breath or wheezing #8.5 grams apixaban 5 mg tablet (Eliquis) 5 mg PO BID 02/22/24 03/06/25 History diltiazem HCl 120 mg 120 mg PO DAILY 02/22/24 03/06/25 History capsule,extended release 24 hr (Cardizem CD) umeclidinium 62.5 mcg-vilanterol 2 inh inhalation BID 02/22/24 03/06/25 History 25 mcg/actuation powdr for inhalation (Anoro Ellipta) amiodarone 200 mg tablet (Pacerone) 200 mg PO DAILY@0800 #30 tabs 02/26/24 03/06/25 Rx buspirone 5 mg tablet 5 mg PO Q12H Anxiety #60 tabs 02/26/24 03/06/25 Rx carvedilol 3.125 mg tablet (Coreg) 3.125 mg PO Q12HR #60 tabs 02/26/24 03/06/25 Rx Held on 01/06/25. Instructions: Resume on 01/13/25. HOLD until you follow-up with your bat boy/girl. furosemide 40 mg tablet 40 mg PO DAILY #30 tabs 02/26/24 03/06/25 Rx Held on 01/06/25. Instructions: Resume on 01/13/25. HOLD until you follow-up with your bat boy/girl. tamsulosin 0.4 mg capsule 0.4 mg PO HS #30 caps 01/06/25 03/06/25 Rx atorvastatin 40 mg tablet 40 mg PO DAILY 03/06/25 03/06/25 History ferrous sulfate 325 mg (65 mg 325 mg PO BID 03/06/25 03/06/25 History iron) tablet ipratropium 0.5 mg-albuterol 3 mg 3 ml inhalation PRN PRN shortness 03/06/25 03/06/25 History (2.5 mg base)/3 mL nebulization of breath or wheezing soln levothyroxine 175 mcg capsule 125 mcg PO DAILY 03/06/25 03/06/25 History Allergies Allergy/AdvReac Type Severity Reaction Status Date / Time No Known Allergies Allergy Verified 03/06/25 15:59 Vital Signs Vital Signs - 24 hr 03/06/25 08:32 03/06/25 11:04 03/06/25 11:06 Temperature 97.6 F Pulse Rate 78 66 Respiratory Rate 18 19 Blood Pressure 128/54 L Pulse Oximetry 100 95 96 Oxygen Delivery Room Air 03/06/25 11:07 03/06/25 11:17 03/06/25 11:20 Temperature Pulse Rate Respiratory Rate Blood Pressure 132/49 L 143/53 H Pulse Oximetry 92 100 Oxygen Delivery 03/06/25 11:30 03/06/25 12:31 03/06/25 12:46 Temperature Pulse Rate 71 Respiratory Rate 18 Blood Pressure 127/51 L 124/48 L Pulse Oximetry 96 96 Oxygen Delivery 03/06/25 13:01 03/06/25 13:24 03/06/25 13:30 Temperature Pulse Rate Respiratory Rate Blood Pressure 132/55 L Pulse Oximetry 79 L 97 Oxygen Delivery 03/06/25 13:45 03/06/25 14:00 03/06/25 14:17 Temperature Pulse Rate Respiratory Rate Blood Pressure Pulse Oximetry 97 100 80 L Oxygen Delivery 03/06/25 15:02 03/06/25 16:19 03/06/25 16:45 Temperature 97.0 F L Pulse Rate 54 L 61 Respiratory Rate 19 16 Blood Pressure 127/41 L 127/52 L Pulse Oximetry 100 100 Oxygen Delivery Room Air 03/06/25 19:52 Temperature 97.7 F Pulse Rate 61 Respiratory Rate 16 Blood Pressure 148/46 H Pulse Oximetry 100 Oxygen Delivery Exam Narrative: GENERAL: non-toxic appearing, in no acute distress. HEAD: Normocephalic, atraumatic. EYES: PERRLA. Conjunctivae clear. ENT: Mucous membranes moist. No drainage NECK: Trachea midline. No adenopathy, no masses. RESPIRATORY: Airway patent, respirations nonlabored. CTA. CARDIOVASCULAR: Regular rate and rhythm GASTROINTESTINAL: Abdomen is soft and nontender. No organomegaly. Bowel sounds normal in all quadrants. GENITOURINARY: Defer MUSCULOSKELETAL: Moves all extremities. No gross deformities. No calf tenderness. SKIN: Warm, dry, normal color. Trace bilateral lower extremity edema. Bilateral upper buttocks pink ulcerations NEURO: A&O X4. Speech clear PSYCHIATRIC: Normal interaction H&P: Results Labs Labs: Short CBC 03/06/25 Range/Units 10:56 WBC 17.3 H (4.5-10.0) K/mm3 Hgb 7.6 L (14.0-18.0) g/dL Hct 25.7 L (42.0-52.0) % Plt Count 218 (150-375) k/mm3 BMP 03/06/25 10:56 Sodium 138 Potassium 2.9 L Chloride 98 Carbon Dioxide 33 H BUN 18 Creatinine 1.57 H Glucose 108 Calcium 7.8 L Liver Function 03/06/25 Range/Units 10:56 Total Bilirubin 0.6 (0.2-1.3) mg/dL AST 24 (17-59) U/L ALT 14 (6-50) U/L Alkaline Phosphatase 94 (38-126) U/L Albumin 3.9 (3.5-5.1) g/dL Urine 03/06/25 Range/Units 12:27 Urine Color Yellow (Yellow) Urine Appearance Cloudy H (Clear) Urine pH 6.0 (5.0-9.0) Ur Specific [place] 1.016 (1.001-1.035) Urine Protein 1+ H (Negative) mg/dL Urine Glucose (UA) Negative (Negative) mg/dL Assessment and Plan Assessment and plan (1) Acute UTI: Code(s): N39.0 - Urinary tract infection, site not specified Status: Acute Assessment and Plan: To the ED with complaints of a possible UTI. Patient has chronic urinary retention and has been self cathing 3-4 times daily for the past 6 months. UA with 1+ protein, 1+ blood, positive nitrates, 3+ leukocyte Estrace, > 100 WBC, 4+ bacteria -ceftriaxone 1 g Q 24 started on 03/06 -urine culture pending -previous urine culture grew Klebsiella oxytoca susceptible to ceftriaxone -continue straight catheterization every 8 hours. -educate patient on proper technique to avoid introducing bacteria (2) Hypokalemia: Code(s): E87.6 - Hypokalemia Status: Acute Assessment and Plan: Potassium 2.9 on presentation. Was as low as 2.8 in January. No EKG changes -40 mEq p.o. given -trend electrolytes and replace as needed (3) COPD (chronic obstructive pulmonary disease): Qualifiers: COPD type: unspecified COPD Qualified Code(s): J44.9 - Chronic obstructive pulmonary disease, unspecified Code(s): J44.9 - Chronic obstructive pulmonary disease, unspecified Status: Chronic Assessment and Plan: History of COPD dependent on supplemental oxygen at 3 L per nasal cannula. Chest x-ray with no acute cardiopulmonary process. No respiratory distress. -continue supplemental oxygen -continue Anoro Ellipta -DuoNeb q.6 p.r.n. (4) Decubitus ulcer: Qualifiers: Pressure injury location: buttock Pressure injury stage: stage 2 Laterality: unspecified laterality Qualified Code(s): L89.302 - Pressure ulcer of unspecified buttock, stage 2 Code(s): L89.90 - Pressure ulcer of unspecified site, unspecified stage Status: Acute Assessment and Plan: Small bilateral upper buttocks pink ulcerations -turn patient every 2 hours -wound care consult Plan Diet: Heart healthy diet GI prophylaxis: NA DVT prophylaxis: SCDs lines/drains: PIV Fluids: NS at 125 stopped on 03/06 Code status: Full Quality VTE Prophylaxis VTE prophylaxis: mechanical ordered Hospitalist MIPS Advance Care Plan I have confirmed that the patient's Advanced Care Plan is present, code status is documented, or surrogate decision maker is listed in patient medical record.: Yes Medication Reconciliation I have utilized all available resources to obtain, update and review the patients current medications (includes all prescriptions, OTC, herbals, cannabis, and nutritional supplements).: Yes
[2025-03-06] MEDS: TAMSULOSIN HCL 0.4 MG CAPSULE PO (21:36)
[2025-03-06] MEDS: POTASSIUM CHLORIDE 20 MEQ ER TABLET 40 MEQ PO (23:12)
[2025-03-07] VITALS (13 sets, daily range): BP systolic 112–146; BP diastolic 52–65; PULSE 60–72; RESP 18–22; TEMP 35.9–36.3; O2SAT 95–100
[2025-03-07] MEDS: IPRATROPIUM 0.5 MG/ALBUTEROL SULFATE 2.5 MG (BASE) AMPUL.NEB 3 ML INHALATION (04:11)
[2025-03-07] MEDS: LEVOTHYROXINE SODIUM 125 MCG TABLET PO (05:35)
[2025-03-07 06:03] LABS: Hematocrit 25.8 % (42.0-52.0); Hemoglobin 7.5 g/dL (14.0-18.0); Immature Granulocyte Percent A 0.9 % (0-0.5); Lymphocytes Absolute Auto 0.91 K/mm3 (0.9-3.2); Mean Corpuscular HGB Conc 29.1 g/dl (32-36); Mean Corpuscular Hemoglobin 27.2 pg (26-34); Mean Corpuscular Volume 93.5 fl (80-100); Nucleated Red Blood Cells Absolute Auto 0.000 K/mm3 (0.0-0.012); Nucleated Red Blood Cells Perc 0.0 % (0.0-0.2); Platelet Count Result 199 k/mm3 (150-375); Red Blood Count 2.76 M/mm3 (4.6-6.20); White Blood Count 14.0 K/mm3 (4.5-10.0)
--- NOTE | 2025-03-07 06:04 | PC.NURSE ---
Patient self straight catheterizes himself 3-4 times per day due to urine retention. Patient stated he could not find the bag of straight catheters he brought with him when brought to ED. Emergency department called to check patient room triaged. There was not any of the patient's belongings left in room. Hospital straight catheters were provided, but he stated the hospital catheters were uncomfortable and not like ones he brought. Education and demonstration how to use straight catheters. Patient declined and requested to have a bee catheter placed instead. Dr. Fletcher gave orders to place bee for retention.
[2025-03-07 06:40] LABS: Anisocytosis 1+; Burr Cells 2+; Hypochromasia 1+; Schistocytes None Seen
[2025-03-07] MEDS: UMECLIDINIUM/VILANTEROL 62.5-25 MCG ELLIPTA 2 PUFF INHALATION (07:42)
[2025-03-07 08:43] LABS: Alanine Aminotransferase 12 U/L (6-50); Albumin Level 3.3 g/dL (3.5-5.1); Alkaline Phosphatase 82 U/L (38-126); Anion Gap 4 mmol/L (4-12); Aspartate Amino Transferase 23 U/L (17-59); Bilirubin,Total 0.5 mg/dL (0.2-1.3); Blood Urea Nitrogen 17 mg/dL (9-20); Calcium 7.6 mg/dL (8.4-10.2); Carbon Dioxide 33 mmol/L (22-30); Chloride 101 mmol/L (98-107); Estimated CRCL calculation 50 ml/min; Estimated Glomerular Filt Rate 58; Glucose 95 mg/dL (65-110); NT Pro B Type Natriuretic Pept 1260 pg/mL (19.9-100); Potassium 3.4 mmol/L (3.4-5.0); Sodium 138 mmol/L (137-145); Total Protein 6.0 g/dL (6.3-8.2)
--- NOTE | 2025-03-07 08:54 | P.PNIM_ITS ---
Progress Note: A&P Assessment and Plan (1) Acute UTI: Code(s): N39.0 - Urinary tract infection, site not specified Status: Acute Assessment and Plan: To the ED with complaints of a possible UTI. Patient has chronic urinary retention and has been self cathing 3-4 times daily for the past 6 months. UA with 1+ protein, 1+ blood, positive nitrates, 3+ leukocyte Estrace, > 100 WBC, 4+ bacteria -ceftriaxone 1 g Q 24 started on 03/06 -urine culture pending -previous urine culture grew Klebsiella oxytoca susceptible to ceftriaxone -continue straight catheterization every 8 hours. -educate patient on proper technique to avoid introducing bacteria 03/08: -WBC 17.3-->14.0 today, continue to monitor -UC pending -Continue ceftriaxone with hopeful PO switch tomorrow (2) Hypokalemia: Code(s): E87.6 - Hypokalemia Status: Acute Assessment and Plan: Potassium 2.9 on presentation. Was as low as 2.8 in January. No EKG changes -40 mEq p.o. given -trend electrolytes and replace as needed 03/07: K 3.4 today, continue to replace with 40meq IV -Continue to trend levels (3) COPD (chronic obstructive pulmonary disease): Qualifiers: COPD type: unspecified COPD Qualified Code(s): J44.9 - Chronic obstructive pulmonary disease, unspecified Code(s): J44.9 - Chronic obstructive pulmonary disease, unspecified Status: Chronic Assessment and Plan: History of COPD dependent on supplemental oxygen at 3 L per nasal cannula. Chest x-ray with no acute cardiopulmonary process. No respiratory distress. -continue supplemental oxygen -continue Anoro Ellipta -DuoNeb q.6 p.r.n. 03/07: CXR NAD -BNP elevated, continue lasix, BP & labs stable (4) Decubitus ulcer: Qualifiers: Laterality: unspecified laterality Pressure injury location: buttock Pressure injury stage: stage 2 Qualified Code(s): L89.302 - Pressure ulcer of unspecified buttock, stage 2 Code(s): L89.90 - Pressure ulcer of unspecified site, unspecified stage Status: Acute Assessment and Plan: Small bilateral upper buttocks pink ulcerations, appears friction related -turn patient every 2 hours -wound care consult Plan Diet: Heart healthy diet GI prophylaxis: NA DVT prophylaxis: Eliquis (home med) lines/drains: PIV Fluids: NS at 125 stopped on 03/06 Code status: Supervisor Testing Spent With Patient Time: 35 Subjective Date/time seen: 03/07/25 1019 Interval history: Pt lying in bed sleeping upon my arrival. Pt easily arousable. Pt denies any issues today, he states that his breathing feels better that yesterday. Review of Systems Review of Systems: All systems reviewed & are unremarkable except as noted in HPI and below Exam Narrative: GENERAL: non-toxic appearing, in no acute distress. HEAD: Normocephalic, atraumatic. EYES: PERRLA. Conjunctivae clear. ENT: Mucous membranes moist. No drainage NECK: Trachea midline. No adenopathy, no masses. RESPIRATORY: Airway patent, respirations nonlabored. CTA. CARDIOVASCULAR: Regular rate and rhythm GASTROINTESTINAL: Abdomen is soft and nontender. No organomegaly. Bowel sounds normal in all quadrants. GENITOURINARY: Defer MUSCULOSKELETAL: Moves all extremities. No gross deformities. No calf tenderness. SKIN: Warm, dry, normal color. Trace bilateral lower extremity edema. Bilateral upper buttocks pink ulcerations to inner cleft, friction related NEURO: A&O X4. Speech clear PSYCHIATRIC: Normal interaction Objective Data Vital Signs Vital Signs: Vital Signs - 24 hr 03/06/25 11:04 03/06/25 11:06 03/06/25 11:07 Temperature Pulse Rate 66 Respiratory Rate 19 Blood Pressure 132/49 L Pulse Oximetry 95 96 92 Oxygen Delivery Oxygen Flow Rate 03/06/25 11:17 03/06/25 11:20 03/06/25 11:30 Temperature Pulse Rate Respiratory Rate Blood Pressure 143/53 H Pulse Oximetry 100 96 Oxygen Delivery Oxygen Flow Rate 03/06/25 12:31 03/06/25 12:46 03/06/25 13:01 Temperature Pulse Rate 71 Respiratory Rate 18 Blood Pressure 127/51 L 124/48 L 132/55 L Pulse Oximetry 96 Oxygen Delivery Oxygen Flow Rate 03/06/25 13:24 03/06/25 13:30 03/06/25 13:45 Temperature Pulse Rate Respiratory Rate Blood Pressure Pulse Oximetry 79 L 97 97 Oxygen Delivery Oxygen Flow Rate 03/06/25 14:00 03/06/25 14:17 03/06/25 15:02 Temperature Pulse Rate 54 L Respiratory Rate 19 Blood Pressure 127/41 L Pulse Oximetry 100 80 L 100 Oxygen Delivery Oxygen Flow Rate 03/06/25 16:19 03/06/25 16:45 03/06/25 19:52 Temperature 97.0 F L 97.7 F Pulse Rate 61 61 Respiratory Rate 16 16 Blood Pressure 127/52 L 148/46 H Pulse Oximetry 100 100 Oxygen Delivery Room Air Oxygen Flow Rate 03/06/25 21:36 03/06/25 21:47 03/07/25 00:21 Temperature Pulse Rate 60 Respiratory Rate Blood Pressure Pulse Oximetry 100 100 Oxygen Delivery Nasal Cannula Nasal Cannula Oxygen Flow Rate 2 3 03/07/25 03:48 03/07/25 04:25 03/07/25 04:25 Temperature 97.3 F L Pulse Rate 61 61 61 Respiratory Rate 18 22 H 22 H Blood Pressure 146/65 H Pulse Oximetry 100 99 Oxygen Delivery Nasal Cannula Oxygen Flow Rate 2 03/07/25 04:32 Temperature Pulse Rate 61 Respiratory Rate 20 Blood Pressure Pulse Oximetry Oxygen Delivery Oxygen Flow Rate Intake/Output Intake/Output: Intake & Output 03/04/25 03/05/25 03/06/25 03/07/25 23:59 23:59 22:59 23:59 Intake Total 390 350 Output Total 150 1400 Balance 240 -1050 Meds/Results Medications: Active Medications Generic Name Dose Route Start Last Admin Trade Name Freq PRN Reason Stop Dose Admin Acetaminophen 650 mg 03/06/25 13:43 Acetaminophen 325 Mg Tablet PO Q4H PRN Mild Pain (1-3) or Fever Hydrocodone Bitart/Acetaminophen 1 tab 03/06/25 13:43 Hydrocodone/Acetaminophen (*Crx) 5-325 Mg Tablet PO Q4H PRN Pain Rated 4-6 Albuterol/Ipratropium 3 ml 03/06/25 22:07 03/07/25 04:11 Ipratropium 0.5 Mg/Albuterol Sulfate 2.5 Mg (Base) Ampul.Neb 3 Ml INHALATION 3 ml Q6HRT PRN Administration Shortness Of Breath Or Wheezing Amiodarone HCl 200 mg 03/07/25 08:00 Amiodarone Hcl 200 Mg Tablet PO DAILY@0800 [facility] Apixaban 5 mg 03/07/25 09:00 Apixaban 5 Mg Tablet PO Q12HR [facility] Atorvastatin Calcium 40 mg 03/07/25 09:00 Atorvastatin 40 Mg Tablet PO DAILY [facility] Buspirone HCl 5 mg 03/06/25 21:00 03/06/25 21:36 Buspirone Hcl 5 Mg Tablet PO 5 mg Q12HR [facility] Administration Carvedilol 3.125 mg 03/06/25 21:00 11 21:36 Carvedilol 3.125 Mg Tablet PO 3.125 mg Q12HR NARENDRA Administration Diltiazem HCl 120 mg 03/07/25 09:00 Diltiazem Hcl Cd 120 Mg Cap.24hr PO DAILY [facility] Ferrous Sulfate 325 mg 03/07/25 12:00 Ferrous Sulfate 325 Mg Tablet BY MOUTH 1200,1700 [facility] Furosemide 40 mg 03/07/25 09:00 Furosemide 40 Mg Tablet PO DAILY [facility] Ceftriaxone Sodium 1 gm/ 50 mls @ 100 mls/hr 03/07/25 14:00 Sodium Chloride IVPB Q24H [facility] Levothyroxine Sodium 125 mcg 03/07/25 06:30 03/07/25 05:35 Levothyroxine Sodium 125 Mcg Tablet PO 125 mcg DAILY@0630 [facility] Administration Miscellaneous Information 1 each 03/07/25 00:01 Anoro Ellipta: Ordered 2puffs Bid, Recommended Dosing Is Max 1 Inhalation Once Daily Spoke XX 04/06/25 00:00 CLARIFY [facility] Morphine Sulfate 2 mg 03/06/25 13:43 Morphine Sulfate (*Crx) 4 Mg/Ml Inj IV PUSH Q2H PRN Pain Rated 7-10 Ondansetron HCl 4 mg 03/06/25 13:43 Ondansetron Inj 4 Mg/2 Ml Vial IV PUSH Q4H PRN Nausea Tamsulosin HCl 0.4 mg 03/06/25 21:00 03/06/25 21:36 Tamsulosin Hcl 0.4 Mg Capsule PO 0.4 mg HS [facility] Administration Umeclidinium/Vilanterol 2 puff 03/07/25 20:00 Umeclidinium/Vilanterol 62.5-25 Mcg Ellipta INHALATION Q12HRT [facility] Radiology Results: ITS Impressions Chest X-Ray 03/06/25 11:00 IMPRESSION: 1. No acute cardiopulmonary findings. Labs Labs: Laboratory Results - last 24 hr 03/06/25 03/06/25 03/06/25 10:56 12:27 18:38 WBC 17.3 H RBC 2.85 L Hgb 7.6 L Hct 25.7 L MCV 90.2 MCH 26.7 MCHC 29.6 L RDW 16.7 H Plt Count 218 MPV 9.7 Immature Gran % (Auto) 0.9 H Neut % (Auto) 82.6 H Lymph % (Auto) 6.2 L [place] % (Auto) 9.9 H Eos % (Auto) 0.2 Baso % (Auto) 0.2 Lymph # (Auto) 1.07 [place] # (Auto) 1.7 H Eos # (Auto) 0.0 Baso # (Auto) 0.0 Abs Immat Gran (auto) 0.15 H Absolute Neuts (auto) 14.3 H Absolute Nucleated RBC 0.000 Band Neutrophils % Not Reportable Nucleated RBC % 0.0 Platelet Estimate Adequate Polychromasia Occasional Hypochromasia 1+ Anisocytosis 1+ Ovalocytes 1+ [place] Cells Schistocytes None seen Sodium 138 Potassium 2.9 L Chloride 98 Carbon Dioxide 33 H Anion Gap 7 BUN 18 Creatinine 1.57 H Estim Creat Clear Calc 39 Estimated GFR 42 L Glucose 108 Calcium 7.8 L Total Bilirubin 0.6 AST 24 ALT 14 Alkaline Phosphatase 94 NT-Pro-B Natriuret Pep 1030 H Total Protein 6.8 Albumin 3.9 Urine Color Yellow Urine Appearance Cloudy H Urine pH 6.0 Ur Specific [place] 1.016 Urine Protein 1+ H Urine Glucose (UA) Negative Urine Ketones Negative Ur Blood (Man) 1+ H Urine Nitrate Positive H Urine Bilirubin Negative Urine Urobilinogen 1.0 Leukocyte Esterase Rfl 3+ H Urine RBC 3-5 H Urine WBC >100 H Ur Squamous Epith Cells None seen Urine Bacteria 4+ H Urine Casts 0-2 03/07/25 03/07/25 05:34 06:47 WBC 14.0 H RBC 2.76 L Hgb 7.5 L Hct 25.8 L MCV 93.5 MCH 27.2 MCHC 29.1 L RDW 16.5 H Plt Count 199 MPV 10.1 Immature Gran % (Auto) 0.9 H Neut % (Auto) 82.9 H Lymph % (Auto) 6.5 L [place] % (Auto) 8.6 H Eos % (Auto) 0.9 Baso % (Auto) 0.2 Lymph # (Auto) 0.91 [place] # (Auto) 1.2 H Eos # (Auto) 0.1 Baso # (Auto) 0.0 Abs Immat Gran (auto) 0.12 H Absolute Neuts (auto) 11.6 H Absolute Nucleated RBC 0.000 Band Neutrophils % Not Reportable Nucleated RBC % 0.0 Platelet Estimate Adequate Polychromasia Hypochromasia 1+ Anisocytosis 1+ Ovalocytes [place] Cells 2+ Schistocytes None seen Sodium 138 Potassium 3.4 Chloride 101 Carbon Dioxide 33 H Anion Gap 4 BUN 17 Creatinine 1.20 Estim Creat Clear Calc 50 Estimated GFR 58 L Glucose 95 Calcium 7.6 L Total Bilirubin 0.5 AST 23 ALT 12 Alkaline Phosphatase 82 NT-Pro-B Natriuret Pep 1260 H Total Protein 6.0 L Albumin 3.3 L Urine Color Urine Appearance Urine pH Ur Specific [place] Urine Protein Urine Glucose (UA) Urine Ketones Ur Blood (Man) Urine Nitrate Urine Bilirubin Urine Urobilinogen Leukocyte Esterase Rfl Urine RBC Urine WBC Ur Squamous Epith Cells Urine Bacteria Urine Casts Quality VTE Prophylaxis VTE prophylaxis: mechanical ordered and pharmacologic ordered (home eliquis)
[2025-03-07] MEDS: AMIODARONE HCL 200 MG TABLET PO (09:23)
[2025-03-07] MEDS: ATORVASTATIN 40 MG TABLET PO (09:23)
[2025-03-07] MEDS: FUROSEMIDE 40 MG TABLET PO (09:23)
[2025-03-07] MEDS: dilTIAZem HCL CD 120 MG CAP.24HR PO (09:23)
[2025-03-07] MEDS: APIXABAN 5 MG TABLET PO ×2 (09:23→20:39)
[2025-03-07] MEDS: POTASSIUM CHLORIDE INJ 40 MEQ in SODIUM CHLORIDE 0.9% IV 500 ML 130 MEQ IVPB (09:25)
[2025-03-07] MEDS: FERROUS SULFATE 325 MG TABLET BY MOUTH ×2 (12:06→17:16)
[2025-03-07] MEDS: cefTRIAXone 1 GM in SODIUM CHLORIDE 0.9% IV 50 ML 100 ML IVPB (14:59)
[2025-03-07] MEDS: TAMSULOSIN HCL 0.4 MG CAPSULE PO (20:39)
[2025-03-07] MEDS: MELATONIN 5 MG TABLET PO (22:59)
[2025-03-08] VITALS (7 sets, daily range): BP systolic 120–123; BP diastolic 52–54; PULSE 64–68; RESP 18–20; TEMP 36.1–36.6; O2SAT 97–100
[2025-03-08] MEDS: LEVOTHYROXINE SODIUM 125 MCG TABLET PO (05:42)
[2025-03-08 06:12] LABS: Hematocrit 26.0 % (42.0-52.0); Hemoglobin 7.5 g/dL (14.0-18.0); Immature Granulocyte Percent A 0.5 % (0-0.5); Lymphocytes Absolute Auto 0.50 K/mm3 (0.9-3.2); Mean Corpuscular HGB Conc 28.8 g/dl (32-36); Mean Corpuscular Hemoglobin 26.7 pg (26-34); Mean Corpuscular Volume 92.5 fl (80-100); Nucleated Red Blood Cells Absolute Auto 0.000 K/mm3 (0.0-0.012); Nucleated Red Blood Cells Perc 0.0 % (0.0-0.2); Platelet Count Result 215 k/mm3 (150-375); Red Blood Count 2.81 M/mm3 (4.6-6.20); White Blood Count 8.3 K/mm3 (4.5-10.0)
[2025-03-08 06:54] LABS: Anisocytosis 1+; Burr Cells 1+; Hypochromasia 1+; Schistocytes Occasional
[2025-03-08 07:01] LABS: Alanine Aminotransferase 14 U/L (6-50); Albumin Level 3.2 g/dL (3.5-5.1); Alkaline Phosphatase 89 U/L (38-126); Anion Gap 5 mmol/L (4-12); Aspartate Amino Transferase 23 U/L (17-59); Bilirubin,Total 0.4 mg/dL (0.2-1.3); Blood Urea Nitrogen 17 mg/dL (9-20); Calcium 7.8 mg/dL (8.4-10.2); Carbon Dioxide 34 mmol/L (22-30); Chloride 98 mmol/L (98-107); Estimated CRCL calculation 49 ml/min; Estimated Glomerular Filt Rate 56; Glucose 102 mg/dL (65-110); Potassium 3.7 mmol/L (3.4-5.0); Sodium 137 mmol/L (137-145); Total Protein 6.0 g/dL (6.3-8.2)
[2025-03-08] MEDS: UMECLIDINIUM/VILANTEROL 62.5-25 MCG ELLIPTA 1 PUFF INHALATION (07:53)
[2025-03-08] MEDS: dilTIAZem HCL CD 120 MG CAP.24HR PO (09:21)
[2025-03-08] MEDS: POTASSIUM CHLORIDE 20 MEQ ER TABLET 40 MEQ PO (09:21)
[2025-03-08] MEDS: APIXABAN 5 MG TABLET PO ×2 (09:21→20:41)
[2025-03-08] MEDS: ATORVASTATIN 40 MG TABLET PO (09:21)
[2025-03-08] MEDS: AMIODARONE HCL 200 MG TABLET PO (09:21)
[2025-03-08] MEDS: FUROSEMIDE 40 MG TABLET PO (09:22)
--- NOTE | 2025-03-08 09:51 | P.CDI_ITS ---
CDI Query Clarification Request Clarification request - UTI has been documented, self catheterization documented. Please clarify if UTI is: * due to/associated with self catheterization * not due to/associated with self catheterization * unable to determine (1) Acute UTI: Code(s): N39.0 - Urinary tract infection, site not specified Status: Acute Assessment and Plan: To the ED with complaints of a possible UTI. Patient has chronic urinary retention and has been self cathing 3-4 times daily for the past 6 months. UA with 1+ protein, 1+ blood, positive nitrates, 3+ leukocyte Estrace, > 100 WBC, 4+ bacteria -ceftriaxone 1 g Q 24 started on 03/06 -urine culture pending -previous urine culture grew Klebsiella oxytoca susceptible to ceftriaxone -continue straight catheterization every 8 hours. -educate patient on proper technique to avoid introducing bacteria 03/08: -WBC 17.3-->14.0 today, continue to monitor -UC pending -Continue ceftriaxone with hopeful PO switch tomorrow <Polly Pagan RN - Last Filed: 03/08/25 09:52> Clarification request - UTI has been documented, self catheterization documented. Please clarify if UTI is: * due to/associated with self catheterization (1) Acute UTI: Code(s): N39.0 - Urinary tract infection, site not specified Status: Acute Assessment and Plan: To the ED with complaints of a possible UTI. Patient has chronic urinary retention and has been self cathing 3-4 times daily for the past 6 months. UA with 1+ protein, 1+ blood, positive nitrates, 3+ leukocyte Estrace, > 100 WBC, 4+ bacteria -ceftriaxone 1 g Q 24 started on 03/06 -urine culture pending -previous urine culture grew Klebsiella oxytoca susceptible to ceftriaxone -continue straight catheterization every 8 hours. -educate patient on proper technique to avoid introducing bacteria 114: -WBC 17.3-->14.0 today, continue to monitor -UC pending -Continue ceftriaxone with hopeful PO switch tomorrow <Juju Ruiz APRN - Last Filed: 03/08/25 12:23>
[2025-03-08] MEDS: FERROUS SULFATE 325 MG TABLET BY MOUTH ×2 (13:06→18:11)
--- NOTE | 2025-03-08 15:26 | PM.IMPN ---
Progress Note: A&P Assessment and Plan (1) Acute UTI: Code(s): N39.0 - Urinary tract infection, site not specified Status: Acute Assessment and Plan: To the ED with complaints of a possible UTI. Patient has chronic urinary retention and has been self cathing 3-4 times daily for the past 6 months. UA with 1+ protein, 1+ blood, positive nitrates, 3+ leukocyte Estrace, > 100 WBC, 4+ bacteria -ceftriaxone 1 g Q 24 started on 03/06 -urine culture pending -previous urine culture grew Klebsiella oxytoca susceptible to ceftriaxone -continue straight catheterization every 8 hours. -educate patient on proper technique to avoid introducing bacteria 03/07: -WBC 17.3-->14.0 today, continue to monitor -UC pending -Continue ceftriaxone with hopeful PO switch tomorrow 03/08: -WBC 14-->8.3, today, continue to monitor -UC pending -Switched to Augmentin PO today for complicated UTI (2) Hypokalemia: Code(s): E87.6 - Hypokalemia Status: Acute Assessment and Plan: Potassium 2.9 on presentation. Was as low as 2.8 in January. No EKG changes -40 mEq p.o. given -trend electrolytes and replace as needed 03/07: K 3.4 today, continue to replace with 40meq IV -Continue to trend levels 03/08: K 3.7 today (seems around her baseline) -40 Meq PO today for maintenance (3) COPD (chronic obstructive pulmonary disease): Qualifiers: COPD type: unspecified COPD Qualified Code(s): J44.9 - Chronic obstructive pulmonary disease, unspecified Code(s): J44.9 - Chronic obstructive pulmonary disease, unspecified Status: Chronic Assessment and Plan: History of COPD dependent on supplemental oxygen at 3 L per nasal cannula. Chest x-ray with no acute cardiopulmonary process. No respiratory distress. -continue supplemental oxygen -continue Anoro Ellipta -DuoNeb q.6 p.r.n. 03/07: CXR NAD -BNP elevated, continue lasix, BP & labs stable 03/08: Continue to deny SOB, continues NC 3L at baseline (4) Decubitus ulcer: Qualifiers: Laterality: unspecified laterality Pressure injury location: buttock Pressure injury stage: stage 2 Qualified Code(s): L89.302 - Pressure ulcer of unspecified buttock, stage 2 Code(s): L89.90 - Pressure ulcer of unspecified site, unspecified stage Status: Acute Assessment and Plan: Small bilateral upper buttocks pink ulcerations, appears friction related -turn patient every 2 hours -wound care consult with recs for antifungal barrier cream to treat and protect Plan Diet: Heart healthy diet GI prophylaxis: NA DVT prophylaxis: Eliquis (home med) lines/drains: PIV Fluids: NS at 125 stopped on 03/06 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 Pt easily arousable. Pt denies any issues today, he continues to deny SOB/CP. Continues to be oriented to my exam. Review of Systems Review of Systems: All systems reviewed & are unremarkable except as noted in HPI and below Exam Narrative: GENERAL: non-toxic appearing, in no acute distress. HEAD: Normocephalic, atraumatic. EYES: PERRLA. Conjunctivae clear. ENT: Mucous membranes moist. No drainage NECK: Trachea midline. No adenopathy, no masses. RESPIRATORY: Airway patent, respirations nonlabored. CTA. CARDIOVASCULAR: Regular rate and rhythm GASTROINTESTINAL: Abdomen is soft and nontender. No organomegaly. Bowel sounds normal in all quadrants. GENITOURINARY: Defer, bee in place MUSCULOSKELETAL: Moves all extremities. No gross deformities. No calf tenderness. SKIN: Warm, dry, normal color. Trace bilateral lower extremity edema. Bilateral upper buttocks pink ulcerations to inner cleft, friction related NEURO: A&O X4. Speech clear PSYCHIATRIC: Normal interaction Objective Data Vital Signs Vital Signs: Vital Signs - 24 hr 03/07/25 19:56 03/07/25 20:39 03/07/25 20:40 Temperature 97.3 F L Pulse Rate 60 67 72 Respiratory Rate 20 18 Blood Pressure 134/52 L Pulse Oximetry 95 100 Oxygen Delivery Nasal Cannula Oxygen Flow Rate 2 03/07/25 20:43 03/08/25 04:30 03/08/25 08:00 Temperature 96.9 F L Pulse Rate 68 Respiratory Rate 18 Blood Pressure 120/52 L Pulse Oximetry 95 100 100 Oxygen Delivery Nasal Cannula Nasal Cannula Oxygen Flow Rate 3 3 03/08/25 10:55 03/08/25 13:14 03/08/25 14:00 Temperature 97.2 F L Pulse Rate 64 Respiratory Rate 20 Blood Pressure 121/53 L Pulse Oximetry 100 Oxygen Delivery Nasal Cannula Nasal Cannula Oxygen Flow Rate 3 2 03/08/25 14:56 Temperature Pulse Rate Respiratory Rate Blood Pressure Pulse Oximetry 97 Oxygen Delivery Nasal Cannula Oxygen Flow Rate 2 Intake/Output Intake/Output: Intake & Output 03/05/25 03/06/25 03/07/25 03/08/25 23:59 22:59 23:59 23:59 Intake Total 390 1670 410 Output Total 150 3600 625 Balance 889 -4006 -371 Meds/Results Medications: Active Medications Generic Name Dose Route Start Last Admin Trade Name Freq PRN Reason Stop Dose Admin Acetaminophen 650 mg 03/06/25 13:43 Acetaminophen 325 Mg Tablet PO Q4H PRN Mild Pain (1-3) or Fever Hydrocodone Bitart/Acetaminophen 1 tab 03/06/25 13:43 Hydrocodone/Acetaminophen (*Crx) 5-325 Mg Tablet PO Q4H PRN Pain Rated 4-6 Albuterol/Ipratropium 3 ml 03/06/25 22:07 03/07/25 04:11 Ipratropium 0.5 Mg/Albuterol Sulfate 2.5 Mg (Base) Ampul.Neb 3 Ml INHALATION 3 ml Q6HRT PRN Administration Shortness Of Breath Or Wheezing Amiodarone HCl 200 mg 03/07/25 08:00 03/08/25 09:21 Amiodarone Hcl 200 Mg Tablet PO 200 mg DAILY@0800 NARENDRA Administration Amoxicillin/Clavulanate Potassium 1 tablet 03/08/25 09:00 03/08/25 09:22 Amoxicillin/Clavulanate K 875-125 Mg Tab PO 03/12/25 21:01 1 tablet Q12HR NARENDRA Administration Apixaban 5 mg 03/07/25 09:00 03/08/25 09:21 Apixaban 5 Mg Tablet PO 5 mg Q12HR NARENDRA Administration Atorvastatin Calcium 40 mg 03/07/25 09:00 03/08/25 09:21 Atorvastatin 40 Mg Tablet PO 40 mg DAILY NARENDRA Administration Buspirone HCl 5 mg 03/06/25 21:00 03/08/25 09:21 Buspirone Hcl 5 Mg Tablet PO 5 mg Q12HR NARENDRA Administration Carvedilol 3.125 mg 03/06/25 21:00 03/08/25 09:21 Carvedilol 3.125 Mg Tablet PO 3.125 mg Q12HR NARENDRA Administration Diltiazem HCl 120 mg 03/07/25 09:00 03/08/25 09:21 Diltiazem Hcl Cd 120 Mg Cap.24hr PO 120 mg DAILY NARENDRA Administration Ferrous Sulfate 325 mg 03/07/25 12:00 03/08/25 13:06 Ferrous Sulfate 325 Mg Tablet BY MOUTH 325 mg 1200,1700 NARENDRA Administration Furosemide 40 mg 03/07/25 09:00 03/08/25 09:22 Furosemide 40 Mg Tablet PO 40 mg DAILY NARENDRA Administration Levothyroxine Sodium 125 mcg 03/07/25 06:30 03/08/25 05:42 Levothyroxine Sodium 125 Mcg Tablet PO 125 mcg DAILY@0630 NARENDRA Administration Morphine Sulfate 2 mg 03/06/25 13:43 Morphine Sulfate (*Crx) 4 Mg/Ml Inj IV PUSH Q2H PRN Pain Rated 7-10 Ondansetron HCl 4 mg 03/06/25 13:43 Ondansetron Inj 4 Mg/2 Ml Vial IV PUSH Q4H PRN Nausea Tamsulosin HCl 0.4 mg 03/06/25 21:00 03/07/25 20:39 Tamsulosin Hcl 0.4 Mg Capsule PO 0.4 mg HS NARENDRA Administration Umeclidinium/Vilanterol 1 puff 03/08/25 08:00 03/08/25 07:53 Umeclidinium/Vilanterol 62.5-25 Mcg Ellipta INHALATION 1 puff DAILYRT NARENDRA Administration Radiology Results: ITS Impressions Chest X-Ray 03/06/25 11:00 IMPRESSION: 1. No acute cardiopulmonary findings. Labs Labs: Laboratory Results - last 24 hr 03/08/25 05:33 WBC 8.3 RBC 2.81 L Hgb 7.5 L Hct 26.0 L MCV 92.5 MCH 26.7 MCHC 28.8 L RDW 16.1 H Plt Count 215 MPV 10.0 Immature Gran % (Auto) 0.5 Neut % (Auto) 81.6 H Lymph % (Auto) 6.0 L [place] % (Auto) 9.2 H Eos % (Auto) 2.3 Baso % (Auto) 0.4 Lymph # (Auto) 0.50 L [place] # (Auto) 0.8 H Eos # (Auto) 0.2 Baso # (Auto) 0.0 Abs Immat Gran (auto) 0.04 H Absolute Neuts (auto) 6.8 H Absolute Nucleated RBC 0.000 Band Neutrophils % Not Reportable Nucleated RBC % 0.0 Platelet Estimate Adequate Hypochromasia 1+ Anisocytosis 1+ [place] Cells 1+ Schistocytes Occasional Sodium 137 Potassium 3.7 Chloride 98 Carbon Dioxide 34 H Anion Gap 5 BUN 17 Creatinine 1.24 Estim Creat Clear Calc 49 Estimated GFR 56 L Glucose 102 Calcium 7.8 L Total Bilirubin 0.4 AST 23 ALT 14 Alkaline Phosphatase 89 Total Protein 6.0 L Albumin 3.2 L Quality VTE Prophylaxis VTE prophylaxis: mechanical ordered and pharmacologic ordered (home eliquis)
[2025-03-08] MEDS: TAMSULOSIN HCL 0.4 MG CAPSULE PO (20:41)
[2025-03-09] VITALS (8 sets, daily range): BP systolic 109–125; BP diastolic 49–57; PULSE 61–75; RESP 18–20; TEMP 36.1–37.1; O2SAT 95–100
[2025-03-09] MEDS: IPRATROPIUM 0.5 MG/ALBUTEROL SULFATE 2.5 MG (BASE) AMPUL.NEB 3 ML INHALATION (02:57)
[2025-03-09] MEDS: LEVOTHYROXINE SODIUM 125 MCG TABLET PO (05:53)
[2025-03-09 06:38] LABS: Hematocrit 22.9 % (42.0-52.0); Immature Granulocyte Percent A 0.6 % (0-0.5); Lymphocytes Absolute Auto 0.91 K/mm3 (0.9-3.2); Mean Corpuscular HGB Conc 29.7 g/dl (32-36); Mean Corpuscular Hemoglobin 26.9 pg (26-34); Mean Corpuscular Volume 90.5 fl (80-100); Nucleated Red Blood Cells Absolute Auto 0.000 K/mm3 (0.0-0.012); Nucleated Red Blood Cells Perc 0.0 % (0.0-0.2); Platelet Count Result 203 k/mm3 (150-375); Red Blood Count 2.53 M/mm3 (4.6-6.20); White Blood Count 6.5 K/mm3 (4.5-10.0)
[2025-03-09 06:58] LABS: Alanine Aminotransferase 12 U/L (6-50); Albumin Level 3.0 g/dL (3.5-5.1); Alkaline Phosphatase 78 U/L (38-126); Anion Gap 3 mmol/L (4-12); Aspartate Amino Transferase 22 U/L (17-59); Bilirubin,Total 0.3 mg/dL (0.2-1.3); Blood Urea Nitrogen 16 mg/dL (9-20); Calcium 7.5 mg/dL (8.4-10.2); Carbon Dioxide 34 mmol/L (22-30); Chloride 98 mmol/L (98-107); Estimated CRCL calculation 46 ml/min; Estimated Glomerular Filt Rate 52; Glucose 90 mg/dL (65-110); Potassium 3.6 mmol/L (3.4-5.0); Sodium 135 mmol/L (137-145); Total Protein 5.7 g/dL (6.3-8.2)
[2025-03-09 07:00] LABS: Hemoglobin 6.8 g/dL (14.0-18.0)
[2025-03-09 07:01] LABS: Hypochromasia 1+; Ovalocytes 1+; Schistocytes None Seen; Target Cells 1+
[2025-03-09] MEDS: AMIODARONE HCL 200 MG TABLET PO (09:26)
[2025-03-09] MEDS: dilTIAZem HCL CD 120 MG CAP.24HR PO (09:26)
[2025-03-09] MEDS: ATORVASTATIN 40 MG TABLET PO (09:26)
[2025-03-09] MEDS: APIXABAN 5 MG TABLET PO ×2 (09:27→20:12)
[2025-03-09] MEDS: FUROSEMIDE 40 MG TABLET PO (09:27)
[2025-03-09] MEDS: UMECLIDINIUM/VILANTEROL 62.5-25 MCG ELLIPTA 1 PUFF INHALATION (09:28)
[2025-03-09] MEDS: FERROUS SULFATE 325 MG TABLET BY MOUTH ×2 (13:26→18:08)
[2025-03-09 13:43] LABS: Hematocrit 25.6 % (42.0-52.0); Hemoglobin 7.5 g/dL (14.0-18.0)
--- NOTE | 2025-03-09 16:34 | P.PNIM_ITS ---
Progress Note: A&P Assessment and Plan (1) Acute UTI: Code(s): N39.0 - Urinary tract infection, site not specified Status: Acute Assessment and Plan: To the ED with complaints of a possible UTI. Patient has chronic urinary retention and has been self cathing 3-4 times daily for the past 6 months. UA with 1+ protein, 1+ blood, positive nitrates, 3+ leukocyte Estrace, > 100 WBC, 4+ bacteria -ceftriaxone 1 g Q 24 started on 03/06 -urine culture pending -previous urine culture grew Klebsiella oxytoca susceptible to ceftriaxone -continue straight catheterization every 8 hours. -educate patient on proper technique to avoid introducing bacteria 03/07: -WBC 17.3-->14.0 today, continue to monitor -UC pending -Continue ceftriaxone with hopeful PO switch tomorrow 03/08: -WBC 14-->8.3, today, continue to monitor -UC pending -Switched to Augmentin PO today for complicated UTI (2) Hypokalemia: Code(s): E87.6 - Hypokalemia Status: Acute Assessment and Plan: Potassium 2.9 on presentation. Was as low as 2.8 in January. No EKG changes -40 mEq p.o. given -trend electrolytes and replace as needed 03/07: K 3.4 today, continue to replace with 40meq IV -Continue to trend levels 03/08: K 3.7 today (seems around her baseline) -40 Meq PO today for maintenance (3) COPD (chronic obstructive pulmonary disease): Qualifiers: COPD type: unspecified COPD Qualified Code(s): J44.9 - Chronic obstructive pulmonary disease, unspecified Code(s): J44.9 - Chronic obstructive pulmonary disease, unspecified Status: Chronic Assessment and Plan: History of COPD dependent on supplemental oxygen at 3 L per nasal cannula. Chest x-ray with no acute cardiopulmonary process. No respiratory distress. -continue supplemental oxygen -continue Anoro Ellipta -DuoNeb q.6 p.r.n. 03/07: CXR NAD -BNP elevated, continue lasix, BP & labs stable 03/08: Continue to deny SOB, continues NC 3L at baseline (4) Decubitus ulcer: Qualifiers: Laterality: unspecified laterality Pressure injury location: buttock Pressure injury stage: stage 2 Qualified Code(s): L89.302 - Pressure ulcer of unspecified buttock, stage 2 Code(s): L89.90 - Pressure ulcer of unspecified site, unspecified stage Status: Acute Assessment and Plan: Small bilateral upper buttocks pink ulcerations, appears friction related -turn patient every 2 hours -wound care consult with recs for antifungal barrier cream to treat and protect Plan To the ED with complaints of a possible UTI. Patient has chronic urinary retention and has been self cathing 3-4 times daily for the past 6 months. UA with 1+ protein, 1+ blood, positive nitrates, 3+ leukocyte Estrace, > 100 WBC, 4+ bacteria, patient was stated on Augmetin, patient stats feels better, however has not had BM for close to 1 week, stats he passing gas, feels like he will have soon. will continue to monitor and plan. Diet: Heart healthy diet GI prophylaxis: NA DVT prophylaxis: Eliquis (home med) lines/drains: PIV Fluids: NS at 125 stopped on 03/06 Code status: Full Subjective Date/time seen: 03/09/25 16:34 Interval history: Pt lying in bed sleeping upon my arrival. Pt easily arousable. Pt denies any issues today, he continues to deny SOB/CP. Continues to be oriented to my exam. To the ED with complaints of a possible UTI. Patient has chronic urinary retention and has been self cathing 3-4 times daily for the past 6 months. UA with 1+ protein, 1+ blood, positive nitrates, 3+ leukocyte Estrace, > 100 WBC, 4+ bacteria, patient was stated on Augmetin, patient stats feels better, however has not had BM for close to 1 week, stats he passing gas, feels like he will have soon. will continue to monitor and plan. Review of Systems Review of Systems: All systems reviewed & are unremarkable except as noted in HPI and below Exam Narrative: Patient is comfortable, NAD HEENT: eyes are clear and none icteric LUNGS:CTA HEART: RR S1S2 ABD: BS+, Soft and nontender Lower extremities: no edema SKIN: nonjaundiced Neuro: grossly intact. Objective Data Vital Signs Vital Signs: Vital Signs - 24 hr 03/08/25 20:00 03/08/25 20:24 03/08/25 20:41 Temperature 36.6 C Pulse Rate 68 68 68 Respiratory Rate 18 18 Blood Pressure 123/54 L Pulse Oximetry 100 100 Oxygen Delivery Nasal Cannula Oxygen Flow Rate 3 Fraction of Inspired Oxygen 03/09/25 02:57 03/09/25 03:09 03/09/25 05:24 Temperature 37.1 C Pulse Rate 61 64 74 Respiratory Rate 20 20 20 Blood Pressure 120/57 L Pulse Oximetry 100 Oxygen Delivery Oxygen Flow Rate Fraction of Inspired Oxygen 03/09/25 08:00 03/09/25 09:28 03/09/25 09:28 Temperature Pulse Rate 72 72 72 Respiratory Rate 18 18 Blood Pressure Pulse Oximetry 96 96 Oxygen Delivery Room Air Room Air Oxygen Flow Rate Fraction of Inspired Oxygen 21 21 03/09/25 14:00 Temperature 36.1 C L Pulse Rate 75 Respiratory Rate 18 Blood Pressure 125/49 L Pulse Oximetry 97 Oxygen Delivery Oxygen Flow Rate Fraction of Inspired Oxygen Intake/Output Intake/Output: Intake & Output 03/06/25 03/07/25 03/08/25 03/09/25 22:59 23:59 23:59 23:59 Intake Total 390 1670 1970 880 Output Total 150 3600 2325 3650 Balance 847 -6452 -758 -9756 Meds/Results Medications: Active Medications Generic Name Dose Route Start Last Admin Trade Name Freq PRN Reason Stop Dose Admin Acetaminophen 650 mg 03/06/25 13:43 Acetaminophen 325 Mg Tablet PO Q4H PRN Mild Pain (1-3) or Fever Hydrocodone Bitart/Acetaminophen 1 tab 03/06/25 13:43 Hydrocodone/Acetaminophen (*Crx) 5-325 Mg Tablet PO Q4H PRN Pain Rated 4-6 Albuterol/Ipratropium 3 ml 03/06/25 22:07 03/09/25 02:57 Ipratropium 0.5 Mg/Albuterol Sulfate 2.5 Mg (Base) Ampul.Neb 3 Ml INHALATION 3 ml Q6HRT PRN Administration Shortness Of Breath Or Wheezing Amiodarone HCl 200 mg 03/07/25 08:00 03/09/25 09:26 Amiodarone Hcl 200 Mg Tablet PO 200 mg DAILY@0800 NARENDRA Administration Amoxicillin/Clavulanate Potassium 1 tablet 03/08/25 09:00 03/09/25 09:26 Amoxicillin/Clavulanate K 875-125 Mg Tab PO 03/12/25 21:01 1 tablet Q12HR NARENDRA Administration Apixaban 5 mg 03/07/25 09:00 03/09/25 09:27 Apixaban 5 Mg Tablet PO 5 mg Q12HR NARENDRA Administration Atorvastatin Calcium 40 mg 03/07/25 09:00 03/09/25 09:26 Atorvastatin 40 Mg Tablet PO 40 mg DAILY NARENDRA Administration Buspirone HCl 5 mg 03/06/25 21:00 03/09/25 09:26 Buspirone Hcl 5 Mg Tablet PO 5 mg Q12HR NARENDRA Administration Carvedilol 3.125 mg 03/06/25 21:00 03/09/25 09:26 Carvedilol 3.125 Mg Tablet PO 3.125 mg Q12HR NARENDRA Administration Diltiazem HCl 120 mg 03/07/25 09:00 03/09/25 09:26 Diltiazem Hcl Cd 120 Mg Cap.24hr PO 120 mg DAILY NARENDRA Administration Ferrous Sulfate 325 mg 03/07/25 12:00 03/09/25 13:26 Ferrous Sulfate 325 Mg Tablet BY MOUTH 325 mg 1200,1700 NARENDRA Administration Furosemide 40 mg 03/07/25 09:00 03/09/25 09:27 Furosemide 40 Mg Tablet PO 40 mg DAILY [facility] Administration Levothyroxine Sodium 125 mcg 03/07/25 06:30 03/09/25 05:53 Levothyroxine Sodium 125 Mcg Tablet PO 125 mcg DAILY@0630 [facility] Administration Morphine Sulfate 2 mg 03/06/25 13:43 Morphine Sulfate (*Crx) 4 Mg/Ml Inj IV PUSH Q2H PRN Pain Rated 7-10 Ondansetron HCl 4 mg 03/06/25 13:43 Ondansetron Inj 4 Mg/2 Ml Vial IV PUSH Q4H PRN Nausea Tamsulosin HCl 0.4 mg 03/06/25 21:00 03/08/25 20:41 Tamsulosin Hcl 0.4 Mg Capsule PO 0.4 mg HS [facility] Administration Umeclidinium/Vilanterol 1 puff 03/08/25 08:00 03/09/25 09:28 Umeclidinium/Vilanterol 62.5-25 Mcg Ellipta INHALATION 1 puff DAILYRT NARENDRA Administration Radiology Results: ITS Impressions Chest X-Ray 03/06/25 11:00 IMPRESSION: 1. No acute cardiopulmonary findings. Labs Labs: Laboratory Results - last 24 hr 03/09/25 03/09/25 06:29 11:58 WBC 6.5 RBC 2.53 L Hgb 6.8 L* 7.5 L Hct 22.9 L 25.6 L MCV 90.5 MCH 26.9 MCHC 29.7 L RDW 15.9 H Plt Count 203 MPV 9.5 Immature Gran % (Auto) 0.6 H Neut % (Auto) 67.6 Lymph % (Auto) 14.1 L [place] % (Auto) 12.4 H Eos % (Auto) 4.8 H Baso % (Auto) 0.5 Lymph # (Auto) 0.91 [place] # (Auto) 0.8 H Eos # (Auto) 0.3 Baso # (Auto) 0.0 Abs Immat Gran (auto) 0.04 H Absolute Neuts (auto) 4.4 Absolute Nucleated RBC 0.000 Band Neutrophils % Not Reportable Nucleated RBC % 0.0 Platelet Estimate Adequate Hypochromasia 1+ Target Cells 1+ Ovalocytes 1+ Schistocytes None seen Sodium 135 L Potassium 3.6 Chloride 98 Carbon Dioxide 34 H Anion Gap 3 L BUN 16 Creatinine 1.31 H Estim Creat Clear Calc 46 Estimated GFR 52 L Glucose 90 Calcium 7.5 L Total Bilirubin 0.3 AST 22 ALT 12 Alkaline Phosphatase 78 Total Protein 5.7 L Albumin 3.0 L Quality VTE Prophylaxis VTE prophylaxis: mechanical ordered and pharmacologic ordered (home eliquis)
[2025-03-09] MEDS: TAMSULOSIN HCL 0.4 MG CAPSULE PO (20:12)
[2025-03-10] VITALS (9 sets, daily range): BP systolic 109–136; BP diastolic 57–70; PULSE 53–74; RESP 14–20; TEMP 36–36.6; O2SAT 97–100
[2025-03-10] MEDS: LEVOTHYROXINE SODIUM 125 MCG TABLET PO (05:51)
[2025-03-10 06:00] LABS: Hematocrit 27.3 % (42.0-52.0); Hemoglobin 8.0 g/dL (14.0-18.0); Immature Granulocyte Percent A 1.1 % (0-0.5); Lymphocytes Absolute Auto 0.93 K/mm3 (0.9-3.2); Mean Corpuscular HGB Conc 29.3 g/dl (32-36); Mean Corpuscular Hemoglobin 26.4 pg (26-34); Mean Corpuscular Volume 90.1 fl (80-100); Nucleated Red Blood Cells Absolute Auto 0.000 K/mm3 (0.0-0.012); Nucleated Red Blood Cells Perc 0.0 % (0.0-0.2); Platelet Count Result 250 k/mm3 (150-375); Red Blood Count 3.03 M/mm3 (4.6-6.20); White Blood Count 5.5 K/mm3 (4.5-10.0)
[2025-03-10 06:22] LABS: Alanine Aminotransferase 14 U/L (6-50); Albumin Level 3.6 g/dL (3.5-5.1); Alkaline Phosphatase 86 U/L (38-126); Anion Gap 5 mmol/L (4-12); Aspartate Amino Transferase 26 U/L (17-59); Bilirubin,Total 0.3 mg/dL (0.2-1.3); Blood Urea Nitrogen 16 mg/dL (9-20); Calcium 8.0 mg/dL (8.4-10.2); Carbon Dioxide 34 mmol/L (22-30); Chloride 97 mmol/L (98-107); Estimated CRCL calculation 45 ml/min; Estimated Glomerular Filt Rate 50; Glucose 98 mg/dL (65-110); Potassium 3.6 mmol/L (3.4-5.0); Sodium 136 mmol/L (137-145); Total Protein 6.5 g/dL (6.3-8.2)
[2025-03-10 06:35] LABS: Anisocytosis 1+; Hypochromasia 1+
[2025-03-10 06:36] LABS: Ovalocytes 1+; Schistocytes None Seen
[2025-03-10] MEDS: UMECLIDINIUM/VILANTEROL 62.5-25 MCG ELLIPTA 1 PUFF INHALATION (07:46)
[2025-03-10] MEDS: dilTIAZem HCL CD 120 MG CAP.24HR PO (08:30)
[2025-03-10] MEDS: AMIODARONE HCL 200 MG TABLET PO (08:30)
[2025-03-10] MEDS: APIXABAN 5 MG TABLET PO ×2 (08:30→20:58)
[2025-03-10] MEDS: ATORVASTATIN 40 MG TABLET PO (08:30)
[2025-03-10] MEDS: FUROSEMIDE 40 MG TABLET PO (08:30)
[2025-03-10] MEDS: DOCUSATE SODIUM 100 MG CAPSULE PO ×2 (09:27→15:37)
[2025-03-10] MEDS: FERROUS SULFATE 325 MG TABLET BY MOUTH ×2 (12:07→17:13)
--- NOTE | 2025-03-10 15:41 | P.PNIM_ITS ---
Progress Note: A&P Assessment and Plan (1) Acute UTI: Code(s): N39.0 - Urinary tract infection, site not specified Status: Acute Assessment and Plan: To the ED with complaints of a possible UTI. Patient has chronic urinary retention and has been self cathing 3-4 times daily for the past 6 months. UA with 1+ protein, 1+ blood, positive nitrates, 3+ leukocyte Estrace, > 100 WBC, 4+ bacteria -ceftriaxone 1 g Q 24 started on 03/06 -urine culture pending -previous urine culture grew Klebsiella oxytoca susceptible to ceftriaxone -continue straight catheterization every 8 hours. -educate patient on proper technique to avoid introducing bacteria 03/07: -WBC 17.3-->14.0 today, continue to monitor -UC pending -Continue ceftriaxone with hopeful PO switch tomorrow 03/08: -WBC 14-->8.3, today, continue to monitor -UC pending -Switched to Augmentin PO today for complicated UTI (2) Hypokalemia: Code(s): E87.6 - Hypokalemia Status: Acute Assessment and Plan: Potassium 2.9 on presentation. Was as low as 2.8 in January. No EKG changes -40 mEq p.o. given -trend electrolytes and replace as needed 03/07: K 3.4 today, continue to replace with 40meq IV -Continue to trend levels 03/08: K 3.7 today (seems around her baseline) -40 Meq PO today for maintenance (3) COPD (chronic obstructive pulmonary disease): Qualifiers: COPD type: unspecified COPD Qualified Code(s): J44.9 - Chronic obstructive pulmonary disease, unspecified Code(s): J44.9 - Chronic obstructive pulmonary disease, unspecified Status: Chronic Assessment and Plan: History of COPD dependent on supplemental oxygen at 3 L per nasal cannula. Chest x-ray with no acute cardiopulmonary process. No respiratory distress. -continue supplemental oxygen -continue Anoro Ellipta -DuoNeb q.6 p.r.n. 03/07: CXR NAD -BNP elevated, continue lasix, BP & labs stable 03/08: Continue to deny SOB, continues NC 3L at baseline (4) Decubitus ulcer: Qualifiers: Laterality: unspecified laterality Pressure injury location: buttock Pressure injury stage: stage 2 Qualified Code(s): L89.302 - Pressure ulcer of unspecified buttock, stage 2 Code(s): L89.90 - Pressure ulcer of unspecified site, unspecified stage Status: Acute Assessment and Plan: Small bilateral upper buttocks pink ulcerations, appears friction related -turn patient every 2 hours -wound care consult with recs for antifungal barrier cream to treat and protect Plan To the ED with complaints of a possible UTI. Patient has chronic urinary retention and has been self cathing 3-4 times daily for the past 6 months. UA with 1+ protein, 1+ blood, positive nitrates, 3+ leukocyte Estrace, > 100 WBC, 4+ bacteria, patient was stated on Augmentin, patient stats feels better, however has not had BM for close to 1 week, stats he passing gas, feels like he will have soon. patient urine culture is growing Klebsiella pneumoniae banks sensitive, will continue Augmentin, patient still have not had BM, will give miralax and colace and monitor. Diet: Heart healthy diet GI prophylaxis: NA DVT prophylaxis: Eliquis (home med) lines/drains: PIV Fluids: NS at 125 stopped on 03/06 Code status: Full Subjective Date/time seen: 03/10/25 15:41 Interval history: Pt lying in bed sleeping upon my arrival. Pt easily arousable. Pt denies any issues today, he continues to deny SOB/CP. Continues to be oriented to my exam. To the ED with complaints of a possible UTI. Patient has chronic urinary retention and has been self cathing 3-4 times daily for the past 6 months. UA with 1+ protein, 1+ blood, positive nitrates, 3+ leukocyte Estrace, > 100 WBC, 4+ bacteria, patient was stated on Augmentin, patient stats feels better, however has not had BM for close to 1 week, stats he passing gas, feels like he will have soon. patient urine culture is growing Klebsiella pneumoniae banks sensitive, will continue Augmentin, patient still have not had BM, will give miralax and colace and monitor. Review of Systems Review of Systems: All systems reviewed & are unremarkable except as noted in HPI and below Exam Narrative: Patient is comfortable, NAD HEENT: eyes are clear and none icteric LUNGS:CTA HEART: RR S1S2 ABD: BS+, Soft and nontender Lower extremities: no edema SKIN: nonjaundiced Neuro: grossly intact. Objective Data Vital Signs Vital Signs: Vital Signs - 24 hr 03/09/25 20:00 03/09/25 22:00 03/10/25 06:00 Temperature 36.2 C L 36.6 C Pulse Rate 61 61 Respiratory Rate 20 20 Blood Pressure 109/57 L 136/57 L Pulse Oximetry 95 100 100 Oxygen Delivery Nasal Cannula Oxygen Flow Rate 3 03/10/25 07:49 03/10/25 07:49 03/10/25 08:00 Temperature Pulse Rate 74 53 L Respiratory Rate 18 Blood Pressure Pulse Oximetry 100 97 Oxygen Delivery Nasal Cannula Nasal Cannula Oxygen Flow Rate 3 3 03/10/25 08:28 03/10/25 08:30 03/10/25 14:00 Temperature 36.0 C L Pulse Rate 55 L 56 L 61 Respiratory Rate 14 Blood Pressure 126/66 Pulse Oximetry 99 Oxygen Delivery Oxygen Flow Rate Intake/Output Intake/Output: Intake & Output 03/07/25 03/08/25 03/09/25 03/10/25 23:59 23:59 23:59 23:59 Intake Total 1670 1970 1120 2130 Output Total 3600 2325 4200 800 Balance -5430 -355 -1310 1330 Meds/Results Medications: Active Medications Generic Name Dose Route Start Last Admin Trade Name Freq PRN Reason Stop Dose Admin Acetaminophen 650 mg 03/06/25 13:43 Acetaminophen 325 Mg Tablet PO Q4H PRN Mild Pain (1-3) or Fever Hydrocodone Bitart/Acetaminophen 1 tab 03/06/25 13:43 Hydrocodone/Acetaminophen (*Crx) 5-325 Mg Tablet PO Q4H PRN Pain Rated 4-6 Albuterol/Ipratropium 3 ml 03/06/25 22:07 03/09/25 02:57 Ipratropium 0.5 Mg/Albuterol Sulfate 2.5 Mg (Base) Ampul.Neb 3 Ml INHALATION 3 ml Q6HRT PRN Administration Shortness Of Breath Or Wheezing Amiodarone HCl 200 mg 03/07/25 08:00 03/10/25 08:30 Amiodarone Hcl 200 Mg Tablet PO 200 mg DAILY@0800 NARENDRA Administration Amoxicillin/Clavulanate Potassium 1 tablet 03/08/25 09:00 03/10/25 08:30 Amoxicillin/Clavulanate K 875-125 Mg Tab PO 03/12/25 21:01 1 tablet Q12HR NARENDRA Administration Apixaban 5 mg 03/07/25 09:00 03/10/25 08:30 Apixaban 5 Mg Tablet PO 5 mg Q12HR NARENDRA Administration Atorvastatin Calcium 40 mg 03/07/25 09:00 03/10/25 08:30 Atorvastatin 40 Mg Tablet PO 40 mg DAILY NARENDRA Administration Buspirone HCl 5 mg 03/06/25 21:00 03/10/25 08:29 Buspirone Hcl 5 Mg Tablet PO 5 mg Q12HR NARENDRA Administration Carvedilol 3.125 mg 03/06/25 21:00 03/10/25 08:28 Carvedilol 3.125 Mg Tablet PO 3.125 mg Q12HR NARENDRA Administration Diltiazem HCl 120 mg 03/07/25 09:00 03/10/25 08:30 Diltiazem Hcl Cd 120 Mg Cap.24hr PO 120 mg DAILY NARENDRA Administration Docusate Sodium 100 mg 03/10/25 08:39 03/10/25 15:37 Docusate Sodium 100 Mg Capsule PO 100 mg Q12H PRN Administration Constipation Ferrous Sulfate 325 mg 03/07/25 12:00 03/10/25 12:07 Ferrous Sulfate 325 Mg Tablet BY MOUTH 325 mg 1200,1700 NARENDRA Administration Furosemide 40 mg 03/07/25 09:00 03/10/25 08:30 Furosemide 40 Mg Tablet PO 40 mg DAILY NARENDRA Administration Levothyroxine Sodium 125 mcg 03/07/25 06:30 03/10/25 05:51 Levothyroxine Sodium 125 Mcg Tablet PO 125 mcg DAILY@0630 [facility] Administration Morphine Sulfate 2 mg 03/06/25 13:43 Morphine Sulfate (*Crx) 4 Mg/Ml Inj IV PUSH Q2H PRN Pain Rated 7-10 Ondansetron HCl 4 mg 03/06/25 13:43 Ondansetron Inj 4 Mg/2 Ml Vial IV PUSH Q4H PRN Nausea Polyethylene Glycol 17 gm 03/10/25 08:39 03/10/25 15:37 Polyethylene Glycol 3350 17 Gm Powd.Pack PO 17 gm QAM PRN Administration Constipation Tamsulosin HCl 0.4 mg 03/06/25 21:00 03/09/25 20:12 Tamsulosin Hcl 0.4 Mg Capsule PO 0.4 mg HS NARENDRA Administration Umeclidinium/Vilanterol 1 puff 03/08/25 08:00 03/10/25 07:46 Umeclidinium/Vilanterol 62.5-25 Mcg Ellipta INHALATION 1 puff DAILYRT NARENDRA Administration Radiology Results: ITS Impressions Chest X-Ray 03/06/25 11:00 IMPRESSION: 1. No acute cardiopulmonary findings. Labs Labs: Laboratory Results - last 24 hr 03/10/25 05:34 WBC 5.5 RBC 3.03 L Hgb 8.0 L Hct 27.3 L MCV 90.1 MCH 26.4 MCHC 29.3 L RDW 16.0 H Plt Count 250 MPV 9.7 Immature Gran % (Auto) 1.1 H Neut % (Auto) 62.9 Lymph % (Auto) 17.0 L [place] % (Auto) 12.6 H Eos % (Auto) 6.0 H Baso % (Auto) 0.4 Lymph # (Auto) 0.93 [place] # (Auto) 0.7 H Eos # (Auto) 0.3 Baso # (Auto) 0.0 Abs Immat Gran (auto) 0.06 H Absolute Neuts (auto) 3.4 Absolute Nucleated RBC 0.000 Band Neutrophils % Not Reportable Nucleated RBC % 0.0 Platelet Estimate Adequate Hypochromasia 1+ Anisocytosis 1+ Ovalocytes 1+ Schistocytes None seen Sodium 136 L Potassium 3.6 Chloride 97 L Carbon Dioxide 34 H Anion Gap 5 BUN 16 Creatinine 1.35 H Estim Creat Clear Calc 45 Estimated GFR 50 L Glucose 98 Calcium 8.0 L Total Bilirubin 0.3 AST 26 ALT 14 Alkaline Phosphatase 86 Total Protein 6.5 Albumin 3.6 Quality VTE Prophylaxis VTE prophylaxis: mechanical ordered and pharmacologic ordered (home eliquis)
--- NOTE | 2025-03-10 18:58 | PC.NURSE ---
I have reviewed the License Pending Nurse Adelina Graham's documentation and agree with charting.
[2025-03-10] MEDS: TAMSULOSIN HCL 0.4 MG CAPSULE PO (20:58)
[2025-03-11] MEDS: DOCUSATE SODIUM 100 MG CAPSULE PO (05:56)
[2025-03-11] MEDS: LEVOTHYROXINE SODIUM 125 MCG TABLET PO (05:56)
[2025-03-11 06:00] VITALS: BP 129/50; PULSE 66; RESP 22; TEMP 36.3; O2SAT 99
[2025-03-11 06:20] LABS: Hematocrit 26.4 % (42.0-52.0); Hemoglobin 7.8 g/dL (14.0-18.0); Immature Granulocyte Percent A 1.1 % (0-0.5); Lymphocytes Absolute Auto 1.21 K/mm3 (0.9-3.2); Mean Corpuscular HGB Conc 29.5 g/dl (32-36); Mean Corpuscular Hemoglobin 26.6 pg (26-34); Mean Corpuscular Volume 90.1 fl (80-100); Nucleated Red Blood Cells Absolute Auto 0.000 K/mm3 (0.0-0.012); Nucleated Red Blood Cells Perc 0.0 % (0.0-0.2); Platelet Count Result 277 k/mm3 (150-375); Red Blood Count 2.93 M/mm3 (4.6-6.20); White Blood Count 6.5 K/mm3 (4.5-10.0)
[2025-03-11 06:46] LABS: Anisocytosis 1+; Helmet Cells Occasional; Hypochromasia 1+; Ovalocytes 1+; Schistocytes Occasional
[2025-03-11 06:51] LABS: Alanine Aminotransferase 15 U/L (6-50); Albumin Level 3.5 g/dL (3.5-5.1); Alkaline Phosphatase 78 U/L (38-126); Anion Gap 5 mmol/L (4-12); Aspartate Amino Transferase 31 U/L (17-59); Bilirubin,Total 0.4 mg/dL (0.2-1.3); Blood Urea Nitrogen 14 mg/dL (9-20); Calcium 8.2 mg/dL (8.4-10.2); Carbon Dioxide 34 mmol/L (22-30); Chloride 97 mmol/L (98-107); Estimated CRCL calculation 48 ml/min; Estimated Glomerular Filt Rate 55; Glucose 92 mg/dL (65-110); Potassium 3.8 mmol/L (3.4-5.0); Sodium 136 mmol/L (137-145); Total Protein 6.4 g/dL (6.3-8.2)
[2025-03-11 08:00] VITALS: O2SAT 98
[2025-03-11] MEDS: UMECLIDINIUM/VILANTEROL 62.5-25 MCG ELLIPTA 1 PUFF INHALATION (08:10)
[2025-03-11 08:11] VITALS: O2SAT 96
--- NOTE | 2025-03-11 09:32 | P.DS_ITS ---
DS: Admitting Diagnosis Discharge Date 02/08/25 Admitting Diagnosis UTI symptoms DS: Discharge Diagnosis Discharge Diagnosis (1) Acute UTI: Code(s): N39.0 - Urinary tract infection, site not specified Status: Acute Assessment and Plan: To the ED with complaints of a possible UTI. Patient has chronic urinary retention and has been self cathing 3-4 times daily for the past 6 months. UA with 1+ protein, 1+ blood, positive nitrates, 3+ leukocyte Estrace, > 100 WBC, 4+ bacteria -ceftriaxone 1 g Q 24 started on 03/06 -urine culture pending -previous urine culture grew Klebsiella oxytoca susceptible to ceftriaxone -continue straight catheterization every 8 hours. -educate patient on proper technique to avoid introducing bacteria 03/07: -WBC 17.3-->14.0 today, continue to monitor -UC pending -Continue ceftriaxone with hopeful PO switch tomorrow 03/08: -WBC 14-->8.3, today, continue to monitor -UC pending -Switched to Augmentin PO today for complicated UTI (2) Hypokalemia: Code(s): E87.6 - Hypokalemia Status: Acute Assessment and Plan: Potassium 2.9 on presentation. Was as low as 2.8 in January. No EKG changes -40 mEq p.o. given -trend electrolytes and replace as needed 03/07: K 3.4 today, continue to replace with 40meq IV -Continue to trend levels 03/08: K 3.7 today (seems around her baseline) -40 Meq PO today for maintenance (3) COPD (chronic obstructive pulmonary disease): Qualifiers: COPD type: unspecified COPD Qualified Code(s): J44.9 - Chronic obstructive pulmonary disease, unspecified Code(s): J44.9 - Chronic obstructive pulmonary disease, unspecified Status: Chronic Assessment and Plan: History of COPD dependent on supplemental oxygen at 3 L per nasal cannula. Chest x-ray with no acute cardiopulmonary process. No respiratory distress. -continue supplemental oxygen -continue Anoro Ellipta -DuoNeb q.6 p.r.n. 03/07: CXR NAD -BNP elevated, continue lasix, BP & labs stable 03/08: Continue to deny SOB, continues NC 3L at baseline (4) Decubitus ulcer: Qualifiers: Laterality: unspecified laterality Pressure injury location: buttock Pressure injury stage: stage 2 Qualified Code(s): L89.302 - Pressure ulcer of unspecified buttock, stage 2 Code(s): L89.90 - Pressure ulcer of unspecified site, unspecified stage Status: Acute Assessment and Plan: Small bilateral upper buttocks pink ulcerations, appears friction related -turn patient every 2 hours -wound care consult with recs for antifungal barrier cream to treat and protect Plan To the ED with complaints of a possible UTI. Patient has chronic urinary retention and has been self cathing 3-4 times daily for the past 6 months. UA with 1+ protein, 1+ blood, positive nitrates, 3+ leukocyte Estrace, > 100 WBC, 4+ bacteria, patient was stated on Augmentin, patient stats feels better, however has not had BM for close to 1 week, stats he passing gas, feels like he will have soon. patient urine culture is growing Klebsiella pneumoniae banks sensitive, will continue Augmentin, patient still have not had BM, will give miralax and colace and monitor. Diet: Heart healthy diet GI prophylaxis: NA DVT prophylaxis: Eliquis (home med) lines/drains: PIV Fluids: NS at 125 stopped on 03/06 Code status: Full DS: Summary Hospital Course Hospital Course: To the ED with complaints of a possible UTI. Patient has chronic urinary retention and has been self cathing 3-4 times daily for the past 6 months. UA with 1+ protein, 1+ blood, positive nitrates, 3+ leukocyte Estrace, > 100 WBC, 4+ bacteria, patient was stated on Augmentin, patient stats feels better, however has not had BM for close to 1 week, stats he passing gas, feels like he will have soon. patient urine culture is growing Klebsiella pneumoniae banks sensitive, will continue Augmentin, patient still have not had BM, will give miralax and colace and monitor. patient had a large BM today, he feels comfortable and clinically stable, will discharge home today. Time Spent with Patient Time attestation: Total time spent providing and/or coordinating discharge services: Exam Narrative: Patient is comfortable, NAD HEENT: eyes are clear and none icteric LUNGS:CTA HEART: RR S1S2 ABD: BS+, Soft and nontender Lower extremities: no edema SKIN: nonjaundiced Neuro: grossly intact. DS: Data Data Completed and Pending Labs on day of discharge: Labs from last 24 hours 03/11/25 05:47 WBC 6.5 RBC 2.93 L Hgb 7.8 L Hct 26.4 L MCV 90.1 MCH 26.6 MCHC 29.5 L RDW 16.0 H Plt Count 277 MPV 10.3 Immature Gran % (Auto) 1.1 H Neut % (Auto) 65.6 Lymph % (Auto) 18.5 Merrick % (Auto) 9.8 H Eos % (Auto) 4.4 Baso % (Auto) 0.6 Lymph # (Auto) 1.21 Merrick # (Auto) 0.6 Eos # (Auto) 0.3 Baso # (Auto) 0.0 Abs Immat Gran (auto) 0.07 H Absolute Neuts (auto) 4.3 Absolute Nucleated RBC 0.000 Band Neutrophils % Not Reportable Nucleated RBC % 0.0 Platelet Estimate Adequate Hypochromasia 1+ Anisocytosis 1+ Ovalocytes 1+ Helmet Cells Occasional Schistocytes Occasional Sodium 136 L Potassium 3.8 Chloride 97 L Carbon Dioxide 34 H Anion Gap 5 BUN 14 Creatinine 1.26 Estim Creat Clear Calc 48 Estimated GFR 55 L Glucose 92 Calcium 8.2 L Total Bilirubin 0.4 AST 31 ALT 15 Alkaline Phosphatase 78 Total Protein 6.4 Albumin 3.5 Preliminary micro results at discharge 03/06/25 13:21 Blood Culture - Preliminary Blood 03/06/25 13:36 Blood Culture - Preliminary Blood Discharge Plan Discharge Attending physician on discharge: Chato Willingham Consulting providers: Juju Ruiz Discharging Clinician: Luis Cristobal Patient Disposition: NH Assisted/Asst Living Activity: as tolerated Diet: heart healthy Discharge Instructions: patient to follow up with his primary care provider as soon as possible Patient Instructions: Antibiotic Form, Keen Catheter Placement and Care (GEN), How to Catheterize Yourself (Man) (GEN) Patient Language: Zambian Stand Alone Forms: General Discharge Information Follow-up/Referrals: Darrell,MD Waqas [Primary Care Provider] Discharge Medications: New polyethylene glycol 3350 [Miralax] 17 gram Powder In Packet 17 g PO QAM PRN (Reason: Constipation) Qty: 14 0RF docusate sodium 100 mg Capsule 100 mg PO Q12H PRN (Reason: Constipation) Qty: 30 0RF amoxicillin-pot clavulanate 875-125 mg tablet 1 tablet PO Q12H Qty: 10 0RF Continued albuterol sulfate 90 mcg/actuation HFA aerosol inhaler 2 puff inhalation QID PRN (Reason: shortness of breath or wheezing) Qty: 8.5 0RF diltiazem HCl [Cardizem CD] 120 mg capsule,extended release 24hr 120 mg PO DAILY Eliquis 5 mg tablet 5 mg PO BID umeclidinium-vilanterol [Anoro Ellipta] 62.5-25 mcg/actuation blister with device 2 inh INHALATION BID amiodarone [Pacerone] 200 mg Tablet 200 mg PO DAILY@0800 Qty: 30 0RF carvedilol [Coreg] 3.125 mg Tablet 3.125 mg PO Q12HR Qty: 60 0RF buspirone 5 mg tablet 5 mg PO Q12H Qty: 60 0RF tamsulosin 0.4 mg capsule 0.4 mg PO HS Qty: 30 0RF atorvastatin 40 mg tablet 40 mg PO DAILY ferrous sulfate 325 mg (65 mg iron) tablet 325 mg PO BID ipratropium-albuterol 0.5 mg-3 mg(2.5 mg base)/3 mL solution for nebulization 3 ml INHALATION PRN PRN (Reason: shortness of breath or wheezing) levothyroxine 125 mcg tablet 125 mcg PO DAILY@0630 Held furosemide 40 mg Tablet 40 mg PO DAILY Qty: 30 0RF Hold Instructions: until seen by his primary care provider Other Ambulatory Orders: OT Outpatient Eval and Treat (ONCE) Timeframe: 20250322 Location: Determined by Patient Ordered By: Juju Ruiz PT Outpatient Eval and Treat (ONCE) Timeframe: 20250322 Location: Determined by Patient Ordered By: Juju Ruiz Date of admission: 03/07/25 10:39 Primary Care Provider: NickWaqas Admitting Provider: Chato Willingham Attending physician on admission: Chato Willingham Condition: Stable
[2025-03-11 10:19] VITALS: PULSE 60
[2025-03-11] MEDS: AMIODARONE HCL 200 MG TABLET PO (10:19)
[2025-03-11 10:20] VITALS: PULSE 60
[2025-03-11] MEDS: ATORVASTATIN 40 MG TABLET PO (10:20)
[2025-03-11] MEDS: FUROSEMIDE 40 MG TABLET PO (10:20)
[2025-03-11] MEDS: APIXABAN 5 MG TABLET PO (10:20)
[2025-03-11] MEDS: dilTIAZem HCL CD 120 MG CAP.24HR PO (10:20)
[2025-03-11] MEDS: FERROUS SULFATE 325 MG TABLET BY MOUTH (12:55)
[2025-03-11 14:00] VITALS: BP 138/82; PULSE 89; RESP 20; TEMP 36.9; O2SAT 94
--- NOTE | 2025-03-11 14:49 | PC.NURSE ---
Dr Luis Cristobal said to remove bee before patient discharges. He said no need to do a void trial after bee removal because patient catheterizes self at home.
== END 2025-03-11 14:37 | DRG 699 ==
LOC: ANHED 09:50 → ANH3MEDSUR 15:17
PROVIDERS: Nurse Practitioner Adult Health; Admitting Provider Internal Medicine; Emergency Provider Emergency Medicine; PCP Internal Medicine; Visit Provider Family Medicine
DX: T83.518A Infection and inflammatory reaction due to other urinary catheter, initial encounter (principal); J96.10 Chronic respiratory failure, unspecified whether with hypoxia or hypercapnia; N39.0 Urinary tract infection, site not specified; L89.322 Pressure ulcer of left buttock, stage 2; L89.312 Pressure ulcer of right buttock, stage 2; I12.9 Hypertensive chronic kidney disease with stage 1 through stage 4 chronic kidney disease, or unspecified chronic kidney disease; B96.89 Other specified bacterial agents as the cause of diseases classified elsewhere; N18.9 Chronic kidney disease, unspecified; E03.9 Hypothyroidism, unspecified; I48.91 Unspecified atrial fibrillation; E78.5 Hyperlipidemia, unspecified; J44.9 Chronic obstructive pulmonary disease, unspecified; R33.9 Retention of urine, unspecified; E87.6 Hypokalemia
CPT/HCPCS: 36415; 71046; 80053; 81001; 83880; 85014; 85018; 85025; 87040; 87086; 87186; 93005; 94640; 96365; 96366; 96375; 97110; 97161; 97165; 97530; 97535; 99285; A9270; G0378; J0696; J3480; J7030; J7040

== ENCOUNTER 2025-04-22 05:41 | Emergency (ER) | payer MEDICARE, SELFPAY ==
--- OUTSIDE RECORDS SUMMARY | 2013-02-03 02:08 | XMS_ITS | Continuity of Care Document ---
Author Organization [facility] Address [address] [place] [phone] Phone Care Team Providers Care Mission Systems Engineer Name Role Phone Tracy MARIZOLMynori Unavailable Unavailable [...] Diagnoses Date Provider Providers Copied on Encounter [facility] [address] [address], [place], [id number], tel:[phone] [place] No Information Oct-0 2-201 3 [place]. [address], [facility], . tel:[phone], [place], [place], [id number], tel:[phone] [place] No Information Sep-2 4-201 3 [place]. [address] [facility] [address], [place], [facility], [place]. tel:[phone] Referring Provider: Aravind Garcia, [address], [place], [address]. tel:[phone] [facility] [address], [place], [place], [id number], tel:[phone] [place] No Information Sep-2 0-201 3 [place]. [address] [place] [address], [address], [place], [address], [place]. tel: [phone] Referring Provider: [address], [place], [address]. tel:[phone] [facility], [address] [place], [place] [address], [place], [place], [id number], [place] tel:[phone] [place] No Information Sep-1 6-201 3 [place]. [address] [place] [address], [address], [place], [address], [place]. tel: [phone] Referring Provider: [address], [place], [address]. tel:[phone] [facility], [address] [place] [address], [place], [place], [id number], [place] tel:[phone] [place] No Information Sep-1 3-201 3 [place]. [address] [place] [address], [address], [place], [address], [place]. tel: [phone] Referring Provider: [address], [place], [address]. tel:[phone] [facility], [address] [place], [place] [address], [place], [place], [id number], [place] tel:[phone] [place] No Information Sep-1 1-201 3 [place]. [address] [place] [address], [address], [place], [address], [place]. tel: [phone] Referring Provider: [address], [place], [address]. tel:[phone] [facility], [address] [place], [place] [address], [place], [place], [id number], [place] tel:[phone] [place] No Information Sep-0 4-201 3 [place]. [address] [place] [address], [address], [place], [address], [place]. tel: [phone] Referring Provider: [address], [place], [address]. tel:[phone] [address], [place], [place], [id number], tel:[phone] [place] No Information 3 [place]. [address] [place] [address], [address], [place], [facility], [place]. tel: [phone] Referring Provider: [address], [place], [address]. tel:[phone] [address] [place] [address], [id number], tel:[phone] [place] No Information 3 [place]ina [place]. [address] [place] [address], [address], [place], [facility], . tel: [phone] Referring Provider: [address], [place], [address]. tel:[phone] [address] [place] [address], [id number], tel:[phone] [place] No Information 3 [place]. [address] [place] [address], [address], [place], [facility], . tel: [phone] Referring Provider: [address], [place], [address]. tel:[phone] [address], [place], [id number], tel:[phone] [place] No Information 3 [place]. [address] [place] [address], [address], [place], [address], . tel: [phone] Referring Provider: [address], [place], [address]. tel:[phone] [facility] [address] [facility], [place], [place], [id number], tel:[phone] [place] No Information 3 [place]. [address] [place] [address], [address], [place], [address], . tel: [phone] Referring Provider: [address], [place], [address]. tel:[phone] [facility] [address] [facility], [place], [place], [id number], [place] tel:[phone] [place] No Information 3 [place]. [address] [place] [address], [address], [place], [address], [place]. tel: [phone] Referring Provider: [address], [place], [address]. tel:[phone] [facility] [address] [facility] [address], [place], [place], [id number], [place] tel:[phone] [place] No Information 3 [place]. [address] [place] [address], [address], [place], [address], [place]. tel: [phone] Referring Provider: [address], [place], [address]. tel:[phone] [facility] [address] [facility] [address], [place], [place], [id number], [place] tel:[phone] [place] Pain in joint involving pelvic region and thighPain in joint involving lower leg 3 [place]. [address] [place] [address], [address], [place], [address], [place]. tel: [phone] Referring Provider: [address], [place], [address]. tel:[phone] Family History Family Member Type Diagnosis Age At Onset No Information Payers Payer name Insurance type Covered alliance party ID Authorandree pacheco(s) [employer] Medicare 16 [id number] Social History Type Description Quantity Date Captured [...]
--- OUTSIDE RECORDS SUMMARY | 2025-04-17 21:17 | XMS_ITS | Continuity of Care Document ---
Author Organization [facility] Address [address] [place] [address] Phone Care Team Providers Care Bale Opener Name Role Phone Rudy MALLOY, FACFabiana, Prema Unavailable Unavailab le Allergies, Adverse Reactions, Alerts Substance Reaction Status Criticality No Known Allergies Active No Inform ation Medications Medication Instructions Dosage Effective Dates (start - stop) Status Comments levothyroxine 150 mcg tablet take 1 tablet by oral route every day 150 MCG - Active trazodone 50 mg tablet take 1 tablet by oral route every day at bedtime 50 MG - Active solifenacin 10 mg tablet take 1 tablet by oral route every day 10 MG - Active carvedilol 3.125 mg tablet take 1 tablet by oral route 2 times every day with food 3.125 MG - Active Eliquis 5 mg tablet take 1 tablet by ora l route 2 times every day 5 MG - Active Anoro Ellipta 62.5 mcg-25 mcg/actuation powder for inhalation inhale 1 puff by inhalation route every day at the same time each day 1 puff - Active amiodarone 200 mg tablet take 1 tablet by oral route every day 200 MG - Active buspirone 5 mg tablet take 1 tablet by o ral route 2 times every day 5 MG - Active furosemide 40 mg tablet take 1 tablet by oral route 2 times every day 40 MG - Active diltiazem ER 120 mg capsule,extended release 12 hr take 1 capsule by oral route 2 times every day 120 MG - Active tamsulosin 0.4 mg capsule take 1 capsule by oral route every day 1/2 hour following the same meal each day 0.4 MG - Active Procedures Procedure Date Complex e/m visit add on OFFICE/OUTPATIENT VISIT, EST PM DEVICE INTERROGATE REMOTE PM/ICD REMOTE TECH SERV Complex e/m visit add on OFFICE/OUTPATIENT VISIT, EST ELECTROCARDIOGRAM, COMPLETE PM/ICD REMOTE TECH SERV PM DEVICE INTERROGATE REMOTE Complex e/m visit add on OFFICE/OUTPATIENT VISIT, EST Advance Directives Directive Yes / No Effective Date File Name No Information Encounters Encounter Description Practice Location Reason(s) For Visit Diagnoses Date Provider Providers Copied on Encounter [facility] , [address] [place] [address], [id number] , tel: [phone] [facility] No Information Rudy Lloyd. [address] [place] [address], [id number] , [place]. tel: [phone] OFFICE/OUTPA TIENT VISIT, EST [facility], [address] [place] [address], [id number] , tel: [phone] [facility] [place] Follow Up of 3 mos (chief complaint) Hospitaliz ed 3 weeks ago-UTI (chief complaint) Heart failure, unspecifiedParoxysmal atrial fibrillationEssential (primary) hypertensionAtheroscl erotic heart disease of [place] coronary artery without angina pectorisHyperlipidemi a, unspecifiedOther forms of dyspneaLocalized edemaSleep apnea, unspecified 5 Rudy Lloyd. [facility] [address] , [place], [place], [id number] , [place]. tel: [phone] Referring Provider: Prema Grant, [address] [facility] [address], [place], [address] . tel:[phone] [facility], [address] [place] [address], [id number] , tel: [phone] [facility] Left bundle-branch block, unspecifiedParoxysmal atrial fibrillationUnspecifi ed atrial fibrillationSick sinus syndromeHeart failure, unspecifiedBradycardi a, unspecifiedPalpitatio nsPresence of cardiac pacemaker 5 Rudy Lloyd. [address], [place], [place], [id number] , . tel: [phone] Referring Provider: Prema Grant, [address], [place], [address] . tel:[phone] OFFICE/OUTPA TIENT VISIT, [facility] , [address] [place] [address], [id number] , tel: [phone] [facility] follow up (chief complaint) Body mass index [BMI] 33.0-33.9, adultPresence of cardiac pacemakerParoxysmal atrial fibrillationLocalized edemaChronic obstructive pulmonary disease, unspecifiedEssential (primary) hypertensionHyperlipi demia, unspecifiedAtheroscle rotic heart disease of [place] coronary artery without angina pectorisOther forms of dyspnea 5 Rudy Lloyd. [address] , [place], [place], [id number] , [place]. tel: [phone] Referring Provider: Waqas Ramírez, [address] [facility], [place], [address]. tel:[phone] [facility] , [address] [place] [address], [id number] , tel: [phone] [facility] Presence of cardiac pacemaker 5 Rudy Lloyd. [address], [place], [place], [id number] , [place]. tel: [phone] Referring Provider: Prema Grant, [address], [place], [address] . tel: [phone] sulting Provider: Prema Grant, [address], [place], [address] . tel:[phone] OFFICE/OUTPA TIENT VISIT, [facility], [address] [place] [address], [id number] , tel: [phone] [facility] follow up (chief complaint) Paroxysmal atrial fibrillationAtheroscl erotic heart disease of [place] coronary artery without angina pectorisChronic obstructive pulmonary disease, unspecifiedEssential (primary) hypertensionHyperlipi demia, unspecifiedLocalized edemaPresence of cardiac pacemaker Rudy Lloyd. [facility] [place], [place], [id number] , . tel: [phone] Referring Provider: Waqas Ramírez, [address] [facility], [place], [address]. tel:[phone] [facility], [address] [place] [address], [id number] , tel: [phone] [facility] No Information Zuniga . [facility] [address] [place], [place], [id number] , . tel: [phone] [facility], [address] [place] [address], [id number] , tel: [phone] [facility] No Information Jamibhupnedra Gurmeet. [facility] [place], [place], [id number] , . tel: [phone] [facility], [address] [place] [address], [id number] , tel: [phone] [facility] Localized edemaEncounter for screening, unspecifiedEssential (primary) hypertensionAtheroscl erotic heart disease of [place] coronary artery without angina pectorisParoxysmal atrial fibrillationPresence of cardiac pacemakerPersonal history of other diseases of the circulatory systemOther specified heart blockOther forms of dyspneaOther fatigueObesity, unspecifiedHyperlipid emia, unspecifiedHypothyroi dism, unspecifiedIron deficiencyOther abnormal glucoseOcclusion and stenosis of bilateral carotid arteriesHeart disease, unspecifiedTobacco useChronic obstructive pulmonary disease, unspecifiedSleep apnea, unspecifiedInappropri ate sinus tachycardia, so stated Luda Levi. [address], [place], [place], [id number] , [place]. tel:[phone] Family History Family Member Type Diagnosis Age At Onset No Information Payers Payer name Insurance type Covered green party ID Rose pacheco(s) [facility] [employer] 2 HMO [facility] [id number] Social History Type Description Quantity Date Captured Comments Alcohol Use Details Unknown Caffeine Use Details Unknown Tobacco Use Status No Information Smoking Status No Information Sex Male Chief Complaint And Reason For Visit No Information Reason For Referral Reason For Referral No Information Plan Of Treatment Date Type Action Status Goal Dietary manageme nt education, guidance, and counseling completed Appointment Jorge L Call BOOKED Future Order: Lab Order CBC w/di ff ([id number]), Ordered on: Ordered Future Order: Lab Order [id number] FR ([id number]), Ordered on: Ordered Future Order: Lab Order Thyroid Profile(T3, T4, T3U, FT4, TSH) ([id number]), Ordered on: Ordered Future Order: Lab Order Iron/TIB C ([id number]), Ordered on: Ordered Future Order: Lab Order proBNP ( [id number]), Ordered on: Ordered Future Order: Lab Order Ferritin ([id number]), Ordered on: Ordered History Of Present Illness Encounter Date Complaint History Of Prese nt Illness Follow Up of 3 mos Hospitalized 3 weeks ago-UTI follow up follow up Functional Status Date Functional Assessmen t No Information Instructions Date Instruction Additional Infor mation Dietary management e ducation, guidance, and counseling Related to Body mass index [BMI] 33.0-33.9, adult Assessments Type Assessment Date No Information Patient Care Teams Name Effective Dates (start - stop) Status Members No Information
--- NOTE | ~2025-04-22 | XR_ITS ---
Examination: XR chest 1V portable Clinical History: SOB Comparison: 03/06/2025 Technique: Portable AP Findings: Left pacemaker. Unchanged cardiomegaly. Lungs clear. No acute bony abnormality. IMPRESSION: 1. No acute cardiopulmonary findings given portable technique. Reviewed, dictated and finalized at location R. ER INSPECTOR
--- NOTE | 2025-04-22 05:47 | ECG_ITS ---
Test Date: 2025-04-22 05:58:28 Measurements Intervals Crowley Rate: 59 P: -72 DC: 301 QRS: 12 QRSD: 184 T: 136 QT: 531 QTc: 530 Interpretive Statements ELECTRONIC ATRIAL PACEMAKER LEFT BUNDLE BRANCH BLOCK BASELINE WANDER- I, II, III, AVR, AVL, AVF ABNORMAL ECG Compared to ECG 03/06/2025 11:01:44 No significant changes Electronically Signed On 04-22-2025 06:35:24 MECHANICAL MANUFACTURING TECHNICIAN by Tray Ladd D.O.
[2025-04-22 05:48] VITALS: BP 117/51; PULSE 63; RESP 24; TEMP 36.6; O2SAT 100
[2025-04-22 05:52] VITALS: O2SAT 100
--- NOTE | 2025-04-22 06:01 | ED.SOB ---
HPI - SOB/Dyspnea General Chief Complaint: Shortness of Breath/Dyspnea Stated Complaint: SOB Time Seen by Provider: 04/22/25 05:55 History of Present Illness HPI Narrative: 84-year-old male with history of COPD, chronic oxygen requirement 4 L nasal cannula, AFib, pacemaker, CKD. Patient presents to the emergency department today with respiratory complaints. Presents from care home facility for shortness of breath. Patient was wheezing in route and EMS administered DuoNeb and Decadron and he had significant improvement prior to arrival. Patient states he feels much better at this time but still having some minor symptoms. Denies any chest pain or chest discomfort. No extremity pain or extremity swelling. No nausea, vomiting, fever, chills. Exposed at the nurse facilities sick contacts. Was otherwise in his normal state of health recently. Related Data Home Medications ?Medication ?Instructions ?Recorded ?Confirmed ?Last Taken ?Type apixaban 5 mg tablet (Eliquis) 5 mg PO BID 02/22/24 03/06/25 01/04/25 History diltiazem HCl 120 mg 120 mg PO DAILY 02/22/24 03/06/25 01/04/25 History capsule,extended release 24 hr (Cardizem CD) umeclidinium 62.5 mcg-vilanterol 2 inh inhalation BID 02/22/24 03/06/25 01/04/25 History 25 mcg/actuation powdr for inhalation (Anoro Ellipta) atorvastatin 40 mg tablet 40 mg PO DAILY 03/06/25 03/06/25 Unknown History ferrous sulfate 325 mg (65 mg 325 mg PO BID 03/06/25 03/06/25 Unknown History iron) tablet ipratropium 0.5 mg-albuterol 3 mg 3 ml inhalation PRN PRN shortness 03/06/25 03/06/25 Unknown History (2.5 mg base)/3 mL nebulization of breath or wheezing soln levothyroxine 125 mcg tablet 125 mcg PO DAILY@0630 03/06/25 03/06/25 Unknown History Allergies Allergy/AdvReac Type Severity Reaction Status Date / Time No Known Allergies Allergy Verified 03/06/25 15:59 Review of Systems Review of Systems: As reviewed above in HPI [facility] Past Medical History Medical History CKD (chronic kidney disease) Hypothyroidism Chronic respiratory failure Atrial fibrillation History of hyperlipidemia History of hypertension History of COPD Social History Social History Smoking status: Former smoker Alcohol intake: current Drinks per week: 3 Substance use: never Substance use type: does not use Lack of Transportation: No Lack of Food: Never True Current Housing: I Have Housing Concerned About Future Housing: No Difficulty Paying Gas/Electric Bills: No Difficulty Paying for Meds: No Currently Unemployed: No Education: Decline to Answer Difficulty w/ Childcare or Family Care: No Spiritual care concerns: No Exam Narrative: GENERAL: Well-appearing, in good spirits, pleasant to speak with, no visible distress HEAD: Normocephalic and atraumatic EYES: PERRLA ENT: Nares clear, no rhinorrhea or epistaxis. Mucous membranes moist. NECK: Supple. CHEST: Scattered wheezing throughout both lung hilliard, mildly tachypneic but no decreased aeration or prolonged expiratory phase HEART: 2+ symmetric pulses with regular rate, regular rhythm, warm extremities without edema ABDOMEN: Protuberant but nondistended, soft and nontender EXTREMITIES: Normal range of motion. No extremity edema SKIN: Warm, dry, no rash. NEURO: [No focal deficits]. Alert and oriented [x3.] PSYCH: [Normal mood and affect.] Course Vital Signs Vital signs: Vital Signs Temperature 36.6 C 04/22/25 05:48 Pulse Rate 63 04/22/25 05:48 Respiratory Rate 24 H 04/22/25 05:48 Blood Pressure 117/51 L 04/22/25 05:48 Pulse Oximetry 100 04/22/25 05:48 Oxygen Delivery Room Air 04/22/25 05:48 Temperature 36.6 C 04/22/25 05:48 Pulse Rate 60 04/22/25 06:57 Respiratory Rate 18 04/22/25 06:57 Blood Pressure 130/59 L 04/22/25 06:57 Pulse Oximetry 100 04/22/25 06:57 Oxygen Delivery Nasal Cannula 04/22/25 05:52 Oxygen Flow Rate 4 04/22/25 05:52 MDM MDM Narrative Medical decision making narrative: 84-year-old male with history of COPD, chronic oxygen requirement 4 L nasal cannula, AFib, pacemaker, CKD. Patient presents to the emergency department today with respiratory complaints. Presents from care home facility for shortness of breath. Patient was wheezing in route and EMS administered DuoNeb and Decadron and he had significant improvement prior to arrival. Patient states he feels much better at this time but still having some minor symptoms. Denies any chest pain or chest discomfort. No extremity pain or extremity swelling. No nausea, vomiting, fever, chills. Exposed at the nurse facilities sick contacts. Was otherwise in his normal state of health recently. Patient does appear to have a COPD exacerbation responsive to nebulization treatment and steroids. Here he feels better but still has some scattered wheezing. He is 100% on his baseline oxygen requirement 4 L. He is afebrile without any tachycardia. Strong pulses throughout. Suspect COPD exacerbation versus bronchitis versus pneumonia versus viral illness such as COVID or flu. Low suspicion cardiac pathology. EKG obtained, chest x-ray ordered, viral panel ordered and he was given an hour long nebulization treatment. Already received steroids by EMS. Basic laboratory studies sent. EKG appears to be paced rhythm without any ST segment derangements or acute ischemic concern. Patient placed on equipment monitor phototypesetting. Labs are reassuring. No leukocytosis or anemia worse than his baseline. Normal platelet count. Electrolytes are unremarkable. Kidney function around baseline. Normal glucose. Normal LFTs. Viral panel negative. Chest x-ray clear without any signs of consolidation. Unchanged cardiomegaly. No pleural effusions. EKG at baseline. Patient improved and safe for discharge back to skilled care facility this time. Ambulance service arranged given oxygen requirement at baseline. Differential Diagnosis Differential Diagnosis: Suspect COPD exacerbation versus bronchitis versus pneumonia versus viral illness such as COVID or flu. Low suspicion cardiac pathology. Lab Data [facility] Lab Attestation statement: I personally reviewed the patient's lab results. 04/22/25 06:04 04/22/25 06:04 Labs: Lab Results 04/22/25 Range/Units 06:04 WBC 8.7 (4.5-10.0) K/mm3 RBC 2.90 L (4.6-6.20) M/mm3 Hgb 8.0 L (14.0-18.0) g/dL Hct 27.3 L (42.0-52.0) % MCV 94.1 (80-100) fl MCH 27.6 (26-34) pg MCHC 29.3 L (32-36) g/dl RDW 20.7 H (11.5-14.5) % Plt Count 205 (150-375) k/mm3 MPV 9.4 (7.4-10.4) fl Immature Gran % (Auto) 1.2 H (0-0.5) % Neut % (Auto) 75.1 H (45.5-73.1) % Lymph % (Auto) 13.5 L (18.3-44.2) % [place] % (Auto) 7.4 (2.6-8.5) % Eos % (Auto) 2.5 (0-4.4) % Baso % (Auto) 0.3 (0.2-1.2) % Lymph # (Auto) 1.17 (0.9-3.2) K/mm3 [place] # (Auto) 0.6 (0.1-0.6) K/mm3 Eos # (Auto) 0.2 (0-0.3) K/mm3 Baso # (Auto) 0.0 (0.0-0.1) K/mm3 Abs Immat Gran (auto) 0.10 H (0.00-0.031) K/mm3 Absolute Neuts (auto) 6.5 (1.3-6.7) K/mm3 Absolute Nucleated RBC 0.000 (0.0-0.012) K/mm3 Band Neutrophils % Not Reportable Nucleated RBC % 0.0 (0.0-0.2) % Platelet Estimate Adequate (Adequate) Hypochromasia 2+ Anisocytosis 1+ Schistocytes None seen Sodium 136 L (137-145) mmol/L Potassium 3.4 (3.4-5.0) mmol/L Chloride 96 L (98-107) mmol/L Carbon Dioxide 37 H (22-30) mmol/L Anion Gap 3 L (4-12) mmol/L BUN 22 H (9-20) mg/dL Creatinine 1.54 H (0.7-1.3) mg/dL Estim Creat Clear Calc 41 ml/min Estimated GFR 43 L (59 - ) Glucose 89 (65-110) mg/dL Calcium 8.0 L (8.4-10.2) mg/dL Total Bilirubin 0.4 (0.2-1.3) mg/dL AST 36 (17-59) U/L ALT 22 (6-50) U/L Alkaline Phosphatase 94 (38-126) U/L Total Protein 6.4 (6.3-8.2) g/dL Albumin 3.6 (3.5-5.1) g/dL Influenza A (RT-PCR) Negative (Negative) Influenza B (RT-PCR) Negative (Negative) RSV (RT-PCR) Negative (Negative) SARS-CoV-2 RNA (RT-PCR) Negative (Negative) Imaging Data Attestation: I personally reviewed and interpreted this imaging study as follows: My impression: Impressions Chest X-Ray 04/22/25 06:35 IMPRESSION: 1. No acute cardiopulmonary findings given portable technique. Radiologist's impression: ITS Impressions Chest X-Ray 04/22/25 06:35 IMPRESSION: 1. No acute cardiopulmonary findings given portable technique. Discharge Plan Discharge Clinical Impression: Acute on chronic respiratory failure COPD (chronic obstructive pulmonary disease) Qualifiers: COPD type: unspecified COPD Qualified Code(s): J44.9 - Chronic obstructive pulmonary disease, unspecified Patient Disposition: [facility] Condition: Stable Instructions: Antibiotic Form, COPD (Chronic Obstructive Pulmonary Disease) (DC) Additional Instructions: COPD exacerbation likely versus bronchitis versus viral upper respiratory infection. X-ray shows no pneumonia or any fluid on the lungs. Normal heart borders. EKG is baseline. Laboratory studies reassuring without any signs of infection. COVID test negative. Flu test negative. We have given a prescription for some steroids to help with your breathing and if you have any worsening complaints or new symptoms please follow-up with regular doctor or return with any emergencies. Patient Language: Urdu Prescriptions: New prednisone 50 mg tablet 50 mg PO DAILY 5 Days Qty: 5 0RF No Action albuterol sulfate 90 mcg/actuation HFA aerosol inhaler 2 puff inhalation QID PRN (Reason: shortness of breath or wheezing) Qty: 8.5 0RF diltiazem HCl [Cardizem CD] 120 mg capsule,extended release 24hr 120 mg PO DAILY Eliquis 5 mg tablet 5 mg PO BID umeclidinium-vilanterol [Anoro Ellipta] 62.5-25 mcg/actuation blister with device 2 inh INHALATION BID furosemide 40 mg Tablet 40 mg PO DAILY Qty: 30 0RF amiodarone [Pacerone] 200 mg Tablet 200 mg PO DAILY@0800 Qty: 30 0RF carvedilol [Coreg] 3.125 mg Tablet 3.125 mg PO Q12HR Qty: 60 0RF buspirone 5 mg tablet 5 mg PO Q12H Qty: 60 0RF tamsulosin 0.4 mg capsule 0.4 mg PO HS Qty: 30 0RF atorvastatin 40 mg tablet 40 mg PO DAILY ferrous sulfate 325 mg (65 mg iron) tablet 325 mg PO BID ipratropium-albuterol 0.5 mg-3 mg(2.5 mg base)/3 mL solution for nebulization 3 ml INHALATION PRN PRN (Reason: shortness of breath or wheezing) levothyroxine 125 mcg tablet 125 mcg PO DAILY@0630 polyethylene glycol 3350 [Miralax] 17 gram Powder In Packet 17 g PO QAM PRN (Reason: Constipation) Qty: 14 0RF docusate sodium 100 mg Capsule 100 mg PO Q12H PRN (Reason: Constipation) Qty: 30 0RF amoxicillin-pot clavulanate 875-125 mg tablet 1 tablet PO Q12H Qty: 10 0RF Follow-up/Referrals: Darrell,MD Waqas [Primary Care Provider] Stand Alone Forms: Custodial Discharge Time of Disposition: 06:55
--- OUTSIDE RECORDS SUMMARY | 2025-04-22 06:06 | XMS_ITS | Patient Health Record ---
Author Organization [facility] Address [address] [place] [address] KEI Foley [address] Phone [phone] Care Team Providers Care Repairing Calibrator Name Role Phone Sami Solares MD Primary Care Provider SAMY DANIELS [place] Unavailable Unavailable Reason For Referral No Information Medications Medication SIG (Take, Route, Frequency, Duration) Notes Start Date End Date Diagnosis (ICD Code) Status omeprazole Active levothyroxine Active Restoril 15 MG Capsule 1 capsule Orally every night prn insomnia; Duration: 30 days 03/22/2015 Active tamsulosin Active Losartan Potassium-HCTZ Active Tamsulosin HCl Active traMADol HCl 50 MG Tablet 1 tablet Orally every 8 hrs prn severe pain; Duration: 30 days 05/09/2014 Active Social History Sex Observation Social History Observation Description Sex Observation Male Problems Problem Type SNOMED Code ICD Code Dates Problem Status W/U Status Risk Notes Problem Thoracic and lumbosacral neuritis (962054939) Thoracic or Lumbosacral Radiculopathy (724.4) Added On:03/03 Active confirmed Problem Acquired trigger finger (5047317) Trigger finger (acquired) (727.03) Added On:06/08 Active confirmed Problem Spinal stenosis of lumbar region (35259163) Spinal stenosis of lumbar region (724.02) Added On:03/03 Active confirmed Problem Degenerative joint disease of hand (06983622) Osteoarthrosis, unspecified whether generalized or localized, hand (715.94) Added On:03/09 Active confirmed Problem Lower limb joint arthritis (621026103) Osteoarthrosis, unspecified whether generalized or localized, lower leg (715.96) Added On:03/03 Active confirmed Problem Hand joint pain (643823589) Pain in joint, hand (719.44) Added On:03/09 Active confirmed Problem Pain in joint, lower leg (719.46) Added On:03/03 Active confirmed Problem Lumbosacral spondylosis without myelopathy (52103890) Lumbosacral spondylosis without myelopathy (721.3) Added On:05/09 Active confirmed Problem Displacement of lumbar intervertebral disc without myelopathy (14346455) HNP Lumbar (722.10) Added On:03/03 Active confirmed Problem Pain in forearm (133045908) Pain in joint, forearm (719.43) Added On:06/08 Active confirmed Plan Of Treatment No Information Insurance Providers Payer Name Payer Address Payer Phone Subscriber Number Group Number Insured Name Patient Relationship to Insured Coverage Start Date Coverage End Date [employer] Claims [address] [address] [place] [phone] [id number] KATY MCINTYRE Self - patient is the insured 4 Medical (General) History Medical History History ICD Code hypertension gastroesophageal reflux disease (GERD) gastric ulcer Hypothyroidism degenerative joint disease Surgical History Surgery Date(Month/Year) lumbar discectomy 1973 cervical fusion/discectomy 1988
--- OUTSIDE RECORDS SUMMARY | 2025-04-22 06:06 | XMS_ITS | Data Portability ---
Author Organization [facility] Address [address] [place] [address] Care Team Providers Care Promotional Model Name Role Phone LANRE RAMÍREZ Primary Care Provider Assessment Encounter Date Assessment Date Assessment LastModified by Organization Details LastModified Time 08/20/2024 08/20/2024 Weigh daily. Avoid salt. Review medicines. There are some discrepancies were trying to work through. Healthy lifestyle care instructions. 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 does not want to see [facility] get notes from Cardiology follow up with me in 2 months we will continue current therapy at this time his TSH was 99 talked about the importance of taking medications worrisome is the fact that his ejection fraction has gone from 65-70% to 41% COPD heart failure kidney disease and other diagnosis in the assessment and plan have been discussed [email or web address] Not available 08/20/2024 17:53:23 10/13/2024 10/13/2024 Chronic [...] to see him back in 2 months [email or web address] Not available 10/23/2024 12:24:46 12/21/2024 12/21/2024 Paperwork to be filled out for Morris notably he is not taking aspirin for CAD I believe because a history of GI bleed in 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 We will follow up with me in 3 months [email or web address] Not available 12/26/2024 17:19:01 03/16/2025 03/16/2025 Believe home health has been arranged from the hospital to go out and treat his pressure ulcer I agree with that continue with his other medications for now diagnosis discussed with him and family member I would like to see him back in 3 months [email or web address] Not available 03/25/2025 21:13:25 Plan of Treatment Reminders Order Date Submit Date Provider Last Modified By Organization Details Last Modified Time Details Appointments ANY 15 2025 01:15P Adrienne Ramírez MD Not available Not available Not available Lab CBC w/ auto diff 2024 025 [facility], [address], [address], [place], [address], 03/17/2025 09:22:20 CMP, serum or plasma 2024 025 [facility], [address], [place], [address], 03/17/2025 09:22:19 lipid panel, serum 2024 025 [facility], [address], [address], [place], [address], 09/10/2024 06:49:44 CMP, serum or plasma 2024 025 [facility], [address], [address], [place], [address], 09/10/2024 06:49:45 CBC w/ auto diff 2024 025 [facility], [address], [place], [address], 09/10/2024 06:49:47 Referral pulmonolo gist referral - Please call the pts cell number that is listed for her daughter. 2024 025 [email or web address], [address], [place], [address], 04/07/2025 09:21:46 Procedures None recorded. Surgeries None recorded. Imaging None recorded. Medication Orders None recorded. Patient TargetsNo targets recorded. 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 Referring Physician: Lanre Ramírez, Internal Medicine, Encounter Date: 08/20/2024 Results Created Date Observation Date Name Description Value Unit Range Abnormal Flag Note LastModifiedBy Organization Detail LastModifiedTime 09/10/1909/10/2024 LIPID PANEL cholesterol, total 106 mg/dL 100-19 9 Not Available [facility] ([facility]) [address] [facility], [place], [address], 09/10/2024 06:49:44 09/10/1909/10/2024 LIPID PANEL triglyceride s 68 mg/dL 0-149 Not Available [facility] ([facility]) [address] [facility], [place], [address], 09/10/2024 06:49:44 09/10/1909/10/2024 LIPID PANEL HDL cholesterol 42 mg/dL >39 Not Available [facility]) [address] [facility], [place], [address], 09/10/2024 06:49:44 09/10/19 25 09/10/2024 LIPID PANEL VLDL cholesterol cornell 15 mg/dL 5-40 Not Available [facility] ([facility]) [address] [place], [address], 09/10/2024 06:49:44 09/10/19 25 09/10/2024 LIPID PANEL LDL chol calc ([facility]) 49 mg/dL 0-99 Not Available [facility] ([facility]) [address] [place], [address], 09/10/2024 06:49:44 09/10/19 25 09/10/2024 COMP. METAB OLIC PANEL (14) glucose 83 mg/dL 70-99 Not Available [facility] ([facility]) [address] [place], [address], 09/10/2024 06:49:45 09/10/19 25 09/10/2024 COMP. METAB OLIC PANEL (14) BUN 18 mg/dL 8-27 Not Available [facility] ([facility]) [address] [place], [address], 09/10/2024 06:49:45 09/10/19 25 09/10/2024 COMP. METAB OLIC PANEL (14) creatinine 1.91 mg/dL 0.76-1 .27 above high normal Not Available [facility] ([facility]) [address] [place], [address], 09/10/2024 06:49:45 09/10/19 25 09/10/2024 COMP. METAB OLIC PANEL (14) eGFR 34 mL/mi n/1.7 3 >59 below low normal Not Available [facility] ([facility]) [address] [place], [address], 09/10/2024 06:49:45 09/10/19 25 09/10/2024 COMP. METAB OLIC PANEL (14) BUN/creatini ne ratio 9 10-24 below low normal Not Available [facility] ([facility]) [address] [place], [address], 09/10/2024 06:49:45 09/10/19 25 09/10/2024 COMP. METAB OLIC PANEL (14) sodium 141 mmol/ L 134-14 4 Not Available [facility] ([facility]) [address] [facility] [place], [address], 09/10/2024 06:49:45 09/10/19 25 09/10/2024 COMP. METAB OLIC PANEL (14) potassium 4.1 mmol/ L 3.5-5. 2 Not Available [facility] ([facility]) [address] [facility] [place], [address], 09/10/2024 06:49:45 09/10/19 25 09/10/2024 COMP. METAB OLIC PANEL (14) chloride 99 mmol/ L 96-106 Not Available [facility] ([facility]) [address] [facility] [place], [address], 09/10/2024 06:49:45 09/10/19 25 09/10/2024 COMP. METAB OLIC PANEL (14) carbon dioxide, total 28 mmol/ L 20-29 Not Available [facility] ([facility]) [address] [facility] [place], [address], 09/10/2024 06:49:45 09/10/19 25 09/10/2024 COMP. METAB OLIC PANEL (14) calcium 8.4 mg/dL 8.6-10 .2 below low normal Not Available [facility] ([facility]) [address] [facility] [place], [address], 09/10/2024 06:49:45 09/10/19 25 09/10/2024 COMP. METAB OLIC PANEL (14) protein, total 6.6 g/dL 6.0-8. 5 Not Available [facility] ([facility]) [address] [facility] [place], [address], 09/10/2024 06:49:45 09/10/19 09/10/2024 COMP. METAB OLIC PANEL (14) albumin 4.2 g/dL 3.7-4. 7 Not Available [facility] ([facility]) [address] [place], [address], 09/10/2024 06:49:45 09/10/19 25 09/10/2024 COMP. METAB OLIC PANEL (14) globulin, total 2.4 g/dL 1.5-4. 5 Not Available [facility] ([facility]) [address] [facility], [place], [address], 09/10/2024 06:49:45 09/10/19 25 09/10/2024 COMP. METAB OLIC PANEL (14) bilirubin, total 0.4 mg/dL 0.0-1. 2 Not Available [facility] ([facility]) [address] [place], [address], 09/10/2024 06:49:45 09/10/19 25 09/10/2024 COMP. METAB OLIC PANEL (14) alkaline phosphatase 116 IU/L 44-121 Not Available [facility] ([facility]) [address] [place], [address], 09/10/2024 06:49:45 09/10/19 25 09/10/2024 COMP. METAB OLIC PANEL (14) AST (SGOT) 16 IU/L 0-40 Not Available [facility] ([facility]) [address] [place], [address], 09/10/2024 06:49:45 09/10/19 25 09/10/2024 COMP. METAB OLIC PANEL (14) ALT (SGPT) 17 IU/L 0-44 Not Available [facility] ([facility]) [address] [place], [address], 09/10/2024 06:49:45 09/10/19 25 09/09/2024 CBC WITH DIFFE RENTI AL/PL ATELE T WBC 5.3 x10e3 /uL 3.4-10 .8 Not Available [facility] ([facility]) [address] [place], [address], 09/10/2024 06:49:47 09/10/1909/09/2024 CBC WITH DIFFE RENTI AL/PL ATELE T RBC 3.61 x10e6 /uL 4.14-5 .80 below low normal Not Available [facility] ([facility]) [address] [place], [address], 09/10/2024 06:49:47 09/10/1909/09/2024 CBC WITH DIFFE RENTI AL/PL ATELE T hemoglobin 9.8 g/dL 13.0-1 7.7 below low normal Not Available [facility] ([facility]) [address] [place], [address], 09/10/2024 06:49:47 09/10/1909/09/2024 CBC WITH DIFFE RENTI AL/PL ATELE T hematocrit 32.2 % 37.5-5 1.0 below low normal Not Available [facility] ([facility]) [address] [place], [address], 09/10/2024 06:49:47 09/10/1909/09/2024 CBC WITH DIFFE RENTI AL/PL ATELE T MCV 89 fL 79-97 Not Available [facility] ([facility]) [address] [place], [address], 09/10/2024 06:49:47 09/10/1909/09/2024 CBC WITH DIFFE RENTI AL/PL ATELE T MCH 27.1 pg 26.6-3 3.0 Not Available [facility] ([facility]) [address] [place], [address], 09/10/2024 06:49:47 09/10/1909/09/2024 CBC WITH DIFFE RENTI AL/PL ATELE T MCHC 30.4 g/dL 31.5-3 5.7 below low normal Not Available [facility] ([facility]) [address] [place], [address], 09/10/2024 06:49:47 09/10/19 25 09/09/2024 CBC WITH DIFFE RENTI AL/PL ATELE T RDW 14.5 % 11.6-1 5.4 Not Available [facility] ([facility]) [address] [facility], [place], [address], 09/10/2024 06:49:47 09/10/1909/09/2024 CBC WITH DIFFE RENTI AL/PL ATELE T platelets 224 x10e3 /uL 150-45 0 Not Available [facility] ([facility]) [address] [facility], [place], [address], 09/10/2024 06:49:47 09/10/1909/09/2024 CBC WITH DIFFE RENTI AL/PL ATELE T neutrophils 62 % notest ab. Not Available [facility] ([facility]) [address] [place], [address], 09/10/2024 06:49:47 09/10/1909/09/2024 CBC WITH DIFFE RENTI AL/PL ATELE T lymphs 24 % notest ab. Not Available [facility] ([facility]) [address] [place], [address], 09/10/2024 06:49:47 09/10/1909/09/2024 CBC WITH DIFFE RENTI AL/PL ATELE T monocytes 10 % notest ab. Not Available [facility] ([facility]) [address] [facility], [place], [address], 09/10/2024 06:49:47 09/10/19 25 09/09/2024 CBC WITH DIFFE RENTI AL/PL ATELE T eos 4 % notest ab. Not Available [facility] ([facility]) [address] [facility], [place], [address], 09/10/2024 06:49:47 09/10/1909/09/2024 CBC WITH DIFFE RENTI AL/PL ATELE T basos 0 % notest ab. Not Available [facility] ([facility]) [address] [facility], [place], [address], 09/10/2024 06:49:47 09/10/19 25 09/09/2024 CBC WITH DIFFE RENTI AL/PL ATELE T neutrophils (absolute) 3.2 x10e3 /uL 1.4-7. 0 Not Available [facility] ([facility]) [address] [facility], [place], [address], 09/10/2024 06:49:47 09/10/1909/09/2024 CBC WITH DIFFE RENTI AL/PL ATELE T lymphs (absolute) 1.3 x10e3 /uL 0.7-3. 1 Not Available [facility] ([facility]) [address] [place], [address], 09/10/2024 06:49:47 09/10/1909/09/2024 CBC WITH DIFFE RENTI AL/PL ATELE T monocytes(ab solute) 0.6 x10e3 /uL 0.1-0. 9 Not Available [facility] ([facility]) [address] [place], [address], 09/10/2024 06:49:47 09/10/1909/09/2024 CBC WITH DIFFE RENTI AL/PL ATELE T eos (absolute) 0.2 x10e3 /uL 0.0-0. 4 Not Available [facility] ([facility]) [address] [place], [address], 09/10/2024 06:49:47 09/10/1909/09/2024 CBC WITH DIFFE RENTI AL/PL ATELE T baso (absolute) 0.0 x10e3 /uL 0.0-0. 2 Not Available [facility] ([facility]) [address] [facility], [place], [address], 09/10/2024 06:49:47 09/10/19 25 09/09/2024 CBC WITH DIFFE RENTI AL/PL ATELE T immature granulocytes 0 % notest ab. Not Available [facility] ([facility]) [address] [facility], [place], [address], 09/10/2024 06:49:47 09/10/1909/09/2024 CBC WITH DIFFE RENTI AL/PL ATELE T immature grans (abs) 0.0 x10e3 /uL 0.0-0. 1 Not Available [facility] ([facility]) [address] [facility], [place], [address], 09/10/2024 06:49:47 10/07/19 25 10/06/2024 Proca lcito melina [Mass /volu me] in Serum or Plasm a procalcitoni n [mass/volume ] in serum or plasma 0.06 NG/mL low: 0NG/mL high: 0.08NG /mL normal Not Available Not Available 10/06/2024 09:50:28 10/07/1910/06/2024 Natri ureti c pepti de.B proho rmone [...] Available 10/06/2024 09:50:27 10/07/19 25 10/06/2024 Compr CoNarrativeens josh metab olic 1999 panel - Serum or Plasm a chloride [moles/volum e] in serum or plasma 101 mmol/ L low: 98mmol /Lhigh : 107mmo l/L normal Not Available Not Available 10/06/2024 09:50:27 10/07/19 25 10/06/2024 Compr [employer]Narrativeens josh Raw[employer] olic 1999 panel - Serum or Plasm a carbon dioxide, total [moles/volum e] in serum or plasma 30 mmol/ L low: 22mmol /Lhigh : 30mmol /L normal Not Available Not Available 10/06/2024 09:50:27 10/07/19 25 10/06/2024 [facility] CoNarrativeens josh metab olic 1999 panel - Serum or Plasm a anion gap in serum or plasma by calculation 12.8 mmol/ L low: 14mmol /Lhigh : 22mmol /L low Not Available Not Available 10/06/2024 09:50:27 10/07/19 25 10/06/2024 Compr CoNarrativeens josh [employer] olic 1999 panel - Serum or Plasm a glucose [mass/volume ] in serum or plasma 90 mg/dL low: 70mg/d Lhigh: 99mg/d L normal Not Available Not Available 10/06/2024 09:50:27 10/07/19 25 10/06/2024 [facility] CoNarrativeens josh [employer] olic 1999 panel - Serum or Plasm a urea nitrogen [mass or moles/volume ] in serum or plasma 25 mg/dL low: 8mg/dL high: 19mg/d L high Not Available Not Available 10/06/2024 09:50:27 10/07/19 25 10/06/2024 [facility]osh [facility] 1999 panel - Serum or Plasm a creatinine [mass/volume ] in serum or plasma 1.42 mg/dL low: 0.66mg /dLhig h: 1.25mg /dL high Not Available Not Available 10/06/2024 09:50:27 10/07/19 25 10/06/2024 [facility] 1999 panel - Serum or Plasm a glomerular filtration rate [volume rate/area] in serum, plasma or blood by based on 1.73 sq M 47 1 normal Not Available Not Available 09:50:27 10/07/19 25 10/06/2024 [facility] panel - Serum or Plasm a alkaline phosphatase [enzymatic activity/vol ume] in serum or plasma 119 U/L low: 38U/Lh igh: 126U/L normal Not Available Not Available 10/06/2024 09:50:27 10/07/19 25 10/06/2024 [facility] panel - Serum or Plasm a alanine aminotransfe rase [enzymatic activity/vol ume] in serum or plasma 17 U/L low: 0U/Lhi gh: 50U/L normal Not Available Not Available 10/06/2024 09:50:27 10/07/19 25 10/06/2024 [facility] [place] [address] panel - Serum or Plasm a aspartate aminotransfe rase [enzymatic activity/vol ume] in serum or plasma 25 U/L low: 15U/Lh igh: 46U/L normal Not Available Not Available 10/06/2024 09:50:27 10/07/19 25 10/06/2024 [facility] [place] [address] panel - Serum or Plasm a bilirubin.to kala [mass/volume ] in serum or plasma 0.6 mg/dL low: 0.2mg/ dLhigh : 1.3mg/ dL normal Not Available Not Available 10/06/2024 09:50:27 10/07/19 25 10/06/2024 [facility] 1999 panel - Serum or Plasm a calcium [mass/volume ] in serum or plasma 8.3 mg/dL low: 8.4mg/ dLhigh : 10.2mg /dL low Not Available Not Available 10/06/2024 09:50:27 10/07/19 25 10/06/2024 [facility] joshMembersu[facility] 1999 panel - Serum or Plasm a protein [mass/volume ] in serum or plasma 6.4 g/dL low: 6.3g/d Lhigh: 8.2g/d L normal Not Available Not Available 10/06/2024 09:50:27 10/07/19 25 10/06/2024 [facility] [employer] [facility] 1999 panel - Serum or Plasm a albumin [mass/volume ] in serum or plasma 4 g/dL low: 3g/dLh igh: 4.4g/d L normal Not Available Not Available 10/06/2024 09:50:27 10/07/19 25 10/06/2024 [facility] 1999 panel - Serum or Plasm a globulin [mass/volume ] in serum 2.4 g/dL low: 2.6g/d Lhigh: 4.2g/d L low Not Available Not Available 10/06/2024 09:50:27 10/07/19 25 10/06/2024 [facility] 1999 panel - Serum or Plasm a [...] Auto Diffe renti al panel - Blood erythrocytes [#/volume] in blood by automated count 3.31 x10'6 /uL low: 4.1x10 '6/uLh igh: 5.8x10 '6/uL low Not Available Not Available 10/06/2024 09:50:27 10/07/19 25 10/06/2024 CBC W Auto Diffe renti al panel - Blood hemoglobin [mass/volume ] in blood 9.1 g/dL low: 13.2g/ dLhigh : 17g/dL low Not Available Not Available 10/06/2024 09:50:27 10/07/19 25 10/06/2024 CBC W Auto Diffe renti al panel - Blood hematocrit [volume fraction] of [...] 10/07/19 25 10/06/2024 CBC W Auto Diffe jd al panel - Blood MCH [entitic mass] by automated count 27.5 pg low: 27pghi gh: 33pg normal Not Available Not Available 10/06/2024 09:50:27 10/07/19 25 10/06/2024 CBC W Auto Diffe lenti al panel - Blood MCHC [entitic mass/volume] in red blood cells by automated count 30.6 g/dL low: 31g/dL high: 36g/dL low Not Available Not Available 10/06/2024 09:50:27 10/07/19 25 10/06/2024 CBC W Auto Diffe lenti al panel - Blood erythrocyte [distwidth] in [...] normal Not Available Not Available 10/07/19 09:50:27 03/16/20 25 03/17/2025 COMP. METAB OLIC PANEL (14) glucose 91 mg/dL 70-99 Not Available [facility] ([facility]) [address] [facility] [place], [address], 03/17/2025 09:22:19 03/16/20 25 03/17/2025 COMP. METAB OLIC PANEL (14) BUN 22 mg/dL 8-27 Not Available [facility] ([facility]) [address] [facility] [place], [address], 03/17/2025 09:22:19 03/16/20 25 03/17/2025 COMP. METAB OLIC PANEL (14) creatinine 1.72 mg/dL 0.76-1 .27 above high normal Not Available [facility] ([facility]) [address] [facility], [place], [address], 03/17/2025 09:22:19 03/16/20 25 03/17/2025 COMP. METAB OLIC PANEL (14) eGFR 39 mL/mi n/1.7 3 >59 below low normal Not Available [facility] ([facility]) [address] [facility] [place], [address], 03/17/2025 09:22:19 03/16/20 25 03/17/2025 COMP. METAB OLIC PANEL (14) BUN/creatini ne ratio 13 10-24 Not Available [facility] ([facility]) [address] [place], [address], 03/17/2025 09:22:19 03/16/20 25 03/17/2025 COMP. METAB OLIC PANEL (14) sodium 144 mmol/ L 134-14 4 Not Available [facility] ([facility]) [address] [facility] [place], [address], 03/17/2025 09:22:19 03/16/20 25 03/17/2025 COMP. METAB OLIC PANEL (14) potassium 3.9 mmol/ L 3.5-5. 2 Not Available [facility] ([facility]) [address] [place], [address], 03/17/2025 09:22:19 03/16/20 25 03/17/2025 COMP. METAB OLIC PANEL (14) chloride 98 mmol/ L 96-106 Not Available [facility] ([facility]) [address] [place], [address], 03/17/2025 09:22:19 03/16/20 25 03/17/2025 COMP. METAB OLIC PANEL (14) carbon dioxide, total 31 mmol/ L 20-29 above high normal Not Available [facility] ([facility]) [address] [place], [address], 03/17/2025 09:22:19 03/16/20 25 03/17/2025 COMP. METAB OLIC PANEL (14) calcium 8.8 mg/dL 8.6-10 .2 Not Available [facility] ([facility]) [address] [facility] [place], [address], 03/17/2025 09:22:19 03/16/20 25 03/17/2025 COMP. METAB OLIC PANEL (14) protein, total 6.7 g/dL 6.0-8. 5 Not Available [facility] ([facility]) [address] [facility] [place], [address], 03/17/2025 09:22:19 03/16/20 25 03/17/2025 COMP. METAB OLIC PANEL (14) albumin 4.2 g/dL 3.7-4. 7 Not Available [facility] ([facility]) [address] [facility] [place], [address], 03/17/2025 09:22:19 03/16/20 25 03/17/2025 COMP. METAB OLIC PANEL (14) globulin, total 2.5 g/dL 1.5-4. 5 Not Available [facility] ([facility]) [address] [facility] [place], [address], 03/17/2025 09:22:19 03/16/20 25 03/17/2025 COMP. METAB OLIC PANEL (14) bilirubin, total 0.2 mg/dL 0.0-1. 2 Not Available [facility] ([facility]) [address] [facility] [place], [address], 03/17/2025 09:22:19 03/16/20 25 03/17/2025 COMP. METAB OLIC PANEL (14) alkaline phosphatase 95 IU/L 48-129 Not Available [facility] ([facility]) [address] [facility] [place], [address], 03/17/2025 09:22:19 03/16/20 25 03/17/2025 COMP. METAB OLIC PANEL (14) AST (SGOT) 20 IU/L 0-40 Not Available [facility] ([facility]) [address] [place], [address], 03/17/2025 09:22:19 03/16/20 25 03/17/2025 COMP. METAB OLIC PANEL (14) ALT (SGPT) 14 IU/L 0-44 Not Available [facility] ([facility]) [address] [place], [address], 03/17/2025 09:22:19 03/16/20 25 03/17/2025 CBC WITH DIFFE RENTI AL/PL ATELE T WBC 6.7 x10e3 /uL 3.4-10 .8 Not Available [facility] ([facility]) [address] [place], [address], 03/17/2025 09:22:20 03/16/20 25 03/17/2025 CBC WITH DIFFE RENTI AL/PL ATELE T RBC 2.96 x10e6 /uL 4.14-5 .80 below low normal Not Available [facility] ([facility]) [address] [place], [address], 03/17/2025 09:22:20 03/16/20 25 03/17/2025 CBC WITH DIFFE RENTI AL/PL ATELE T hemoglobin 8.0 g/dL 13.0-1 7.7 below low normal Not Available [facility] ([facility]) [address] [facility], [place], [address], 03/17/2025 09:22:20 03/16/20 25 03/17/2025 CBC WITH DIFFE RENTI AL/PL ATELE T hematocrit 26.7 % 37.5-5 1.0 below low normal Not Available [facility] ([facility]) [address] [place], [address], 03/17/2025 09:22:20 03/16/20 25 03/17/2025 CBC WITH DIFFE RENTI AL/PL ATELE T MCV 90 fL 79-97 Not Available [facility] ([facility]) [address] [place], [address], 03/17/2025 09:22:20 03/16/20 25 03/17/2025 CBC WITH DIFFE RENTI AL/PL ATELE T MCH 27.0 pg 26.6-3 3.0 Not Available [facility] ([facility]) [address] [place], [address], 03/17/2025 09:22:20 03/16/20 25 03/17/2025 CBC WITH DIFFE RENTI AL/PL ATELE T MCHC 30.0 g/dL 31.5-3 5.7 below low normal Not Available [facility] ([facility]) [address] [place], [address], 03/17/2025 09:22:20 03/16/20 25 03/17/2025 CBC WITH DIFFE RENTI AL/PL ATELE T RDW 14.3 % 11.6-1 5.4 Not Available [facility] ([facility]) [address] [place], [address], 03/17/2025 09:22:20 03/16/20 25 03/17/2025 CBC WITH DIFFE RENTI AL/PL ATELE T platelets 322 x10e3 /uL 150-45 0 Not Available [facility] ([facility]) [address] [facility], [place], [address], 03/17/2025 09:22:20 03/16/20 25 03/17/2025 CBC WITH DIFFE RENTI AL/PL ATELE T neutrophils 70 % notest ab. Not Available [facility] ([facility]) [address] [facility], [place], [address], 03/17/2025 09:22:20 03/16/20 25 03/17/2025 CBC WITH DIFFE RENTI AL/PL ATELE T lymphs 18 % notest ab. Not Available [facility] ([facility]) [address] [facility], [place], [address], 03/17/2025 09:22:20 03/16/20 25 03/17/2025 CBC WITH DIFFE RENTI AL/PL ATELE T monocytes 8 % notest ab. Not Available [facility] ([facility]) [address] [facility], [place], [address], 03/17/2025 09:22:20 03/16/20 25 03/17/2025 CBC WITH DIFFE RENTI AL/PL ATELE T eos 3 % notest ab. Not Available [facility] ([facility]) [address] [facility], [place], [address], 03/17/2025 09:22:20 03/16/20 25 03/17/2025 CBC WITH DIFFE RENTI AL/PL ATELE T basos 0 % notest ab. Not Available [facility] ([facility]) [address] [facility], [place], [address], 03/17/2025 09:22:20 03/16/20 25 03/17/2025 CBC WITH DIFFE RENTI AL/PL ATELE T neutrophils (absolute) 4.7 x10e3 /uL 1.4-7. 0 Not Available [facility] ([facility]) [address] [place], [address], 03/17/2025 09:22:20 03/16/20 25 03/17/2025 CBC WITH DIFFE RENTI AL/PL ATELE T lymphs (absolute) 1.2 x10e3 /uL 0.7-3. 1 Not Available [facility] ([facility]) [address] [place], [address], 03/17/2025 09:22:20 03/16/20 25 03/17/2025 CBC WITH DIFFE RENTI AL/PL ATELE T monocytes(ab solute) 0.5 x10e3 /uL 0.1-0. 9 Not Available [facility] ([facility]) [address] [facility], [place], [address], 03/17/2025 09:22:20 03/16/20 25 03/17/2025 CBC WITH DIFFE RENTI AL/PL ATELE T eos (absolute) 0.2 x10e3 /uL 0.0-0. 4 Not Available [facility] ([facility]) [address] [place], [address], 03/17/2025 09:22:20 03/16/20 25 03/17/2025 CBC WITH DIFFE RENTI AL/PL ATELE T baso (absolute) 0.0 x10e3 /uL 0.0-0. 2 Not Available [facility] ([facility]) [address] [place], [address], 03/17/2025 09:22:20 03/16/20 25 03/17/2025 CBC WITH DIFFE RENTI AL/PL ATELE T immature granulocytes 0 % notest ab. Not Available [facility] ([facility]) [address] [place], [address], 03/17/2025 09:22:20 03/16/20 25 03/17/2025 CBC WITH DIFFE RENTI AL/PL ATELE T immature florian (abs) 0.0 x10e3 /uL 0.0-0. 1 Not Available [facility] ([facility]) [address] [facility], [place], [address], 03/17/2025 09:22:20 10/07/19 25 10/06/2024 XR, chest No observ ation record ed. [email or web address] [facility] [address] [place], [address], 10/07/2024 21:31:05 02/09/20 25 02/08/2025 XR, chest , 2 view No observ ation record ed. [place] [address] [facility] [address], [place], [address], 02/09/2025 13:58:25 02/27/20 25 02/26/2025 XR, chest No observ ation record ed. [facility] [address] [facility] [address], [place], [address], 02/28/2025 12:50:19 03/04/20 25 12/11/2024 XR, shoul marietta, 2 or more view No observ ation record ed. [facility] [address] [place], [address], 03/07/2025 12:45:24 03/04/20 25 12/11/2024 CT, head, w/o contr ast No observ ation record ed. [facility] [address] [place], [address], 03/07/2025 12:45:39 Result Notes None recorded. Problems Name Problem SNOMED Code Status Onset Date Resolution Date Notes Provider Name and Address Organization Details Recorded Time Permanent atrial fibrillation 415760635 Active 2024 Lanre Ramírez MD Attn: Bambi g,[address] [place], [address], [place] [facility] 5 17:47:02 Coronary arteriosclero sis 99532194 Active 2024 Lanre Ramírez MD Attn: Bambi butcher,[address] [facility], [place], [address], [place] [facility] 5 17:47:09 Benign essential hypertension 1002418 Active 2024 Lanre Ramírez MD Attn: Bambi butcher,[address] [facility], [place], [address], [place] [facility] 5 17:47:16 Pulmonary emphysema 75320193 Active 2024 Lanre Ramírez MD Attn: Bambi butcher,[address] [facility], [place], [address], [place] [facility] 5 17:47:56 Chronic kidney disease stage 3A 484985547 Active 2024 Lanre Ramírez MD Attn: Bambi butcher,[address] [facility], [place], [address], [place] [facility] 5 17:48:08 Hypothyroidis m 11194057 Active 2024 Lanre Ramírez MD Attn: Bambi butcher,[address] [facility], [place], [address], [place] [facility] 5 17:48:26 Chronic systolic heart failure 190307053 Active 2024 Lanre Ramírez MD Attn: Bambi butcher,[address] [facility], [place], [address], [place] [facility] 5 17:49:31 Chronic hypoxemic respiratory failure 304110780 Active 2024 3 liters Lanre Ramírez MD Attn: Bambi butcher,[address] [facility], [place], [address], [place] [facility] 5 17:50:15 Spinal stenosis of lumbosacral region 361552685 Active 2024 Lanre Ramírez MD Attn: Bambi butcher,[address] [facility], [place], [address], [place] [facility] 5 17:51:18 Cardiac pacemaker in situ 782706234 Active 2024 Lanre Ramírez MD Attn: Bambi butcher,[address] [facility], [place], [address], [place] [facility] 5 17:52:08 Chronic anemia 675222315 Active 2024 Lanre Ramírez MD Attn: Bambi butcher,[address] [facility], [place], [address], [place] [facility] 5 17:52:43 Problem Notes None recorded. Procedures Surgical History Date Name Laterality Status Provider Name and Address Organization Details Recorded Time 4 Pacemaker completed Debra Shook MA DC - [facility] 08/20/2024 12:32:34 0 Back Surgery completed Debra Shook MA DC - [facility] 08/20/2024 12:32:08 0 Back Surgery completed Debra Shook MA DC - [facility] 08/20/2024 12:32:14 5 Back Surgery completed Debra Shook MA [facility] 08/20/2024 12:32:18 Imaging Results None recorded. [...] completed Not Available Not Available Not Available trazodone 50 mg tablet TAKE 1 TABLET BY MOUTH EVERY DAY AT BEDTIME active Not Available Not Available No t Available polyethylen e glycol 3350 17 gram oral powder packet DISSOLVE 17 GRAMS IN LIQUID AND TAKE BY MOUTH EVERY MORNING NEEDED FOR CONSTIPAT ION active Not Available Not Available No t Available amiodarone 200 mg tablet TAKE 1 [...] mg capsule TAKE 1 CAPSULE BY MOUTH AT BEDTIME active Not Available Not Available No t Available cephalexin 500 mg capsule TAKE 1 CAPSULE BY MOUTH EVERY 8 HOURS FOR 7 DAYS 03/13 completed Not Available Not Available Not Available [...] completed Not Available Not Available Not Available docusate sodium 100 mg capsule TAKE 1 CAPSULE BY MOUTH EVERY 12 HOURS NEEDED FOR CONSTIPAT ION active Not Available Not Available No t Available diltiazem CD 120 mg capsule,ext ended release 24 hr TAKE 1 CAPSULE BY MOUTH DAILY 03/16 completed Not Available Not Available Not Available montelukast 10 mg tablet TAKE 1 [...] 1 TABLET BY MOUTH EVERY 12 HOURS active Not Available Not Available No t Available ciprofloxac in 0.3 %-dexametha sone 0.1 % ear drops,suspe nsion INSTILL 4 TO 5 DROPS INTO BOTH EARS TWICE DAILY FOR 10 DAYS 12/21 completed Not Available Not Available Not Available DILT-XR 120 mg capsule, extended release active Not Available Not Available Not Available solifenacin 10 mg tablet TAKE 1 TABLET BY MOUTH EVERY DAY active Not Available Not Available No t Available FeroSul 325 mg (65 mg iron) [...] active Not Available Not Available Not Avai [facility] Vitals Date Recorded Body weight Body mass index (BMI) Body height Oxygen saturation Inhaled oxygen flow rate Heart rate Systolic And Diastolic Provider Name and Address Organization Details Last Updated DateTime 5 024497. 69 g 36.1 kg/m2 175.26 cm 99 % 3 L/min 90 /min 128/70 mm[Hg] Debra Shook MA [facility] 5 12:36:25 Date Recorded Body height Body mass index (BMI) Body weight Heart rate Oxygen saturation Systolic And Diastolic Provider Name and Address Organization Details Last Updated DateTime 5 175.26 cm 35.7 kg/m2 714903. 35 g 85 /min 97 % 124/70 mm[Hg] Debra Shook MA [facility] 5 09:39:15 Date Recorded Body height Body mass index (BMI) Body weight Heart rate Oxygen saturation Inhaled oxygen flow rate Systolic And Diastolic Provider Name and Address Organization Details Last Updated DateTime 175.26 cm 34.9 kg/m2 733148. 24 g 72 /min 98 % 3 L/min 120/72 mm[Hg] Debra Shook MA [facility] - [facility] 14:39:30 Date Recorded Body height Body mass index (BMI) Body weight Heart rate Oxygen saturation Inhaled oxygen flow rate Systolic And Diastolic Provider Name and Address Organization Details Last Updated DateTime 175.26 cm 32.8 kg/m2 210185. 15 g 69 /min 99 % 3 L/min 120/76 mm[Hg] Dominique Holland MA [facility] - [facility] 14:03:57 Social History Question Answer Notes LastModified by Organizat ion Details LastModified Time Tobacco Smoking Status Former Smoker Debra Shook MA [facility] 08/20/2024 12:30:47 Do You Have An [...] Date Of Your Most Recent Tobacco Screening? 03/16/2025 [email or web address] Information not available 03/16/2025 What Is Your Relationship Status? Information not [...] anxious, or unable to sleep at night)? [id number] Information not available 08/20/2024 Family History Relationship [...] polysaccharide PPV23 3 completed Not Available [facility] 03/16/2025 13:48:54 Influenza, high-dose, trivalent, PF 4 completed Not Available [facility] 03/16/2025 13:48:54 Influenza, high-dose, trivalent, PF 5 completed Not Available [facility] 03/16/2025 13:48:54 Pneumococcal conjugate PCV 13 5 completed Not Available [facility] 03/16/2025 13:48:54 Influenza, high-dose, trivalent, PF 6 completed Not Available [facility] 03/16/2025 13:48:54 Influenza, high-dose, trivalent, PF 7 completed Not Available [facility] 03/16/2025 13:48:54 Influenza, high-dose, trivalent, PF 8 completed Not Available [facility] 03/16/2025 13:48:54 Influenza, high-dose, quadrivalent, PF 9 completed Not Available [facility] 03/16/2025 13:48:54 COVID-19, mRNA, LNP-S, PF, 100 mcg/0.5mL dose or 50 mcg/0.25mL dose 1 completed Not Available [facility] 03/16/2025 13:48:54 COVID-19, mRNA, LNP-S, PF, 100 mcg/0.5mL dose or 50 mcg/0.25mL dose 1 completed Not Available [facility] 03/16/2025 13:48:54 COVID-19, mRNA, LNP-S, PF, 100 mcg/0.5mL dose or 50 mcg/0.25mL dose 2 completed Not Available [facility] 03/16/2025 13:48:54 Influenza, high-dose, quadrivalent, PF 2 completed Not Available [facility] 03/16/2025 13:48:54 COVID-19, mRNA, LNP-S, bivalent, PF, 30 mcg/0.3 mL dose 3 completed Not Available [facility] 03/16/2025 13:48:54 zoster recombinant 3 completed Not Available [facility] 03/16/2025 13:48:54 zoster recombinant 3 completed Not Available [facility] 03/16/2025 13:48:54 Past Encounters Encounter ID Performer Location Encounter Start Date Encounter Closed Date Diagnosis/Indication Diagnosis SNOMED-CT Code Diagnosis ICD10 Code Diagnosis IMO Codes Diagnosis Note [id number] MD Matt Lan (Adult Med) [address] [place] [phone] 08/20/2024 11:55:29 08/20/2024 13:34:24 Body mass index 30+ - obesity 836780236 Z68.36 418139 Obesity 520997894 E66.9 Essential hypertension 69075436 I10 366244 Chronic hy poxemic respiratory failure 387723196 J96.11 8308438 Chronic ki dney disease stage 3A 663560497 N18.31 93754119 Chronic sy stolic heart failure 664630422 I50.22 137147 Hypothyroidism 57334533 E03.9 46896999 Permanent atrial fibrillation 108064138 I48.21 116252 Spinal roberto nosis of lumbosacral region 975724833 M48.07 9329392 Benign ess ential hypertension 1785432 I10 3379 Cardiac pa cemaker in situ 481963803 Z95.0 5578797 Coronary arteriosclerosis 71215115 I25.10 012650 Chronic anemia 917562072 D64.9 162053 [id number] MD Matt Lan (Adult Med) [address] [place] [address] 10/13/2024 09:27:27 10/13/2024 10:03:40 Obese class II 2398528419 21521 E66.812 6915959179 BMI 35.7 Benign ess ential hypertension 7131252 I10 3379 Chronic sy stolic heart failure 675015795 I50.22 370779 Coronary arteriosclerosis 37482758 I25.10 013882 Hypothyroidism 29389299 E03.9 72694410 Chronic ki dney disease stage 3A 858032665 N18.31 20903823 Spinal roberto nosis of lumbosacral region 335398983 M48.07 5129480 Chronic hy poxemic respiratory failure 639923797 J96.11 89368277 [id number] [facility] [address] [place] [phone] 12/21/2024 14:04:12 12/21/2024 15:44:50 Benign essential hypertension 3777349 I10 3379 Chronic sy stolic heart failure 119946426 I50.22 817643 Coronary arteriosclerosis 81674379 I25.10 303414 Permanent atrial fibrillation 765595179 I48.21 503748 Cardiac pa cemaker in situ 403665514 Z95.0 6479524 Hypothyroidism 78220657 E03.9 53922897 Chronic ki dney disease stage 3A 361308113 N18.31 86076737 Chronic anemia 466298852 D64.9 955061 Spinal roberto nosis of lumbosacral region 899925333 M48.07 3295684 Chronic hy poxemic respiratory failure 802297611 J96.11 14732190 Pulmonary emphysema 8743 3001 J43.9 [id number] Lanre Ramírez MD [facility] (Adult Med) [address] [place] [phone] 03/16/2025 13:46:49 03/16/2025 14:46:37 Obese class I 8635821486 97306 E66.811 E66.3 6937065246 Benign ess ential hypertension 8403124 I10 3379 Frailty 155349857 R54 305320 Spinal roberto nosis of lumbosacral region 977256169 M48.07 1081514 Chronic hy poxemic respiratory failure 371589495 J96.11 87135934 Chronic sy stolic heart failure 921496632 I50.22 170974 Coronary arteriosclerosis 94333870 I25.10 851178 Permanent atrial fibrillation 978785787 I48.21 374152 Health Concerns Section Related Observation LastModified by Organization Detai ls LastModified Time None Recorded Concern Status LastModified by Organization Details LastModified Time None Recorded Advance Directives Directive N: Payers Insurance Date Sequence Insurance Name Policy Number Policy Foreman Covered Member ID Foreman Member ID Guarantor Name 03/28/2025 1 [facility] (MEDICARE REPLACEMENT/A DVANTAGE - HMO) [id number] Jorge L Call [id number] Jorge L Call Notes Date Note Type [...] today recently hospitalized with COPD exacerbation at Lanre Ramírez MD Attn: Accounting, [address] [facility], [place], [address], [facility] 08/20/2024 17:53:43 10/13/2024 text/html [...] basis Lanre Ramírez MD Attn: Accounting, [address] , [place], [address], [facility] 10/23/2024 12:25:05 12/21/2024 text/html He is going to be moving into a [place] overall doing reasonably well given his multiple [...] 3A. Lanre Ramírez MD Attn: Accounting, [address] [facility], [place], [address], [facility] 12/26/2024 17:19:21 03/16/2025 text/html Hospitalized for UTI he has had a UroLift he was given ceftriaxone Klebsiella was sensitive to ceftriaxone he is now back at the assisted living facility electrolytes were replaced breathing is still a struggle from time to time he has got chronic hypoxic respiratory failure in his maintained on 3 L of oxygen with regards to his spinal stenosis still gets around with a walker buttock pressure ulcer Lanre Ramírez MD Attn: Accounting,[address], [place], [address], [facility] 03/25/2025 21:13:54
--- OUTSIDE RECORDS SUMMARY | 2025-04-22 06:07 | XMS_ITS | Clinical Summary ---
Author Organization [facility] Address [address] [place] [address] Care Team Providers Care Java Architect Name Role Phone Waqas Ramírez MD Primary Care Provider + [phone] Gurmeet Lares MD Unavailable Prema Grant MD Unavailable Waqas Dobbins MD Unavailable +[phone] Allergies No known active allergies Medications ferrous [...] 1 tablet (150 mcg total) by mouth director of early childhood education before breakfast 30 tablet 1 07/18/19 Active losartan (COZAAR) 25 mg tablet Take 1 tablet (25 mg total) by mouth daily 30 tablet 1 07/17/19 Active tamsulosin (FLOMAX) 0.4 mg extended release capsuleIndication s:Benign prostatic hyperplasia with urinary obstruction Take 1 capsule (0.4 mg total) by mouth daily 90 capsule 3 07/17/19 Active umeclidinium-sy nteroL (ANORO ELLIPTA) 62.5-25 mcg/actuation blister with device Inhale 1 puff daily 30 each 07/17/19 Active spironolactone (ALDACTONE) 25 mg tablet Take 0.5 tablets (12.5 mg total) by mouth daily 15 tablet 11 07/18/19 25 026 Active ipratropium-albut Mary (DUO-NEB) 0.5-2.5 mg/3 mL nebulizer solutionIndicatio ns:Chronic Obstructive Pulmonary Disease with Bronchospasms Take 3 mL by nebulization every 6 (six) hours as needed for wheezing or shortness of breath 180 mL 1 07/17/19 Active albuterol HFA (PROVENTIL HFA,VENTOLIN HFA,PROAIR HFA) [...] (07/31/2021): Added automatically from request for surgery [id number] UGIB (upper gastrointestinal bleed) 07/31/2021 Chest pain, unspecified type 07/13/2021 Chest pain 07/11/2021 Hereditary and idiopathic peripheral neuropathy 07/03/2021 Assessment & Plan (07/03/2021 9:23 AM ADVANCED MANAGER): Patient has peripheral neuropathy is somewhat fitting [...] 06/19/2021 Assessment & Plan (06/19/2021 10:39 AM ADVANCED MANAGER): 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 This may make him more prone to have muscle strains in the forearm. Would encourage warm soaks and stretching exercises for this individual. Exercise were demonstrated for him to perform on a regular basis. Right rotator cuff tendinitis 06/19/2021 Assessment & Plan (06/19/2021 10:40 AM ADVANCED MANAGER): Patient has a history exam consistent with [...] (05/30/2020): Added automatically from request for surgery [id number] Benign prostatic hyperplasia with urinary obstru ction 02/24/2020 Overview (02/24/2020): Added automatically from request for surgery [id number] s/p L3-S1 with right L4-5 fa cet [...] tolerance 05/01/2017 [address]rosclerotic heart diseas e of [place] coronary artery without angina pectoris 04/30/2017 Occlusion [...] Encounters Date Type Department Care Team Description 04/07/2025 ACO Outreach [facility] Organization [address] [place] [address] Priscilla Calvert RN 03/21/2025 9:40 AM ADVANCED MANAGER Office Visit [facility] [address] [facility] [address] Medical Office [address] [place] [address] Jerri Dumas, JAY JAY Benign prostatic hyperplasia with urinary obstruction (Primary Dx); Urinary retention; Overflow incontinence 02/21/2025 Documentation [facility] [address] [facility] [address] [place] [address] [place] [address] Eusebia Limon from Last 3 Months Immunizations [...] drink = 0.6 oz pu re alcohol) [facility] Utilities Answer Date Recorded In the past 12 months has th e electric, gas, oil, or water company threatened to shut off services in your [...] often do you attend chur ch or mormonism services? Never 07/12/2024 Do you belong to any clubs o r organizations such as rastafari groups, unions, fraternal or athletic groups, or [...] any time in the past 12 m [facility], were you homeless or living in a longterm (including now)? No 07/12/2024 Personal Safety Answer Date Recorded Have you ever been in or are you currently in a harmful physical or emotional relationship or is someone making you feel afraid or unsafe? Denies 07/12/2024 Sex and Gender Information Value Date Recorded Sex Assigned at Not on file Legal Sex Male 8:51 PM ADVANCED MANAGER Gender Identity Not on file Sexual Orientation [...] - Tdap) 08/07/1951 Hepatitis B Screening 1958 Well Visit 65+ 2005 Covid-19 Vaccine (2024-2 6 season) 2025 05/18/2021, 08/11/2020, 07/14/2020 Influenza Vaccine (#1) 2025 9, 02/04/2018, 03/05/2017, Additional history exists Fall Risk Assessment 07/16/2025 07/16/2024 Pneumococcal vaccine 65+ Completed 03/28/2015, 05/05 Zoster Vaccine Completed 11/11/2022, 09/11/2022 Medical Devices Implanted Type Area Ribbon Lapper Tender Device Identifier Shelf Expiration Date Model / Serial / Lot [employer] [id number] Urolift Implant Urological - [id number] Implanted:Qty: 2 on 03/17/2020 by Feliberto Wadsworth MD at [facility] N/A: Urethra [employer] 11/10/2021 [id number] / / [id number] [employer] X [id number] Resolute Rohith 2.5mm 2.1-2.7fr 30mm 140cm Rapid Exchange - [id number] Implanted:Qty: 1 on 07/12/2021 by Gurmeet Lares MD at [facility] [employer] 03/15/2024 [id number] UX / / Procedures Procedure Name Priority Date/Time Associated Diagnosis Comments MEASURE POST VOID RESIDUAL Routine 03/21/2025 9:55 AM ADVANCED MANAGER Benign prostatic hyperplasia with urinary obstruction from Last 3 Months Results * Measure post void residual (03/21/2025 9:55 AM ADVANCED MANAGER) Narrative [facility]om[facility] EmeritaJOEY - 03/21/2025 9:55 AM ADVANCED MANAGER Measurement of post-voiding residual urine and/or bladder capacity by ultrasound, non-imaging. PVR = 260 mL Jerri Dumas NP NURSING ASSESSMENTS Final Res ult from Last 3 Months Insurance [facility] MDCR HMO REF [facility] MEDICARE Address: [facility] [address] [place] [address] [facility] MEDICARE ADVANTAGE [facility]IC[facility] Address: [address] [address] [place] [address] MEDICARE ADVANTAGE [facility] MEDICARE Address: [address] [address] [place] [address] SECURE HORIZONS NON PD [facility] MEDICARE Address: [address] [address] [place] [address] MEDICARE ADVANTAGE [facility] MEDICARE Address: [address] [address] [place] [address] [facility] MEDICARE HMO Advance Directives For more information, please contact: [phone] * Full Code (Latest Code Status on [...] specifically selected below: No intubation Care Teams Java Architect Relationship Specialty Start Date End Date Waqas Ramírez MD PCP - General 03/29/19 Gurmeet Lares MD Referring Physician Cardiovascular Disease 07/16/21 [place] [address] [address] Consulting Physician Cardiology 08/05/21 [place] [address] [address] Consulting Physician Gastroenterology 08/05/21
--- OUTSIDE RECORDS SUMMARY | 2025-04-22 06:07 | XMS_ITS | Continuity of Care Document ---
Author Organization [facility] ([facility] Address [address] [place] [address] Care Team Providers Care Casing Crew Pusher Name Role Phone WAQAS RAMÍREZ Primary Care Provider [phone] Assessment Encounter Date Assessment Date Assessment LastModified by Organization Details LastModified Time 03/16/2025 03/16/2025 Believe home health has been arranged from the hospital to go out and treat his pressure ulcer I agree with that continue with his other medications for now diagnosis discussed with him and family member I would like to see him back in 3 months [email or web address] Not available 03/25/2025 21:13:25 Plan of Treatment Reminders Order Date Submit Date Provider Last Modified By Organization Details Last Modified Time Details Appointments ANY 15 2025 01:15P M Waqas Ramírez MD Not available Not available Not available Lab CBC w/ auto diff 2024 025 [facility], [address] [facility], [facility] [address], [place], [address], 03/17/2025 09:22:20 CMP, serum or plasma 2024 025 [facility], [address] [facility], [address], [place], [address], 03/17/2025 09:22:19 Referral None recorded . Procedures None recorded . Surgeries None recorded . Imaging None recorded . Medication Orders None recorded . Patient TargetsNo targets recorded. Patient Instructions Encounter Date Encounter Id Patient Instructions Last Modified By Organization Details Last Modified Time 03/16/2025 [id number] A healthy lifestyle: care instructions [email or web address] Not available 03/16/2025 20:59:23 Reason for Referral None Reported. Results Created Date Observation Date Name Description Value Unit Range Abnormal Flag Note LastModifiedBy Organization Detail LastModifiedTime 03/16/2003/17/2025 COMP. METAB OLIC PANEL (14) glucose 91 mg/dL 70-99 Not Available [facility] ([facility]) [address] [facility] [place], [address], 03/17/2025 09:22:19 03/16/20 25 03/17/2025 COMP. METAB OLIC PANEL (14) BUN 22 mg/dL 8-27 Not Available [facility] ([facility]) [address] [facility] [place], [address], 03/17/2025 09:22:19 03/16/20 25 03/17/2025 COMP. METAB OLIC PANEL (14) creatinine 1.72 mg/dL 0.76-1 .27 above high normal Not Available [facility] ([facility]) [address] [facility] [place], [address], 03/17/2025 09:22:19 03/16/20 25 03/17/2025 COMP. METAB OLIC PANEL (14) eGFR 39 mL/mi n/1.7 3 >59 below low normal Not Available [facility] ([facility]) [address] [place], [address], 03/17/2025 09:22:19 03/16/20 25 03/17/2025 COMP. METAB OLIC PANEL (14) BUN/creatini ne ratio 13 -24 Not Available [facility] ([facility]) [address] [place], [address], 03/17/2025 09:22:19 03/16/20 25 03/17/2025 COMP. METAB OLIC PANEL (14) sodium 144 mmol/ L 134-14 4 Not Available [facility] ([facility]) [address] [place], [address], 03/17/2025 09:22:19 03/16/20 25 03/17/2025 COMP. METAB OLIC PANEL (14) potassium 3.9 mmol/ L 3.5-5. 2 Not Available [facility] ([facility]) [address] [facility] [place], [address], 03/17/2025 09:22:19 03/16/20 25 03/17/2025 COMP. METAB OLIC PANEL (14) chloride 98 mmol/ L 96-106 Not Available [facility] ([facility]) [address] [facility] [place], [address], 03/17/2025 09:22:19 03/16/20 25 03/17/2025 COMP. METAB OLIC PANEL (14) carbon dioxide, total 31 mmol/ L 20-29 above high normal Not Available [facility] ([facility]) [address] [facility] [place], [address], 03/17/2025 09:22:19 03/16/20 25 03/17/2025 COMP. METAB OLIC PANEL (14) calcium 8.8 mg/dL 8.6-10 .2 Not Available [facility] ([facility]) [address] [facility] [place], [address], 03/17/2025 09:22:19 03/16/20 25 03/17/2025 COMP. METAB OLIC PANEL (14) protein, total 6.7 g/dL 6.0-8. 5 Not Available [facility] ([facility]) [address] [facility] [place], [address], 03/17/2025 09:22:19 03/16/20 25 03/17/2025 COMP. METAB OLIC PANEL (14) albumin 4.2 g/dL 3.7-4. 7 Not Available [facility] ([facility]) [address] [facility] [place], [address], 03/17/2025 09:22:19 03/16/20 25 03/17/2025 COMP. METAB OLIC PANEL (14) globulin, total 2.5 g/dL 1.5-4. 5 Not Available [facility] ([facility]) [address] [place], [address], 03/17/2025 09:22:19 03/16/20 25 03/17/2025 COMP. METAB OLIC PANEL (14) bilirubin, total 0.2 mg/dL 0.0-1. 2 Not Available [facility] ([facility]) [address] [facility], [place], [address], 03/17/2025 09:22:19 03/16/20 25 03/17/2025 COMP. METAB OLIC PANEL (14) alkaline phosphatase 95 IU/L 48-129 Not Available [facility] ([facility]) [address] [facility], [place], [address], 03/17/2025 09:22:19 03/16/20 25 03/17/2025 COMP. METAB OLIC PANEL (14) AST (SGOT) 20 IU/L 0-40 Not Available [facility] ([facility]) [address] [place], [address], 03/17/2025 09:22:19 03/16/20 25 03/17/2025 COMP. METAB OLIC PANEL (14) ALT (SGPT) 14 IU/L 0-44 Not Available [facility] ([facility]) [address] [place], [address], 03/17/2025 09:22:19 03/16/20 25 03/17/2025 CBC WITH DIFFE RENTI AL/PL ATELE T WBC 6.7 x10e3 /uL 3.4-10 .8 Not Available [facility] ([facility]) [address] [place], [address], 03/17/2025 09:22:20 03/16/20 25 03/17/2025 CBC WITH DIFFE RENTI AL/PL ATELE T RBC 2.96 x10e6 /uL 4.14-5 .80 below low normal Not Available [facility] ([facility]) [address] [place], [address], 03/17/2025 09:22:20 03/16/2003/17/2025 CBC WITH DIFFE RENTI AL/PL ATELE T hemoglobin 8.0 g/dL 13.0-1 7.7 below low normal Not Available [facility] ([facility]) [address] [place], [address], 03/17/2025 09:22:20 03/16/2003/17/2025 CBC WITH DIFFE RENTI AL/PL ATELE T hematocrit 26.7 % 37.5-5 1.0 below low normal Not Available [facility] ([facility]) [address] [place], [address], 03/17/2025 09:22:20 03/16/2003/17/2025 CBC WITH DIFFE RENTI AL/PL ATELE T MCV 90 fL 79-97 Not Available [facility] ([facility]) [address] [place], [address], 03/17/2025 09:22:20 03/16/2003/17/2025 CBC WITH DIFFE RENTI AL/PL ATELE T MCH 27.0 pg 26.6-3 3.0 Not Available [facility] ([facility]) [address] [place], [address], 03/17/2025 09:22:20 03/16/2003/17/2025 CBC WITH DIFFE RENTI AL/PL ATELE T MCHC 30.0 g/dL 31.5-3 5.7 below low normal Not Available [facility] ([facility]) [address] [place], [address], 03/17/2025 09:22:20 03/16/20 25 03/17/2025 CBC WITH DIFFE RENTI AL/PL ATELE T RDW 14.3 % 11.6-1 5.4 Not Available [facility] ([facility]) [address] [facility], [place], [address], 03/17/2025 09:22:20 03/16/20 25 03/17/2025 CBC WITH DIFFE RENTI AL/PL ATELE T platelets 322 x10e3 /uL 150-45 0 Not Available [facility] ([facility]) [address] [facility], [place], [address], 03/17/2025 09:22:20 03/16/2003/17/2025 CBC WITH DIFFE RENTI AL/PL ATELE T neutrophils 70 % notest ab. Not Available [facility] ([facility]) [address] [facility], [place], [address], 03/17/2025 09:22:20 03/16/20 25 03/17/2025 CBC WITH DIFFE RENTI AL/PL ATELE T lymphs 18 % notest ab. Not Available [facility] ([facility]) [address] [facility], [place], [address], 03/17/2025 09:22:20 03/16/20 25 03/17/2025 CBC WITH DIFFE RENTI AL/PL ATELE T monocytes 8 % notest ab. Not Available [facility] ([facility]) [address] [facility], [place], [address], 03/17/2025 09:22:20 03/16/20 25 03/17/2025 CBC WITH DIFFE RENTI AL/PL ATELE T eos 3 % notest ab. Not Available [facility] ([facility]) [address] [facility], [place], [address], 03/17/2025 09:22:20 03/16/20 25 03/17/2025 CBC WITH DIFFE RENTI AL/PL ATELE T basos 0 % notest ab. Not Available [facility] ([facility]) [address] [facility], [place], [address], 03/17/2025 09:22:20 03/16/20 25 03/17/2025 CBC WITH DIFFE RENTI AL/PL ATELE T neutrophils (absolute) 4.7 x10e3 /uL 1.4-7. 0 Not Available [facility] ([facility]) [address] [facility], [place], [address], 03/17/2025 09:22:20 03/16/20 25 03/17/2025 CBC WITH DIFFE RENTI AL/PL ATELE T lymphs (absolute) 1.2 x10e3 /uL 0.7-3. 1 Not Available [facility] ([facility]) [address] [facility], [place], [address], 03/17/2025 09:22:20 03/16/20 25 03/17/2025 CBC WITH DIFFE RENTI AL/PL ATELE T monocytes(ab solute) 0.5 x10e3 /uL 0.1-0. 9 Not Available [facility] ([facility]) [address] [place], [address], 03/17/2025 09:22:20 03/16/20 25 03/17/2025 CBC WITH DIFFE RENTI AL/PL ATELE T eos (absolute) 0.2 x10e3 /uL 0.0-0. 4 Not Available [facility] ([facility]) [address] [place], [address], 03/17/2025 09:22:20 03/16/20 25 03/17/2025 CBC WITH DIFFE RENTI AL/PL ATELE T baso (absolute) 0.0 x10e3 /uL 0.0-0. 2 Not Available [facility] ([facility]) [address] [place], [address], 03/17/2025 09:22:20 11/1203/17/2025 CBC WITH DIFFE RENTI AL/PL ATELE T immature granulocytes 0 % notest ab. Not Available [facility] ([facility]) [address] [facility], [place], [address], 03/17/2025 09:22:20 03/16/2003/17/2025 CBC WITH DIFFE RENTI AL/PL ATELE T immature grans (abs) 0.0 x10e3 /uL 0.0-0. 1 Not Available [facility] ([facility]) [address] [facility], [place], [address], 03/17/2025 09:22:20 02/27/2002/26/2025 XR, chest No observ ation record ed. [place] [address], [place], [address], 02/28/2025 12:50:19 03/04/2012/11/2024 XR, shoul marietta, 2 or more view No observ ation record ed. [facility] [address] [place], [address], 03/07/2025 12:45:24 03/04/2012/11/2024 CT, head, w/o contr ast No observ ation record ed. [facility] [address] [place], [address], 03/07/2025 12:45:39 Result Notes None recorded. Problems Name Problem SNOMED Code Status Onset Date Resolution Date Notes Provider Name and Address Organization Details Recorded Time Permanent atrial fibrillation 080866112 Active 2024 Waqas Ramírez MD Attn: Bambi butcher,[address] [place], [address], [facility] 17:47:02 Coronary arteriosclero sis 43869810 Active 2024 Waqas Ramírez MD Attn: Bambi butcher,[address] [place], [address], [place] [facility] 17:47:09 Benign essential hypertension 0007868 Active 2024 Waqas Ramírez MD Attn: Bambi butcher,[address] [place], [address], [place] [facility] 5 17:47:16 Pulmonary emphysema 03990940 Active 2024 Waqas Ramírez MD Attn: Bambi butcher,[address] [place], [address], [place] [facility] 5 17:47:56 Chronic kidney disease stage 3A 781568762 Active 2024 Waqas Ramírez MD Attn: Bambi butcher,[address] [place], [address], [place] [facility] 5 17:48:08 Hypothyroidis m 13945988 Active 2024 Waqas Ramírez MD Attn: Bambi butcher,[address] [facility], [place], [address], [place] [facility] 5 17:48:26 Chronic systolic heart failure 147662892 Active 2024 Waqas Ramírez MD Attn: Bambi butcher,[address] [place], [address], [place] [facility] 5 17:49:31 Chronic hypoxemic respiratory failure 564858321 Active 2024 3 liters Waqas Ramírez MD Attn: Bambi butcher,[address] [place], [address], [place] [facility] 5 17:50:15 Spinal stenosis of lumbosacral region 200957472 Active 2024 Waqas Ramírez MD Attn: Bambi butcher,[address] [place], [address], [place] [facility] 5 17:51:18 Cardiac pacemaker in situ 916590723 Active 2024 Waqas Ramírez MD Attn: Bambi butcher,[address] [facility] [place], [address], [facility] 5 17:52:08 Chronic anemia 618326467 Active 2024 Waqas Ramírez MD Attn: Bambi butcher,[address] [facility], [place], [address], [facility] 5 17:52:43 Problem Notes None recorded. Procedures Surgical History Date Name Laterality Status Provider Name and Address Organization Details Recorded Time 4 Pacemaker completed Debra Shook MA [place] [facility] 08/20/2024 12:32:34 0 Back Surgery completed Debra Shook [place] [facility] 08/20/2024 12:32:08 0 Back Surgery completed Debra Shook MA [facility] 08/20/2024 12:32:14 5 Back Surgery completed Debra Shook MA [facility] 08/20/2024 12:32:18 Imaging Results None [...] Not Avai lable Vitals Date Recorded Body height Body mass index (BMI) Body weight Heart rate Oxygen saturation Inhaled oxygen flow rate Systolic And Diastolic Provider Name and Address Organization Details Last Updated DateTime 175.26 cm 32.8 kg/m2 171518. 15 g 69 /min 99 % 3 L/min 120/76 mm[Hg] Dominique Holland MA [facility] 14:03:57 Social History Question Answer Notes LastModified by Organizat ion Details LastModified Time Tobacco Smoking Status Former Smoker Debra Shook [facility], [facility] 08/20/2024 12:30:47 Do You Have An Advance [...] anxious, or unable to sleep at night)? [id number] Information not available 08/20/2024 Family History Relationship [...] pneumococcal polysaccharide PPV23 3 completed Not Available [facility], [facility] 03/16/2025 13:48:54 Influenza, high-dose, trivalent, PF 4 completed Not Available [facility] 03/16/2025 13:48:54 Influenza, high-dose, trivalent, PF 5 completed Not Available [facility] 03/16/2025 13:48:54 Pneumococcal conjugate PCV 13 5 completed Not Available [facility] 03/16/2025 13:48:54 Influenza, high-dose, trivalent, PF 6 completed Not Available [facility] 03/16/2025 13:48:54 Influenza, high-dose, trivalent, PF 7 completed Not Available [facility] 03/16/2025 13:48:54 Influenza, high-dose, trivalent, PF 8 completed Not Available [facility] 03/16/2025 13:48:54 Influenza, high-dose, quadrivalent, PF 9 completed Not Available [facility] 03/16/2025 13:48:54 COVID-19, mRNA, LNP-S, PF, 100 mcg/0.5mL dose or 50 mcg/0.25mL dose 1 completed Not Available [facility] 03/16/2025 13:48:54 COVID-19, mRNA, LNP-S, PF, 100 mcg/0.5mL dose or 50 mcg/0.25mL dose 1 completed Not Available [facility] 03/16/2025 13:48:54 COVID-19, mRNA, LNP-S, PF, 100 mcg/0.5mL dose or 50 mcg/0.25mL dose 2 completed Not Available [facility] 03/16/2025 13:48:54 Influenza, high-dose, quadrivalent, PF 2 completed Not Available [facility] 03/16/2025 13:48:54 COVID-19, mRNA, LNP-S, bivalent, PF, 30 mcg/0.3 mL dose 3 completed Not Available [facility] 03/16/2025 13:48:54 zoster recombinant 3 completed Not Available [facility] 03/16/2025 13:48:54 zoster recombinant 3 completed Not Available [facility] 03/16/2025 13:48:54 Past Encounters Encounter ID Performer Location Encounter Start Date Encounter Closed Date Diagnosis/Indication Diagnosis SNOMED-CT Code Diagnosis ICD10 Code Diagnosis IMO Codes Diagnosis Note [id number] Waqas Ramírez MD [facility] ([facility]ult [facility]) [address] [place] [phone] 03/16/2025 13:46:49 03/16/2025 14:46:37 Obese class I 8943551135 02414 E66.811 E66.3 4160616410 Benign ess ential hypertension 7252258 I10 3379 Frailty 884930827 R54 134017 Spinal roberto nosis of lumbosacral region 762362454 M48.07 4471023 Chronic hy poxemic respiratory failure 270944386 J96.11 53342170 Chronic sy stolic heart failure 210703898 I50.22 125742 Coronary arteriosclerosis 08568138 I25.10 697408 Permanent atrial fibrillation 933096769 I48.21 728674 Health Concerns Section Related Observation LastModified by Organization Detai ls LastModified Time None Recorded Concern Status LastModified by Organization Details LastModified Time None Recorded Payers Encounter Date Sequence Insurance Name Policy Number Policy Foreman Covered Member ID Foreman Member ID Guarantor Name 03/16/2025 1 [facility] (MEDICARE REPLACEMENT/A DVANTAGE - HMO) [id number] Jorge L Call [id number] Jorge L Call Notes Date Note Type Note Provider Name and Address Organization Details Recorded Time 03/16/2025 text/html Hospitalized for UTI he has [...] around with a walker buttock pressure ulcer Waqas Ramírez MD Attn: Accounting,[address] [facility], [place], [address], [facility] 03/25/2025 21:13:54
--- OUTSIDE RECORDS SUMMARY | 2025-04-22 06:07 | XMS_ITS ---
Author Organization [facility] Address [address] [place] [address] Care Team Providers Care Double Bass Player Name Role Phone Waqas Ramírez MD Primary Care Provider + [phone] Gurmeet Lares MD Unavailable Prema Grant MD Unavailable Waqas Dobbins MD Unavailable [phone] Active Problems Problem Noted Date Diagnosed Date COPD exacerbation 07/12/2024 SVT (supraventricular tachycardia) 07/29/2023 Fracture of foot 04/09/2022 Rash 04/09/2022 Pain in toe 04/09/2022 Shoulder pain 04/09/2022 Hypokalemia 01/14/2022 Pain in joint of right shoulder 11/29/2021 Anemia 08/09/2021 Melena 07/31/2021 Overview (07/31/2021): Added automatically from request for surgery [id number] UGIB (upper gastrointestinal bleed) 07/31/2021 Chest pain, unspecified type 07/13/2021 Chest pain 07/11/2021 Hereditary and idiopathic peripheral neuropathy 07/03/2021 Assessment & Plan (07/03/2021 9:23 AM HOBBING PRESS OPERATOR): Patient has peripheral neuropathy is somewhat [...] 06/19/2021 Assessment & Plan (06/19/2021 10:39 AM HOBBING PRESS OPERATOR): 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 This may make him more prone to have muscle strains in the forearm. Would encourage warm soaks and stretching exercises for this individual. Exercise were demonstrated for him to perform on a regular basis. Right rotator cuff tendinitis 06/19/2021 Assessment & Plan (06/19/2021 10:40 AM HOBBING PRESS OPERATOR): Patient has a history exam consistent [...] (05/30/2020): Added automatically from request for surgery [id number] Benign prostatic hyperplasia with urinary obstru ction 02/24/2020 Overview (02/24/2020): Added automatically from request for surgery [id number] s/p L3-S1 with right L4-5 fa cet [...] tolerance 05/01/2017 Atherosclerotic heart diseas e of [place] coronary artery without angina pectoris 04/30/2017 Occlusion [...]
--- OUTSIDE RECORDS SUMMARY | 2025-04-22 06:07 | XMS_ITS | Clinical Summary ---
Author Organization [facility] Facility Address [address] [place] [address], [place] [address] Care Team Providers Care Carpenter Apprentice Name Role Phone Sina White MD Primary Care Provider [phone] Social History Tobacco Use Types Packs/Day Years [...] to complete this topic [place] [address] Care Teams Carpenter Apprentice Relationship Specialty Start Date End Date Sina White MD [address] [facility], [address] [place] [id number] PCP - General Internal Medicine 11/18/23
[2025-04-22 06:09] LABS: Hematocrit 27.3 % (42.0-52.0); Hemoglobin 8.0 g/dL (14.0-18.0); Immature Granulocyte Percent A 1.2 % (0-0.5); Lymphocytes Absolute Auto 1.17 K/mm3 (0.9-3.2); Mean Corpuscular HGB Conc 29.3 g/dl (32-36); Mean Corpuscular Hemoglobin 27.6 pg (26-34); Mean Corpuscular Volume 94.1 fl (80-100); Nucleated Red Blood Cells Absolute Auto 0.000 K/mm3 (0.0-0.012); Nucleated Red Blood Cells Perc 0.0 % (0.0-0.2); Platelet Count Result 205 k/mm3 (150-375); Red Blood Count 2.90 M/mm3 (4.6-6.20); White Blood Count 8.7 K/mm3 (4.5-10.0)
[2025-04-22 06:10] VITALS: PULSE 60; RESP 19
[2025-04-22] MEDS: ALBUTEROL SULFATE NEB 2.5 MG/3 ML INH 10 MG INHALATION (06:10)
[2025-04-22] MEDS: IPRATROPIUM BR 0.02% INH SOLN 0.5 MG/2.5 ML VIAL 1 MG INHALATION (06:10)
[2025-04-22 06:31] LABS: Alanine Aminotransferase 22 U/L (6-50); Albumin Level 3.6 g/dL (3.5-5.1); Alkaline Phosphatase 94 U/L (38-126); Anion Gap 3 mmol/L (4-12); Aspartate Amino Transferase 36 U/L (17-59); Bilirubin,Total 0.4 mg/dL (0.2-1.3); Blood Urea Nitrogen 22 mg/dL (9-20); Calcium 8.0 mg/dL (8.4-10.2); Carbon Dioxide 37 mmol/L (22-30); Chloride 96 mmol/L (98-107); Estimated CRCL calculation 41 ml/min; Estimated Glomerular Filt Rate 43; Glucose 89 mg/dL (65-110); Potassium 3.4 mmol/L (3.4-5.0); Sodium 136 mmol/L (137-145); Total Protein 6.4 g/dL (6.3-8.2)
[2025-04-22 06:35] VITALS: BP 127/56; PULSE 60; RESP 15; O2SAT 100
[2025-04-22 06:40] LABS: Anisocytosis 1+; Hypochromasia 2+; Schistocytes None Seen
[2025-04-22 06:45] LABS: Influenza A QL RT-PCR Negative (Negative); Influenza B QL RT-PCR Negative (Negative); RSV RNA, RT-PCR Negative (Negative); SARS-CoV-2 RNA PCR Negative (Negative)
[2025-04-22 06:57] VITALS: BP 130/59; PULSE 60; RESP 18; O2SAT 100
--- NOTE | 2025-04-22 07:11 | PC.NURSE ---
Bedside Shift report received from Luda RN, patient updated to plan of care- and transport timeline.
--- NOTE | 2025-04-22 07:45 | PC.NURSE ---
Report given to [facility] staff at this time, patient a/o x 4, endorses feeling better and was educated that he is going back to his facility via ems. patient denied any questions or concerns
== END 2025-04-22 07:47 ==
PROVIDERS: Emergency Provider Student in an Organized Health Care Education/Training Program; PCP Internal Medicine
DX: J96.20 Acute and chronic respiratory failure, unspecified whether with hypoxia or hypercapnia (principal); J44.9 Chronic obstructive pulmonary disease, unspecified; R94.31 Abnormal electrocardiogram [ECG] [EKG]; I12.9 Hypertensive chronic kidney disease with stage 1 through stage 4 chronic kidney disease, or unspecified chronic kidney disease; N18.9 Chronic kidney disease, unspecified; E03.9 Hypothyroidism, unspecified; E78.5 Hyperlipidemia, unspecified
CPT/HCPCS: 36415; 71045; 80053; 85025; 87637; 93005; 94640; 99284